=== PATIENT | female | born 1935 | race Caucasian/White ===

== ENCOUNTER → 2019-05-11 | Outpatient (CLI) | payer SELFPAY | PROVIDERS: Family Provider Physician Assistant; Visit Provider Podiatrist Foot & Ankle Surgery | DX: Z46.89 Encounter for fitting and adjustment of other specified devices (principal); M21.42 Flat foot [pes planus] (acquired), left foot; M21.41 Flat foot [pes planus] (acquired), right foot | CPT/HCPCS: L3030 ==

== ENCOUNTER 2019-06-24 05:58 | Day surgery (SDC) | payer MEDICARE, OTHER, SELFPAY ==
[2019-06-14 10:10] VITALS: BMI 39.8
--- NOTE | 2019-06-14 10:38 | ANES.PREANE2 ---
Pre-Anesthetic Assessment Pre-Anesthetic Assessment: Height/Weight: Height 1.63 m Weight 105.233 kg Preop Diagnosis: Right Shoulder Pain Proposed Procedure: Operation Date: 06/24/19 07:40 Proposed Procedures p Shoulder Arthroscopy with debridement [id number] M75.120(Right) - DO shawn Orona Bicep Tenodesis(Right) - DO shawn Orona Rotator Cuff Repair Open with dermal patch(Right) - DO shawn Orona Distal Clavicle Resection(Right) - DO shawn Orona Acromioplasty(Right) - Cristiano Rain DO Exam: Pre-Anes Outpt Exam: alert, oriented x 3 and clear to auscultation bilaterally Additional Exam Findings (including area of procedure): irreg, irreg Airway: Submandibular: WNL Cervical ROM: Other MP: 2 Dentition: Caps CV/HEM: CV/HEM: Afib, DVT and HTN Comments: rx'd 15 years s/p Watchman 04/28 Metabolic: Metabolic: Thyroid Comments: replacement x 20y without recent chang3 Musc/skel: Musc/skel: Lower Back Pain Comments: nonradiating PFSH Anesthesia PFSH: Social History (Updated 06/14/19 @ 10:14 by Rosalina Mckeon) Smoking and tobacco status: never smoked Alcohol intake: never Substance/Drug Use: never Data Anesthesia Cardiac Studies: No Data to Display
[2019-06-24] VITALS (9 sets, daily range): BP systolic 108–187; BP diastolic 66–112; PULSE 58–67; RESP 12–18; TEMP 36.1–36.5; O2SAT 93–100
[2019-06-24] MEDS: sodium chloride 0.9% 1,000 ML 30 ML IV (06:34)
[2019-06-24] MEDS: CELEcoxib 200 mg Capsule 400 MG PO (06:36)
--- NOTE | 2019-06-24 07:05 | PM.HPUD ---
H&P update H&P Update: DATE OF SURGERY/PROCEDURE: 06/24/19 DATE H&P PERFORMED: 06/03/19 PREOP DIAGNOSIS: right shoulder rotator cuff tear PLANNED PROCEDURE: Operation Date: 06/24/19 08:00 Proposed Procedures p Shoulder Arthroscopy with debridement [id number] M75.120(Right) - DO shawn Orona Bicep Tenodesis(Right) - DO shawn Orona Rotator Cuff Repair Open with dermal patch(Right) - Cristiano Rain DO s Distal Clavicle Resection(Right) - Cristiano Rain DO s Acromioplasty(Right) - Cristiano Rain DO Full H&P Medications/Allergies: Current Medications: Current Medications Generic Name Dose Route Start Last Admin Trade Name Freq PRN Reason Stop Dose Admin Sodium Chloride 1,000 mls @ 30 ml s/hr 06/24/19 06:15 06/24/19 06:34 Sodium Chloride 0.9% IV 06/25/19 06:14 30 mls/hr .Q24H MG Administration Perinent History: Social History: Social History Smoking and tobacco status: never smoked Alcohol intake: never Substance/Drug Use: never A&P Assessment and plan (1) Rotator cuff tear, right: Plan is to perform diagnostic arthroscopy of the right shoulder and then due to the patient's age perform open distal clavicle resection with acromioplasty and rotator cuff repair with patch to reinforce patient's inherently weak tissue due to her 84 years of age. Patient declined use of platelet rich plasma as she is a Taoism. Plan to be perform surgery on outpatient basis unless some clinical issues arise that would make it more prudent to keep her overnight for observation Status: Acute Code(s): M75.101 - Unspecified rotator cuff tear or rupture of right shoulder, not specified as traumatic
--- NOTE | 2019-06-24 07:08 | P.OP_ITS ---
Operative Report Date of procedure: June 24, 2019 Pre-op Diagnosis: right shoulder rotator cuff tear Post-op diagnosis: other Post-op Diagnosis: Right shoulder full-thickness nontraumatic rotator cuff tear right shoulder Acromioclavicular joint arthritis Chronic impingement Partial tearing of long head of biceps tendon due to chronic impingement Post-op Findings: mild fraying of the glenoid labrum Marked fraying approximately 50% of long head of biceps tendon Full-thickness areas of tearing of the supraspinatus tendon Acromioclavicular joint arthritis Procedure Done: Diagnostic arthroscopy of right shoulder with minimal debridement open distal clavicle resection open acromioplasty open rotator cuff repair augmented with acellular dermal patch open biceps tenodesis Implants: 4 Arthrex swivel lock anchors 1 Arthrex Bio-Tenodesis button Artroflex acellular human dermal patch Specimens removed/disposition: Portion of distal clavicle, Acromion Pathology: other Pathology: portion of distal clavicle Portions of acromion Portion of long head of biceps tendon Surgeon: Cristiano Rain Anesthesia: General and Nerve Block (right inter scalene) Estimated blood loss (mL): 25 Complications: no apparent complications Findings: see postoperative findings above Condition: stable Disposition: PACU Brief History: 84-year-old white female with chronic right shoulder pain. Examination suggestive of chronic impingement with rotator cuff tearing. X-rays and MRI show acromioclavicular joint arthritis. MRI also shows evidence of full-thickness tear of the rotator cuff specifically the supraspinatus tendon but no specific retraction. Due to persistent pain despite conservative treatment patient is brought to surgery for right shoulder rotator cuff repair. We discussed with the patient that due to the decreased strength of rotator cuff tissue based on age that a repair of her rotator cuff should include an acellular dermal patch to hopefully try to avoid re-tear of the rotator cuff. We discussed that if a biceps tenodesis would need to be performed based on intraoperative findings at arthroscopy that we would do so. Risks of surgery include aren't limited to infection, nerve/blood vessel/tendon injury. Medical complications can include blood clots, heart attack, stroke risk up to including . We discussed specifically risks of rotator cuff surgeries can include stiffness, possibility of re-tear and failure to relieve all pain. All patient's questions were answered she was agreeable to proceed with surgery. Procedure: patient identified. Surgical site was signed. Surgical permit was signed. Patient received an interscalene block of the right shoulder by the anesthesia team in the preoperative holding area for intraoperative and postoperative analgesia. She received 1.5 g of vancomycin intravenously due to a penicillin allergy for surgical prophylaxis. She was taken to the operating room. She was transferred to the operating room table. She was placed under general endotracheal anesthesia without difficulty. She was then positioned in the beachchair position. She was then sterilely prepped and draped usual fashion. A timeout was performed. Bony landmarks were outlined using a skin marking pen. Using #11 blade a posterior portal incision was made through the skin. The arthroscope sheath with the blunt tipped obturator was inserted into the glenohumeral joint. The shoulder joint was then distended using the arthroscopic pump using sterile saline and dilute epinephrine solution. Using a switching stick we tented the skin anteriorly and with #15 blade made a small skin incision and then introduced an Arthrex 7 mm clear cannula and to the anterior aspect of the joint. Using a motorized shaver we cleared bloody fluid from the shoulder joint. We then encountered fraying of the glenoid labrum this was debrided using motorized shaver. We noted a partially 50% thickness tear of the long head of biceps tendon approximately 1-1/2-2 cm from its insertion on the glenoid labrum. Using the motorized shaver were able to divide the long head of the biceps tendon and debride the insertion on the superior aspect of the glenoid labrum. No significant arthritic change of the glenoid or humeral head was appreciated. We can see that the patient had to full-thickness tearing of the rotator cuff but the tear was not retracted. We now began the open portion of the surgical procedure. A 10 cm incision was made from the posterior aspect of the acromial clavicular joint coursing obliquely over the anterolateral aspect of the acromion and into the upper arm. Full-thickness skin flaps were made and skin edge bleeders were treated with electrocautery. Self retractors placed in the wound. We now using the electrocautery made full-thickness skin flaps over the distal clavicle and the acromion exposing underlying before meals joint which proved to be very arthritic. We continued our dissection to the anterolateral aspect of the acromion and then split the superior aspect of the deltoid in line with its fibers. Using a small saw we resected the distal 68 mm of the clavicle and anterior 5 mm of the acromion. With further thin the acromion using an osteotome. Portions of the acromion and distal clavicle resected for pathologic exam. Self-retaining retractors now placed more deeply in the wound. Bursectomy was performed with scissors. Expose the underlying rotator cuff. There are several longitudinal tears in the supraspinatus tendon with a central portion that was still intact through one of the tears and rotator cuff because the supervise tendon identified the long head of the biceps tendon just as it began to enter the bicipital groove. We opened the tissue over the bicipital groove. Retraction of the long head of the biceps tendon. A traction stitch using FiberWire was placed in the long head of biceps tendon extra portion of the long head of biceps tendon was debrided sharply cemented for [place] pathology. Within the bicipital groove we drilled a pilot safety inspector hole using his pain tipped drill then placed the grasping suture ends that had been placed along the biceps tendon through the Arthrex Bio-Tenodesis button and then untwisted and the drill hole in the bicipital groove and traction the tendon into the bicipital groove. Using a free needle I sutured the soft tissue we had divided previously over the top of the long head of the biceps tendon now tenodesed in the bicipital groove. We tied over this area using the permanent suture whipstitch and cut the knot. Using interrupted sutures to make margin convergence sutures of the longitudinal rents in the supraspinatus tendon. No to better expose the footprint of the supraspinous tendon I detached contact portions of the supraspinatus tendon to expose the normal footprint of the supraspinous tendon. 2 swivel lock anchors were placed medially and there sutures placed through the rotator cuff as well as the fiber tape. 2 anchors were placed laterally and this made our double row construct and the rotator cuff was repaired down to bone. I used the sutures from the swivel lock anchors to suture the Arthrex acellular dermal patch over the top of her rotator cuff repair to further reimplant force the repair. I believe this to be instrumental in this case is the patient's rotator cuff tissue was frankly very friable. Once the patch was sutured into position with #2 FiberWire from our for anchors as well as excess suture over the bicipital groove we now did a running suture of 3-0 Prolene about the periphery of the acellular dermal patch to appropriately tenths the patch to prevent impingement on the undersurface of the acromion and distal clavicle. The wound is now irrigated with Betadine- containing saline solution and antibiotic containing saline solution. The deltoid was repaired back to the acromion by passing a #2 FiberWire sutures through the acromion and reattach the deltoid down to the acromion. The deltotrapezial split over the very distal clavicle excision was closed with a running suture of #254. We also close the split in the proximal aspect of the deltoid between the anterior middle bellies using #2 FiberWire sutures. Subcutaneous closures and performed using O and 2-0 undyed Vicryl followed by 3- 0 Monocryl in a subcuticular suture. 2-0 Vicryl sutures were placed in the subcutis tissues to close the anterior posterior portals as well as a running septic or suture of 3-0 Monocryl for the anterior portal site. Dermabond and Steri-Strips were then used to close the skin. Sterile dressings were applied. The patient was placed in UltraSling with an abduction wedge. She was aroused from general anesthesia. She was taken to recovery room. She tolerated surgery well. All counts are correct.
[2019-06-24] MEDS: fentaNYL 50 mcg/mL INJ 2mL 100 MCG IVP (07:27)
[2019-06-24] MEDS: midazolam 1 mg/mL INJ 5 ML 5 MG IVP (07:28)
--- NOTE | 2019-06-24 07:29 | ANES.PROC ---
Anesthesia Procedures Procedure/Date: 06/24/19 Right innerscalene block Procedure Narrative: R&B's of right innerscalene block disc'd. Verbal and written consent obtained. Versed 2+1mg, Fentanyl 50ug. US utilized to identify right innerscalene groove, HAIR. Nerve stimulator at 0.8 mAMPS. 30cc total volume Ropvicaine 0.5% + Lido 2% with epi 3:1 mixture in 5cc increments without problems/complications Nerve Block ^: Nerve Block 1: Main Anesthesia: general anesthesia Time Out Performed: Yes Consent: requested by attending/covering physician, from patient, risks and benefits reviewed and patient agrees to proceed Nerve block location: interscalene Anesthesia monitors applied: pulse oximetry and oxygen Nerve block position: supine Anesthetic Used: lidocaine 2%, ropivicaine 0.5% and with epi Amount of anesthesia used (mL): 30 Ultrasound used to: visualize and ID interscalene groove Nerve Stimulator Used?: Yes Interscalene/Femoral BLK: 2 stimuplex 22 g needle used for position and inplane approach and no vascular puncture identified Injection: neg aspiration of heme Patient Tolerated Procedure: well and no complications Complications: none
[2019-06-24] MEDS: EPINEPHrine 1 mg/mL INJ XX ×2 (08:25→08:26)
--- NOTE | 2019-06-24 10:19 | SUR.PHASEI ---
1017 PATIENT TO PACU AT THIS TIME. ALERT TO SELF, RR EVEN AND UNLABORED. SPO2 92% ON ROOM AIR. PLACED ON NC AT 3L. DRESSING TO RIGHT SHOULDER, CDI, WITH SLING IN PLACE. CAP REFILL LESS THAN 3 SECONDS. RADIAL PULSE PRESENT AND STRONG.
--- NOTE | 2019-06-24 10:48 | SUR.PHASEI ---
1042 PATIENT TO OPS VIA [employer] AT THIS TIME. DENIES PAIN. DRESSING INTACT TO RIGHT SHOULDER, ULTRASLING IN PLACE. RADIAL PULSE PRESENT.
--- NOTE | 2019-06-24 12:16 | SUR.PHASEII ---
VERBAL REPORT GIVEN TO GOVIND AT [facility]. WRITTEN DISCHARGE INSTRUCTIONS AND SCRIPTS SENT WITH DAUGHTER TO GIVE TO GOVIND AT [facility].
== END 2019-06-24 12:10 | disposition home or self-care (01) ==
PROVIDERS: Family Provider Physician Assistant; PCP Physician Assistant; Visit Provider Orthopaedic Surgery
PROC: (CPT 29805; principal; 2019-06-24 07:00)
PROC: (CPT 23430; 2019-06-24 07:00)
PROC: (CPT 23120; 2019-06-24 07:00)
PROC: (CPT 23120; 2019-06-24 07:00)
PROC: (CPT 23130; 2019-06-24 07:00)
DX: M75.101 Unspecified rotator cuff tear or rupture of right shoulder, not specified as traumatic (principal); M13.811 Other specified arthritis, right shoulder; I48.91 Unspecified atrial fibrillation; Z86.718 Personal history of other venous thrombosis and embolism; I10 Essential (primary) hypertension; Z79.82 Long term (current) use of aspirin
CPT/HCPCS: 23120; 23420; 23430; 29822; 12345; 88304; 88307; 96365; 96374; 96375; C1713; J0131; J0171; J1580; J2001; J2250; J2704; J2795; J3010; J3370; J3490; J7030; J7050

== ENCOUNTER 2019-11-09 09:21 | Outpatient (CLI) | payer MEDICARE, OTHER, SELFPAY ==
--- NOTE | 2019-11-09 10:16 | CT_ITS ---
WS: [id number] CT ABDOMEN AND PELVIS NONCONTRAST HISTORY: ABD PAIN, DIARRHEA TECHNIQUE: Imaging performed through the abdomen and pelvis. Coronal and sagittal reformats are submi tted. All CT scans at [facility] use at least one of these dose optimization techniques: automated exposure control; mA and/or kV adjustment per patient size (includes targeted exams where d ose is matched to clinical indication); or iterative reconstruction. DLP: 1073.64 mGycm COMPARISON: 04/15/2019 07/15/2018 Lower thorax: Lung bases are clear. Mild cardiomegaly and small hiatal hernia. Liver: Normal, no mass or intrahepatic dilatation. Gallbladder: Prior cholecystectomy. Pancreas: Normal for age with fatty replacement. Spleen: Normal. Adrenal glands: Normal. Right kidney: Normal size with no stones, masses or atrophy. Left kidney: Normal size with no stones, mass or atrophy. Mild atherosclerosis with no aneurysm. No free fluid, intraperitoneal air or significant lymphadenopathy. GI tract: Prior appendectomy. No GI tract obstruction. There is some very minimal wall thickening in the ascending colon. No significant diverticular disease. No wall thickening. No edema. Abdominal wall: Moderate-sized fat-containing umbilical hernia. Pelvis: No free fluid or adenopathy. Normally distended urinary bladder. Osseous structures: L4 anterolisthesis by 5 mm. Multilevel advanced degenerative disc space narrowing and desiccation. CT/CT abdomen pelvis wo con [id number] IMPRESSION: 1. Very minimal wall thickening in the region of the ascending colon. Not caus ing a significant obstruction. Cannot evaluate further without IV contrast or o ral contrast. If recent colonoscopy has not been performed this should be obtai arlen to exclude neoplasm. 2. No adenopathy or ascites. 3. Prior cholecystectomy. 4. Fat-containing umbilical hernia.
== END 2019-11-09 09:22 | disposition home or self-care (01) ==
LOC: RADWPI 09:27
PROVIDERS: Family Provider Physician Assistant; PCP Physician Assistant; Visit Provider Physician Assistant
DX: R10.9 Unspecified abdominal pain (principal); R19.7 Diarrhea, unspecified; K42.9 Umbilical hernia without obstruction or gangrene
CPT/HCPCS: 74176

== ENCOUNTER 2019-12-23 11:01 | Outpatient (CLI) | payer MEDICARE, OTHER, SELFPAY ==
--- NOTE | 2019-12-23 11:03 | MR_ITS ---
WS: [id number] MRI LUMBAR SPINE NONCONTRAST TECHNIQUE: Sagittal T1, T2 and STIR imaging. Axial T1 and T2 imaging. CLINICAL INFORMATION: LUMBAR REGION RADICULOPATHY COMPARISON: Mild atheromatous disease right carotid bulb. FINDINGS: Mild lumbar curve. No acute compression. Grade 1 anterolisthesis L4 on L5. Disc space narrowing worse L5-S1. Mild disc bulging L1-L2, L2-L3 and L3-L4. L1-L2: Mild disc bulging with slight effacement of ventral thecal sac. Moderate facet arthropathy. Mi ld ligament flavum hypertrophy. Narrowing of the subarticular recess bilaterally. Mild to moderate bi lateral foraminal narrowing. L2-L3: Mild disc bulging with osteophytic ridging. Narrowing of the subarticular recess bilaterally. Mild central canal stenosis. Mild bilateral foraminal narrowing right greater than left. L3-L4: Mild disc bulging with a tiny left pericentral protrusion. Mild central canal stenosis with sl ight impingement on the left subarticular recess. Mild bilateral foraminal narrowing. L4-L5: Mild disc bulging with osteophytic ridging. Impingement on the traversing L5 nerve roots bilat erally with narrowing of the subarticular recess. Advanced facet arthropathy with ligament flavum hyp ertrophy. Small facet effusions. Grade 1 anterolisthesis. Moderate left and mild right foraminal narr owing. L5-S1: Mild disc bulging and osteophytic ridging. Mild disc space narrowing. Foramen are patent. Mild facet arthropathy. Tiny central shallow protrusion. Prior postoperative changes in the cervical spine with anterior cervical fusion C5-C6. Moderate thora cic kyphosis on the sustainable systems analyst imaging. Visualized pelvic bony structures: Normal. Paravertebral soft tissues: Normal. MR/MR lumbar spine wo con* [id number] IMPRESSION: 1. Mild lumbar curve. No acute compression. Grade 1 anterolisthesis L4 on L5 u nchanged since . 2. Mild central canal stenosis L1-2, L2-L3, and L3-L4 with impingement on the subarticular recess. 3. Moderate central canal stenosis L4-5 with impingement traversing L5 nerve r oots bilaterally. Advanced facet arthropathy with small facet effusions. 4. Mild to moderate bony foraminal narrowing worse at right L3-4 and left L4-5 . Impingement on the exiting left L4 nerve root.
== END 2019-12-23 11:02 | disposition home or self-care (01) ==
LOC: RADSHAW 11:02
PROVIDERS: PCP Physician Assistant; Visit Provider Internal Medicine Rheumatology
DX: M54.16 Radiculopathy, lumbar region (principal); I65.21 Occlusion and stenosis of right carotid artery; M48.061 Spinal stenosis, lumbar region without neurogenic claudication; M47.816 Spondylosis without myelopathy or radiculopathy, lumbar region; G03.9 Meningitis, unspecified
CPT/HCPCS: 72148

== ENCOUNTER → 2020-01-11 09:16 | Outpatient (BNVA) | payer MEDICARE, OTHER, SELFPAY | PROVIDERS: PCP Physician Assistant; Visit Provider Internal Medicine | DX: Z01.812 Encounter for preprocedural laboratory examination (principal) | CPT/HCPCS: 87635 ==

== ENCOUNTER 2020-01-13 05:45 | Day surgery (SDC) | payer MEDICARE, OTHER, SELFPAY ==
[2020-01-11 11:38] VITALS: BMI 39.0
[2020-01-13 06:13] VITALS: BP 153/93; PULSE 64; RESP 18; TEMP 36.4; O2SAT 94; BMI 39.2
--- NOTE | 2020-01-13 06:36 | W.PM.OPSUD ---
Surgery/Procedure H&P Update DATE OF PROCEDURE: January 13, 2020 DATE H&P PERFORMED: 01/04/20 H&P UPDATE INFORMATION: No changes to prior documentation PREOP DIAGNOSIS: right shoulder rotator cuff tear PLANNED PROCEDURE: Operation Date: 01/13/20 07:00 Proposed Procedures p EGD/colon(Not Applicable) - Geoff Riddle MD s Colonoscopy(Not Applicable) - Geoff Riddle MD
[2020-01-13] MEDS: sodium chloride 0.9% 1,000 ML 30 ML IV (06:41)
--- NOTE | 2020-01-13 06:42 | ANES.PREANE2 ---
Pre-Anesthetic Assessment Pre-Anesthetic Assessment: Height/Weight: Height 1.68 m Weight 110.223 kg Temp Pulse Resp BP Pulse Ox 97.5 F L 64 18 153/93 94 01/13/20 06:13 01/13/20 06:13 01/13/20 06:13 01/13/20 06:13 01/13/20 06:13 Preop Diagnosis: epigastric pain Proposed Procedure: Operation Date: 01/13/20 07:00 Proposed Procedures p EGD/colon(Not Applicable) - Geoff Riddle MD s Colonoscopy(Not Applicable) - Geoff Riddle MD Was Beta Dinesh taken within 24 hours: Yes Last intake: Intake Last Liquid Date 01/13/20 Last Liquid Time 00:00 Last Solid Date 01/11/20 Social: Social History: No alcohol and No tobacco Exam: Pre-Anes Outpt Exam: alert, oriented x 3, clear to auscultation bilaterally and regular rate & rhythm Airway: Submandibular: WNL Cervical ROM: WNL MP: 3 Dentition: Full History/ROS: No significant history except as noted and No significant complaints Pulmonary: Pulmonary: None reported CV/HEM: CV/HEM: Afib and HTN Comments: denies cp/angina : : None reported Hepatic: Hepatic: None reported GI: GI: GERD Metabolic: Metabolic: Hyperlipidemia, Morbid obesity and Thyroid (hypo) Musc/skel: Musc/skel: OA/DJD and Weakness Comments: parkinsons Neuropsych: Neuropsych: None reported Anesthetic Plan: ASA status: 3 Anesthesia: MAC Meds/Allergies Current Medications: Current Medications Generic Name Dose Route Start Last Admin Trade Name Freq PRN Reason Stop Dose Admin Sodium Chloride 1,000 mls @ 30 ml s/hr 01/13/20 06:15 01/13/20 06:41 Sodium Chloride 0.9% IV 01/14/20 06:14 30 mls/hr .Q24H MG Administration PFSH Anesthesia PFSH: Medical History Arthritis Hx of deep venous thrombosis Hx of pulmonary embolus Hx of vaginal delivery Hyperlipemia Hypothyroid Rheumatoid arthritis Rotator cuff tear, right Surgical History History of shoulder surgery Diagnostic arthroscopy of right shoulder with minimal debridement, open distal clavicle resection, open acromioplasty, open rotator cuff repair augmented with acellular dermal patch, open biceps tenodesis. DOS: 06/24/[address] Rain Hx of Achilles tendon repair Hx of appendectomy Hx of arthroscopy of shoulder Hx of heart surgery Hx of laminectomy Hx of tubal ligation Social History Smoking and tobacco status: never smoked Alcohol intake: never Data Anesthesia Cardiac Studies: No Data to Display
[2020-01-13 07:21] VITALS: BP 146/100; PULSE 58; RESP 16; TEMP 36.6; O2SAT 100
[2020-01-13 07:29] VITALS: BP 160/80; PULSE 59; RESP 18; O2SAT 99
--- NOTE | 2020-01-13 07:33 | ANE.PACU2 ---
Inpatient post-anesthesia follow up: Airway intact: Yes Vital signs: Temperature 97.8 F Pulse Rate 59 Respiratory Rate 18 Blood Pressure 160/80 Pulse Oximetry 99 Oxygen Delivery Me thod Room Air Oxygen Flow Rate 4 Fraction of Inspir ed Oxygen Hydration adequate: Yes Nausea and vomiting: No Mental status: Baseline
[2020-01-14 06:48] LABS: H. Pylori / CLO Test Negative
== END 2020-01-13 07:49 | disposition home or self-care (01) ==
PROVIDERS: PCP Physician Assistant; Visit Provider Surgery
PROC: 0DJ08ZZ Inspection of Upper Intestinal Tract, Via Natural or Artificial Opening Endoscopic (ICD-10-PCS; CPT 43235; principal; 2020-01-13 07:00)
PROC: 0DJD8ZZ Inspection of Lower Intestinal Tract, Via Natural or Artificial Opening Endoscopic (ICD-10-PCS; CPT 45378; 2020-01-13 07:00)
DX: K29.70 Gastritis, unspecified, without bleeding (principal); K57.30 Diverticulosis of large intestine without perforation or abscess without bleeding; K64.8 Other hemorrhoids; K21.9 Gastro-esophageal reflux disease without esophagitis; I48.91 Unspecified atrial fibrillation; I10 Essential (primary) hypertension; E78.5 Hyperlipidemia, unspecified; E66.01 Morbid (severe) obesity due to excess calories; E03.9 Hypothyroidism, unspecified; G20 Parkinson's disease; M19.90 Unspecified osteoarthritis, unspecified site; Z86.73 Personal history of transient ischemic attack (TIA), and cerebral infarction without residual deficits; Z86.711 Personal history of pulmonary embolism; M06.9 Rheumatoid arthritis, unspecified
CPT/HCPCS: 12345; 43239; 45378; 87077; J2704; J7030

== ENCOUNTER 2020-03-12 12:52 | Emergency (ER) | payer MEDICARE, OTHER, SELFPAY ==
[2020-03-12] VITALS (9 sets, daily range): BP systolic 92–181; BP diastolic 65–103; PULSE 63–140; RESP 14–30; TEMP 37.7; O2SAT 90–100; BMI 40.6
--- NOTE | 2020-03-12 13:28 | XRR_ITS ---
PROCEDURE INFORMATION: Exam: XR Chest, 1 View Exam date and time: 03/12/2020 1:40 PM Age: 84 years old Clinical indication: Cough TECHNIQUE: Imaging protocol: XR of the chest Views: 1 view. COMPARISON: CR Chest 1 [place] [id number] 02/12/2017 10:34 PM FINDINGS: Lungs: The lungs are hyperinflated with mild interstitial prominence compatible probable mild fibrosis. There is some linear atelectasis versus scarring in both lungs. There is no lobar consolidation. Pulmonary vascularity is within normal limits. There is some mild hazy density in the lung bases similar to the prior exam most of which is probable overlying soft tissues without definite pneumonitis. Pleural space: Unremarkable. No pleural effusion. No pneumothorax. Heart/Mediastinum: The heart is enlarged. Bones/joints: No acute abnormality. XR/XR chest 1V portable [id number] IMPRESSION: Chronic findings as above. No active pulmonary disease.
--- NOTE | 2020-03-12 13:29 | ECG_ITS ---
[facility] Test Date: 2020-03-12 Pat Name: Kassie Robles Department: Room: Gender: Female Intranet Developer: STANLEY : 1935 Requested By: Cierra Soliman Order Number: [id number] Reading MD: MEDHAT VELAZQUEZ Measurements Intervals [place]eland Rate: 143 P: CA: -1 QRS: 21 QRSD: 105 T: 15 QT: 264 QTc: 408 Interpretive Statements ATRIAL FIBRILLATION WITH RAPID VENTRICULAR RESPONSE NONSPECIFIC ST & T-WAVE ABNORMALITY ABNORMAL RHYTHM ECG Compared to ECG 08/07/2016 16:01:53 T-wave abnormality now present ST (T wave) deviation no longer present Electronically Signed On 03-12-2020 19:35:25 BENEFIT SPECIALIST by MEDHAT VELAZQUEZ [email or web address]
[2020-03-12 14:17] LABS: Basophils # 0.1 10^3/uL (0.0-0.1); Basophils % 1.5 %; Eosinophils # 0.1 10^3/uL (0.0-0.8); Eosinophils % 1.2 %; Hematocrit 40.5 % (37.0-47.0); Hemoglobin 13.3 g/dL (11.5-15.3); Lymphocytes # 1.1 10^3/uL (0.8-4.8); Lymphocytes % 21.8 %; Mean Corpuscular HGB Conc 32.8 g/dL (30.0-36.0); Mean Corpuscular Hemoglobin 35.7 pg (28.0-34.0); Mean Corpuscular Volume 108.6 fL (81-99); Mean Platelet Volume 12.3 fL (7.4-10.4); Monocytes # 0.9 10^3/uL (0.2-0.9); Monocytes % 17.7 %; Neutrophils # 2.77 10^3/uL (1.8-7.7); Neutrophils % 57.6 %; Nucleated Red Blood Cells % 0 %; Platelet Count 191 10^3/cmm (130-400); Red Blood Count 3.73 10^6/uL (4.1-5.3); Red Cell Distribution Width 13.9 % (12.1-15.1); White Blood Count 4.8 10^3/uL (4.0-10.0)
[2020-03-12] MEDS: sodium chloride 0.9% 1,000 ML 150 ML IV (14:20)
[2020-03-12 14:29] LABS: INR 0.98 (0.8-1.2)
[2020-03-12 14:31] LABS: Fibrinogen 483 mg/dL (174-498)
--- NOTE | 2020-03-12 14:40 | ED_ITS ---
HPI - COVID General: Chief Complaint: COVID symptoms Stated Complaint: COUGH, SD RECENTLY RELEASED FROM RETIREMENT Time Seen by Provider: 03/12/20 13:57 Triage information: Has fever, cough or shortness of breath . Exposure to COVID + person last 14 days History of Present Illness: HPI Narrative: This patient is a 84-year-old female who presents to the emergency room today with shortness of breath. She has had a cough which is unproductive. She feels very short of breath. This morning she was so weak that her daughter could not get her up out of bed by herself. The patient says that she has not been around anyone other than her daughter and family members. She was at [facility] until February 21 at which time she was discharged to go home and live with her daughter. She had a negative Covid test at that time per her report. She also had a negative Covid test on 10 January. She is having some nausea. She has a low-grade fever here. She had some chills at home. COVID 19 common symptoms: positive fever(s), chills, non-productive cough, dyspnea and fatigue; negative productive cough, headache(s), nausea or vomiting COVID 19 other sytmptoms: negative chest pain COVID Results: SARS-CoV-2 Antigen (Rapid) Positive (Negative) H 03/12/20 14:39 03/12/20 Nasal/Oral Coronavirus 2019 PCR Negative 01/11/20 09:16 01/11/20 Review of Systems General: Reports: 10 or more systems reviewed and unremarkable except in HPI and below Const: Reports: fever(s), chills, fatigue and malaise Eyes: Denies: change in vision ENMT: Denies: odynophagia Card: Reports: palpitations, irregular heart rhythm and swelling of feet/ankles; Denies: chest pain Resp: Reports: dyspnea and non-productive cough; Denies: productive cough GI: Denies: abdominal pain, nausea or vomiting : Denies: flank pain or difficulty voiding Musc: Denies: neck pain or back pain Skin/Breast: Denies: rash Neuro: Reports: weakness in extremities (Generalized) and difficulty walking; Denies: headache(s) or numbness in extremities Daniel/Lymph: Denies: easy bruising or easy bleeding PFSH ED PFSH: Medical History Arthritis Hx of deep venous thrombosis Hx of pulmonary embolus Hx of vaginal delivery Hyperlipemia Hypothyroid Rheumatoid arthritis Rotator cuff tear, right Surgical History History of shoulder surgery Diagnostic arthroscopy of right shoulder with minimal debridement, open distal clavicle resection, open acromioplasty, open rotator cuff repair augmented with acellular dermal patch, open biceps tenodesis. DOS: 06/24/[address] Rain Hx of Achilles tendon repair Hx of appendectomy Hx of arthroscopy of shoulder Hx of heart surgery Hx of laminectomy Hx of tubal ligation Social History Smoking and tobacco status: never smoked Alcohol intake: never Physical Exam Const: COMMON NORMALS: no acute distress, patient oriented x3, no limitations and alert GENERAL APPEARANCE: cooperative and comfortable HENMT: HEAD & SCALP: normal to inspection FACE & SINUS: normal facial exam Eye: GENERAL EYE: appearance normal, both eyes and all related structures Neck/C-Spine: COMMON NORMALS: supple, no meningeal signs and no JVD Chest: COMMONS NORMALS: normal inspection of the chest Resp: COMMON NORMALS: normal respiratory effort, No use of accessory muscles and clear to auscultation bilaterally AUSCULTATION: clear to auscultation bilaterally Cardio: COMMON NORMALS: no JVD and No murmurs present (Cardio) RATE: tachycardic RHYTHM: abnormal rhythm irregularly irregular GI: COMMON NORMALS: Normal to inspection, nondistended, normoactive bowel sounds present, Soft to palpation and non-tender INSPECTION: Yes normal to inspection AUSCULTATION: Yes normoactive bowel sounds PALPATION: Yes Soft to palpation Back/Pelvis: COMMON NORMALS: thoracic and lumbar spine normal to inspection Extremity: COMMON NORMALS: normal to inspection Neuro: COMMON NORMALS: patient oriented x3, moves all extremities, no focal motor deficits and no sensory deficits noted SENSORIUM/ORIENTATION: Yes alert MENINGEAL SIGNS: Yes no meningeal signs Psych: COMMON NORMALS: mental status grossly normal, cooperative and normal affect Skin: COMMON NORMALS: no rashes or lesions noted and turgor normal GENERAL SKIN EXAM: no rashes or lesions noted and turgor normal Course ED course: The patient was stable throughout her ED. Without intervention her heart rate went from A. fib in the 140s down to the 70s. She then went down into the 50s and 60s with what appeared to be a second-degree AV block. She has intermittently had these 3 rhythms interchangeably. Her blood pressure has improved after fluids though. Sats are in the high 90s on a couple liters of oxygen. She was positive for Covid. Should her D-dimer is elevated she has a history of PEs. CT scan was done which showed no PE but does show some Covid pneumonia. She otherwise had a fairly unremarkable work-up. Her inflammatory markers were slightly elevated. Her BNP was 3254. She has a history of SVT but I do not see that she is ever had A. fib in the past. She agreed to admission to the hospital but unfortunately we did not have any beds here. [facility] also do not have beds. We tried multiple other facilities and the only one who was able to accommodate her was [facility] in [place]. I spoke with Dr. Patrick there who accepted her for transfer. Vital Signs: Vital signs: Vital Signs Temperature 99.9 F H 03/12/20 13:22 Pulse Rate 91 03/12/20 13:22 Respiratory Rate 14 03/12/20 13:22 Blood Pressure 92/65 03/12/20 13:22 Pulse Oximetry 90 03/12/20 15:06 MDM - COVID Lab Data Result diagrams: 03/12/20 14:00 03/12/20 14:00 Labs: Lab Results 03/12/20 03/12/20 03/12/20 Range/Units 14:00 14:00 14:00 WBC 4.8 (4.0-10.0) 10^3/uL RBC 3.73 L (4.1-5.3) 10^6/uL Hgb 13.3 (11.5-15.3) g/dL Hct 40.5 (37.0-47.0) % MCV 108.6 H (81-99) fL MCH 35.7 H (28.0-34.0) pg MCHC 32.8 (30.0-36.0) g/dL RDW 13.9 (12.1-15.1) % Plt Count 191 (130-400) 10^3/cmm MPV 12.3 H (7.4-10.4) fL Neut % (Auto) 57.6 % Lymph % (Auto) 21.8 % Lewis % (Auto) 17.7 % Eos % (Auto) 1.2 % Baso % (Auto) 1.5 % Neut # (Auto) 2.77 (1.8-7.7) 10^3/uL Lymph # (Auto) 1.1 (0.8-4.8) 10^3/uL Lewis # (Auto) 0.9 (0.2-0.9) 10^3/uL Eos # (Auto) 0.1 (0.0-0.8) 10^3/uL Baso # (Auto) 0.1 (0.0-0.1) 10^3/uL Nucleated RBC % (auto) 0 % Nucleated RBCs # 0.0 /100WBC PT 13.30 (12.1-14.9) SECONDS INR 0.98 (0.8-1.2) Fibrinogen 483 (174-498) mg/dL D-Dimer 2.60 H (0-0.59) ug/mIFEU Sodium 138 (136-145) mmol/L Potassium 4.6 (3.5-5.1) mmol/L Chloride 98 (98-107) mmol/L Carbon Dioxide 24 (22-29) mmol/L Anion Gap 20.6 H (5-19) BUN 18 (8-23) mg/dL Creatinine 1.0 H (0.5-0.9) mg/dL GFR Calculation Not Reportable Glucose 168 H (65-115) mg/dL Calculated Osmolality 292 (285-295) mOsm/kg Lactic Acid (0.5-2.2) mmol/L Lactic Acid (Sepsis) (0.5-2.2) mmol/L Calcium 8.8 (8.5-10.5) mg/dL Total Bilirubin 0.3 (0.15-1.2) mg/dL AST 34 H (0-32) U/L ALT 5 (0-33) U/L Alkaline Phosphatase 125 H (35-105) IU/L Lactate Dehydrogenase 268 H (135-214) U/L Troponin T Baseline (0-10) ng/L Troponin T 120 Minute (0-10) ng/L Delta Troponin T (0-10) ABS# C-Reactive Protein 61.5 H (0.0-4.9) mg/L NT-Pro-B Natriuret Pep 3254 H (0-450) pg/mL Total Protein 6.5 L (6.6-8.7) g/dL Albumin 4.0 (3.5-5.2) g/dL Globulin 2.5 (1.3-4.6) g/dL Procalcitonin 0.07 (0-0.5) ng/mL Influenza Type A Ag (Negative) Influenza Type B Ag (Negative) SARS-CoV-2 Ag (Rapid) (Negative) 03/12/20 03/12/20 03/12/20 Range/Units 14:00 14:00 14:39 WBC (4.0-10.0) 10^3/uL RBC (4.1-5.3) 10^6/uL Hgb (11.5-15.3) g/dL Hct (37.0-47.0) % MCV (81-99) fL MCH (28.0-34.0) pg MCHC (30.0-36.0) g/dL RDW (12.1-15.1) % Plt Count (130-400) 10^3/cmm MPV (7.4-10.4) fL Neut % (Auto) % Lymph % (Auto) % Lewis % (Auto) % Eos % (Auto) % Baso % (Auto) % Neut # (Auto) (1.8-7.7) 10^3/uL Lymph # (Auto) (0.8-4.8) 10^3/uL Lewis # (Auto) (0.2-0.9) 10^3/uL Eos # (Auto) (0.0-0.8) 10^3/uL Baso # (Auto) (0.0-0.1) 10^3/uL Nucleated RBC % (auto) % Nucleated RBCs # /100WBC PT (12.1-14.9) SECONDS INR (0.8-1.2) Fibrinogen (174-498) mg/dL D-Dimer (0-0.59) ug/mIFEU Sodium (136-145) mmol/L Potassium (3.5-5.1) mmol/L Chloride (98-107) mmol/L Carbon Dioxide (22-29) mmol/L Anion Gap (5-19) BUN (8-23) mg/dL Creatinine (0.5-0.9) mg/dL GFR Calculation Glucose (65-115) mg/dL Calculated Osmolality (285-295) mOsm/kg Lactic Acid 2.5 H (0.5-2.2) mmol/L Lactic Acid (Sepsis) (0.5-2.2) mmol/L Calcium (8.5-10.5) mg/dL Total Bilirubin (0.15-1.2) mg/dL AST (0-32) U/L ALT (0-33) U/L Alkaline Phosphatase (35-105) IU/L Lactate Dehydrogenase (135-214) U/L Troponin T Baseline 20 H (0-10) ng/L Troponin T 120 Minute (0-10) ng/L Delta Troponin T (0-10) ABS# C-Reactive Protein (0.0-4.9) mg/L NT-Pro-B Natriuret Pep (0-450) pg/mL Total Protein (6.6-8.7) g/dL Albumin (3.5-5.2) g/dL Globulin (1.3-4.6) g/dL Procalcitonin (0-0.5) ng/mL Influenza Type A Ag Negative (Negative) Influenza Type B Ag Negative (Negative) SARS-CoV-2 Ag (Rapid) (Negative) 03/12/20 03/12/20 03/12/20 Range/Units 14:39 16:00 17:03 WBC (4.0-10.0) 10^3/uL RBC (4.1-5.3) 10^6/uL Hgb (11.5-15.3) g/dL Hct (37.0-47.0) % MCV (81-99) fL MCH (28.0-34.0) pg MCHC (30.0-36.0) g/dL RDW (12.1-15.1) % Plt Count (130-400) 10^3/cmm MPV (7.4-10.4) fL Neut % (Auto) % Lymph % (Auto) % Lewis % (Auto) % Eos % (Auto) % Baso % (Auto) % Neut # (Auto) (1.8-7.7) 10^3/uL Lymph # (Auto) (0.8-4.8) 10^3/uL Lewis # (Auto) (0.2-0.9) 10^3/uL Eos # (Auto) (0.0-0.8) 10^3/uL Baso # (Auto) (0.0-0.1) 10^3/uL Nucleated RBC % (auto) % Nucleated RBCs # /100WBC PT (12.1-14.9) SECONDS INR (0.8-1.2) Fibrinogen (174-498) mg/dL D-Dimer (0-0.59) ug/mIFEU Sodium (136-145) mmol/L Potassium (3.5-5.1) mmol/L Chloride (98-107) mmol/L Carbon Dioxide (22-29) mmol/L Anion Gap (5-19) BUN (8-23) mg/dL Creatinine (0.5-0.9) mg/dL GFR Calculation Glucose (65-115) mg/dL Calculated Osmolality (285-295) mOsm/kg Lactic Acid (0.5-2.2) mmol/L Lactic Acid (Sepsis) 1.0 (0.5-2.2) mmol/L Calcium (8.5-10.5) mg/dL Total Bilirubin (0.15-1.2) mg/dL AST (0-32) U/L ALT (0-33) U/L Alkaline Phosphatase (35-105) IU/L Lactate Dehydrogenase (135-214) U/L Troponin T Baseline (0-10) ng/L Troponin T 120 Minute 23.49 H (0-10) ng/L Delta Troponin T 3.49 (0-10) ABS# C-Reactive Protein (0.0-4.9) mg/L NT-Pro-B Natriuret Pep (0-450) pg/mL Total Protein (6.6-8.7) g/dL Albumin (3.5-5.2) g/dL Globulin (1.3-4.6) g/dL Procalcitonin (0-0.5) ng/mL Influenza Type A Ag (Negative) Influenza Type B Ag (Negative) SARS-CoV-2 Ag (Rapid) Positive H (Negative) COVID Results: SARS-CoV-2 Antigen (Rapid) Positive (Negative) H 03/12/20 14:39 03/12/20 Nasal/Oral Coronavirus 2019 PCR Negative 01/11/20 09:16 01/11/20 Discharge Plan Discharge Condition: Good Prescriptions: No Action furosemide [Lasix] 40 mg Tablet 60 mg PO DAILY RF: 0 atorvastatin 80 mg Tablet 80 mg PO DAILY RF: 0 loperamide [Imodium A-D] 2 mg Capsule 2 mg PO QID PRN (Reason: Diarrhea) RF: 0 metoprolol tartrate 100 mg Tablet 150 mg PO BID RF: 0 tizanidine 4 mg Tablet 4 mg PO BID PRN (Reason: Spasms) RF: 0 hydrocodone-acetaminophen 5-325 mg Tablet 1 tab PO Q8H PRN (Reason: Moderate Pain (Scale Score 5-6)) RF: 0 donepezil 10 mg Tablet 10 mg PO DAILY RF: 0 alendronate 70 mg Tablet 70 mg PO Q7D RF: 0 sertraline [Zoloft] 100 mg Tablet 100 mg PO DAILY RF: 0 Multi-Vitamins with Iron Tablet,Chewable 1 tab PO DAILY RF: 0 acetaminophen [Tylenol Extra Strength] 500 mg Tablet 1,000 mg PO QID PRN (Reason: Mild Pain (Scale Score 1-4)) RF: 0 primidone 250 mg Tablet 250 mg PO BID RF: 0 magnesium hydroxide [Milk of Magnesia] 400 mg/5 mL Suspension 30 ml PO DAILY PRN (Reason: Constipation) RF: 0 levothyroxine [Synthroid] 50 mcg Tablet 50 mcg PO DAILY RF: 0 bisacodyl 10 mg Suppository 10 mg MD DAILY PRN (Reason: Constipation) RF: 0 methotrexate sodium 15 mg Tablet 15 mg PO Q7D RF: 0 nystatin 100,000 unit/gram Cream 1 applic TOPICAL BID RF: 0 hyoscyamine sulfate 0.125 mg Tablet, Sublingual 0.125 mg SUBLINGUAL QID PRN (Reason: Pain) RF: 0 losartan 25 mg Tablet 25 mg PO DAILY RF: 0 oxycodone 5 mg Capsule 5 mg PO QID PRN (Reason: Severe Pain (Scale Score 7-10)) RF: 0 Fleet Enema 19-7 gram/118 mL Enema 118 ml MD DAILY PRN (Reason: Constipation) RF: 0 nitroglycerin [Nitrostat] 0.4 mg Tablet, Sublingual 0.4 mg SUBLINGUAL Q5M PRN (Reason: Chest Pain) RF: 0 ergocalciferol (vitamin D2) [Vitamin D2] 1,250 mcg (50,000 unit) Capsule 1,250 mcg PO Q7D RF: 0 Culturelle 10 billion cell Capsule 1 cap PO DAILY PRN (Reason: WHEN ON ANTIBIOTICS) RF: 0 fluticasone propionate [Flonase Allergy Relief] 50 mcg/actuation [place],Suspension 2 spray INTRANASAL BID RF: 0 dicyclomine 10 mg Capsule 10 mg PO TID RF: 0 folic acid 800 mcg Tablet 0.8 mg PO DAILY RF: 0 carbidopa-levodopa 25-100 mg Tablet,Disintegrating 1.5 tab PO TID RF: 0 Zyrtec 10 mg Capsule 10 mg PO DAILY RF: 0 memantine 28 mg Capsule,Sprinkle,Er 24hr 28 mg PO DAILY RF: 0 potassium chloride 20 mEq Tablet Extended Release 20 meq PO DAILY RF: 0 Coding Level of Care Code ED Network Systems Operator for Chg Fwd
[2020-03-12 14:42] LABS: Lactic Sepsis W/Reflex 2.5 mmol/L (0.5-2.2); Troponin(5th) Baseline 20 ng/L (0-10)
[2020-03-12 14:48] LABS: NT Pro B Type Natriuretic Pept 3254 pg/mL (0-450); Procalcitonin 0.07 ng/mL (0-0.5)
[2020-03-12 14:59] LABS: Alkaline Phosphatase 125 IU/L (35-105); Anion Gap 20.6 (5-19); Aspartate Amino Transferase 34 U/L (0-32); Blood Urea Nitrogen 18 mg/dL (8-23); C Reactive Protein 61.5 mg/L (0.0-4.9); Calcium 8.8 mg/dL (8.5-10.5); Carbon Dioxide 24 mmol/L (22-29); Chloride 98 mmol/L (98-107); Globulin 2.5 g/dL (1.3-4.6); Glucose 168 mg/dL (65-115); Osmolality Calculated 292 mOsm/kg (285-295); Potassium 4.6 mmol/L (3.5-5.1); Sodium 138 mmol/L (136-145); Total Bilirubin 0.3 mg/dL (0.15-1.2); Total Protein 6.5 g/dL (6.6-8.7)
[2020-03-12 15:04] LABS: Influenza A by IFA Negative (Negative); Influenza B by IFA Negative (Negative); SARS Covid-2 Antigen Positive (Negative)
--- NOTE | 2020-03-12 15:29 | ECG_ITS ---
[facility] Test Date: 2020-03-12 Pat Name: Kassie Robles Department: Room: Gender: Female Template Clerk: : [id number] Requested By: Cierra Soliman Order Number: [id number] Reading MD: MEDHAT VELAZQUEZ Measurements Intervals [place] Rate: 69 P: TX: -1 QRS: 2 QRSD: 88 T: -2 QT: 349 QTc: 375 Interpretive Statements SINUS RHYTHM WITH 2ND DEGREE AV BLOCK, 2:[address] II [address] DEVIATION AND MODERATE T-WAVE ABNORMALITY, CONSIDER ANTEROLATERAL ISCHEMIA [-0.1+ mV T WAVE IN V3-V6] CRITICAL TEST RESULT Compared to ECG 03/12/2020 13:20:13 Possible ischemia now present Atrial fibrillation no longer present T-wave abnormality still present Electronically Signed On 03-12-2020 19:36:09 [employer]ES by MEDHAT VELAZQUEZ [email or web address]
[2020-03-12 15:30] LABS: Lactate Dehydrogenase 268 U/L (135-214)
[2020-03-12 15:32] LABS: Alanine Aminotransferase 5 U/L (0-33)
--- NOTE | 2020-03-12 15:53 | CTR_ITS ---
PROCEDURE INFORMATION: Exam: CT Angiography Chest With Contrast Exam date and time: 03/12/2020 3:58 PM Age: 84 years old Clinical indication: Cough and shortness of breath; Additional info: Covid TECHNIQUE: Imaging protocol: Computed tomographic angiography of the chest with intravenous contrast. 3D rendering (Not supervised by radiologist): MIP and/or 3D reconstructed images were created by the technologist. Radiation optimization: All CT scans at this facility use at least one of these dose optimization techniques: automated exposure control; mA and/or kV adjustment per patient size (includes targeted exams where dose is matched to clinical indication); or iterative reconstruction. Contrast material: VISI 320; Contrast volume: 68 ml; Contrast route: INTRAVENOUS (IV); COMPARISON: CTA Chest-Pulmonary Emb [id number] 08/12/2014 8:30 PM RADIATION DOSE METRICS: Total DLP (mGy-cm): 527.49 FINDINGS: Pulmonary arteries: There is no pulmonary embolus. Aorta: Unremarkable. No aortic aneurysm. No aortic dissection. Lungs: Bilateral ground-glass opacities are noted in the lungs compatible with pneumonitis and/or edema. Although the exam is limited by motion artifact, there is interstitial prominence and peribronchial thickening that may reflect the combination of pneumonitis with mild CHF. There is subpleural atelectasis of the dependent portions of the lungs. There is no dense lobar consolidation. Pleural space: Unremarkable. No pneumothorax. No pleural effusion. Heart: The heart is enlarged. Mediastinal space: A small hiatal hernia is present. Lymph nodes: There is a 3 mm right perifissural lymph node. Bones/joints: Postoperative changes are noted in the cervical spine. Soft tissues: Unremarkable. CT/CT angio chest PE protcl [id number] IMPRESSION: 1. There is no pulmonary embolus. 2. Bilateral ground-glass opacities are noted in the lungs compatible with pneumonitis and/or edema. Commonly reported imaging features of COVID-19 pneumonia are present. Other processes such as influenza pneumonia and organizing pneumonia, as can be seen with drug toxicity and connective tissue disease, can cause a similar imaging pattern. (Reference: Glenn) REFERENCES: Glenn Gomez et al., Radiological Society of [place] Expert Consensus Statement on Reporting Chest CT Findings Related to COVID-19. Endorsed by the Society of Thoracic Radiology, the [place] [employer], and RSNA. Published August 04, 2019. Radiation Dose CTDIVOL = (mGy): DLP = 527.49 (mGy-cm)
[2020-03-12 16:00] LABS: Reflex Lactate Order REFLEX LACTIC ORDERD
[2020-03-12] MEDS: iodixanol 320 mg/mL 100mL Btl IV (16:20)
[2020-03-12 16:29] LABS: Troponin 5 2HR 23.49 ng/L (0-10); Troponin 5 2HR Delta 3.49 ABS# (0-10)
== END 2020-03-12 22:00 ==
PROVIDERS: Emergency Provider Emergency Medicine; PCP Physician Assistant
DX: U07.1 COVID-19 (principal); R06.02 Shortness of breath; E78.5 Hyperlipidemia, unspecified
CPT/HCPCS: 12345; 71045; 71275; 80053; 83605; 83615; 83880; 84145; 84484; 85025; 85378; 85384; 85610; 86140; 87426; 87804; 93005; 96360; 96361; 99283; 99284; J7030; Q9967

== ENCOUNTER 2020-04-01 15:47 | Inpatient (IN) | payer MEDICARE, OTHER, SELFPAY ==
[2020-04-01] VITALS (10 sets, daily range): BP systolic 130–191; BP diastolic 73–123; PULSE 68–95; RESP 20–28; TEMP 36.4–36.9; O2SAT 79–100; BMI 40.2
--- NOTE | 2020-04-01 16:08 | XRR_ITS ---
PROCEDURE INFORMATION: Exam: XR Chest, 1 View Exam date and time: 04/01/2020 4:31 PM Age: 84 years old Clinical indication: Shortness of breath; Additional info: Dyspnea TECHNIQUE: Imaging protocol: XR of the chest Views: 1 view. COMPARISON: CR XR chest 1V portable [id number] 03/12/2020 2:07 PM FINDINGS: Lungs: Unremarkable. No consolidation. Pleural space: Unremarkable. No pleural effusion. No pneumothorax. Heart/Mediastinum: Unremarkable. No cardiomegaly. Bones/joints: Chronic bone deformity proximal shaft of the left humerus. Postsurgical hardware seen in the lower cervical spine. XR/XR chest 1V portable [id number] IMPRESSION: 1. No acute findings. 2. Surgical hardware cervical spine 3. Chronic deformity proximal left humerus
[2020-04-01 16:54] LABS: Basophils # 0.1 10^3/uL (0.0-0.1); Basophils % 1.2 %; Eosinophils # 1.3 10^3/uL (0.0-0.8); Eosinophils % 12.6 %; Hematocrit 41.8 % (37.0-47.0); Hemoglobin 13.7 g/dL (11.5-15.3); Lymphocytes # 1.2 10^3/uL (0.8-4.8); Lymphocytes % 12.1 %; Mean Corpuscular HGB Conc 32.8 g/dL (30.0-36.0); Mean Corpuscular Hemoglobin 35.5 pg (28.0-34.0); Mean Corpuscular Volume 108.3 fL (81-99); Mean Platelet Volume 11.9 fL (7.4-10.4); Monocytes # 0.9 10^3/uL (0.2-0.9); Monocytes % 8.6 %; Neutrophils # 6.71 10^3/uL (1.8-7.7); Neutrophils % 65.2 %; Nucleated Red Blood Cells % 0 %; Platelet Count 221 10^3/cmm (130-400); Red Blood Count 3.86 10^6/uL (4.1-5.3); Red Cell Distribution Width 13.5 % (12.1-15.1); White Blood Count 10.3 10^3/uL (4.0-10.0)
[2020-04-01 17:08] LABS: INR 0.94 (0.8-1.2)
[2020-04-01 17:10] LABS: D Dimer 2.02 ug/mIFEU (0-0.59)
[2020-04-01 17:13] LABS: Lactic Sepsis W/Reflex 1.2 mmol/L (0.5-2.2)
[2020-04-01 17:21] LABS: ABG PCO2 52.4 mmHg (35-45); ABG PH Result 7.37 (7.35-7.45); Arterial Blood Gas Hematocrit 43.7 % (37-47); Base Excess ABG 3.8 mmol/L (-2.0-2.0); Blood Gas Allen Test Pos; Blood Gas Operator Identificat AMH; Blood Gas Sample Site Radial, right; Blood Gas Sample Type Arterial; Carboxyhemoglobin 1.1 %THgb (0.4-20.1); HCO3 ABG 30.4 mmol/L (22-26); HGB O2 Sat 96.3 % (95-100); Methemoglobin 0.6 % (0.4-1.5); Oxygen Device NC; PO2 ABG 91.5 mmHg (80.0-100.0); Total Hemoglobin 14.2 g/dL (12-16)
[2020-04-01 17:23] LABS: Alanine Aminotransferase 6 U/L (0-33); Albumin Level 4.4 g/dL (3.5-5.2); Alkaline Phosphatase 130 IU/L (35-105); Aspartate Amino Transferase 30 U/L (0-32); Blood Urea Nitrogen 15 mg/dL (8-23); Carbon Dioxide 31 mmol/L (22-29); Chloride 97 mmol/L (98-107); Glucose 154 mg/dL (65-115); Magnesium 1.9 mg/dL (1.7-2.3); NT Pro B Type Natriuretic Pept 671 pg/mL (0-450); Osmolality Calculated 292 mOsm/kg (285-295); Sodium 139 mmol/L (136-145); Total Bilirubin 0.3 mg/dL (0.15-1.2); Total Protein 7.4 g/dL (6.6-8.7)
[2020-04-01 17:25] LABS: Anion Gap 14.5 (5-19); Potassium 3.5 mmol/L (3.5-5.1)
--- NOTE | 2020-04-01 17:34 | CTR_ITS ---
PROCEDURE INFORMATION: Exam: CT Angiography Chest With Contrast Exam date and time: 04/01/2020 5:55 PM Age: 84 years old Clinical indication: Cough and shortness of breath; Patient HX: Cough, cp, SOB, elev d-dimer TECHNIQUE: Imaging protocol: Computed tomographic angiography of the chest with intravenous contrast. 3D rendering (Not supervised by radiologist): MIP and/or 3D reconstructed images were created by the technologist. Radiation optimization: All CT scans at this facility use at least one of these dose optimization techniques: automated exposure control; mA and/or kV adjustment per patient size (includes targeted exams where dose is matched to clinical indication); or iterative reconstruction. Contrast material: OMNI 350; Contrast volume: 70 ml; Contrast route: INTRAVENOUS (IV); COMPARISON: CT angio chest PE protcl [id number] 03/12/2020 4:12 PM RADIATION DOSE METRICS: Total DLP (mGy-cm): 603.91 FINDINGS: There are degenerative changes of the spine. There is new consolidation in the right upper lobe. There is some atelectasis within the left upper lobe. There is no pleural effusion. There is no pneumothorax. There are no suspicious pulmonary nodules. The central airways are normal in caliber. The thyroid gland is unremarkable. There is no axillary adenopathy. There is a heart monitoring device superimposing the left medial breast. Stable mediastinal and hilar lymph nodes are present. Interrogation of the pulmonary arteries in multiple planes shows no evidence for pulmonary embolism. The aorta is normal in caliber with no evidence for aneurysm or dissection. There is cardiomegaly. There is no evidence for right heart failure. There is reflux of contrast into the superior vena cava and hepatic veins. CT/CT angio chest PE protcl [id number] IMPRESSION: 1. No evidence for pulmonary embolism. 2. New infiltrate within the right upper lobe which is nonspecific. This may represent pneumonia. 3. Stable mediastinal and hilar lymph nodes. 4. Cardiomegaly, stable. Radiation Dose CTDIVOL = (mGy): DLP = 603.91 (mGy-cm)
--- NOTE | 2020-04-01 18:14 | ED_ITS ---
HPI - SOB/Dyspnea General: Chief Complaint: Shortness of Breath/Dyspnea Stated Complaint: SOB/COUGH Time Seen by Provider: 04/01/20 16:04 History of Present Illness: HPI Narrative: This patient is an 84-year-old female who presents today with severe shortness of breath. She was diagnosed with Covid on March 12 and was admitted at [facility]. She has had a persistent cough since then but her fever, body aches, shortness of breath had all improved. Yesterday she started to get significantly short of breath again. She seems worse now than she was when she was sick with Covid. MD elicited complaint: shortness of breath and cough Pertinent past history: COPD and other (Covid pneumonia) Onset (ago): day(s) (Worse in the past 2 days) Context: recent illness Timing: constant and progressively worsening Severity: severe Exacerbating factors: exertion Relieving factors: oxygen and upright position Known history of: other (Recent Covid pneumonia hospitalization) Associated symptoms: Reports chest congestion and cough; Deny abdominal pain, chest pain, fever(s), nausea or vomiting Treatment prior to arrival: oxygen Review of Systems General: Reports: 10 or more systems reviewed and unremarkable except in HPI and below Const: Denies: fever(s), chills, fatigue or malaise Eyes: Denies: change in vision ENMT: Denies: odynophagia Card: Denies: chest pain or swelling of feet/ankles Resp: Reports: dyspnea, productive cough, wheezing and chest congestion GI: Denies: abdominal pain, nausea or vomiting : Denies: flank pain or difficulty voiding Musc: Denies: neck pain or back pain Skin/Breast: Denies: rash Neuro: Denies: headache(s), numbness in extremities or weakness in extremities Daniel/Lymph: Denies: easy bruising or easy bleeding PFSH ED PFSH: Medical History Arthritis Atrial fibrillation HTN (hypertension) Hx of deep venous thrombosis Hx of pulmonary embolus Hx of vaginal delivery Hyperlipemia Hypothyroid Parkinson disease Presence of Watchman left atrial appendage closure device Rheumatoid arthritis Rotator cuff tear, right Surgical History History of shoulder surgery Diagnostic arthroscopy of right shoulder with minimal debridement, open distal clavicle resection, open acromioplasty, open rotator cuff repair augmented with acellular dermal patch, open biceps tenodesis. DOS: 06/24/[address] Rain History of tonsillectomy and adenoidectomy Hx of Achilles tendon repair Hx of appendectomy Hx of arthroscopy of shoulder Hx of cholecystectomy Hx of heart surgery Hx of hysterectomy Hx of laminectomy Hx of total knee replacement Hx of tubal ligation Family History Other CAD (coronary artery disease) Social History Smoking and tobacco status: never smoked Alcohol intake: never Substance/Drug Use: never Housing: House Physical Exam Const: COMMON NORMALS: patient oriented x3, no limitations and alert GENERAL APPEARANCE: cooperative, in distress and anxious NUTRITIONAL APPEARANCE: obese morbidly obese ORIENTATION/CONSCIOUSNESS: Yes awake HENMT: HEAD & SCALP: normal to inspection FACE & SINUS: normal facial exam Eye: GENERAL EYE: appearance normal, both eyes and all related structures Neck/C-Spine: COMMON NORMALS: supple, no meningeal signs and no JVD Chest: COMMONS NORMALS: normal inspection of the chest Resp: EFFORT & INSPECTION: Yes respiratory distress, Yes Actively coughing and Yes uses accessory muscles AUSCULTATION: breath sounds absent (Left base) Cardio: COMMON NORMALS: no JVD and No murmurs present (Cardio) RATE: tachycardic RHYTHM: abnormal rhythm irregularly irregular GI: COMMON NORMALS: Normal to inspection, nondistended, normoactive bowel sounds present, Soft to palpation and non-tender INSPECTION: Yes normal to inspection AUSCULTATION: Yes normoactive bowel sounds PALPATION: Yes Soft to palpation Back/Pelvis: COMMON NORMALS: thoracic and lumbar spine normal to inspection Extremity: COMMON NORMALS: normal to inspection Neuro: COMMON NORMALS: patient oriented x3, moves all extremities, no focal motor deficits and no sensory deficits noted SENSORIUM/ORIENTATION: Yes alert MENINGEAL SIGNS: Yes no meningeal signs Psych: COMMON NORMALS: mental status grossly normal, cooperative and normal affect Skin: COMMON NORMALS: no rashes or lesions noted and turgor normal GENERAL SKIN EXAM: no rashes or lesions noted and turgor normal Course ED course: Patient is now 21 days out from a positive Covid test. She is unlikely to still be contagious but will check another rapid antigen. Her sats did come up with oxygen from where they were in the 70s on room air to low 90s on nasal cannula. However she was working very hard to breathe and we decided to try her on BiPAP. She has a history of PE and DVT and I do not see that she is on a blood thinner currently. Recent hospitalization and Covid are also risk factors for that and this is definitely a concern. D-dimer is elevated and a CTA is pending. Reevaluation(s): Reevaluation #1: CTA was negative for a PE. 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 This was many years ago. Her CT did show some right upper lobe infiltrate consistent with pneumonia. She has been treated with antibiotics. She is doing great on the BiPAP. She will be admitted for further management by the hospitalist. Vital Signs: Vital signs: Vital Signs Temperature 97.6 F 04/02/20 08:04 Pulse Rate 84 04/02/20 09:17 Respiratory Rate 18 04/02/20 09:17 Blood Pressure 126/82 04/02/20 08:05 Pulse Oximetry 95 04/02/20 10:56 MDM - SOB/Dyspnea Lab Data: Labs: Lab Results 04/01/20 04/01/20 04/01/20 Range/Units 16:45 16:45 16:45 WBC 10.3 H (4.0-10.0) 10^3/ uL RBC 3.86 L (4.1-5.3) 10^6/u L Hgb 13.7 (11.5-15.3) g/dL Hct 41.8 (37.0-47.0) % MCV 108.3 H (81-99) fL MCH 35.5 H (28.0-34.0) pg MCHC 32.8 (30.0-36.0) g/dL RDW 13.5 (12.1-15.1) % Plt Count 221 (130-400) 10^3/c mm MPV 11.9 H (7.4-10.4) fL Neut % (Auto) 65.2 % Lymph % (Auto) 12.1 % [place] % (Auto) 8.6 % Eos % (Auto) 12.6 % Baso % (Auto) 1.2 % Neut # (Auto) 6.71 (1.8-7.7) 10^3/u L Lymph # (Auto) 1.2 (0.8-4.8) 10^3/u L [place] # (Auto) 0.9 (0.2-0.9) 10^3/u L Eos # (Auto) 1.3 H (0.0-0.8) 10^3/u L Baso # (Auto) 0.1 (0.0-0.1) 10^3/u L Nucleated RBC % (a uto) 0 % Nucleated RBCs # 0.0 /100WBC PT 12.80 (12.1-14.9) SECO NDS INR 0.94 (0.8-1.2) D-Dimer 2.02 H (0-0.59) ug/mIFE U Specimen Type Sample Site ABG pH (7.35-7.45) ABG pCO2 (35-45) mmHg ABG pO2 (80.0-100.0) mmH g ABG HCO3 (22-26) mmol/L ABG Base Excess (-2.0-2.0) mmol/ L Michael Test Hematocrit (37-47) % Hgb O2 Saturation (95-100) % Carboxyhemoglobin (0.4-20.1) %THgb Methemoglobin (0.4-1.5) % Total Hemoglobin (12-16) g/dL O2 Delivery Device O2 Liters/Min % FiO2 % Corrections Corporal ID Sodium 139 (136-145) mmol/L Potassium 3.5 (3.5-5.1) mmol/L Chloride 97 L (98-107) mmol/L Carbon Dioxide 31 H (22-29) mmol/L Anion Gap 14.5 (5-19) BUN 15 (8-23) mg/dL Creatinine 0.7 (0.5-0.9) mg/dL GFR Calculation Not Reportable Glucose 154 H (65-115) mg/dL Calculated Osmolal ity 292 (285-295) mOsm/k g Lactic Acid (0.5-2.2) mmol/L Calcium 9.0 (8.5-10.5) mg/dL Magnesium 1.9 (1.7-2.3) mg/dL Total Bilirubin 0.3 (0.15-1.2) mg/dL AST 30 (0-32) U/L ALT 6 (0-33) U/L Alkaline Phosphata se 130 H (35-105) IU/L NT-Pro-B Natriuret Pep 671 H (0-450) pg/mL Total Protein 7.4 (6.6-8.7) g/dL Albumin 4.4 (3.5-5.2) g/dL Globulin 3.0 (1.3-4.6) g/dL SARS-CoV-2 Ag (Rap id) (Negative) 04/01/20 04/01/20 04/01/20 Range/Units 16:45 17:10 18:00 WBC (4.0-10.0) 10^3/ uL RBC (4.1-5.3) 10^6/u L Hgb (11.5-15.3) g/dL Hct (37.0-47.0) % MCV (81-99) fL MCH (28.0-34.0) pg MCHC (30.0-36.0) g/dL RDW (12.1-15.1) % Plt Count (130-400) 10^3/c mm MPV (7.4-10.4) fL Neut % (Auto) % Lymph % (Auto) % [place] % (Auto) % Eos % (Auto) % Baso % (Auto) % Neut # (Auto) (1.8-7.7) 10^3/u L Lymph # (Auto) (0.8-4.8) 10^3/u L [place] # (Auto) (0.2-0.9) 10^3/u L Eos # (Auto) (0.0-0.8) 10^3/u L Baso # (Auto) (0.0-0.1) 10^3/u L Nucleated RBC % (a uto) % Nucleated RBCs # /100WBC PT (12.1-14.9) SECO NDS INR (0.8-1.2) D-Dimer (0-0.59) ug/mIFE U Specimen Type Arterial Sample Site Radial, right ABG pH 7.37 (7.35-7.45) ABG pCO2 52.4 H (35-45) mmHg ABG pO2 91.5 (80.0-100.0) mmH g ABG HCO3 30.4 H (22-26) mmol/L ABG Base Excess 3.8 H (-2.0-2.0) mmol/ L Michael Test Pos Hematocrit 43.7 (37-47) % Hgb O2 Saturation 96.3 (95-100) % Carboxyhemoglobin 1.1 (0.4-20.1) %THgb Methemoglobin 0.6 (0.4-1.5) % Total Hemoglobin 14.2 (12-16) g/dL O2 Delivery Device Nc O2 Liters/Min 6.0 % FiO2 44.0 % Corrections Corporal ID Amh Sodium (136-145) mmol/L Potassium (3.5-5.1) mmol/L Chloride (98-107) mmol/L Carbon Dioxide (22-29) mmol/L Anion Gap (5-19) BUN (8-23) mg/dL Creatinine (0.5-0.9) mg/dL GFR Calculation Glucose (65-115) mg/dL Calculated Osmolal ity (285-295) mOsm/k g Lactic Acid 1.2 (0.5-2.2) mmol/L Calcium (8.5-10.5) mg/dL Magnesium (1.7-2.3) mg/dL Total Bilirubin (0.15-1.2) mg/dL AST (0-32) U/L ALT (0-33) U/L Alkaline Phosphata se (35-105) IU/L NT-Pro-B Natriuret Pep (0-450) pg/mL Total Protein (6.6-8.7) g/dL Albumin (3.5-5.2) g/dL Globulin (1.3-4.6) g/dL SARS-CoV-2 Ag (Rap id) Negative (Negative) Discharge Plan Discharge Patient Disposition: Admitted As Inpatient Admit Provider: Clifton Mancilla Coding Level of Care Code ED Fall Internship for g Fwd Exam Comprehensive
[2020-04-01 18:28] LABS: SARS Covid-2 Antigen Negative (Negative)
--- NOTE | 2020-04-01 18:31 | PC.NURSE ---
Bi Pap in place. Resting more comfortable.
[2020-04-01] MEDS: iohexol 350 mg/mL 100 mL Btl IV (19:38)
--- NOTE | 2020-04-01 21:18 | PM.HP ---
Providers/Chief Complaint Primary Care Provider: Cheyenne Yang Chief Complaint: SOB/COUGH History of Present Illness Kassie Robles is a 84 year old female who has history of Parkinson's, atrial fibrillation, DVT/PE after knee surgery, watchman device implantation, who recently got diagnosed with COVID-19 pneumonia on March 12, came in today with chief complaint of worsening shortness of breath. Patient is stating that after normal first to spend some time at [facility] [place], she was discharged home without oxygen, since then she has been having recurrent bouts of cough, her cough got worse today when she got exposed to aerosolized fragrance which was sprayed by one of the household members, she was struggling to breathe, it felt like aerosolized particles went in her lungs and made it worse. She went to her primary care physician who prescribed prednisone which she was taking 20 mg twice a day, her last dose was yesterday. She is bringing white sputum with her cough, she has not noticed fever, chest pain, abdominal pain, dysuria, headache, orthopnea PND. She has never smoked in her life. Diagnostics in the ER revealed sepsis due to tachypnea leukocytosis, right upper lobe infiltrate, BNP 600, Covid antigen negative, initially she required 2 to 4 L oxygenation because she was saturating 70% on room air, to decrease work of breathing she was put on BiPAP which worked in her favor. Considering sepsis I have started her on broad-spectrum antibiotics, currently she is doing better on BiPAP settings 12/6 respiratory rate 11, FiO2 30% saturating 98%, when I took her BiPAP off her oxygen level dropped in low 80s, she was awake alert oriented x3 able to give me above-mentioned HPI Review of Systems Const: Reports: chills, body aches, fatigue and malaise; Denies: fever(s) or change in appetite Eyes: Denies: blurry vision ENMT: Denies: throat pain Card: Denies: chest pain Resp: Reports: dyspnea, productive cough and chest congestion GI: Denies: abdominal pain : Denies: flank pain Musc: Denies: neck pain Skin/Breast: Denies: rash Neuro: Denies: headache(s) Psych: Reports: anxiety Endo: Denies: polyuria Daniel/Lymph: Denies: easy bruising All/Imm: Denies: urticaria Medications/Allergies Home Medications Medication Instructions Recorded Confirmed Last Taken Type Multi-Vitamins with Iron 1 tab PO DAILY 01/12/20 04/01/20 01/13/20 05:00 History Zyrtec 10 mg PO DAILY PRN 01/12/20 04/01/20 01/13/20 05:00 History atorvastatin 80 mg PO DAILY 01/12/20 04/01/20 03/31/20 History carbidopa-levodopa 1 tab PO TID 01/12/20 04/01/20 04/01/20 12:00 History dicyclomine 10 mg PO QID 01/12/20 04/01/20 04/01/20 History donepezil 10 mg PO DAILY 01/12/20 04/01/20 03/31/20 History ergocalciferol (vitamin D2) 1,250 mcg PO Q7D 01/12/20 04/01/20 01/13/20 05:00 History [Vitamin D2] fluticasone propionate [Flonase 2 spray INTRANASAL DAILY PRN 01/12/20 04/01/20 01/13/20 05:00 History Allergy Relief] furosemide [Lasix] 60 mg PO DAILY 01/12/20 04/01/20 04/01/20 History levothyroxine [Synthroid] 50 mcg PO DAILY 01/12/20 04/01/20 04/01/20 History loperamide [Imodium A-D] 2 mg PO QID PRN 01/12/20 04/01/20 01/13/20 05:00 History losartan 25 mg PO DAILY 01/12/20 04/01/20 03/31/20 History memantine 28 mg PO DAILY 01/12/20 04/01/20 04/01/20 History metoprolol tartrate 150 mg PO BID 01/12/20 04/01/20 04/01/20 History nitroglycerin [Nitrostat] 0.4 mg SUBLINGUAL Q5M PRN 01/12/20 04/01/20 Unknown History nystatin 1 applic TOPICAL BID 01/12/20 04/01/20 01/13/20 05:00 History potassium chloride 20 meq PO DAILY 01/12/20 04/01/20 04/01/20 History primidone 250 mg PO BID 01/12/20 04/01/20 04/01/20 History sertraline [Zoloft] 100 mg PO DAILY 01/12/20 04/01/20 03/31/20 History tizanidine 4 mg PO BID PRN 01/12/20 04/01/20 01/12/20 History methotrexate sodium See Rx Instructions .ROUTE .COMPLEX 03/12/20 04/01/20 Unknown History omeprazole 40 mg PO DAILY 03/12/20 04/01/20 04/01/20 History tramadol [Ultram] 50 mg PO TID PRN 03/12/20 04/01/20 03/12/20 History albuterol sulfate [ProAir HFA] 2 puff INHALATION TID PRN 04/01/20 04/01/20 Unknown History aspirin 325 mg PO DAILY 04/01/20 04/01/20 04/01/20 History folic acid 0.4 mg PO DAILY 04/01/20 04/01/20 Unknown History prednisone 40 mg PO DAILY 04/01/20 04/01/20 03/31/20 History Allergies Allergy/AdvReac Type Severity Reaction Status Date / Time codeine Allergy Unknown ALGY-Hives Verified 04/01/20 16:52 morphine Allergy Unknown ALGY-Rash Verified 04/01/20 16:52 Penicillins Allergy Unknown ALGY-Rash Verified 04/01/20 16:52 PFSH Acute PFSH: Medical History Arthritis Atrial fibrillation HTN (hypertension) Hx of deep venous thrombosis Hx of pulmonary embolus Hx of vaginal delivery Hyperlipemia Hypothyroid Parkinson disease Presence of Watchman left atrial appendage closure device Rheumatoid arthritis Rotator cuff tear, right Surgical History History of shoulder surgery Diagnostic arthroscopy of right shoulder with minimal debridement, open distal clavicle resection, open acromioplasty, open rotator cuff repair augmented with acellular dermal patch, open biceps tenodesis. DOS: 06/24/[address] Rain History of tonsillectomy and adenoidectomy Hx of Achilles tendon repair Hx of appendectomy Hx of arthroscopy of shoulder Hx of cholecystectomy Hx of heart surgery Hx of hysterectomy Hx of laminectomy Hx of total knee replacement Hx of tubal ligation Family History Other CAD (coronary artery disease) Social History Smoking and tobacco status: never smoked Alcohol intake: never Substance/Drug Use: never Housing: House Vitals/I&O/Wt Last Vital Signs Temp 97.6 F 04/01/20 16:00 Pulse 68 04/01/20 20:38 Resp 21 H 04/01/20 20:38 BP 130/73 04/01/20 20:38 Pulse Ox 97 04/01/20 20:38 Weight last 48 hrs Weight 109.769 kg Physical Exam Narrative: EXAM NARRATIVE: Very pleasant elderly female Appears stated age Seems well-hydrated, obese Seems to be having multiple bouts of cough, bringing white sputum No conversational dyspnea, doing well on BiPAP, when she was taken off BiPAP O2 saturation dropped to 80% and she started coughing excessively, her bouts of cough improved with use of BiPAP S1, S2 tachycardia no signs of fluid overload Abdomen soft distended bowel sound present Bilateral breath sounds with rhonchi at the bases no active wheezing or stridor Lower extremity no edema gangrene or ulcer EOMI, PERRLA No neurological deficit Appropriate mood and affect Skin without any ulcers Data : 04/01/20 16:45 04/01/20 16:45 A&P Assessment and plan (1) Sepsis: Status: Acute (2) Community acquired pneumonia: Status: Acute (3) Acute respiratory failure with hypoxia: Status: Acute Additional A&P Information Sepsis secondary to community-acquired pneumonia Sepsis criteria met with tachycardia, tachypnea, leukocytosis at the time my interview her heart rate was fluctuating between 90-100, I would start her on vancomycin and Zosyn considering post viral pneumonia, request urine antigens, sputum culture, blood culture, curb 65 criteria met for inpatient admission Although she has right upper lobe infiltrate with productive cough she seems to do better with BiPAP which I would continue for now settings 04/16 FiO2 30% saturating 98% Dextromethorphan for cough Acute hypoxic respiratory failure secondary to pneumonia Covid antigen negative, CT rule out PE however she has high D-dimer Home O2 evaluation before discharge History of A. fib not on anticoagulation, has watchman device, I will continue her AV noé blocking agent, Parkinson's: No acute exacerbation, continue her home regimen for now Rheumatoid arthritis holding methotrexate, no acute exacerbation Continue memantine and donepezil High BNP without active signs of fluid overload, hold Lasix for now in setting of sepsis Full code DVT prophylaxis Lovenox Cardiac diet Attestations Medical Necessity Statement*: Anticipating stay in the hospital cross more than 2 midnights continued IV antibiotics for sepsis secondary to community-acquired pneumonia, will need home oxygen evaluation before discharge, recently recovered from COVID-19 pneumonia Time Spent in Patient Care: (>than 50% of time spent in counselling and/or direct pt care on unit). 50mins Coding Level of Care Code Acute Cardiology Rn for g Fwd Diagnoses Sepsis A41.9 Community acquired pneumonia J18.9 Acute respiratory failure with hypoxia J96.01
[2020-04-01] MEDS: azithromycin 500 MG in sodium chloride 0.9% 250 ML 250 MG IV (23:21)
[2020-04-02] VITALS (17 sets, daily range): BP systolic 104–158; BP diastolic 60–96; PULSE 71–109; RESP 16–21; TEMP 36.3–36.8; O2SAT 94–98
[2020-04-02] MEDS: ipratropium-albuterol 3 mL Neb INHALATION ×4 (00:56→21:54)
[2020-04-02] MEDS: enoxaparin 40 mg/0.4 mL Syringe SUBCUT ×2 (01:12→23:55)
[2020-04-02] MEDS: aztreonam 2,000 MG in sodium chloride 0.9% (plus) 100 ML 200 MG IV ×3 (01:13→18:04)
--- NOTE | 2020-04-02 01:53 | PC.PHAR ---
Pharmacokinetic dosing service Date: 04/02/20 Time: 020 Objective: Patient: Kassie Robles Floor: 259-1 Age: 84 yo Serum creatinine: 0.7 mg/dL Height: 65.0 Inches Weight (kg): 109.769 Diagnosis: Relevant medical/social history: Cultures and sensitivities: Other labs: Assessment: IBW (kg): 57.00 Dosing wt(kg): 109.769 Estimated Creatinine clearance (ml/min): 54.8 CRCL method: Cockcroft and Gault using ibw(default). Drug selected: Vancomycin Loading dose (mg): 0 Vd (liters): 98.8 (factor used: 0.9 L/kg) Dio (hr-1): 0.050 Half life (hrs): 13.86 Recommended dose: 2000 mg Interval: 24 hrs Infusion time (hrs): 1.5 Predicted peak (mcg/mL): 27.9 Predicted trough (mcg/mL): 9.06 Total body weight is being used for vancomycin dosing. Renal function is stable [ ] /unstable [ ] Recommendations: Give Vancomycin 2000 mg q 24 hrs with an expected Cpeak of 27.9 mcg/ml and an expected Ctrough of 9.06 mcg/ml Renal dosing of other antibiotics (review renal dosing of other medications and list guidelines here): Thank you for the consult, will continue to follow. Signature: Alize Benson [facility]
[2020-04-02 06:36] LABS: Basophils # 0.1 10^3/uL (0.0-0.1); Basophils % 0.7 %; Eosinophils # 1.1 10^3/uL (0.0-0.8); Eosinophils % 13.9 %; Hematocrit 38.4 % (37.0-47.0); Hemoglobin 12.5 g/dL (11.5-15.3); Lymphocytes # 1.8 10^3/uL (0.8-4.8); Lymphocytes % 22.6 %; Mean Corpuscular HGB Conc 32.6 g/dL (30.0-36.0); Mean Corpuscular Hemoglobin 35.4 pg (28.0-34.0); Mean Corpuscular Volume 108.8 fL (81-99); Mean Platelet Volume 11.3 fL (7.4-10.4); Monocytes # 0.7 10^3/uL (0.2-0.9); Monocytes % 9.2 %; Neutrophils # 4.28 10^3/uL (1.8-7.7); Neutrophils % 53.4 %; Nucleated Red Blood Cells % 0 %; Platelet Count 190 10^3/cmm (130-400); Red Blood Count 3.53 10^6/uL (4.1-5.3); Red Cell Distribution Width 13.6 % (12.1-15.1)
[2020-04-02 07:05] LABS: Anion Gap 12.3 (5-19); Blood Urea Nitrogen 14 mg/dL (8-23); Calcium 8.8 mg/dL (8.5-10.5); Carbon Dioxide 32 mmol/L (22-29); Chloride 100 mmol/L (98-107); Glucose 113 mg/dL (65-115); Osmolality Calculated 293 mOsm/kg (285-295); Potassium 3.3 mmol/L (3.5-5.1); Sodium 141 mmol/L (136-145)
[2020-04-02] MEDS: levothyroxine 50 mcg Tablet PO (08:04)
[2020-04-02] MEDS: sertraline 100 mg Tablet PO (08:04)
[2020-04-02] MEDS: carbidopa-levodopa 25-100mg Tablet 1.5 EACH PO ×3 (08:04→21:23)
[2020-04-02] MEDS: metoprolol tartrate 50 mg Tablet 150 MG PO ×2 (08:05→17:16)
[2020-04-02] MEDS: predniSONE 20 mg Tablet 40 MG PO (08:05)
[2020-04-02] MEDS: aspirin 325 mg Tablet PO (08:05)
[2020-04-02] MEDS: pantoprazole DR 40 mg Tablet PO (08:05)
[2020-04-02] MEDS: losartan 50 mg Tablet 25 MG PO (08:05)
[2020-04-02] MEDS: donepezil 5 MG Tablet 10 MG PO (08:05)
[2020-04-02] MEDS: atorvastatin 40 mg Tablet 80 MG PO (08:05)
[2020-04-02] MEDS: nystatin cream 30 gm 1 APPLIC TOPICAL (08:06)
[2020-04-02] MEDS: FUROsemide 40 mg Tablet 60 MG PO (08:06)
--- NOTE | 2020-04-02 10:16 | PC.CHAP ---
Pastoral Care Encounter/Spiritual Assessment Type of Contact [] Declined cnc supervisor visit [] Patient/Family/Request visit [] Outpatient visit [] Follow-up visit [] Physician referral [] Code/Alert [x] Routine visit [] Staff referral [] Actively dying [] Patient sleeping [] Family support [] [] Out of room [] Palliative care [] [] Receiving care in room [] Pre-surgical visit [] Trauma [] Long length of stay [] ICU visit [] Other: Relational/Emotional Strength [x] Patient feels connected with others/family/visitors/staff [] Distress [] Loneliness/isolation [] Abandonment Spirituality of Patient [x] Person of Kalee [] Attends Jew of their Kalee [] Believes in Prayer [] Reads Bible or Mu-Ism materials [] There are Spiritual issues to be addressed Donor Relations Officer Interventions [x] Prayer [x] Active listening [x] Non-anxious presence [x] Spiritual/emotional support [] Crisis/trauma care [] Spiritual counseling [] Bereavement support [] Provided bereavement packet [] Provided Bible/devotional materials [] Provided toy/stuffed animal, coloring book to patient or family member [] Provided Communion [] Anointing/[place] [] Salvation [x] Completed spiritual assessment [] Other: Impact on Illness or Injury [] Angry [] Fearful [] Anxious [] Often cries [] Exhaustion [] Unable to work [] Unable to attend voodoo [] Unable to walk/stand [] Unable to read [] Unable to drive [] Unable to eat/drink [] Unable to sleep [] Unable to be with family [] Patient intubated [] Other: Summary Chaplains prayed with Patient. Time spent with patient 10 minutes.
--- NOTE | 2020-04-02 13:36 | PM.PN ---
Subjective Subjective: Interval history: She states overall feels better. She is coughing quite a bit and is bringing up some phlegm. Denies chest pain. Just ate lunch without issues. Vitals/I&O/Wt Last Vital Signs Temp 98.3 F 04/02/20 12:00 Pulse 71 04/02/20 12:00 Resp 17 04/02/20 12:00 BP 104/60 04/02/20 12:00 Pulse Ox 94 04/02/20 12:00 04/01/20 04/02/20 04/02/20 22:59 06:59 14:59 Intake Total 100 / 100 Output Total 0 / 0 400 / 400 Balance 100 / 100 -400 / -400 Weight last 48 hrs Weight 109.769 kg Physical Exam Const: COMMON NORMALS: no acute distress and patient oriented x3 GENERAL APPEARANCE: comfortable (But multiple bouts of cough.) OTHER: Pleasant, conversant. Nasal cannula in place. Oxygenation feels comfortable with it. HENMT: COMMON NORMALS: oropharynx normal Neck/C-Spine: COMMON NORMALS: no JVD Resp: COMMON NORMALS: normal respiratory effort AUSCULTATION: diminished lung sounds Cardio: COMMON NORMALS: no JVD, regular rhythm, S1 normal heart sound present, S2 normal heart sound present and No murmurs present (Cardio) RHYTHM: regular rhythm HEART SOUNDS: S1 normal heart sound present and S2 normal heart sound present GI: COMMON NORMALS: Normal to inspection, nondistended, normoactive bowel sounds present, Soft to palpation and non-tender PALPATION: Yes Soft to palpation Extremity: COMMON NORMALS: no joint enlargement and no pedal edema Neuro: COMMON NORMALS: patient oriented x3 and moves all extremities Skin: COMMON NORMALS: no rashes or lesions noted GENERAL SKIN EXAM: no rashes or lesions noted Data : 04/02/20 06:26 04/02/20 06:26 Micro: Microbiology 04/02/20 06:30 MRSA Culture - Final Nose 04/02/20 06:26 Blood Culture - Preliminary Blood SPECIMEN COLLECTED 04/02/20 06:20 Blood Culture - Preliminary Blood SPECIMEN COLLECTED A&P Assessment and plan (1) Community acquired pneumonia: Continue oxygen support. She feels better. Continue antibiotics. MRSA PCR negative will DC vancomycin. Resume azithro. Follow up sputum culture. Urine antigens. Flutter valve. Continue prednisone. Status: Acute (2) Sepsis: Improved. Status: Acute (3) Acute respiratory failure with hypoxia: Persistent hypoxia. Sepsis is better. As above. Monitor fluid status and resume Lasix when needed. BNP elevated. At the moment not fluid overloaded. Status: Acute Additional A&P Information Recent COVID 19. DDimer is abnormal. Follow. Cont VTE prophylaxis. Antigen test is negative. Hypokalemia: replaced History of A. fib not on anticoagulation, has watchman device. Continue her AV noé blocking agent. Parkinson's: No acute exacerbation, continue her home regimen for now Rheumatoid arthritis holding methotrexate, no acute exacerbation. Continue memantine and donepezil Full code DVT prophylaxis Lovenox Cardiac diet Attestations Medical Necessity Statement*: Continue admission for assessment management of pneumonia, hypoxic respiratory failure, following recent COVID-19 infection, with immunocompromise with RA, on methotrexate, and a number of comorbidities. Coding Level of Care Code Acute Landscape Horticulture Instructor for g Fwd Exam Comprehensive Diagnoses Community acquired pneumonia J18.9 Sepsis A41.9 Acute respiratory failure with hypoxia J96.01
[2020-04-02] MEDS: potassium chloride ER 10 mEq Tablet 20 MEQ PO (14:25)
[2020-04-02] MEDS: azithromycin 500 MG in sodium chloride 0.9% 250 ML 250 MG IV (14:56)
[2020-04-02] MEDS: guaiFENesin-dextromethorphan UDC 10 mL PO (23:57)
[2020-04-03] VITALS (12 sets, daily range): BP systolic 110–140; BP diastolic 70–83; PULSE 70–99; RESP 16–27; TEMP 36.4–36.8; O2SAT 93–99
[2020-04-03] MEDS: aztreonam 2,000 MG in sodium chloride 0.9% (plus) 100 ML 200 MG IV ×3 (02:52→20:39)
[2020-04-03] MEDS: ipratropium-albuterol 3 mL Neb INHALATION (03:15)
--- NOTE | 2020-04-03 03:23 | PC.NURSE ---
Change in patient status Patient said she was sob and felt pressure in her chest. Patient oxygen sats were 87% on 4 liters NC. Patient sat up in high fowlers with deep breathing. Patient remained short of breath with oxygen saturation improved to 94% on Bipap. Patient placed on telemetry reading ST Vitals WNL. Respiratory called to assess patient. Patient was given a breathing treatment. Patient is feeling better with no shortness of breath or tightness in chest and resting well on Bipap
[2020-04-03 05:41] LABS: D Dimer 1.45 ug/mIFEU (0-0.59)
[2020-04-03 05:49] LABS: Basophils # 0.1 10^3/uL (0.0-0.1); Basophils % 0.9 %; Eosinophils # 1.1 10^3/uL (0.0-0.8); Eosinophils % 12.7 %; Hemoglobin 12.2 g/dL (11.5-15.3); Lymphocytes # 1.9 10^3/uL (0.8-4.8); Lymphocytes % 21.7 %; Mean Corpuscular HGB Conc 32.1 g/dL (30.0-36.0); Mean Corpuscular Hemoglobin 35.5 pg (28.0-34.0); Mean Corpuscular Volume 110.5 fL (81-99); Monocytes # 0.8 10^3/uL (0.2-0.9); Monocytes % 9.2 %; Neutrophils # 4.78 10^3/uL (1.8-7.7); Neutrophils % 55.3 %; Nucleated Red Blood Cells % 0 %; Platelet Count 183 10^3/cmm (130-400); Red Blood Count 3.44 10^6/uL (4.1-5.3); Red Cell Distribution Width 13.6 % (12.1-15.1); White Blood Count 8.7 10^3/uL (4.0-10.0)
[2020-04-03 06:15] LABS: Anion Gap 13.7 (5-19); Blood Urea Nitrogen 15 mg/dL (8-23); Calcium 8.7 mg/dL (8.5-10.5); Carbon Dioxide 29 mmol/L (22-29); Chloride 100 mmol/L (98-107); Glucose 120 mg/dL (65-115); Osmolality Calculated 290 mOsm/kg (285-295); Potassium 3.7 mmol/L (3.5-5.1); Sodium 139 mmol/L (136-145)
--- NOTE | 2020-04-03 09:30 | PC.CHAP ---
Pastoral Care Encounter/Spiritual Assessment Type of Contact [] Declined core sticker visit [] Patient/Family/Request visit [] Outpatient visit [] Follow-up visit [] Physician referral [] Code/Alert [x] Routine visit [] Staff referral [] Actively dying [] Patient sleeping [] Family support [] [] Out of room [] Palliative care [] [] Receiving care in room [] Pre-surgical visit [] Trauma [] Long length of stay [] ICU visit [] Other: Relational/Emotional Strength [] Patient feels connected with others/family/visitors/staff [] Distress [] Loneliness/isolation [] Abandonment Spirituality of Patient [] Person of Kalee [] Attends Voodoo of their Kalee [] Believes in Prayer [] Reads Bible or Evangelical materials [] There are Spiritual issues to be addressed Roofing Contractor Interventions [x] Prayer [x] Active listening [x] Non-anxious presence [x] Spiritual/emotional support [] Crisis/trauma care [] Spiritual counseling [] Bereavement support [] Provided bereavement packet [] Provided Bible/devotional materials [] Provided toy/stuffed animal, coloring book to patient or family member [] Provided Communion [] Anointing/Monon [] Salvation [x] Completed spiritual assessment [] Other: Impact on Illness or Injury [] Angry [] Fearful [] Anxious [] Often cries [] Exhaustion [] Unable to work [] Unable to attend baptist [] Unable to walk/stand [] Unable to read [] Unable to drive [] Unable to eat/drink [] Unable to sleep [] Unable to be with family [] Patient intubated [] Other: Summary patient having difficultly breathing... good spirits Time spent with patient 5 min
[2020-04-03] MEDS: sertraline 100 mg Tablet PO (10:11)
[2020-04-03] MEDS: levothyroxine 50 mcg Tablet PO (10:11)
[2020-04-03] MEDS: carbidopa-levodopa 25-100mg Tablet 1.5 EACH PO ×3 (10:14→20:40)
[2020-04-03] MEDS: losartan 50 mg Tablet 25 MG PO (10:14)
[2020-04-03] MEDS: FUROsemide 40 mg Tablet 60 MG PO (10:15)
[2020-04-03] MEDS: predniSONE 20 mg Tablet 40 MG PO (10:15)
[2020-04-03] MEDS: atorvastatin 40 mg Tablet 80 MG PO (10:15)
[2020-04-03] MEDS: pantoprazole DR 40 mg Tablet PO (10:15)
[2020-04-03] MEDS: donepezil 5 MG Tablet 10 MG PO (10:15)
[2020-04-03] MEDS: aspirin 325 mg Tablet PO (10:15)
[2020-04-03] MEDS: metoprolol tartrate 50 mg Tablet 150 MG PO ×2 (10:16→17:31)
[2020-04-03] MEDS: nystatin cream 30 gm 1 APPLIC TOPICAL ×2 (10:24→17:31)
[2020-04-03] MEDS: guaiFENesin-dextromethorphan UDC 10 mL PO (12:34)
[2020-04-03] MEDS: azithromycin 500 MG in sodium chloride 0.9% 250 ML 250 MG IV (14:37)
--- NOTE | 2020-04-03 21:43 | PM.PN ---
Subjective Subjective: Interval history: Patient reports that her breathing is worse at times. She is having a hard time getting comfortable. In talking with her she is having some proximal-isms of coughing and that is what is going on when she is having trouble breathing. She is not getting up much sputum. Continues to use flutter device. She likes the BiPAP. She was asking how to get a device at home. Reviewed with her that there were requirements and would have to see if she met any of them. Vitals/I&O/Wt Last Vital Signs Temp 97.5 F L 04/03/20 20:00 Pulse 70 04/03/20 20:00 Resp 18 04/03/20 20:00 BP 114/74 04/03/20 20:00 Pulse Ox 99 04/03/20 20:00 04/03/20 04/03/20 04/03/20 06:59 14:59 22:59 Intake Total 100 / 1150 340 / 340 240 / 580 Output Total 375 / 1375 Balance -275 / -225 340 / 340 240 / 580 Physical Exam Const: OTHER: Alert, oriented x3, cooperative, coughing and looks like she does not feel well but not acutely ill-appearing HENMT: OTHER: Normocephalic atraumatic Neck/C-Spine: OTHER: Large but supple Resp: OTHER: Scattered rhonchi and wheezes right more so than left, rhonchi improved with coughing Cardio: OTHER: Regular rate and rhythm GI: OTHER: Abdomen soft, nontender, positive bowel sounds : OTHER: Deferred Extremity: NARRATIVE EXTREMITY EXAM: Trace edema Neuro: OTHER: Face symmetric, speech clear, moves all extremities Psych: OTHER: Normal affect Skin: OTHER: Skin is dry Data : 04/03/20 05:00 04/03/20 05:00 Micro: Microbiology 04/02/20 14:24 Gram Stain - Final Sputum - Expectorated Sputum Sputum Culture - Preliminary 04/02/20 06:26 Blood Culture - Preliminary Blood NEGATIVE TO DATE 04/02/20 06:20 Blood Culture - Preliminary Blood NEGATIVE TO DATE 04/02/20 16:57 Legionella Urinary Antigen - Final Urine,Voided Bacterial Antigens - Final A&P Assessment and plan (1) Acute respiratory failure with hypoxia: Status: Acute (2) Sepsis: Status: Acute Qualifiers: Sepsis type: sepsis due to unspecified organism Sepsis acute organ dysfunction status: with acute organ dysfunction Severe sepsis acute organ dysfunction type: acute respiratory failure Acute respiratory failure type: with hypoxia Severe sepsis shock status: without septic shock Qualified Code(s): A41.9 - Sepsis, unspecified organism; R65.20 - Severe sepsis without septic shock; J96.01 - Acute respiratory failure with hypoxia (3) Community acquired pneumonia: Status: Acute Qualifiers: Laterality: right Lung location: upper lobe of lung Qualified Code(s): J18.9 - Pneumonia, unspecified organism (4) Morbid obesity with BMI of 40.0-44.9, adult: Status: Chronic (5) Atrial fibrillation: Status: Chronic Qualifiers: Atrial fibrillation type: unspecified Qualified Code(s): I48.91 - Unspecified atrial fibrillation (6) HTN (hypertension): Status: Chronic Qualifiers: Hypertension type: essential hypertension Qualified Code(s): I10 - Essential (primary) hypertension (7) Hyperlipemia: Status: Chronic Qualifiers: Hyperlipidemia type: unspecified Qualified Code(s): E78.5 - Hyperlipidemia, unspecified (8) Hypothyroid: Status: Chronic Qualifiers: Hypothyroidism type: acquired Qualified Code(s): E03.9 - Hypothyroidism, unspecified (9) Rheumatoid arthritis: Status: Chronic Qualifiers: Rheumatoid arthritis location: unspecified site Rheumatoid factor presence: unspecified presence Qualified Code(s): M06.9 - Rheumatoid arthritis, unspecified (10) History of 2019 novel coronavirus disease (COVID-19): At [place] early March Status: Acute Additional A&P Information Continue current antibiotics, consider change to oral doxycycline Continue breathing treatments, mucinex and flutter device Increase activity as able Continue BiPAP as needed, and quick review of laboratory studies and such had not seen that she meets evidence for device at home without a sleep study but will check on current requirements Continue current home medications Not currently on dicyclomine fluticasone nasal, some vitamins Methotrexate also currently held Lovenox for DVT prophylaxis Supportive care otherwise Full code Anticipate discharge home once respiratory status is stable Attestations Medical Necessity Statement*: Requires ongoing inpatient stay for continued management of oxygen requirement, BiPAP therapy and IV antibiotics for pneumonia Coding Level of Care Code Acute Psychiatric Secretary for [facility] Diagnoses Acute respiratory failure with hypoxia J96.01 Sepsis A41.9; R65.20; J96.01 Sepsis type: sepsis due to unspecified organism Sepsis acute organ dysfunction status: with acute organ dysfunction Severe sepsis acute organ dysfunction type: acute respiratory failure Acute respiratory failure type: with hypoxia Severe sepsis shock status: without septic shock Community acquired pneumonia J18.9 Laterality: right Lung location: upper lobe of lung Morbid obesity with BMI of 40.0-44.9, adult E66.01; Z68.41 Atrial fibrillation I48.91 Atrial fibrillation type: unspecified HTN (hypertension) I10 Hypertension type: essential hypertension Hyperlipemia E78.5 Hyperlipidemia type: unspecified Hypothyroid E03.9 Hypothyroidism type: acquired Rheumatoid arthritis M06.9 Rheumatoid arthritis location: unspecified site Rheumatoid factor presence: unspecified presence History of 2019 novel coronavirus disease (COVID-19) Z86.19
[2020-04-04] VITALS (9 sets, daily range): BP systolic 114–127; BP diastolic 63–76; PULSE 67–84; RESP 17–18; TEMP 36.4–36.8; O2SAT 87–100
[2020-04-04] MEDS: enoxaparin 40 mg/0.4 mL Syringe SUBCUT (00:19)
[2020-04-04] MEDS: aztreonam 2,000 MG in sodium chloride 0.9% (plus) 100 ML 200 MG IV ×2 (04:47→12:22)
[2020-04-04 05:36] LABS: Basophils # 0.1 10^3/uL (0.0-0.1); Basophils % 0.8 %; Eosinophils % 16.2 %; Hematocrit 34.6 % (37.0-47.0); Hemoglobin 11.2 g/dL (11.5-15.3); Lymphocytes # 1.7 10^3/uL (0.8-4.8); Lymphocytes % 28.7 %; Mean Corpuscular HGB Conc 32.4 g/dL (30.0-36.0); Mean Corpuscular Hemoglobin 35.6 pg (28.0-34.0); Mean Corpuscular Volume 109.8 fL (81-99); Mean Platelet Volume 11.8 fL (7.4-10.4); Monocytes # 0.5 10^3/uL (0.2-0.9); Monocytes % 7.5 %; Neutrophils % 46.6 %; Nucleated Red Blood Cells % 0 %; Platelet Count 168 10^3/cmm (130-400); Red Blood Count 3.15 10^6/uL (4.1-5.3); Red Cell Distribution Width 13.4 % (12.1-15.1)
[2020-04-04 05:51] LABS: Anion Gap 11.5 (5-19); Blood Urea Nitrogen 15 mg/dL (8-23); Calcium 8.7 mg/dL (8.5-10.5); Carbon Dioxide 31 mmol/L (22-29); Chloride 102 mmol/L (98-107); Glucose 101 mg/dL (65-115); Osmolality Calculated 293 mOsm/kg (285-295); Potassium 3.5 mmol/L (3.5-5.1); Sodium 141 mmol/L (136-145)
--- NOTE | 2020-04-04 05:58 | PC.NURSE ---
Patient rested well last night after getting washed off at the sink with soap and water assisted by this nurse. Patient was able to use walker to ambulate to bathroom tolerated well with Oxygen saturation at 94%. Patient had no episodes of SOB. Oxygen titrated down to 2L NC through the night with sats at 93% this morning. Patient educated on getting out of bed and ambulating to build up strength and improve health.
[2020-04-04] MEDS: carbidopa-levodopa 25-100mg Tablet 1.5 EACH PO ×2 (08:51→14:31)
[2020-04-04] MEDS: levothyroxine 50 mcg Tablet PO (08:51)
[2020-04-04] MEDS: losartan 50 mg Tablet 25 MG PO (08:52)
[2020-04-04] MEDS: predniSONE 20 mg Tablet 40 MG PO (08:52)
[2020-04-04] MEDS: metoprolol tartrate 50 mg Tablet 150 MG PO (08:52)
[2020-04-04] MEDS: donepezil 5 MG Tablet 10 MG PO (08:52)
[2020-04-04] MEDS: atorvastatin 40 mg Tablet 80 MG PO (08:53)
[2020-04-04] MEDS: aspirin 325 mg Tablet PO (08:53)
[2020-04-04] MEDS: FUROsemide 40 mg Tablet 60 MG PO (08:53)
[2020-04-04] MEDS: pantoprazole DR 40 mg Tablet PO (08:53)
[2020-04-04] MEDS: sertraline 100 mg Tablet PO (08:53)
--- NOTE | 2020-04-04 11:14 | P.DS_ITS ---
Discharge Providers Date of Admission: 04/01/20 21:19 Date of Discharge: April 04, 2020 Attending Provider at Admission: Clifton Mancilla MD Attending Provider at Discharge: Stephanie Lorenzo MD Primary Care Provider: Cheyenne Yang Diagnoses at Discharge Discharge Diagnosis (1) Acute respiratory failure with hypoxia: Status: Acute (2) Sepsis: Status: Resolved Qualifiers: Acute respiratory failure type: with hypoxia Sepsis acute organ dysfunction status: with acute organ dysfunction Sepsis type: sepsis due to unspecified organism Severe sepsis acute organ dysfunction type: acute re spiratory failure Severe sepsis shock status: without septic shock Qualified Code(s): A41.9 - Sepsis, unspecified organism; R65.20 - Severe sepsis without septic shock; J96.01 - Acute respiratory failure with hypoxia (3) Community acquired pneumonia: Status: Acute Qualifiers: Laterality: right Lung location: upper lobe of lung Qualified Code(s): J18.9 - Pneumonia, unspecified organism (4) Morbid obesity with BMI of 40.0-44.9, adult: Status: Chronic (5) Atrial fibrillation: Status: Resolved Permanent problem details: Has watchman device in the left atrial appendage, no anticoagulation, sinus rhythm this hospital stay Qualifiers: Atrial fibrillation type: unspecified Qualified Code(s): I48.91 - Unspecified atrial fibrillation (6) HTN (hypertension): Status: Chronic Qualifiers: Hypertension type: essential hypertension Qualified Code(s): I10 - Essential (primary) hypertension (7) Hyperlipemia: Status: Chronic Qualifiers: Hyperlipidemia type: unspecified Qualified Code(s): E78.5 - Hyperlipi demia, unspecified (8) Hypothyroid: Status: Chronic Qualifiers: Hypothyroidism type: acquired Qualified Code(s): E03.9 - Hypothyroidism, unspecified (9) Rheumatoid arthritis: Status: Chronic Permanent problem details: On methotrexate chronically though currently held due to recent Covid infection and pneumonia Qualifiers: Rheumatoid arthritis location: unspecified site Rheumatoid factor presence: unspecified presence Qualified Code(s): M06.9 - Rheumatoid arthritis, unspecified (10) History of 2019 novel coronavirus disease (COVID-19): Status: Acute Permanent problem details: Hospitalized in [place] March 122019 Reason for Visit Reason for Visit: SOB/COUGH Hospital Course Hospital Course Mrs. Robles is a pleasant 84-year-old who was hospitalized in [place] early March with Covid. She had done better and after the O to be discharged home. Had not been discharged with oxygen. She began having increasing shortness of breath, productive cough and general malaise. She was found to be hypoxic in the 80s upon admission here. She was requiring up to 6 L of oxygen by nasal cannula in the hospital. She is down to 2 L by nasal cannula. Overall she is breathing much better. Was treated with broad-spectrum antibiotics that have been tapered down, steroids, breathing treatments and flutter device. After initiation of flutter device started clearing more mucus. She is on oxygen at night for sleep apnea at 2 L. She has not ever been on it during the day. Arrangements were made for continuous oxygen at home as well as a nebulizer machine which she had not had before. My suspicion is that she may need oxygen continuously from here on out but she may recover well enough to go back to nighttime use only. Only time will tell. Blood cultures are no growth to date. Urine bacterial antigens are negative. MRSA swab was negative. Sputum cultures normal hilda to date. I am going to going to change her over to doxycycline. She is to continue holding her methotrexate presently due to infection. I am not sure when is appropriate to resume status post Covid but hopefully she can get back on this within the next couple of weeks. May consider discussing with her heel cover softener and Sarina first. She does have significant macrocytosis which will need to be followed. She is prescribed folic acid and reports taking it. Mildly anemic with hemoglobin at 11.2 but normal white count and normal platelets. I will note she did have CTA of the chest that was negative. She had a rapid Covid antigen test that was negative. Pneumonia was not noted on chest x-ray imaging but was identified in the right upper lobe on CTA of the chest. I think a lot of it is also upper airway in nature. At this point in time home medications have been resumed with the exception of the methotrexate. Discussed plans with patient as well as with her daughter for discharge home. Reviewed that she may have episodes of proximal- isms of coughing that are worse than when she is not coughing. She can utilize breathing treatments and oxygen therapy. If episodes are progressively worsening or severe dyspnea she is to return to the emergency room. I did encourage continued flutter device use. Recommend follow-up with primary care provider to evaluate for continued improvement. We did talk about both patient and daughter the potential for continued respiratory and other issues status post Covid. They seem to be aware. Both were given an opportunity to ask questions. Physical Exam Const: OTHER: Alert, oriented x3, cooperative, not as ill appearing, laying back in bed HENMT: OTHER: Normocephalic atraumatic, moist mucus membranes Resp: OTHER: Improved aeration, scattered wheeze primarily on right, decrease productive cough, no accessory muscle use, desaturates with extertion, okay with 2 L BNC Cardio: OTHER: Regular rate and rhythm GI: OTHER: Abdomen soft, nontender, nondistended with positive bowel sounds Extremity: NARRATIVE EXTREMITY EXAM: no edema Neuro: OTHER: Face symmetric, speech clear, moves all extremities Psych: OTHER: Normal affect Discharge Data Data Completed and Pending: Completed Studies During Hospitalization Category Date Time Status CT angio chest PE protcl [id number] Urge nt Cat Scan 04/01/20 17:34 Completed XR chest 1V eliana ble [id number] Urgent Exams 04/01/20 16:08 Completed CTA FINDINGS: There are degenerative changes of the spine. There is new consolidation in the right upper lobe. There is some atelectasis within the left upper lobe. There is no pleural effusion. There is no pneumothorax. There are no suspicious pulmonary nodules. The central airways are normal in caliber. The thyroid gland is unremarkable. There is no axillary adenopathy. There is a heart monitoring device superimposing the left medial breast. Stable mediastinal and hilar lymph nodes are present. Interrogation of the pulmonary arteries in multiple planes shows no evidence for pulmonary embolism. The aorta is normal in caliber with no evidence for aneurysm or dissection. There is cardiomegaly. There is no evidence for right heart failure. There is reflux of contrast into the superior vena cava and hepatic veins. CT/CT angio chest PE protcl [id number] IMPRESSION: 1. No evidence for pulmonary embolism. 2. New infiltrate within the right upper lobe which is nonspecific. This may represent pneumonia. 3. Stable mediastinal and hilar lymph nodes. 4. Cardiomegaly, stable. CXR FINDINGS: Lungs: Unremarkable. No consolidation. Pleural space: Unremarkable. No pleural effusion. No pneumothorax. Heart/Mediastinum: Unremarkable. No cardiomegaly. Bones/joints: Chronic bone deformity proximal shaft of the left humerus. Postsurgical hardware seen in the lower cervical spine. XR/XR chest 1V portable [id number] IMPRESSION: 1. No acute findings. 2. Surgical hardware cervical spine 3. Chronic deformity proximal left humerus Pending at discharge Category Date Time Status Blood Culture Sta t Lab 04/01/20 23:52 No growth to date Sputum Culture an d Gram Stain Stat Lab 04/02/20 14:24 Normal hilda to da te Laboratory Last Values WBC 6.0 10^3/uL (4.0- 10.0) 04/04/20 05:11 RBC 3.15 10^6/uL (4.1 -5.3) L 04/04/20 05:11 Hgb 11.2 g/dL (11.5-1 5.3) L 04/04/20 05:11 Hct 34.6 % (37.0-47.0 ) L 04/04/20 05:11 MCV 109.8 fL (81-99) H 04/04/20 05:11 MCH 35.6 pg (28.0-34. 0) H 04/04/20 05:11 MCHC 32.4 g/dL (30.0-3 6.0) 04/04/20 05:11 RDW 13.4 % (12.1-15.1 ) 04/04/20 05:11 Plt Count 168 10^3/cmm (130 -400) 04/04/20 05:11 MPV 11.8 fL (7.4-10.4 ) H 04/04/20 05:11 Neut % (Auto) 46.6 % 04/04/20 05:11 Lymph % (Auto) 28.7 % 04/04/20 05:11 [place] % (Auto) 7.5 % 04/04/20 05:11 Eos % (Auto) 16.2 % 04/04/20 05:11 Baso % (Auto) 0.8 % 04/04/20 05:11 Neut # (Auto) 2.80 10^3/uL (1.8 -7.7) 04/04/20 05:11 Lymph # (Auto) 1.7 10^3/uL (0.8- 4.8) 04/04/20 05:11 [place] # (Auto) 0.5 10^3/uL (0.2- 0.9) 04/04/20 05:11 Eos # (Auto) 1.0 10^3/uL (0.0- 0.8) H 04/04/20 05:11 Baso # (Auto) 0.1 10^3/uL (0.0- 0.1) 04/04/20 05:11 Nucleated RBC % (a uto) 0 % 04/04/20 05:11 Nucleated RBCs # 0.0 /100WBC 04/04/20 05:11 PT 12.80 SECONDS (12 .1-14.9) 04/01/20 16:45 INR 0.94 (0.8-1.2) 04/01/20 16:45 D-Dimer 1.45 ug/mIFEU (0- 0.59) H 04/03/20 05:00 Specimen Type Arterial 04/01/20 17:10 Sample Site Radial, right 04/01/20 17:10 ABG pH 7.37 (7.35-7.45) 04/01/20 17:10 ABG pCO2 52.4 mmHg (35-45) H 04/01/20 17:10 ABG pO2 91.5 mmHg (80.0-1 00.0) 04/01/20 17:10 ABG HCO3 30.4 mmol/L (22-2 6) H 04/01/20 17:10 ABG Base Excess 3.8 mmol/L (-2.0- 2.0) H 04/01/20 17:10 Michael Test Pos 04/01/20 17:10 Hematocrit 43.7 % (37-47) 04/01/20 17:10 Hgb O2 Saturation 96.3 % (95-100) 04/01/20 17:10 Carboxyhemoglobin 1.1 %THgb (0.4-20 .1) 04/01/20 17:10 Methemoglobin 0.6 % (0.4-1.5) 04/01/20 17:10 Total Hemoglobin 14.2 g/dL (12-16) 04/01/20 17:10 O2 Delivery Device Nc 04/01/20 17:10 O2 Liters/Min 6.0 % 04/01/20 17:10 FiO2 44.0 % 04/01/20 17:10 Business Services Vice President ID Amh 04/01/20 17:10 Sodium 141 mmol/L (136-1 45) 04/04/20 05:11 Potassium 3.5 mmol/L (3.5-5 .1) 04/04/20 05:11 Chloride 102 mmol/L (98-10 7) 04/04/20 05:11 Carbon Dioxide 31 mmol/L (22-29) H 04/04/20 05:11 Anion Gap 11.5 (5-19) 04/04/20 05:11 BUN 15 mg/dL (8-23) 04/04/20 05:11 Creatinine 0.5 mg/dL (0.5-0. 9) 04/04/20 05:11 GFR Calculation Not Reportable 04/04/20 05:11 Glucose 101 mg/dL (65-115 ) 04/04/20 05:11 Calculated Osmolal ity 293 mOsm/kg (285- 295) 04/04/20 05:11 Lactic Acid 1.2 mmol/L (0.5-2 .2) 04/01/20 16:45 Calcium 8.7 mg/dL (8.5-10 .5) 04/04/20 05:11 Magnesium 1.9 mg/dL (1.7-2. 3) 04/01/20 16:45 Total Bilirubin 0.3 mg/dL (0.15-1 .2) 04/01/20 16:45 AST 30 U/L (0-32) 04/01/20 16:45 ALT 6 U/L (0-33) 04/01/20 16:45 Alkaline Phosphata se 130 IU/L (35-105) H 04/01/20 16:45 NT-Pro-B Natriuret Pep 671 pg/mL (0-450) H 04/01/20 16:45 Total Protein 7.4 g/dL (6.6-8.7 ) 04/01/20 16:45 Albumin 4.4 g/dL (3.5-5.2 ) 04/01/20 16:45 Globulin 3.0 g/dL (1.3-4.6 ) 04/01/20 16:45 SARS-CoV-2 Ag (Rap id) Negative (Negati ve) 04/01/20 18:00 Legionella Antigen STAT Final 04/02/20-1756 Legion Patient Result Presumptive Negative for L. pneumophila Bacterial Antigen Final 04/02/20-1755 Streptococcus Group B Negative for Streptococcus Group B Antigen Haemophilus influenzae B Negative or Haemophilus influenzae B Antigen S. pneumoniae Antigen Negative for S. pneumoniae Antigen N.meningitidis A,C,Y,W135 Negative for N.meningitidis A,C,Y,W135 Antigen N.meningitidis B/E.coli Negative for N.meningitidis B/E.coli K1 Antigen MRSA PCR negative Vitals: Last Vital Signs Temp 97.8 F 04/04/20 08:00 Pulse 84 04/04/20 08:00 Resp 18 04/04/20 08:00 BP 127/71 04/04/20 08:00 Pulse Ox 92 04/04/20 11:12 Discharge Plan Discharge Patient Disposition: Home Condition: Stable Prescriptions: New ipratropium-albuterol 0.5 mg-3 mg(2.5 mg base)/3 mL Solution For Nebulization 3 ml inhalation Q6H PRN (Reason: Shortness Of Breath) Qty: 100 RF: 1 dextromethorphan-guaifenesin 10-100 mg/5 mL Syrup 10 ml PO Q4H PRN (Reason: Cough) Qty: 237 RF: 0 doxycycline hyclate 100 mg tablet 100 mg PO BID 7 Days Qty: 14 RF: 0 Continued omeprazole 40 mg Capsule,Delayed Release(Dr/Ec) 40 mg PO DAILY RF: 0 tramadol [Ultram] 50 mg Tablet 50 mg PO TID PRN (Reason: Pain) RF: 0 aspirin 325 mg Tablet 325 mg PO DAILY RF: 0 folic acid 400 mcg Tablet 0.4 mg PO DAILY RF: 0 ProAir HFA 90 mcg/actuation Hfa Aerosol Inhaler 2 puff INHALATION TID PRN (Reason: Shortness Of Breath) RF: 0 furosemide [Lasix] 40 mg Tablet 60 mg PO DAILY RF: 0 atorvastatin 80 mg Tablet 80 mg PO DAILY RF: 0 loperamide [Imodium A-D] 2 mg Capsule 2 mg PO QID PRN (Reason: Diarrhea) RF: 0 metoprolol tartrate 100 mg Tablet 150 mg PO BID RF: 0 tizanidine 4 mg Tablet 4 mg PO BID PRN (Reason: Spasms) RF: 0 donepezil 10 mg Tablet 10 mg PO DAILY RF: 0 sertraline [Zoloft] 100 mg Tablet 100 mg PO DAILY RF: 0 Multi-Vitamins with Iron Tablet,Chewable 1 tab PO DAILY RF: 0 primidone 250 mg Tablet 250 mg PO BID RF: 0 levothyroxine [Synthroid] 50 mcg Tablet 50 mcg PO DAILY RF: 0 nystatin 100,000 unit/gram Cream 1 applic TOPICAL BID RF: 0 losartan 25 mg Tablet 25 mg PO DAILY RF: 0 nitroglycerin [Nitrostat] 0.4 mg Tablet, Sublingual 0.4 mg SUBLINGUAL Q5M PRN (Reason: Chest Pain) RF: 0 ergocalciferol (vitamin D2) [Vitamin D2] 1,250 mcg (50,000 unit) Capsule 1,250 mcg PO Q7D RF: 0 fluticasone propionate [Flonase Allergy Relief] 50 mcg/actuation Mobile,Suspension 2 spray INTRANASAL DAILY PRN (Reason: unknown) RF: 0 dicyclomine 10 mg Capsule 10 mg PO QID RF: 0 carbidopa-levodopa 25-100 mg Tablet,Disintegrating 1 tab PO TID RF: 0 Zyrtec 10 mg Capsule 10 mg PO DAILY PRN (Reason: unknown) RF: 0 memantine 28 mg Capsule,Sprinkle,Er 24hr 28 mg PO DAILY RF: 0 potassium chloride 20 mEq Tablet Extended Release 20 meq PO DAILY RF: 0 prednisone 20 mg tablet 40 mg PO DAILY 5 Days Qty: 10 RF: 0 Held methotrexate sodium 2.5 mg tablet See Rx Instructions .ROUTE .COMPLEX RF: 0 Hold Instructions: Resume on 04/17/20. Hold until instructed to resume by physican; held due to recent covid and now pneumonia Discharge Orders: Discharge Order (Routine); Ordered 04/04/20 Ordered By: Stephanie Lorenzo Other Ambulatory Orders: DME: Nebulizer with Neb Kit (Order) Location: None Selected Ordered By: Stephanie Lorenzo DME: Oxygen (Order) Location: None Selected Ordered By: Stephanie Lorenzo Referrals: Cheyenne Yang PA [Primary Care Provider] - 4-7 days Discharge Diet: Advance as tolerated Discharge Activity: Increase activity as tolerated Patient Instructions: Using Oxygen at Home (DC), Community-acquired Pneumonia (DC) Activity Restrictions/Additional Instructions: Use oxygen continuously at 2L BNC for now, including with exertion even around the house Take antibiotic and steroids as prescribed Use nebulizer treatments as directed Continue to use your flutter device throughout the day to break up mucus Other medications the same except for methotrexate currently being held Discharge Attestations Time Spent in Discharge Care*: greater than 30 min Specific Discharge Activities: educating patient, educating and/or supporting family/caregiver, discussing with pcp/other providers, discussing with disease case manager/social workers/dc planners, documenting/other paperwork and evaluating patient/reviewing data Quality Metrics Clinical Quality Measures During this hospital stay, did patient experience: None Coding Level of Care Code Acute 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 [employer] Diagnoses Acute respiratory failure with hypoxia J96.01 Sepsis A41.9; R65.20; J96.01 Acute respiratory failure type: with hypoxia Sepsis acute organ dysfunction status: with acute organ dysfunction Sepsis type: sepsis due to unspecified organism Severe sepsis acute organ dysfunction type: acute respiratory failure Severe sepsis shock status: without septic shock Community acquired pneumonia J18.9 Laterality: right Lung location: upper lobe of lung Morbid obesity with BMI of 40.0-44.9, adult E66.01; Z68.41 Atrial fibrillation I48.91 Atrial fibrillation type: unspecified HTN (hypertension) I10 Hypertension type: essential hypertension Hyperlipemia E78.5 Hyperlipidemia type: unspecified Hypothyroid E03.9 Hypothyroidism type: acquired Rheumatoid arthritis M06.9 Rheumatoid arthritis location: unspecified site Rheumatoid factor presence: unspecified presence History of 2019 novel coronavirus disease (COVID-19) Z86.19
--- NOTE | 2020-04-04 13:14 | DCPLANNER ---
Pg 2 of IM explained to and signed by Pt. No questions, copy provided.
[2020-04-04] MEDS: azithromycin 500 MG in sodium chloride 0.9% 250 ML 250 MG IV (14:30)
--- NOTE | 2020-04-04 16:40 | PC.NURSE ---
pt received discharge paperwork as well as oxygen tanks and nebulizer treatments. all questions answered.
== END 2020-04-04 16:40 | disposition home or self-care (01) | DRG 871 ==
LOC: ER 16:08 → MEDSURG 21:59
PROVIDERS: Internal Medicine; Admitting Provider Internal Medicine; Emergency Provider Emergency Medicine; PCP Physician Assistant; Visit Provider Hospitalist
DX: A41.9 Sepsis, unspecified organism (principal); J18.9 Pneumonia, unspecified organism; J96.01 Acute respiratory failure with hypoxia; Z68.41 Body mass index [BMI] 40.0-44.9, adult; G20 Parkinson's disease; I48.91 Unspecified atrial fibrillation; Z86.718 Personal history of other venous thrombosis and embolism; Z86.711 Personal history of pulmonary embolism; Z86.19 Personal history of other infectious and parasitic diseases; M06.9 Rheumatoid arthritis, unspecified; I10 Essential (primary) hypertension; E78.5 Hyperlipidemia, unspecified; E03.9 Hypothyroidism, unspecified; Z96.659 Presence of unspecified artificial knee joint; Z95.828 Presence of other vascular implants and grafts; E87.6 Hypokalemia; R65.20 Severe sepsis without septic shock; E66.01 Morbid (severe) obesity due to excess calories; Z79.51 Long term (current) use of inhaled steroids
CPT/HCPCS: 12345; 36415; 36600; 71045; 71275; 80048; 80053; 82805; 83605; 83735; 83880; 85025; 85378; 85610; 86403; 87040; 87070; 87205; 87426; 87449; 87641; 94640; 94660; 96372; 99283; J0456; J1650; J3370; J3490; J7040; J7050; J7512; Q9967

== ENCOUNTER 2020-04-07 22:24 | Inpatient (IN) | payer MEDICARE, OTHER, SELFPAY ==
--- NOTE | 2020-04-07 22:27 | ECG_ITS ---
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: : 1935 Requested By: Renard Huitron Order Number: [id number] Reading MD: MEDHAT VELAZQUEZ Measurements Intervals [place] Rate: 116 P: UT: QRS: 1 QRSD: 92 T: -7 QT: 317 QTc: 442 Interpretive Statements ATRIAL FIBRILLATION WITH RAPID VENTRICULAR RESPONSE MODERATE ST DEPRESSION [0.05+ mV ST DEPRESSION] Compared to ECG 03/12/2020 15:50:16 ST (T wave) deviation now present Sinus rhythm no longer present T-wave abnormality no longer present Possible ischemia no longer present Electronically Signed On 04-08-2020 18:14:11 RETORT LOADER by MEDHAT VELAZQUEZ [id number]
--- NOTE | 2020-04-07 22:27 | XRR_ITS ---
PROCEDURE INFORMATION: Exam: XR Chest, 1 View Exam date and time: 04/07/2020 10:28 PM Age: 84 years old Clinical indication: Cough and shortness of breath; Prior surgery; Additional info: SOB TECHNIQUE: Imaging protocol: XR of the chest Views: 1 view. COMPARISON: CR (CHEST, ) 04/01/2020 4:19 PM FINDINGS: Lungs: Bibasilar atelectasis versus minimal infiltrate. Pleural space: Unremarkable. No pleural effusion. No pneumothorax. Heart/Mediastinum: Cardiomegaly. Bones/joints: Left humeral neck chronic impacted fracture suspected. XR/XR chest 1V portable [id number] IMPRESSION: 1. Cardiomegaly. 2. Bibasilar atelectasis versus minimal infiltrate.
[2020-04-07 22:30] VITALS: BP 157/96; PULSE 93; RESP 20; TEMP 36.7; O2SAT 91; BMI 40.2
--- NOTE | 2020-04-07 22:33 | W.ED.SOB ---
HPI - SOB/Dyspnea General: Chief Complaint: Shortness of Breath/Dyspnea Stated Complaint: SOB/has pneumonia Time Seen by Provider: 04/07/20 22:27 Source: patient Mode of arrival: ambulatory Limitations: no limitations History of Present Illness: HPI Narrative: 84-year-old female who was diagnosed with Covid earlier this month and was admitted to [place] at that time. Patient then went home and was admitted here last week with a right upper lobe pneumonia. Discharged 3 days ago and states that today she had much worsening shortness of breath. She is on an inhaler states she is supposed to be on a steroid but did not receive the prescription. Patient is in distress here and tachypneic with wheezing. Patient was discharged home on 2 L. She denies any fever has had a cough. Denies any worsening improving factors. MD elicited complaint: shortness of breath Associated symptoms: Deny abdominal pain, chest pain, fever(s), nausea or vomiting Review of Systems Const: Denies: fever(s), chills, body aches or change in appetite Eyes: Denies: blurry vision or eye discomfort ENMT: Denies: throat pain or dental pain Card: Denies: chest pain Resp: Reports: dyspnea, non-productive cough and wheezing GI: Denies: abdominal pain, nausea, vomiting or diarrhea : Denies: dysuria Musc: Denies: neck pain or back pain Skin/Breast: Denies: rash Neuro: Denies: headache(s) Psych: Denies: depression Daniel/Lymph: Denies: easy bruising All/Imm: Denies: urticaria PFSH ED PFSH: Medical History Arthritis Atrial fibrillation Has watchman device in the left atrial appendage, no anticoagulation, sinus rhythm this hospital stay History of 2019 novel coronavirus disease (COVID-19) (~03/2020) Hospitalized in [place] March 12-2019 HTN (hypertension) Hx of deep venous thrombosis Hx of pulmonary embolus Hx of vaginal delivery Hyperlipemia Hypothyroid Parkinson disease Presence of Watchman left atrial appendage closure device Rheumatoid arthritis On methotrexate chronically though currently held due to recent Covid infection and pneumonia Surgical History History of shoulder surgery Diagnostic arthroscopy of right shoulder with minimal debridement, open distal clavicle resection, open acromioplasty, open rotator cuff repair augmented with acellular dermal patch, open biceps tenodesis. DOS: 06/24/[address] Rain History of tonsillectomy and adenoidectomy Hx of Achilles tendon repair Hx of appendectomy Hx of arthroscopy of shoulder Hx of cholecystectomy Hx of heart surgery Hx of hysterectomy Hx of laminectomy Hx of total knee replacement Hx of tubal ligation Family History Other CAD (coronary artery disease) Social History Smoking and tobacco status: never smoked Alcohol intake: never Housing: House Physical Exam Const: COMMON NORMALS: patient oriented x3 GENERAL APPEARANCE: in distress HENMT: COMMON NORMALS: normocephalic and atraumatic HEAD & SCALP: normocephalic and atraumatic Eye: COMMON NORMALS: Equal, round and reactive pupils present and EOMs intact bilaterally PUPIL: Yes Equal, round and reactive pupils present Neck/C-Spine: COMMON NORMALS: full ROM and supple Chest: COMMONS NORMALS: normal inspection of the chest and normal palpation of entire chest wall Resp: EFFORT & INSPECTION: Yes respiratory distress AUSCULTATION: wheezes Cardio: COMMON NORMALS: regular rhythm and No murmurs present (Cardio) RATE: tachycardic RHYTHM: regular rhythm GI: COMMON NORMALS: Normal to inspection, nondistended, normoactive bowel sounds present, Soft to palpation, non-tender and no masses PALPATION: Yes Soft to palpation Extremity: COMMON NORMALS: normal to inspection and full ROM Neuro: COMMON NORMALS: patient oriented x3, moves all extremities and no focal motor deficits Psych: COMMON NORMALS: mental status grossly normal, Normal thought process present and cooperative THOUGHT PROCESS: Normal thought process present Skin: COMMON NORMALS: no rashes or lesions noted and no wounds GENERAL SKIN EXAM: no rashes or lesions noted Course Vital Signs: Vital signs: Vital Signs Temperature 97.9 F 04/08/20 00:54 Pulse Rate 83 04/08/20 00:54 Respiratory Rate 17 04/08/20 00:54 Blood Pressure 146/65 04/08/20 00:54 Pulse Oximetry 97 04/08/20 00:54 MDM - SOB/Dyspnea MDM Narrative: Medical decision making narrative: Patient presents here with dyspnea likely post Covid pneumonitis. Patient given breathing treatment here and is improved and started on steroids. Will admit for observation as she is requiring 3 L of oxygen now compared to 2 L when she was discharged. Lab Data: Labs: Lab Results 04/07/20 04/07/20 04/07/20 Range/Units 22:48 23:16 23:16 WBC 10.5 H (4.0-10.0) 10^3/ uL RBC 3.79 L (4.1-5.3) 10^6/u L Hgb 13.5 (11.5-15.3) g/dL Hct 41.2 (37.0-47.0) % MCV 108.7 H (81-99) fL MCH 35.6 H (28.0-34.0) pg MCHC 32.8 (30.0-36.0) g/dL RDW 13.2 (12.1-15.1) % Plt Count 187 (130-400) 10^3/c mm MPV 12.1 H (7.4-10.4) fL Neut % (Auto) 68.0 % Lymph % (Auto) 13.3 % [place] % (Auto) 8.1 % Eos % (Auto) 9.4 % Baso % (Auto) 1.0 % Neut # (Auto) 7.13 (1.8-7.7) 10^3/u L Lymph # (Auto) 1.4 (0.8-4.8) 10^3/u L [place] # (Auto) 0.9 (0.2-0.9) 10^3/u L Eos # (Auto) 1.0 H (0.0-0.8) 10^3/u L Baso # (Auto) 0.1 (0.0-0.1) 10^3/u L Nucleated RBC % (a uto) 0 % Nucleated RBCs # 0.0 /100WBC Specimen Type Arterial Sample Site Brachial, left ABG pH 7.40 (7.35-7.45) ABG pCO2 43.2 (35-45) mmHg ABG pO2 65.2 L (80.0-100.0) mmH g ABG HCO3 26.6 H (22-26) mmol/L ABG Base Excess 1.4 (-2.0-2.0) mmol/ L Michael Test N/a Hematocrit 42.0 (37-47) % O2 Delivery Device Nc O2 Liters/Min 3.0 % Public Address System Installer ID Harkr Sodium 140 (136-145) mmol/L Potassium 4.0 (3.5-5.1) mmol/L Chloride 101 (98-107) mmol/L Carbon Dioxide 26 (22-29) mmol/L Anion Gap 17.0 (5-19) BUN 18 (8-23) mg/dL Creatinine 0.8 (0.5-0.9) mg/dL GFR Calculation Not Reportable Glucose 184 H (65-115) mg/dL Calculated Osmolal ity 297 H (285-295) mOsm/k g Calcium 9.1 (8.5-10.5) mg/dL Total Bilirubin 0.3 (0.15-1.2) mg/dL AST 41 H (0-32) U/L ALT 9 (0-33) U/L Alkaline Phosphata se 121 H (35-105) IU/L NT-Pro-B Natriuret Pep 642 H (0-450) pg/mL Total Protein 7.0 (6.6-8.7) g/dL Albumin 4.1 (3.5-5.2) g/dL Globulin 2.9 (1.3-4.6) g/dL Imaging Data^: CXR: Attestation: I personally reviewed and interpreted this imaging study as follows: Radiologist's impression: [address] [address] XRay Report Signed Patient: Kassie Robles Unit #: [id number] : 1935 Age/Sex: 84 / F ADM Date: 04/07/20 Loc: ER Room/Bed: Attending Dr: Ordering Provider/Ordering MD: Renard Huitron MD Date of Service: 04/07/20 Procedure(s): XR chest 1V portable [id number] Accession Number(s): [id number] Report Number: [id number] PROCEDURE INFORMATION: Exam: XR Chest, 1 View Exam date and time: 04/07/2020 10:28 PM Age: 84 years old Clinical indication: Cough and shortness of breath; Prior surgery; Additional info: SOB TECHNIQUE: Imaging protocol: XR of the chest Views: 1 view. COMPARISON: CR (CHEST, ) 04/01/2020 4:19 PM FINDINGS: Lungs: Bibasilar atelectasis versus minimal infiltrate. Pleural space: Unremarkable. No pleural effusion. No pneumothorax. Heart/Mediastinum: Cardiomegaly. Bones/joints: Left humeral neck chronic impacted fracture suspected. XR/XR chest 1V portable [id number] IMPRESSION: 1. Cardiomegaly. 2. Bibasilar atelectasis versus minimal infiltrate. EKG Data^: EKG 1: Attestation: I personally reviewed and interpreted this EKG as follows: EKG Interpretation Date: 04/07/20 EKG interpretation time: 22:42 Interpretation: afib rvr hr [address] or t wave abnormalities qrs 92 qtc 386 Discharge Plan Discharge Patient Disposition: Admitted As Inpatient Admit Provider: Merry Engel Clinical Impression: Dyspnea Qualifiers: Dyspnea type: unspecified Qualified Code(s): R06.00 - Dyspnea, unspecified Condition: Stable Coding Level of Care Code ED Roof Fixer for Chg Fwd Exam Comprehensive
[2020-04-07 22:35] VITALS: BP 135/112; PULSE 119; RESP 24; O2SAT 93
[2020-04-07 22:45] VITALS: PULSE 102; RESP 20; O2SAT 94
[2020-04-07] MEDS: ipratropium-albuterol 3 mL Neb INHALATION (22:45)
[2020-04-07 22:55] VITALS: PULSE 119
[2020-04-07 22:58] LABS: ABG PCO2 43.2 mmHg (35-45); Base Excess ABG 1.4 mmol/L (-2.0-2.0); Blood Gas Operator Identificat HARKR; Blood Gas Sample Site Brachial, left; Blood Gas Sample Type Arterial; HCO3 ABG 26.6 mmol/L (22-26); Oxygen Device NC; PO2 ABG 65.2 mmHg (80.0-100.0)
[2020-04-07 23:31] LABS: Basophils # 0.1 10^3/uL (0.0-0.1); Eosinophils % 9.4 %; Hematocrit 41.2 % (37.0-47.0); Hemoglobin 13.5 g/dL (11.5-15.3); Lymphocytes # 1.4 10^3/uL (0.8-4.8); Lymphocytes % 13.3 %; Mean Corpuscular HGB Conc 32.8 g/dL (30.0-36.0); Mean Corpuscular Hemoglobin 35.6 pg (28.0-34.0); Mean Corpuscular Volume 108.7 fL (81-99); Mean Platelet Volume 12.1 fL (7.4-10.4); Monocytes # 0.9 10^3/uL (0.2-0.9); Monocytes % 8.1 %; Neutrophils # 7.13 10^3/uL (1.8-7.7); Nucleated Red Blood Cells % 0 %; Platelet Count 187 10^3/cmm (130-400); Red Blood Count 3.79 10^6/uL (4.1-5.3); Red Cell Distribution Width 13.2 % (12.1-15.1); White Blood Count 10.5 10^3/uL (4.0-10.0)
[2020-04-07 23:32] VITALS: BP 135/112; PULSE 83; RESP 24; O2SAT 97
[2020-04-07 23:58] VITALS: BP 130/52; PULSE 83; RESP 16; O2SAT 96
[2020-04-08] VITALS (15 sets, daily range): BP systolic 102–146; BP diastolic 62–98; PULSE 67–108; RESP 15–23; TEMP 36.4–36.8; O2SAT 92–99
[2020-04-08 00:03] LABS: Alanine Aminotransferase 9 U/L (0-33); Albumin Level 4.1 g/dL (3.5-5.2); Alkaline Phosphatase 121 IU/L (35-105); Aspartate Amino Transferase 41 U/L (0-32); Blood Urea Nitrogen 18 mg/dL (8-23); Calcium 9.1 mg/dL (8.5-10.5); Carbon Dioxide 26 mmol/L (22-29); Chloride 101 mmol/L (98-107); Globulin 2.9 g/dL (1.3-4.6); Glucose 184 mg/dL (65-115); NT Pro B Type Natriuretic Pept 642 pg/mL (0-450); Osmolality Calculated 297 mOsm/kg (285-295); Sodium 140 mmol/L (136-145); Total Bilirubin 0.3 mg/dL (0.15-1.2)
--- NOTE | 2020-04-08 00:15 | CTR_ITS ---
PROCEDURE INFORMATION: Exam: CT Angiography Chest With Contrast Exam date and time: 04/08/2020 12:43 AM Age: 84 years old Clinical indication: Condition or disease; Other: Covid+ one month ago; Cough and shortness of breath; Prior surgery; Surgery type: Loop recorder; Additional info: Evaluate for pe TECHNIQUE: Imaging protocol: Computed tomographic angiography of the chest with intravenous contrast. 3D rendering (Not supervised by radiologist): MIP and/or 3D reconstructed images were created by the technologist. Radiation optimization: All CT scans at this facility use at least one of these dose optimization techniques: automated exposure control; mA and/or kV adjustment per patient size (includes targeted exams where dose is matched to clinical indication); or iterative reconstruction. Contrast material: OMNI 350; Contrast volume: 84 ml; Contrast route: INTRAVENOUS (IV); COMPARISON: CT angio chest PE protcl [id number] 04/01/2020 7:20 PM RADIATION DOSE METRICS: Total DLP (mGy-cm): 663.41 FINDINGS: Pulmonary arteries: Normal. No pulmonary emboli. Aorta: Unremarkable. No aortic aneurysm. No aortic dissection. Lungs: Patchy bilateral airspace opacities suggestive of an infectious process. Pleural space: Unremarkable. No pneumothorax. No pleural effusion. Heart: Unremarkable. No cardiomegaly. No pericardial effusion. Lymph nodes: Unremarkable. No enlarged lymph nodes. Bones/joints: Unremarkable. No acute fracture. Soft tissues: Unremarkable. CT/CT angio chest PE protcl [id number] IMPRESSION: 1. Negative for pulmonary embolus. 2. Patchy bilateral airspace opacities suggestive of an infectious process. Radiation Dose CTDIVOL = (mGy): DLP = 663.41 (mGy-cm)
--- NOTE | 2020-04-08 00:45 | P.HP_ITS ---
Providers/Chief Complaint Admitting Physician: Merry Engel MD Primary Care Provider: Cheyenne Yang Chief Complaint: SOB/has pneumonia History of Present Illness Kassie Robles is a 84 year old female diagnosed with Covid at the beginning of March and then recently admitted between 06/01-04/04 with increasing shortness of breath, productive cough and general malaise and treated for pneumonia with abx, nebulization, supplemental 02 ad discharged on 2lpm. She returned today c/o woresning shortness of breath , 02 requirement up to 3lpm from 2lpm at discharge. She was noted to be wheezing, improved after being given nebulization in the ED. CTA chest today without evidence of PE. Patchy faint GGOs noted, however grossly appears to be stable to improved from last CTA on 04/01 per my read. BNP not significantly elevated. Review of Systems General: Reports: 10 or more systems reviewed and unremarkable except in HPI and below Const: Denies: fever(s), chills or body aches Eyes: Denies: change in vision, blurry vision or photophobia ENMT: Reports: hoarseness; Denies: throat pain, enlarged tonsils, odynophagia or nasal congestion Card: Denies: chest pain, palpitations, irregular heart rhythm, edema, swelling of feet/ankles, lightheadedness, pre-syncope, dyspnea on exertion or orthopnea Resp: Denies: dyspnea, productive cough, non-productive cough, wheezing, strid or, pain on inspiration, change in phlegm color, hemoptysis or chest congestion GI: Denies: abdominal pain, nausea, vomiting, hematemesis, coffee ground emesis, dysphagia, heartburn, diarrhea, constipation, GI cramping, change in stool character, hematochezia or melena : Denies: flank pain, difficulty voiding, dysuria, urinary frequency, urinary urgency, urinary hesitancy or hematuria Musc: Denies: neck pain, back pain, extremity pain, joint swelling, joint warmth or deformity Neuro: Denies: headache(s), numbness in extremities, weakness in extremities, sensory changes, difficulty walking, frequent falls, dizziness, vertigo, behavioral changes, Slurred speech present or seizure-like activity Psych: Denies: anxiety, depression, suicidal ideation or homicidal ideation Endo: Denies: polyuria, polydipsia, tired all the time, cold intolerance or hot flashes Daniel/Lymph: Denies: easy bruising or easy bleeding Medications/Allergies Home Medications Medication Instructions Recorded Confirmed Last Taken Type Multi-Vitamins with Iron 1 tab PO DAILY 01/12/20 04/01/20 01/13/20 05:00 History Zyrtec 10 mg PO DAILY PRN 01/12/20 04/01/20 01/13/20 05:00 History atorvastatin 80 mg PO DAILY 01/12/20 04/01/20 03/31/20 History carbidopa-levodopa 1 tab PO TID 01/12/20 04/01/20 04/01/20 12:00 History dicyclomine 10 mg PO QID 01/12/20 04/01/20 04/01/20 History donepezil 10 mg PO DAILY 01/12/20 04/01/20 03/31/20 History ergocalciferol (vitamin D2) 1,250 mcg PO Q7D 01/12/20 04/01/20 01/13/20 05:00 History [Vitamin D2] fluticasone propionate [Flonase 2 spray INTRANASAL DAILY PRN 01/12/20 04/01/20 01/13/20 05:00 History Allergy Relief] furosemide [Lasix] 60 mg PO DAILY 01/12/20 04/01/20 04/01/20 History levothyroxine [Synthroid] 50 mcg PO DAILY 01/12/20 04/01/20 04/01/20 History loperamide [Imodium A-D] 2 mg PO QID PRN 01/12/20 04/01/20 01/13/20 05:00 History losartan 25 mg PO DAILY 01/12/20 04/01/20 03/31/20 History memantine 28 mg PO DAILY 01/12/20 04/01/20 04/01/20 History metoprolol tartrate 150 mg PO BID 01/12/20 04/01/20 04/01/20 History nitroglycerin [Nitrostat] 0.4 mg SUBLINGUAL Q5M PRN 01/12/20 04/01/20 Unknown History nystatin 1 applic TOPICAL BID 01/12/20 04/01/20 01/13/20 05:00 History potassium chloride 20 meq PO DAILY 01/12/20 04/01/20 04/01/20 History primidone 250 mg PO BID 01/12/20 04/01/20 04/01/20 History sertraline [Zoloft] 100 mg PO DAILY 01/12/20 04/01/20 03/31/20 History tizanidine 4 mg PO BID PRN 01/12/20 04/01/20 01/12/20 History methotrexate sodium See Rx Instructions .ROUTE .COMPLEX 03/12/20 04/01/20 Unknown History omeprazole 40 mg PO DAILY 03/12/20 04/01/20 04/01/20 History tramadol [Ultram] 50 mg PO TID PRN 03/12/20 04/01/20 03/12/20 History ProAir HFA 2 puff INHALATION TID PRN 04/01/20 04/01/20 Unknown History aspirin 325 mg PO DAILY 04/01/20 04/01/20 04/01/20 History folic acid 0.4 mg PO DAILY 04/01/20 04/01/20 Unknown History dextromethorphan-guaifenesin 10 ml PO Q4H PRN #237 ml 04/04/20 Unknown Rx doxycycline hyclate 100 mg PO BID 7 Days #14 tab 04/04/20 Unknown Rx ipratropium-albuterol 3 ml INHALATION Q6H PRN #100 ml 04/04/20 Unknown Rx prednisone 40 mg PO DAILY 5 Days #10 tab 04/04/20 Unknown Rx Allergies Allergy/AdvReac Type Severity Reaction Status Date / Time codeine Allergy Unknown ALGY-Hives Verified 04/07/20 22:35 morphine Allergy Unknown ALGY-Rash Verified 04/07/20 22:35 Penicillins Allergy Unknown ALGY-Rash Verified 04/07/20 22:35 PFSH Acute PFSH: Medical History Arthritis Atrial fibrillation Has watchman device in the left atrial appendage, no anticoagulation, sinus rhythm this hospital stay History of 2019 novel coronavirus disease (COVID-19) (~03/2020) Hospitalized in [place] March 12-2019 HTN (hypertension) Hx of deep venous thrombosis Hx of pulmonary embolus Hx of vaginal delivery Hyperlipemia Hypothyroid Parkinson disease Presence of Watchman left atrial appendage closure device Rheumatoid arthritis On methotrexate chronically though currently held due to recent Covid infec tion and pneumonia Surgical History History of shoulder surgery Diagnostic arthroscopy of right shoulder with minimal debridement, open distal clavicle resection, open acromioplasty, open rotator cuff repair augmented with acellular dermal patch, open biceps tenodesis. DOS: 06/24/[address] Rain History of tonsillectomy and adenoidectomy Hx of Achilles tendon repair Hx of appendectomy Hx of arthroscopy of shoulder Hx of cholecystectomy Hx of heart surgery Hx of hysterectomy Hx of laminectomy Hx of total knee replacement Hx of tubal ligation Family History Other CAD (coronary artery disease) Social History Smoking and tobacco status: never smoked Alcohol intake: never Housing: House Vitals/I&O/Wt Last Vital Signs Temp 98.0 F 04/07/20 22:30 Pulse 86 04/08/20 00:30 Resp 23 H 04/08/20 00:30 BP 146/65 04/08/20 00:30 Pulse Ox 97 04/08/20 00:30 Weight last 48 hrs Weight 109.769 kg Physical Exam Narrative: EXAM NARRATIVE: GEN: Awake, alert and oriented, no acute distress CVS: S1S2 N RS: Scattered B/L wheezing to auscultation all areas Abd: Soft, nt/nd , bs+ AERIAL CROP DUSTER: no focal neuro deficits Data : 04/07/20 23:16 04/07/20 23:16 A&P Assessment and plan (1) Dyspnea: Patient presents today after recent admission for post COVID pneumonia. On exam had signifcant wheezing CTA without PE or consolidation differentials include post viral reactive airway disease Clinically appears to be euvolemic Duonebs inhalation q4h scheduled Pulmicort inhalation BID Received 125mg methylpred in [facility] ER, continue 40mg q12h supplemetal 02 to keep saturatio >92% Status: Acute Qualifiers: Dyspnea type: unspecified Qualified Code(s): R06.00 - Dyspnea, un specified (2) History of 2019 novel coronavirus disease (COVID-19): Status: Acute (3) Rheumatoid arthritis: Status: Chronic Qualifiers: Rheumatoid arthritis location: unspecified site Rheumatoid factor presence: unspecified presence Qualified Code(s): M06.9 - Rheumatoid arthritis, unspecified (4) Reactive airway disease: Status: Acute Attestations Medical Necessity Statement*: observation admission, anticipate less than 2 midnight Coding Level of Care Code Acute [employer] Heel Flap 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
[2020-04-08] MEDS: iohexol 350 mg/mL 100 mL Btl IV (01:21)
[2020-04-08] MEDS: ipratropium-albuterol 3 mL Neb INHALATION ×4 (02:18→20:16)
[2020-04-08] MEDS: enoxaparin 40 mg/0.4 mL Syringe SUBCUT (02:58)
[2020-04-08 06:27] LABS: Glucose Point of Care 174 mg/dL (70-110)
[2020-04-08] MEDS: budesonide 0.5 mg/2 mL Neb INHALATION ×2 (08:19→20:16)
[2020-04-08] MEDS: FUROsemide 40 mg Tablet 60 MG PO (08:54)
[2020-04-08] MEDS: atorvastatin 40 mg Tablet 80 MG PO (08:54)
[2020-04-08] MEDS: losartan 50 mg Tablet 25 MG PO (08:55)
[2020-04-08] MEDS: donepezil 5 MG Tablet 10 MG PO (08:55)
[2020-04-08] MEDS: benzonatate 100 mg Capsule PO ×3 (08:55→21:05)
[2020-04-08] MEDS: sertraline 100 mg Tablet PO (08:55)
[2020-04-08] MEDS: metoprolol tartrate 50 mg Tablet 150 MG PO ×2 (08:55→16:59)
[2020-04-08] MEDS: pantoprazole DR 40 mg Tablet PO (08:55)
[2020-04-08] MEDS: levothyroxine 50 mcg Tablet PO (08:56)
[2020-04-08] MEDS: carbidopa-levodopa 25-100mg Tablet 1 EACH PO ×3 (08:56→21:05)
[2020-04-08] MEDS: aspirin 325 mg Tablet PO (08:56)
[2020-04-08 10:55] LABS: Glucose Point of Care 191 mg/dL (70-110)
--- NOTE | 2020-04-08 11:49 | P.PN_ITS ---
Subjective Subjective: Interval history: Chart reviewed, resting quietly in bed, very pleasant, has episodic dry cough which seems consistent with bronchitis. She is on 3 L nasal cannula, hemodynamically stable, afebrile. States that she was not coughing previously even while hospitalized here recently. Medications: Reviewed: Yes Medication Review Details: Active Medications Generic Name Dose Route Start Last Admin Trade Name Freq PRN Reason Stop Dose Admin Acetaminophen 650 mg 04/08/20 00:25 Acetaminophen 32 5 Mg Tablet PO Q6H PRN Mild/Mod Pain Or Temp >/= 101 Albuterol/Ipratrop ium 3 ml 04/08/20 03:00 04/08/20 08:19 Ipratropium-Albu terol 3 Ml Neb INHALATION 3 ml Q6H.RESPIRATORY S CH Administration Aspirin 325 mg 04/08/20 09:00 04/08/20 08:56 Aspirin 325 Mg T ablet PO 325 mg DAILY MG Administration Atorvastatin Calci um 80 mg 04/08/20 09:00 04/08/20 08:54 Atorvastatin 40 Mg Tablet PO 80 mg DAILY MG Administration Benzocaine 1 each 04/08/20 11:48 Cetylpyridinium Lozenge MUCOUS MEM Q2H PRN SORE THROAT Benzonatate 100 mg 04/08/20 09:00 04/08/20 08:55 Benzonatate 100 Mg Capsule PO 100 mg TID MG Administration Budesonide 0.5 mg 04/08/20 09:00 04/08/20 08:19 Budesonide 0.5 M g/2 Ml Neb INHALATION 0.5 mg BID GM Administration Carbidopa/Levodopa 1 each 04/08/20 09:00 04/08/20 08:56 Carbidopa-Levodo pa 25-100mg Tablet PO 1 each TID MG Administration Donepezil HCl 10 mg 04/08/20 09:00 04/08/20 08:55 Donepezil 5 Mg T ablet PO 10 mg DAILY MG Administration Enoxaparin Sodium 40 mg 04/08/20 00:30 04/08/20 02:58 Enoxaparin 40 Mg /0.4 Ml Syringe SUBCUT 40 mg Q24H MG Administration Fluticasone Propio rubi 2 spray 04/08/20 00:31 Fluticasone Nasa l [place] 16gm Btl INTRANASAL DAILY PRN unknown Furosemide 60 mg 04/08/20 09:00 04/08/20 08:54 Furosemide 40 Mg Tablet PO 60 mg DAILY MG Administration Guaifenesin/Dextro methorphan 10 ml 04/08/20 00:41 Guaifenesin-Dext romethorphan Udc 1 0 Ml PO Q4H PRN Cough Levothyroxine Sodi um 50 mcg 04/08/20 09:00 04/08/20 08:56 Levothyroxine 50 Mcg Tablet PO 50 mcg DAILY MG Administration Losartan Potassium 25 mg 04/08/20 09:00 04/08/20 08:55 Losartan 50 Mg T ablet PO 25 mg DAILY MG Administration Methylprednisolone Sodium Succinate 40 mg 04/08/20 09:00 04/08/20 09:00 Methylprednisolo ne Sod Succ 40 Mg/ Ml Inj IVP 40 mg DAILY MG Administration Metoprolol Tartrat e 150 mg 04/08/20 09:00 04/08/20 08:55 Metoprolol Tartr ate 50 Mg Tablet PO 150 mg BID MG Administration Non-Formulary Medi cation 28 mg 04/08/20 09:00 04/08/20 08:56 Memantine PO Not Given DAILY [facility] Pantoprazole Sodiu m 40 mg 04/08/20 09:00 04/08/20 08:[address] 40 Mg Tablet PO 40 mg DAILY MG Administration Primidone 250 mg 04/08/20 09:00 04/08/20 08:55 Primidone 250 Mg Tablet PO 250 mg BID MG Administration Sertraline HCl 100 mg 04/08/20 09:00 04/08/20 08:55 Sertraline 100 M g Tablet PO 100 mg DAILY MG Administration Tramadol HCl 50 mg 04/08/20 00:41 Tramadol 50 Mg T ablet PO TID PRN Pain codeine Allergy (Unknown, Verified 04/07/20 22:35) ALGY-Hives morphine Allergy (Unknown, Verified 04/07/20 22:35) ALGY-Rash Penicillins Allergy (Unknown, Verified 04/07/20 22:35) ALGY-Rash Vitals/I&O/Wt Last Vital Signs Temp 97.6 F 04/08/20 11:33 Pulse 79 04/08/20 11:33 Resp 18 04/08/20 11:33 BP 115/79 04/08/20 11:33 Pulse Ox 97 04/08/20 08:20 04/07/20 04/08/20 04/08/20 22:59 06:59 14:59 Output Total 750 / 750 Balance -750 / -750 Weight last 48 hrs Weight 109.769 kg Physical Exam Const: COMMON NORMALS: no acute distress, patient oriented x3 and alert GENERAL APPEARANCE: cooperative and comfortable NUTRITIONAL APPEARANCE: obese morbidly obese ORIENTATION/CONSCIOUSNESS: Yes awake OTHER: -very pleasant, looks appropriate for age HENMT: COMMON NORMALS: normocephalic, atraumatic, hearing grossly normal bilaterally and moist oral mucous membranes HEAD & SCALP: normocephalic and atraumatic Eye: COMMON NORMALS: Equal, round and reactive pupils present, EOMs intact bilaterally and conjunctivae normal CONJUNCTIVA: Yes conjunctivae normal PUPIL: Yes Equal, round and reactive pupils present Neck/C-Spine: COMMON NORMALS: full ROM GENERAL: Yes normal visual inspection and Yes trachea midline Chest: OTHER: -some tenderness to palpation of sternum Resp: COMMON NORMALS: normal respiratory effort, No retractions and No use of accessory muscles EFFORT & INSPECTION: Yes able to speak in complete sentences, Yes symmetric chest movement, No tachypneic and Yes Actively coughing dry AUSCULTATION: diminished lung sounds OTHER: -on 3 L NC Cardio: COMMON NORMALS: regular rate, regular rhythm, S1 normal heart sound present, S2 normal heart sound present and No murmurs present (Cardio) RATE: regular rate RHYTHM: regular rhythm HEART SOUNDS: S1 normal heart sound present and S2 normal heart sound present GI: COMMON NORMALS: Normal to inspection, nondistended, normoactive bowel sounds present, Soft to palpation and non-tender INSPECTION: Yes central obesity PALPATION: Yes Soft to palpation Extremity: COMMON NORMALS: normal to inspection, full ROM, no clubbing, cyanosis or edema and no pedal edema Neuro: COMMON NORMALS: patient oriented x3, moves all extremities, no focal motor deficits, no sensory deficits noted and gait normal SENSORIUM/ORIENTATION: Yes alert MOTOR EXAM: Tremors during motor activity present resting tremor other (most apparent in head) Psych: COMMON NORMALS: mental status grossly normal, Normal thought process present, cooperative, normal affect and speech normal SPEECH: Yes normal speech THOUGHT PROCESS: Normal thought process present Skin: COMMON NORMALS: no rashes or lesions noted, no jaundice, no petechiae and no mottling GENERAL SKIN EXAM: no rashes or lesions noted Data : 04/07/20 23:16 04/07/20 23:16 A&P Assessment and plan (1) Bronchitis due to 2019-nCoV: -has persistent dry coughing episodes, likely triggered by recent COVID-19 infection -antitussives, IS, neb treatments PRN, IV steroids -continue to monitor respiratory status -supplemental oxygen as needed Status: Acute (2) History of 2019 novel coronavirus disease (COVID-19): -has been admitted to the hospital twice for COVID-19, initially at [place] (03/12-03/17) and at this facility (04/01-04/04) -rapid testing negative on 04/01 -continue supportive care, IV steroids -continue to monitor respiratory status, supplemental oxygen as needed Status: Acute (3) Rheumatoid arthritis: -methotrexate on hold Status: Chronic Qualifiers: Rheumatoid arthritis location: unspecified site Rheumatoid factor presence: unspecified presence Qualified Code(s): M06.9 - Rheumatoid arthritis, unspecified (4) HTN (hypertension): -VSS; continue to monitor -continue oral antihypertensives Status: Chronic Qualifiers: Hypertension type: essential hypertension Qualified Code(s): I10 - Essential (primary) hypertension (5) Hypothyroid: -continue levothyroxine Status: Chronic Qualifiers: Hypothyroidism type: acquired Qualified Code(s): E03.9 - Hypothyroidism, unspecified (6) Hyperlipemia: -continue statin Status: Chronic Qualifiers: Hyperlipidemia type: unspecified Qualified Code(s): E78.5 - Hyperlipidemia, unspecified (7) Morbid obesity with BMI of 40.0-44.9, adult: -BMI-40 kg/m2 Status: Chronic Additional A&P Information -hx of atrial fibrillation; continue BB -hx of PE, DVT -hx of Parkinson disease; continue meds -cardiac diet as tolerated -GI ppx with PPI -DVT ppx with lovenox -Dispo: lives at home with daughter and granddaughter -Code status: FULL code Attestations Medical Necessity Statement*: Patient requires hospitalization for continued management of bronchitis secondary to recent COVID-19 infection, needs continued monitoring of respiratory status particularly given underlying immunocompromise. Time Spent in Patient Care: 16 - 35 minutes (>than 50% of time spent in counselling and/or direct pt care on unit) . 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
[2020-04-08 17:14] LABS: Glucose Point of Care 135 mg/dL (70-110)
[2020-04-08] MEDS: guaiFENesin-dextromethorphan UDC 10 mL PO (19:46)
[2020-04-08] MEDS: cetylpyridinium Lozenge 1 EACH MUCOUS MEM (21:05)
[2020-04-09] VITALS (13 sets, daily range): BP systolic 101–114; BP diastolic 59–71; PULSE 68–87; RESP 14–18; TEMP 36.4–36.8; O2SAT 93–98
[2020-04-09] MEDS: guaiFENesin-dextromethorphan UDC 10 mL PO ×4 (00:25→21:19)
[2020-04-09] MEDS: enoxaparin 40 mg/0.4 mL Syringe SUBCUT (00:25)
[2020-04-09] MEDS: ipratropium-albuterol 3 mL Neb INHALATION ×4 (02:27→21:46)
[2020-04-09] MEDS: budesonide 0.5 mg/2 mL Neb INHALATION ×2 (08:18→21:46)
[2020-04-09] MEDS: carbidopa-levodopa 25-100mg Tablet 1 EACH PO ×3 (08:34→21:19)
[2020-04-09] MEDS: donepezil 5 MG Tablet 10 MG PO (08:34)
[2020-04-09] MEDS: atorvastatin 40 mg Tablet 80 MG PO (08:34)
[2020-04-09] MEDS: losartan 50 mg Tablet 25 MG PO (08:34)
[2020-04-09] MEDS: benzonatate 100 mg Capsule PO ×3 (08:34→21:19)
[2020-04-09] MEDS: metoprolol tartrate 50 mg Tablet 150 MG PO ×2 (08:34→17:56)
[2020-04-09] MEDS: levothyroxine 50 mcg Tablet PO (08:35)
[2020-04-09] MEDS: FUROsemide 40 mg Tablet 60 MG PO (08:35)
[2020-04-09] MEDS: aspirin 325 mg Tablet PO (08:35)
[2020-04-09] MEDS: sertraline 100 mg Tablet PO (08:35)
[2020-04-09] MEDS: pantoprazole DR 40 mg Tablet PO (08:35)
--- NOTE | 2020-04-09 10:30 | PC.NURSE ---
Patient reports cough remains after scheduled morning medication of tessalon pearls, provided robitussin per doctors orders see MAR for further details, patient reports coughing up white colored phlegm.
--- NOTE | 2020-04-09 15:01 | PM.PN ---
Subjective Subjective: Interval history: Patient seen and examined, had a long conversation with her, primarily her sharing her personal stories with me. She appears to be feeling better today but continues to have persistent coughing episodes, seems to have more expectoration today. Oxygen requirement now at her baseline of 2 L nasal cannula. Hemodynamically stable and consistently afebrile. Due to her lingering cough she would like to stay another day for further observation. Had 1000 mL urine output overnight. Medications: Reviewed: Yes Medication Review Details: Active Medications Generic Name Dose Route Start Last Admin Trade Name Freq PRN Reason Stop Dose Admin Acetaminophen 650 mg 04/08/20 00:25 Acetaminophen 32 5 Mg Tablet PO Q6H PRN Mild/Mod Pain Or Temp >/= 101 Albuterol/Ipratrop ium 3 ml 04/08/20 03:00 04/09/20 08:18 Ipratropium-Albu terol 3 Ml Neb INHALATION 3 ml Q6H.RESPIRATORY S CH Administration Aspirin 325 mg 04/08/20 09:00 04/09/20 08:35 Aspirin 325 Mg T ablet PO 325 mg DAILY MG Administration Atorvastatin Calci um 80 mg 04/08/20 09:00 04/09/20 08:34 Atorvastatin 40 Mg Tablet PO 80 mg DAILY MG Administration Benzocaine 1 each 04/08/20 11:48 04/08/20 21:05 Cetylpyridinium Lozenge MUCOUS MEM 1 each Q2H PRN Administration SORE THROAT Benzonatate 100 mg 04/08/20 09:00 04/09/20 14:03 Benzonatate 100 Mg Capsule PO 100 mg TID MG Administration Budesonide 0.5 mg 04/08/20 09:00 04/09/20 08:18 Budesonide 0.5 M g/2 Ml Neb INHALATION 0.5 mg BID MG Administration Carbidopa/Levodopa 1 each 04/08/20 09:00 04/09/20 14:03 Carbidopa-Levodo pa 25-100mg Tablet PO 1 each TID MG Administration Donepezil HCl 10 mg 04/08/20 09:00 04/09/20 08:34 Donepezil 5 Mg T ablet PO 10 mg DAILY MG Administration Enoxaparin Sodium 40 mg 04/08/20 00:30 04/09/20 00:25 Enoxaparin 40 Mg /0.4 Ml Syringe SUBCUT 40 mg Q24H MG Administration Fluticasone Propio rubi 2 spray 04/08/20 00:31 Fluticasone Nasa l [place] 16gm Btl INTRANASAL DAILY PRN unknown Furosemide 60 mg 04/08/20 09:00 04/09/20 08:35 Furosemide 40 Mg Tablet PO 60 mg DAILY MG Administration Guaifenesin/Dextro methorphan 10 ml 04/08/20 00:41 04/09/20 14:03 Guaifenesin-Dext romethorphan Udc 1 0 Ml PO 10 ml Q4H PRN Administration Cough Levothyroxine Sodi um 50 mcg 04/08/20 09:00 04/09/20 08:35 Levothyroxine 50 Mcg Tablet PO 50 mcg DAILY MG Administration Losartan Potassium 25 mg 04/08/20 09:00 04/09/20 08:34 Losartan 50 Mg T ablet PO 25 mg DAILY MG Administration Methylprednisolone Sodium Succinate 40 mg 04/08/20 09:00 04/09/20 08:35 Methylprednisolo ne Sod Succ 40 Mg/ Ml Inj IVP 40 mg DAILY MG Administration Metoprolol Tartrat e 150 mg 04/08/20 09:00 04/09/20 08:34 Metoprolol Tartr ate 50 Mg Tablet PO 150 mg BID MG Administration Non-Formulary Medi cation 28 mg 04/08/20 09:00 04/09/20 08:58 Memantine PO Not Given DAILY [facility] Pantoprazole Sodiu m 40 mg 04/08/20 09:00 04/09/20 08:[address] 40 Mg Tablet PO 40 mg DAILY MG Administration Primidone 250 mg 04/08/20 09:00 04/09/20 08:35 Primidone 250 Mg Tablet PO 250 mg BID MG Administration Sertraline HCl 100 mg 04/08/20 09:00 04/09/20 08:35 Sertraline 100 M g Tablet PO 100 mg DAILY MG Administration Tramadol HCl 50 mg 04/08/20 00:41 Tramadol 50 Mg T ablet PO TID PRN Pain codeine Allergy (Unknown, Verified 04/07/20 22:35) ALGY-Hives morphine Allergy (Unknown, Verified 04/07/20 22:35) ALGY-Rash Penicillins Allergy (Unknown, Verified 04/07/20 22:35) ALGY-Rash Vitals/I&O/Wt Last Vital Signs Temp 98.1 F 04/09/20 11:26 Pulse 68 04/09/20 11:26 Resp 16 04/09/20 11:26 BP 107/71 04/09/20 11:26 Pulse Ox 95 04/09/20 11:26 04/09/20 04/09/20 04/09/20 06:59 14:59 22:59 Intake Total 540 / 540 Output Total 1000 / 1000 1100 / 1100 Balance -1000 / -1000 -560 / -560 Weight last 48 hrs Weight 109.769 kg Physical Exam Const: COMMON NORMALS: no acute distress, patient oriented x3 and alert GENERAL APPEARANCE: cooperative and comfortable NUTRITIONAL APPEARANCE: obese morbidly obese ORIENTATION/CONSCIOUSNESS: Yes awake OTHER: -very pleasant, looks appropriate for age HENMT: COMMON NORMALS: normocephalic, atraumatic, hearing grossly normal bilaterally and moist oral mucous membranes HEAD & SCALP: normocephalic and atraumatic Eye: COMMON NORMALS: Equal, round and reactive pupils present, EOMs intact bilaterally and conjunctivae normal CONJUNCTIVA: Yes conjunctivae normal PUPIL: Yes Equal, round and reactive pupils present Neck/C-Spine: COMMON NORMALS: full ROM GENERAL: Yes normal visual inspection and Yes trachea midline Chest: OTHER: -some tenderness to palpation of sternum Resp: COMMON NORMALS: normal respiratory effort, No retractions and No use of accessory muscles EFFORT & INSPECTION: Yes able to speak in complete sentences, Yes symmetric chest movement, No tachypneic and Yes Actively coughing dry AUSCULTATION: diminished lung sounds OTHER: -on 2 L NC Cardio: COMMON NORMALS: regular rate, regular rhythm, S1 normal heart sound present, S2 normal heart sound present and No murmurs present (Cardio) RATE: regular rate RHYTHM: regular rhythm HEART SOUNDS: S1 normal heart sound present and S2 normal heart sound present GI: COMMON NORMALS: Normal to inspection, nondistended, normoactive bowel sounds present, Soft to palpation and non-tender INSPECTION: Yes central obesity PALPATION: Yes Soft to palpation Extremity: COMMON NORMALS: normal to inspection, full ROM, no clubbing, cyanosis or edema and no pedal edema Neuro: COMMON NORMALS: patient oriented x3, moves all extremities, no focal motor deficits, no sensory deficits noted and gait normal SENSORIUM/ORIENTATION: Yes alert MOTOR EXAM: Tremors during motor activity present resting tremor Psych: COMMON NORMALS: mental status grossly normal, Normal thought process present, cooperative, normal affect and speech normal SPEECH: Yes normal speech THOUGHT PROCESS: Normal thought process present Skin: COMMON NORMALS: no rashes or lesions noted, no jaundice, no petechiae and no mottling GENERAL SKIN EXAM: no rashes or lesions noted Data : 04/07/20 23:16 04/07/20 23:16 A&P Assessment and plan (1) Bronchitis due to 2019-nCoV: -has persistent dry coughing episodes, likely triggered by recent COVID-19 infection -antitussives, IS, neb treatments PRN, IV steroids -continue to monitor respiratory status -supplemental oxygen as needed Status: Acute (2) History of 2019 novel coronavirus disease (COVID-19): -has been admitted to the hospital twice for COVID-19, initially at [place] (03/12-03/17) and at this facility (04/01-04/04) -rapid testing negative on 04/01 -continue supportive care, IV steroids -continue to monitor respiratory status, supplemental oxygen as needed Status: Acute (3) Rheumatoid arthritis: -methotrexate on hold Status: Chronic Qualifiers: Rheumatoid arthritis location: unspecified site Rheumatoid factor presence: unspecified presence Qualified Code(s): M06.9 - Rheumatoid arthritis, unspecified (4) HTN (hypertension): -VSS; continue to monitor -continue oral antihypertensives Status: Chronic Qualifiers: Hypertension type: essential hypertension Qualified Code(s): I10 - Essential (primary) hypertension (5) Hypothyroid: -continue levothyroxine Status: Chronic Qualifiers: Hypothyroidism type: acquired Qualified Code(s): E03.9 - Hypothyroidism, unspecified (6) Hyperlipemia: -continue statin Status: Chronic Qualifiers: Hyperlipidemia type: unspecified Qualified Code(s): E78.5 - Hyperlipidemia, unspecified (7) Morbid obesity with BMI of 40.0-44.9, adult: -BMI-40 kg/m2 Status: Chronic Additional A&P Information -hx of atrial fibrillation; continue BB -hx of PE, DVT -hx of Parkinson disease; continue meds -cardiac diet as tolerated -GI ppx with PPI -DVT ppx with lovenox -Dispo: lives at home with daughter and granddaughter -Code status: FULL code Attestations Medical Necessity Statement*: Patient requires hospitalization for continued supportive care, monitoring of respiratory status given bronchitis status post COVID-19 infection. Time Spent in Patient Care: 16 - 35 minutes (>than 50% of time spent in counselling and/or direct pt care on unit). Coding Level of Care Code Acute Industrial Organization Manager for g Fwd Diagnoses Bronchitis due to 2019-nCoV U07.1; J40 History of 2019 novel coronavirus disease (COVID-19) Z86.19 Rheumatoid arthritis M06.9 Rheumatoid arthritis location: unspecified site Rheumatoid factor presence: unspecified presence HTN (hypertension) I10 Hypertension type: essential hypertension Hypothyroid E03.9 Hypothyroidism type: acquired Hyperlipemia E78.5 Hyperlipidemia type: unspecified Morbid obesity with BMI of 40.0-44.9, adult E66.01; Z68.41
--- NOTE | 2020-04-09 15:46 | PC.NURSE ---
applied longer oxygen tubing, Patient ambulated to bathroom via walker X1 void see I&O, tolerated well, linens changed, returned to sit up in chair. Denies pain or needs, call light in reach.
[2020-04-10] VITALS (10 sets, daily range): BP systolic 102–142; BP diastolic 65–75; PULSE 69–79; RESP 16–18; TEMP 36.6–36.8; O2SAT 95–99
[2020-04-10] MEDS: enoxaparin 40 mg/0.4 mL Syringe SUBCUT (00:11)
[2020-04-10] MEDS: ipratropium-albuterol 3 mL Neb INHALATION ×2 (04:13→10:14)
[2020-04-10] MEDS: benzonatate 100 mg Capsule PO (08:49)
[2020-04-10] MEDS: levothyroxine 50 mcg Tablet PO (08:50)
[2020-04-10] MEDS: donepezil 5 MG Tablet 10 MG PO (08:50)
[2020-04-10] MEDS: sertraline 100 mg Tablet PO (08:50)
[2020-04-10] MEDS: carbidopa-levodopa 25-100mg Tablet 1 EACH PO (08:50)
[2020-04-10] MEDS: losartan 50 mg Tablet 25 MG PO (08:51)
[2020-04-10] MEDS: aspirin 325 mg Tablet PO (08:51)
[2020-04-10] MEDS: atorvastatin 40 mg Tablet 80 MG PO (08:51)
[2020-04-10] MEDS: pantoprazole DR 40 mg Tablet PO (08:52)
[2020-04-10] MEDS: FUROsemide 40 mg Tablet 60 MG PO (08:54)
[2020-04-10] MEDS: metoprolol tartrate 50 mg Tablet 150 MG PO (08:54)
[2020-04-10] MEDS: guaiFENesin-dextromethorphan UDC 10 mL PO (09:10)
[2020-04-10] MEDS: budesonide 0.5 mg/2 mL Neb INHALATION (10:15)
--- NOTE | 2020-04-10 11:43 | PM.DCS ---
Discharge Providers Date of Admission: 04/09/20 17:36 Date of Discharge: April 10, 2020 Attending Provider at Admission: Merry Engel MD Attending Provider at Discharge: Brina Campbell MD Consults: None Primary Care Provider: Cheyenne Yang Diagnoses at Discharge Discharge Diagnosis (1) Bronchitis due to 2019-nCoV: Status: Acute Permanent problem details: -has persistent dry coughing episodes, likely triggered by recent COVID-19 infection (2) History of 2019 novel coronavirus disease (COVID-19): Status: Acute Permanent problem details: -has been admitted to the hospital twice for COVID-19, initially at [place] (03/12-03/17) and at this facility (04/01-04/04) (3) Rheumatoid arthritis: Status: Chronic Permanent problem details: -On methotrexate chronically though currently held due to recent Covid infection and pneumonia, as well as bronchitis Qualifiers: Rheumatoid arthritis location: unspecified site Rheumatoid factor presence: unspecified presence Qualified Code(s): M06.9 - Rheumatoid arthritis, unspecified (4) HTN (hypertension): Status: Chronic Qualifiers: Hypertension type: essential hypertension Qualified Code(s): I10 - Essential (primary) hypertension (5) Hypothyroid: Status: Chronic Qualifiers: Hypothyroidism type: acquired Qualified Code(s): E03.9 - Hypothyroidism, unspecified (6) Hyperlipemia: Status: Chronic Qualifiers: Hyperlipidemia type: unspecified Qualified Code(s): E78.5 - Hyperlipidemia, unspecified (7) Morbid obesity with BMI of 40.0-44.9, adult: Status: Chronic Other Information Additional DC diagnoses/information: -hx of atrial fibrillation; continue BB -hx of PE, DVT -hx of Parkinson disease; continue meds Reason for Visit Reason for Visit: SOB/has pneumonia Hospital Course Hospital Course Patient was admitted to the medical surgical floor and started on supportive care, IV steroids, antitussives as needed and maintained on supplemental oxygen. She has been found to have bronchitis secondary to COVID-19 infection. Anticipate that cough will persist at least to some degree for a few weeks she continues to recover. She has been maintained on her baseline oxygen requirement of 2 L nasal cannula. Unfortunately during her previous discharge she was not able to get her steroids, these have been re-prescribed and provided to her at bedside prior to discharge in addition to antitussive medications. She already has appropriate follow-up with her primary care physician tomorrow, encouraged to keep her scheduled appointment. She is to continue to monitor her symptoms at home and her oxygen saturation as well. She is encouraged to seek medical attention immediately should her symptoms worsen. Per patient's request I spoke with her daughter prior to discharge updating her on patient's clinical status and expectations on her return home. Emphasized need for compliance with medications as well as scheduled follow-up appointment tomorrow. Physical Exam Const: COMMON NORMALS: no acute distress, patient oriented x3 and alert GENERAL APPEARANCE: cooperative and comfortable NUTRITIONAL APPEARANCE: obese morbidly obese ORIENTATION/CONSCIOUSNESS: Yes awake OTHER: -very pleasant, looks appropriate for age HENMT: COMMON NORMALS: normocephalic, atraumatic, hearing grossly normal bilaterally and moist oral mucous membranes HEAD & SCALP: normocephalic and atraumatic Eye: COMMON NORMALS: Equal, round and reactive pupils present, EOMs intact bilaterally and conjunctivae normal CONJUNCTIVA: Yes conjunctivae normal PUPIL: Yes Equal, round and reactive pupils present Neck/C-Spine: COMMON NORMALS: full ROM GENERAL: Yes normal visual inspection and Yes trachea midline Chest: OTHER: -some tenderness to palpation of sternum Resp: COMMON NORMALS: normal respiratory effort, No retractions and No use of accessory muscles EFFORT & INSPECTION: Yes able to speak in complete sentences, Yes symmetric chest movement, No tachypneic and Yes Actively coughing dry AUSCULTATION: diminished lung sounds OTHER: -on 2 L NC Cardio: COMMON NORMALS: regular rate, regular rhythm, S1 normal heart sound present, S2 normal heart sound present and No murmurs present (Cardio) RATE: regular rate RHYTHM: regular rhythm HEART SOUNDS: S1 normal heart sound present and S2 normal heart sound present GI: COMMON NORMALS: Normal to inspection, nondistended, normoactive bowel sounds present, Soft to palpation and non-tender INSPECTION: Yes central obesity PALPATION: Yes Soft to palpation Extremity: COMMON NORMALS: normal to inspection, full ROM, no clubbing, cyanosis or edema and no pedal edema Neuro: COMMON NORMALS: patient oriented x3, moves all extremities, no focal motor deficits, no sensory deficits noted and gait normal SENSORIUM/ORIENTATION: Yes alert MOTOR EXAM: Tremors during motor activity present resting tremor Psych: COMMON NORMALS: mental status grossly normal, Normal thought process present, cooperative, normal affect and speech normal SPEECH: Yes normal speech THOUGHT PROCESS: Normal thought process present Skin: COMMON NORMALS: no rashes or lesions noted, no jaundice, no petechiae and no mottling GENERAL SKIN EXAM: no rashes or lesions noted Discharge Data Data Completed and Pending: Completed Studies During Hospitalization Category Date Time Status CT angio chest PE protcl [id number] Urge nt Cat Scan 04/08/20 00:15 Completed XR chest 1V eliana ble [id number] Urgent Exams 04/07/20 22:27 Completed Vitals: Last Vital Signs Temp 98.3 F 04/10/20 11:27 Pulse 70 04/10/20 11:27 Resp 18 04/10/20 11:27 BP 110/65 04/10/20 11:27 Pulse Ox 96 04/10/20 11:27 Discharge Plan Discharge Patient Disposition: Home Condition: Stable Prescriptions: New benzonatate 100 mg Capsule 100 mg PO TID Qty: 90 RF: 0 budesonide 0.5 mg/2 mL Suspension For Nebulization 0.5 mg inhalation BID Qty: 60 RF: 0 Continued omeprazole 40 mg Capsule,Delayed Release(Dr/Ec) 40 mg PO DAILY RF: 0 tramadol [Ultram] 50 mg Tablet 50 mg PO TID PRN (Reason: Pain) RF: 0 aspirin 325 mg Tablet 325 mg PO DAILY RF: 0 folic acid 400 mcg Tablet 0.4 mg PO DAILY RF: 0 albuterol sulfate [ProAir HFA] 90 mcg/actuation Hfa Aerosol Inhaler 2 puff INHALATION TID PRN (Reason: Shortness Of Breath) RF: 0 ipratropium-albuterol 0.5 mg-3 mg(2.5 mg base)/3 mL Solution For Nebulization 3 ml inhalation Q6H PRN (Reason: Shortness Of Breath) Qty: 100 RF: 1 doxycycline hyclate 100 mg tablet 100 mg PO BID 7 Days Qty: 14 RF: 0 alendronate 70 mg Tablet 70 mg PO Q7D RF: 0 Mysoline 250 mg Tablet 250 mg PO BID RF: 0 prednisone 20 mg tablet 40 mg PO DAILY 5 Days Qty: 10 RF: 0 dextromethorphan-guaifenesin 10-100 mg/5 mL Syrup 10 ml PO Q4H PRN (Reason: Cough) Qty: 237 RF: 0 furosemide [Lasix] 40 mg Tablet 60 mg PO DAILY RF: 0 atorvastatin 80 mg Tablet 80 mg PO DAILY RF: 0 loperamide [Imodium A-D] 2 mg Capsule 2 mg PO QID PRN (Reason: Diarrhea) RF: 0 metoprolol tartrate 100 mg Tablet 150 mg PO BID RF: 0 tizanidine 4 mg Tablet 4 mg PO BID PRN (Reason: Spasms) RF: 0 donepezil 10 mg Tablet 10 mg PO DAILY RF: 0 sertraline [Zoloft] 100 mg Tablet 100 mg PO DAILY RF: 0 Multi-Vitamins with Iron Tablet,Chewable 1 tab PO DAILY RF: 0 primidone 250 mg Tablet 250 mg PO BID RF: 0 levothyroxine [Synthroid] 50 mcg Tablet 50 mcg PO DAILY RF: 0 nystatin 100,000 unit/gram Cream 1 applic TOPICAL BID RF: 0 losartan 25 mg Tablet 25 mg PO DAILY RF: 0 nitroglycerin [Nitrostat] 0.4 mg Tablet, Sublingual 0.4 mg SUBLINGUAL Q5M PRN (Reason: Chest Pain) RF: 0 ergocalciferol (vitamin D2) [Vitamin D2] 1,250 mcg (50,000 unit) Capsule 1,250 mcg PO Q7D RF: 0 fluticasone propionate [Flonase Allergy Relief] 50 mcg/actuation [place],Suspension 2 spray INTRANASAL DAILY PRN (Reason: unknown) RF: 0 dicyclomine 10 mg Capsule 10 mg PO QID RF: 0 carbidopa-levodopa 25-100 mg Tablet,Disintegrating 1.5 tab PO TID RF: 0 Zyrtec 10 mg Capsule 10 mg PO DAILY PRN (Reason: Allergy Symptoms) RF: 0 memantine 28 mg Capsule,Sprinkle,Er 24hr 28 mg PO DAILY RF: 0 potassium chloride 20 mEq Tablet Extended Release 20 meq PO DAILY RF: 0 Discharge Orders: Discharge Order (Routine); Ordered 04/10/20 Ordered By: Brina Campbell Referrals: Cheyenne Yang PA [Primary Care Provider] - 04/11/20 3:45 pm Discharge Diet: Advance as tolerated and Cardiac Discharge Activity: Resume usual activity, Increase activity as tolerated and Oxygen as instructed Activity Restrictions/Additional Instructions: -Please continue to use supplemental oxygen at all times -Please continue to take all medications as prescribed -Please seek medical attention immediately if symptoms worsen Discharge Attestations Time Spent in Discharge Care*: greater than 30 min Specific Discharge Activities: educating patient, educating and/or supporting family/caregiver (daughter Frances Luna), documenting/other paperwork and evaluating patient/reviewing data Status at Discharge: Cognitive status at discharge: cognitively intact, Behavioral status at discharge: cooperative and independent in ADL's, Functional status at discharge: independent ambulation Overall status at discharge: patient is progressing back to baseline Quality Metrics Clinical Quality Measures During this hospital stay, did patient experience: None Coding Level of Care Code Acute Resident Care Director for g Fwd Diagnoses Bronchitis due to 2019-nCoV U07.1; J40 History of 2019 novel coronavirus disease (COVID-19) Z86.19 Rheumatoid arthritis M06.9 Rheumatoid arthritis location: unspecified site Rheumatoid factor presence: unspecified presence HTN (hypertension) I10 Hypertension type: essential hypertension Hypothyroid E03.9 Hypothyroidism type: acquired Hyperlipemia E78.5 Hyperlipidemia type: unspecified Morbid obesity with BMI of 40.0-44.9, adult E66.01; Z68.41
--- NOTE | 2020-04-10 14:48 | PC.NURSE ---
patient given discharge instructions, patient verbalized understanding of instructions. patient taken to private vehicle via wheelchair.
== END 2020-04-10 14:31 | disposition home or self-care (01) | DRG 202 ==
LOC: ER 04-08 00:30 → MEDSURG 04-08 00:46
PROVIDERS: Admitting Provider Student in an Organized Health Care Education/Training Program; Emergency Provider Emergency Medicine; PCP Physician Assistant; Visit Provider Family Medicine
DX: J20.9 Acute bronchitis, unspecified (principal); Z68.41 Body mass index [BMI] 40.0-44.9, adult; M19.90 Unspecified osteoarthritis, unspecified site; Z86.19 Personal history of other infectious and parasitic diseases; I48.91 Unspecified atrial fibrillation; Z95.828 Presence of other vascular implants and grafts; I10 Essential (primary) hypertension; Z86.718 Personal history of other venous thrombosis and embolism; Z86.711 Personal history of pulmonary embolism; E78.5 Hyperlipidemia, unspecified; E03.9 Hypothyroidism, unspecified; G20 Parkinson's disease; M06.9 Rheumatoid arthritis, unspecified; Z79.899 Other long term (current) drug therapy; Z87.01 Personal history of pneumonia (recurrent); Z96.611 Presence of right artificial shoulder joint; Z96.659 Presence of unspecified artificial knee joint; E66.01 Morbid (severe) obesity due to excess calories; Z79.82 Long term (current) use of aspirin; Z79.51 Long term (current) use of inhaled steroids
CPT/HCPCS: 12345; 36416; 36600; 71045; 71275; 80053; 82803; 82962; 83880; 85025; 93005; 94640; 96372; 96375; 99283; G0378; J1650; J2920; J2930; J3490; J7611; J7626; Q9967

== ENCOUNTER 2020-09-25 15:43 | Outpatient (CLI) | payer MEDICARE, OTHER, SELFPAY ==
[2020-09-25 16:30] LABS: Basophils # 0.1 10^3/uL (0.0-0.1); Basophils % 1.1 %; Eosinophils # 0.2 10^3/uL (0.0-0.8); Eosinophils % 3.5 %; Hematocrit 37.5 % (37.0-47.0); Hemoglobin 12.4 g/dL (11.5-15.3); Lymphocytes # 1.4 10^3/uL (0.8-4.8); Lymphocytes % 25.6 %; Mean Corpuscular HGB Conc 33.1 g/dL (30.0-36.0); Mean Corpuscular Hemoglobin 36.7 pg (28.0-34.0); Mean Corpuscular Volume 110.9 fL (81-99); Mean Platelet Volume 11.5 fL (7.4-10.4); Monocytes # 0.3 10^3/uL (0.2-0.9); Monocytes % 6.1 %; Neutrophils # 3.43 10^3/uL (1.8-7.7); Neutrophils % 63.7 %; Nucleated Red Blood Cells % 0 %; Platelet Count 176 10^3/cmm (130-400); Red Blood Count 3.38 10^6/uL (4.1-5.3); Red Cell Distribution Width 14.7 % (12.1-15.1); White Blood Count 5.4 10^3/uL (4.0-10.0)
[2020-09-25 17:14] LABS: Erythrocyte Sedimentation Rate 12 mm/hr (0-15)
== END 2020-09-25 15:44 | disposition home or self-care (01) ==
PROVIDERS: PCP Physician Assistant; Visit Provider Orthopaedic Surgery
DX: M25.561 Pain in right knee (principal); M25.562 Pain in left knee
CPT/HCPCS: 36415; 85025; 85651; 86140

== ENCOUNTER 2020-10-17 09:10 | Outpatient (CLI) | payer MEDICARE, OTHER, SELFPAY ==
--- NOTE | 2020-10-17 09:28 | NM_ITS ---
WS: [id number] NUCLEAR MEDICINE WHOLE BODY BONE SCAN HISTORY: Bilateral knee JOINT PAIN/POST OP TKA, pain after fall. COMPARISON: LEFT knee radiograph 10/17/2020 TECHNIQUE: The patient was injected with 23.9 mCi of Technetium 99m HDP and serial whole-body scintig rizwana have been performed with anterior and posterior images. There is moderate increased uptake within the LEFT patella. Otherwise photopenic defects within each knee from bilateral knee prostheses. Mild increased uptake at the SC joints and AC joints and at the ankles and mid feet from osteoarthrit is. Normal soft tissue uptake. Mild thoracolumbar scoliosis. NM/NM bone scan whole body* [id number] IMPRESSION: 1. Moderate increased uptake in the LEFT patella. With patient's history of re cent trauma and fall this uptake probably represents an occult fracture. Radiog raphs obtained on the same day are inconclusive for fracture. 2. Bilateral knee prostheses. 3. Osteoarthritic changes at the shoulder and feet and ankles.
[2020-10-17 10:21] LABS: Basophils % 1.1 %; Eosinophils # 0.2 10^3/uL (0.0-0.8); Eosinophils % 4.5 %; Hematocrit 32.9 % (37.0-47.0); Hemoglobin 11.3 g/dL (11.5-15.3); Lymphocytes # 1.3 10^3/uL (0.8-4.8); Lymphocytes % 35.9 %; Mean Corpuscular HGB Conc 34.3 g/dL (30.0-36.0); Mean Corpuscular Hemoglobin 36.8 pg (28.0-34.0); Mean Corpuscular Volume 107.2 fL (81-99); Mean Platelet Volume 11.4 fL (7.4-10.4); Monocytes # 0.4 10^3/uL (0.2-0.9); Monocytes % 10.3 %; Neutrophils # 1.73 10^3/uL (1.8-7.7); Neutrophils % 48.2 %; Nucleated Red Blood Cells % 0 %; Platelet Count 169 10^3/cmm (130-400); Red Blood Count 3.07 10^6/uL (4.1-5.3); Red Cell Distribution Width 14.4 % (12.1-15.1); White Blood Count 3.6 10^3/uL (4.0-10.0)
[2020-10-17 10:33] LABS: C Reactive Protein 19.8 mg/L (0.0-4.9)
[2020-10-17 11:09] LABS: Erythrocyte Sedimentation Rate 22 mm/hr (0-15)
--- NOTE | 2020-10-17 12:25 | XR_ITS ---
WS: [id number] LEFT KNEE: 3 VIEW(S) TECHNIQUE: AP, oblique(s) and lateral. HISTORY: BONE SCAN COMPARISON COMPARISON: 12/08/2019 Status post LEFT knee arthroplasty. No loosening around the hardware. No definite patellar fracture s een on the lateral projection. No bone destruction. No significant joint effusion. XR/XR knee LT 3V* [id number] IMPRESSION: 1. Cannot confirm LEFT patellar fracture radiographically. 2. LEFT knee arthroplasty without evidence for loosening.
== END 2020-10-17 09:11 | disposition home or self-care (01) ==
LOC: RAD 09:18
PROVIDERS: PCP Physician Assistant; Visit Provider Orthopaedic Surgery
DX: Z47.1 Aftercare following joint replacement surgery (principal); Z96.653 Presence of artificial knee joint, bilateral; W19.XXXA Unspecified fall, initial encounter
CPT/HCPCS: 36415; 73562; 78306; 85025; 85651; 86140; A9561

== ENCOUNTER 2021-04-03 15:16 | Emergency (ER) | payer MEDICARE, OTHER, SELFPAY ==
[2021-04-03 15:24] VITALS: BP 127/85; PULSE 61; RESP 18; TEMP 36.6; O2SAT 95; BMI 33.3
[2021-04-03 15:37] VITALS: BP 151/68; PULSE 61; RESP 18; O2SAT 99
--- NOTE | 2021-04-03 15:39 | CT_ITS ---
WS: [id number] CT CERVICAL SPINE HISTORY: trauma TECHNIQUE: Contiguous 2.5 mm axial imaging performed through the entire cervical spine. Sagittal and coronal reformats also performed. All CT scans at [facility] use at least one of these dose o ptimization techniques: automated exposure control; mA and/or kV adjustment per patient size (include s targeted exams where dose is matched to clinical indication); or iterative reconstruction. DLP: 503.22 mGy.cm COMPARISON: 05/10/2015 Status post anterior cervical fusion at C5-6 with interbody spacer. Fusion across the C6-7 disc space . There is an additional posterior fusion at the RIGHT facet joint at the C6-7 level. C2-C3: Severe facet joint hypertrophy on the LEFT. Small central disc protrusion. C3-C4: Bilateral facet joint arthritis. Mild central and bilateral foraminal narrowing. C4-C5: Diffuse osteophytic ridging resulting in mild foraminal narrowing. Facet joint arthritis. C5-C6: Facet joint arthritis with mild foraminal narrowing. C6-C7: Large posterior laminectomy defects. No stenosis. C7-T1: No high-grade stenosis. Soft tissues are normal. Lung apices are clear. CT/CT cervical spin wo con* [id number] IMPRESSION: 1. No acute cervical spine fracture. 2. Anterior and posterior fusion hardware as described above. 3. Advanced degenerative facet joint arthritis and mild foraminal stenoses as above.
--- NOTE | 2021-04-03 15:39 | XRR_ITS ---
PROCEDURE INFORMATION: Exam: XR Right Wrist Exam date and time: 04/03/2021 3:39 PM Age: 85 years old Clinical indication: Injury or trauma; Fall; Blunt trauma (contusions or hematomas); Wrist; Right TECHNIQUE: Imaging protocol: XR Right wrist. Views: 3 or more views. COMPARISON: CR Wrist 3 views, RIGHT* [id number] 11/23/2015 2:42 PM FINDINGS: Bones/joints: Generalized osseous demineralization. No evidence of fracture. Degenerative narrowing of the radiocarpal joint as well as the 1st MCP and at the base of the thumb. Soft tissues: Normal. XR/XR wrist RT min 3V* [id number] IMPRESSION: No acute findings. Radiation Dose CTDIVOL = (mGy): DLP = (mGy-cm)
--- NOTE | 2021-04-03 15:39 | XRR_ITS ---
PROCEDURE INFORMATION: Exam: XR Right Hand Exam date and time: 04/03/2021 3:39 PM Age: 85 years old Clinical indication: Injury or trauma; Fall; Blunt trauma (contusions or hematomas); Hand; Right TECHNIQUE: Imaging protocol: XR Right hand. Views: 3 or more views. COMPARISON: NM bone scan whole body* [id number] 10/17/2020 9:28 AM FINDINGS: Bones/joints: Generalized osseous demineralization. No evidence of fracture. Degenerative narrowing of the radiocarpal joint, 1st, 2nd, and 3rd MCPs, and the base of the thumb. Soft tissues: Normal. XR/XR hand RT min 3V* [id number] IMPRESSION: No acute findings. Radiation Dose CTDIVOL = (mGy): DLP = (mGy-cm)
--- NOTE | 2021-04-03 15:39 | XRR_ITS ---
PROCEDURE INFORMATION: Exam: XR Right Ankle Exam date and time: 04/03/2021 3:39 PM Age: 85 years old Clinical indication: Injury or trauma; Fall; Blunt trauma; Ankle; Right TECHNIQUE: Imaging protocol: XR Right ankle. Views: 3 or more views. COMPARISON: NM bone scan whole body* [id number] 10/17/2020 9:28 AM FINDINGS: Bones/joints: Osseous structures are intact. No evidence of fracture. Soft tissues: Normal. XR/XR ankle RT min 3V* [id number] IMPRESSION: No acute findings. Radiation Dose CTDIVOL = (mGy): DLP = (mGy-cm)
--- NOTE | 2021-04-03 15:40 | CT_ITS ---
WS: [id number] CT HEAD NONCONTRAST HISTORY: trauma TECHNIQUE: Contiguous axial imaging performed through the brain in 2.5 mm imaging. Bone and soft tiss ue windows. Sagittal and coronal reformats reviewed. All CT scans at [facility] use at least one of these dose optimization techniques: automated exposure control; mA and/or kV adjustment per pa tient size (includes targeted exams where dose is matched to clinical indication); or iterative recon struction. DLP: 1013.23 mGy.cm COMPARISON: 04/15/2019 No acute intracranial hemorrhage, midline shift or mass effect. Mild atrophy and mild chronic microvascular ischemic disease. Ventricles: Normal size with no hydrocephalus. No inferior displacement of the cerebellar tonsils. Paranasal sinuses: Mild mucoperiosteal thickening in the LEFT maxillary sinus. Mastoid air cells: Well pneumatized. Calvarium and scalp: Skull is intact with no soft tissue edema or swelling. CT/CT head wo con* [id number] IMPRESSION: 1. No acute intracranial hemorrhage or edema. 2. No fracture. 3. Mild atrophy and mild chronic microvascular ischemic disease.
--- NOTE | 2021-04-03 16:34 | W.ED.FALL ---
HPI - Fall General: Chief Complaint: Fall Stated Complaint: FALL Time Seen by Provider: 04/03/21 15:33 History of Present Illness: HPI Narrative: 85-year-old female presents to the ER via EMS. She fell at home she was on the stairs and had gone to turn twisted her right ankle and fell backwards complaining of right arm pain mostly at her wrist and her hand as well as the right ankle pain. She has an abrasion on her right arm. She also has some very superficial abrasions above the left eye she denies loss consciousness she previously has had cervical surgery and she has some mild neck discomfort. complaint: fall Onset (ago): hour(s) Fall from: standing Fall witnessed: no Place fall occurred: home Loss of consciousness: None Prolonged down time: no Context: tripped/slipped Location of injury - extremities: Left: arm Associated symptoms-after fall: Denies no associated symptoms, abdominal pain, chest pain, confusion, difficulty walking, headache(s), hematuria, lightheadedness, neck pain, numbness, short of breath, vertigo or weakness Review of Systems Const: Denies: fever(s), chills, body aches, change in appetite, fatigue or malaise ENMT: Denies: throat pain, ear or mastoid pain, nasal discharge or nasal congestion Card: Denies: chest pain or lightheadedness Resp: Denies: dyspnea, productive cough or non-productive cough GI: Denies: abdominal pain : Denies: hematuria Musc: Denies: neck pain Skin/Breast: Denies: rash or pruritus Neuro: Denies: headache(s), difficulty walking, vertigo or confusion FOR[facility] PFSH: Medical History Arthritis Atrial fibrillation Has watchman device in the left atrial appendage, no anticoagulation, sinus rhythm this hospital stay History of 2019 novel coronavirus disease (COVID-19) (~03/2020) Hospitalized in [place] March 12-2019 HTN (hypertension) Hx of deep venous thrombosis Hx of pulmonary embolus Hx of vaginal delivery Hyperlipemia Hypothyroid Parkinson disease Presence of Watchman left atrial appendage closure device Rheumatoid arthritis On methotrexate chronically though currently held due to recent Covid infection and pneumonia Surgical History History of shoulder surgery Diagnostic arthroscopy of right shoulder with minimal debridement, open distal clavicle resection, open acromioplasty, open rotator cuff repair augmented with acellular dermal patch, open biceps tenodesis. DOS: 06/24/[address] Rain History of tonsillectomy and adenoidectomy Hx of Achilles tendon repair Hx of appendectomy Hx of arthroscopy of shoulder Hx of cholecystectomy Hx of heart surgery Hx of hysterectomy Hx of laminectomy Hx of total knee replacement Hx of tubal ligation Family History Other CAD (coronary artery disease) Social History Smoking and tobacco status: never smoked Alcohol intake: never Housing: House Physical Exam Const: COMMON NORMALS: no acute distress GENERAL APPEARANCE: cooperative and comfortable ORIENTATION/CONSCIOUSNESS: Yes awake, Yes oriented to person, Yes oriented to place and Yes oriented to time HENMT: COMMON NORMALS: normocephalic, atraumatic, hearing grossly normal bilaterally, external ears normal, EAC's normal, TM's normal bilaterally, Normal nasal mucous membranes and turbinates present, moist oral mucous membranes and oropharynx normal HEAD & SCALP: normocephalic and atraumatic NOSE: Normal nasal mucous membranes and turbinates present EXTERNAL EAR: Yes external ears normal EXTERNAL AUDITORY CANAL: EAC's normal TYMPANIC MEMBRANE: TM's normal bilaterally Eye: COMMON NORMALS: Equal, round and reactive pupils present, EOMs intact bilaterally, conjunctivae normal and no scleral icterus CONJUNCTIVA: Yes conjunctivae normal PUPIL: Yes Equal, round and reactive pupils present Neck/C-Spine: COMMON NORMALS: full ROM, no lymphadenopathy, supple and no JVD Lymph: LYMPHATIC: no lymphadenopathy noted and no lymphedema noted Resp: COMMON NORMALS: normal respiratory effort, No retractions, No use of accessory muscles and clear to auscultation bilaterally AUSCULTATION: clear to auscultation bilaterally Cardio: COMMON NORMALS: no JVD, regular rate, regular rhythm and No murmurs present (Cardio) RATE: regular rate RHYTHM: regular rhythm GI: COMMON NORMALS: Soft to palpation and No hepatosplenomegaly present AUSCULTATION: Yes normoactive bowel sounds PALPATION: Yes Soft to palpation, No Tenderness to palpation present (GI), No Guarding due to palpation present (GI) and Yes No hepatosplenomegaly present Extremity: COMMON NORMALS: normal to inspection, capillary refill normal, no clubbing, cyanosis or edema, no calf tenderness and no pedal edema Neuro: SENSORIUM/ORIENTATION: Yes oriented to person, Yes oriented to place and Yes oriented to time Skin: COMMON NORMALS: no rashes or lesions noted GENERAL SKIN EXAM: no rashes or lesions noted Course Vital Signs: Vital signs: Vital Signs Temperature 97.9 F 04/03/21 15:24 Pulse Rate 61 04/03/21 15:37 Respiratory Rate 18 04/03/21 15:37 Blood Pressure 151/68 04/03/21 15:37 Pulse Oximetry 99 04/03/21 15:37 MDM - Fall MDM Narrative: Medical decision making narrative: X-rays unremarkable. Patient states last tetanus shot was 2 to 3 years ago. Discussed with her she will likely be very sore can use anti-inflammatories.[id number]. She already has tramadol that has previously been prescribed can use that as well as tizanidine. Follow-up with her primary care doctor return if she has further problems. Discharge Plan Discharge Patient Disposition: Home Clinical Impression: Fall Condition: Stable Prescriptions: No Action methotrexate 2.5 mg/mL solution 2.5 mg PO .weekly RF: 0 aspirin [Adult Aspirin Regimen] 81 mg tablet,delayed release (DR/EC) 81 mg PO DAILY RF: 0 omeprazole 40 mg Capsule,Delayed Release(Dr/Ec) 40 mg PO DAILY RF: 0 tramadol [Ultram] 50 mg Tablet 50 mg PO TID PRN (Reason: Pain) RF: 0 folic acid 400 mcg Tablet 0.4 mg PO DAILY RF: 0 albuterol sulfate [ProAir HFA] 90 mcg/actuation Hfa Aerosol Inhaler 2 puff INHALATION TID PRN (Reason: Shortness Of Breath) RF: 0 ipratropium-albuterol 0.5 mg-3 mg(2.5 mg base)/3 mL Solution For Nebulization 3 ml inhalation Q6H PRN (Reason: Shortness Of Breath) Qty: 100 RF: 1 Mysoline 250 mg Tablet 250 mg PO BID RF: 0 budesonide 0.5 mg/2 mL Suspension For Nebulization 0.5 mg inhalation BID Qty: 60 RF: 0 furosemide [Lasix] 40 mg Tablet 60 mg PO DAILY RF: 0 atorvastatin 80 mg Tablet 80 mg PO DAILY RF: 0 loperamide [Imodium A-D] 2 mg Capsule 2 mg PO QID PRN (Reason: Diarrhea) RF: 0 metoprolol tartrate 100 mg Tablet 150 mg PO BID RF: 0 tizanidine 4 mg Tablet 4 mg PO BID PRN (Reason: Spasms) RF: 0 donepezil 10 mg Tablet 10 mg PO DAILY RF: 0 sertraline [Zoloft] 100 mg Tablet 100 mg PO DAILY RF: 0 Multi-Vitamins with Iron Tablet,Chewable 1 tab PO DAILY RF: 0 primidone 250 mg Tablet 250 mg PO BID RF: 0 levothyroxine [Synthroid] 50 mcg Tablet 50 mcg PO DAILY RF: 0 nystatin 100,000 unit/gram Cream 1 applic TOPICAL BID RF: 0 losartan 25 mg Tablet 25 mg PO DAILY RF: 0 nitroglycerin [Nitrostat] 0.4 mg Tablet, Sublingual 0.4 mg SUBLINGUAL Q5M PRN (Reason: Chest Pain) RF: 0 ergocalciferol (vitamin D2) [Vitamin D2] 1,250 mcg (50,000 unit) Capsule 1,250 mcg PO Q7D RF: 0 fluticasone propionate [Flonase Allergy Relief] 50 mcg/actuation [place],Suspension 2 spray INTRANASAL DAILY PRN (Reason: unknown) RF: 0 dicyclomine 10 mg Capsule 10 mg PO QID RF: 0 carbidopa-levodopa 25-100 mg Tablet,Disintegrating 1.5 tab PO TID RF: 0 Zyrtec 10 mg Capsule 10 mg PO DAILY PRN (Reason: Allergy Symptoms) RF: 0 memantine 28 mg Capsule,Sprinkle,Er 24hr 28 mg PO DAILY RF: 0 potassium chloride 20 mEq Tablet Extended Release 20 meq PO DAILY RF: 0 Discharge Orders: Discharge ED (Routine); Ordered 04/03/21 Ordered By: Lv Melgar Referrals: Cheyenne Yang PA [Primary Care Provider] - Discharge Diet: Usual diet Discharge Activity: Increase activity as tolerated Patient Instructions: Opioid Safety Coding Level of Care Code ED [employer] for Chg Fwd Exam Comprehensive
== END 2021-04-03 17:16 | disposition home or self-care (01) ==
PROVIDERS: Emergency Provider Family Medicine; PCP Physician Assistant
DX: S49.91XA Unspecified injury of right shoulder and upper arm, initial encounter (principal); W18.30XA Fall on same level, unspecified, initial encounter; E78.5 Hyperlipidemia, unspecified; I48.91 Unspecified atrial fibrillation; Z79.01 Long term (current) use of anticoagulants; I10 Essential (primary) hypertension
CPT/HCPCS: 70450; 72125; 73110; 73130; 73610; 99282

== ENCOUNTER 2021-10-09 15:28 | Inpatient (IN) | payer MEDICARE, OTHER, SELFPAY ==
[2021-10-09] VITALS (13 sets, daily range): BP systolic 111–174; BP diastolic 42–95; PULSE 50–70; RESP 14–20; O2SAT 95–99; BMI 31.1
--- NOTE | 2021-10-09 15:39 | ECG_ITS ---
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 Measurements Intervals [place] Rate: 44 P: DC: QRS: -13 QRSD: 90 T: -17 QT: 396 QTc: 341 Interpretive Statements SUPRAVENTRICULAR BRADYCARDIA MINIMAL ST DEPRESSION [0.025+ mV ST DEPRESSION] Compared to ECG 04/07/2020 22:42:03 Atrial fibrillation no longer present ST (T wave) deviation still present Electronically Signed On 10-09-2021 18:26:34 CDT by Luis Angel Tobar M.D. [id number]
[2021-10-09 16:00] LABS: Basophils % 0.8 %; Eosinophils # 0.1 10^3/uL (0.0-0.8); Eosinophils % 2.7 %; Hematocrit 37.4 % (37.0-47.0); Hemoglobin 12.4 g/dL (11.5-15.3); Lymphocytes # 1.3 10^3/uL (0.8-4.8); Lymphocytes % 27.5 %; Mean Corpuscular HGB Conc 33.2 g/dL (30.0-36.0); Mean Corpuscular Volume 111.6 fl (81-99); Mean Platelet Volume 11.1 fL (7.4-10.4); Monocytes # 0.4 10^3/uL (0.2-0.9); Monocytes % 7.8 %; Neutrophils # 2.98 10^3/uL (1.8-7.7); Nucleated Red Blood Cells % 0 %; Platelet Count 162 10^3/cmm (130-400); Red Blood Count 3.35 10^6/uL (4.1-5.3); Red Cell Distribution Width 14.6 % (12.1-15.1); White Blood Count 4.9 10^3/uL (4.0-10.0)
[2021-10-09] MEDS: sodium chloride 0.9% 500 ML IV (16:04)
--- NOTE | 2021-10-09 16:05 | W.ED.ARRPALP ---
HPI - Arrhythmia/Palpitations General: Chief Complaint: Arrhythmia/Palpitations Stated Complaint: AFIB W/RVR Time Seen by Provider: 10/09/21 15:35 PFSH ED PFSH: Medical History Arthritis Atrial fibrillation Has watchman device in the left atrial appendage, no anticoagulation, sinus rhythm this hospital stay History of 2019 novel coronavirus disease (COVID-19) (~03/2020) Hospitalized in [place] March 12-2019 HTN (hypertension) Hx of deep venous thrombosis Hx of pulmonary embolus Hx of vaginal delivery Hyperlipemia Hypothyroid Parkinson disease Presence of Watchman left atrial appendage closure device Rheumatoid arthritis On methotrexate chronically though currently held due to recent Covid infection and pneumonia Surgical History History of shoulder surgery Diagnostic arthroscopy of right shoulder with minimal debridement, open distal clavicle resection, open acromioplasty, open rotator cuff repair augmented with acellular dermal patch, open biceps tenodesis. DOS: 06/24/[address] Rain History of tonsillectomy and adenoidectomy Hx of Achilles tendon repair Hx of appendectomy Hx of arthroscopy of shoulder Hx of cholecystectomy Hx of heart surgery Hx of hysterectomy Hx of laminectomy Hx of total knee replacement Hx of tubal ligation Family History Other CAD (coronary artery disease) Social History Smoking and tobacco status: never smoked Alcohol intake: never Housing: House Course Vital Signs: Vital signs: Vital Signs Pulse Rate 50 L 10/09/21 16:02 Respiratory Rate 18 10/09/21 16:02 Blood Pressure 114/42 10/09/21 16:02 Pulse Oximetry 96 10/09/21 16:02 MDM - Arrhythmia/Palpitations Lab Data : 10/09/21 15:30 10/09/21 15:30 Laboratory Results WBC 4.9 10^3/uL (4.0-10.0) 10/09/21 15:30 RBC 3.35 10^6/uL (4.1-5.3) L 10/09/21 15:30 Hgb 12.4 g/dL (11.5-15.3) 10/09/21 15: Hct 37.4 % (37.0-47.0) 10/09/21 15: MCV 111.6 fl (81-99) H 10/09/21 15:30 MCH 37.0 pg (28.0-34.0) H 10/09/21 15: MCHC 33.2 g/dL (30.0-36.0) 10/09/21 15: RDW 14.6 % (12.1-15.1) 10/09/21 15: Plt Count 162 10^3/cmm (130-400) 10/09/21 15: MPV 11.1 fL (7.4-10.4) H 10/09/21 15: Neut % (Auto) 61.0 % 10/09/21 15: Lymph % (Auto) 27.5 % 10/09/21 15: Garrett % (Auto) 7.8 % 10/09/21 15: Eos % (Auto) 2.7 % 10/09/21 15: Baso % (Auto) 0.8 % 10/09/21 15: Neut # (Auto) 2.98 10^3/uL (1.8-7.7) 10/09/21: Lymph # (Auto) 1.3 10^3/uL (0.8-4.8) 10/09/21 15: Garrett # (Auto) 0.4 10^3/uL (0.2-0.9) 10/09/21: Eos # (Auto) 0.1 10^3/uL (0.0-0.8) 10/09/21: Baso # (Auto) 0.0 10^3/uL (0.0-0.1) 10/09/21: Nucleated RBC % (auto) 0 % 10/09/21: Nucleated RBCs # 0.0 /100WBC 10/09/21 15: Discharge Plan Discharge Condition: Stable Prescriptions: No Action methotrexate 2.5 mg/mL solution 2.5 mg PO .weekly 0RF aspirin [Adult Aspirin Regimen] 81 mg tablet,delayed release (DR/EC) 81 mg PO DAILY 0RF omeprazole 40 mg Capsule,Delayed Release(Dr/Ec) 40 mg PO DAILY 0RF tramadol [Ultram] 50 mg Tablet 50 mg PO TID PRN (Reason: Pain) 0RF folic acid 400 mcg Tablet 0.4 mg PO DAILY 0RF Rx Instructions: (pt states she hasnt been taking) albuterol sulfate [ProAir HFA] 90 mcg/actuation Hfa Aerosol Inhaler 2 puff INHALATION TID PRN (Reason: Shortness Of Breath) 0RF ipratropium-albuterol 0.5 mg-3 mg(2.5 mg base)/3 mL Solution For Nebulization 3 ml inhalation Q6H PRN (Reason: Shortness Of Breath) Qty: 100 1RF Mysoline 250 mg Tablet 250 mg PO BID 0RF budesonide 0.5 mg/2 mL Suspension For Nebulization 0.5 mg inhalation BID Qty: 60 0RF furosemide [Lasix] 40 mg Tablet 60 mg PO DAILY 0RF atorvastatin 80 mg Tablet 80 mg PO DAILY 0RF loperamide [Imodium A-D] 2 mg Capsule 2 mg PO QID PRN (Reason: Diarrhea) 0RF Rx Instructions: pt states she takes this medication prn metoprolol tartrate 100 mg Tablet 150 mg PO BID 0RF tizanidine 4 mg Tablet 4 mg PO BID PRN (Reason: Spasms) 0RF donepezil 10 mg Tablet 10 mg PO DAILY 0RF sertraline [Zoloft] 100 mg Tablet 100 mg PO DAILY 0RF Multi-Vitamins with Iron Tablet,Chewable 1 tab PO DAILY 0RF primidone 250 mg Tablet 250 mg PO BID 0RF levothyroxine [Synthroid] 50 mcg Tablet 50 mcg PO DAILY 0RF nystatin 100,000 unit/gram Cream 1 applic TOPICAL BID 0RF losartan 25 mg Tablet 25 mg PO DAILY 0RF nitroglycerin [Nitrostat] 0.4 mg Tablet, Sublingual 0.4 mg SUBLINGUAL Q5M PRN (Reason: Chest Pain) 0RF ergocalciferol (vitamin D2) [Vitamin D2] 1,250 mcg (50,000 unit) Capsule 1,250 mcg PO Q7D 0RF Rx Instructions: ON Tuesdays fluticasone propionate [Flonase Allergy Relief] 50 mcg/actuation [place]ley,Suspension 2 spray INTRANASAL DAILY PRN (Reason: unknown) 0RF dicyclomine 10 mg Capsule 10 mg PO QID 0RF carbidopa-levodopa 25-100 mg Tablet,Disintegrating 1.5 tab PO TID 0RF Zyrtec 10 mg Capsule 10 mg PO DAILY PRN (Reason: Allergy Symptoms) 0RF memantine 28 mg Capsule,Sprinkle,Er 24hr 28 mg PO DAILY 0RF potassium chloride 20 mEq Tablet Extended Release 20 meq PO DAILY 0RF Referrals: Cheyenne Yang PA [Primary Care Provider] - Coding Level of Care Code ED Faculty Research Assistant for Chg Fran
--- NOTE | 2021-10-09 16:07 | W.ED.GENADLT ---
HPI - General Adult General: Chief complaint: Arrhythmia/Palpitations Stated complaint: AFIB W/RVR Time Seen by Provider: 10/09/21 15:35 History of Present Illness: Patient is a 86-year-old female history of hypertension atrial fibrillation on anticoagulation, DVT, Parkinson's disease, hypothyroidism who presents the emergency room for concerns of worsening lightheadedness and fatigue x1 week. Patient tells me that for the last week, she has been having increasingly more tired. Patient says that earlier today, she got up multiple times of report feeling lightheaded. Around 10 AM this morning, patient reports sudden visual loss bilaterally that lasted for few seconds. Patient cannot remember if she had loss of consciousness at that time. And during each episode of lightheadedness, patient noted that her heart rate was fast per family and her blood pressure was soft. Patient tells me that she had a blood pressure 90/50 earlier today and was heart rate was in the 110s. EMS was called and patient was brought to the emergency room. In route, EMS noted the patient was in A. fib with RVR to the 160s. Patient received 20 mg of Cardizem with resolution of atrial fibrillation. Patient tells me she did not have any chest pain, shortness breath, abdominal complaints, diarrhea, melena/hematochezia, or complaints throughout the week. Onset:1 week ago Duration:1 week Location:home Severity:moderate Associated symptoms: Reports malaise and palpitations; Deny chest pain, dyspnea, nausea, rash or vomiting Review of Systems Const: Reports: fatigue, malaise and other (+generalized weakness); Denies: fever(s) or chills Eyes: Denies: change in vision ENMT: Denies: mouth pain Card: Reports: palpitations; Denies: chest pain Resp: Denies: dyspnea or non-productive cough GI: Denies: abdominal pain, nausea, vomiting or diarrhea : Denies: dysuria Musc: Denies: extremity pain Skin/Breast: Denies: rash or new lesions Neuro: Denies: weakness in extremities Psych: Reports: other (Normal mood) Daniel/Lymph: Denies: easy bruising PFS ED PFSH: Medical History Arthritis Atrial fibrillation Has watchman device in the left atrial appendage, no anticoagulation, sinus rhythm this hospital stay History of 2019 novel coronavirus disease (COVID-19) (~03/2020) -has been admitted to the hospital twice for COVID-19, initially at [place] (03/12-03/17) and at this facility (04/01-04/04) HTN (hypertension) Hx of deep venous thrombosis Hx of pulmonary embolus Hx of vaginal delivery Hyperlipemia Hypothyroid Morbid obesity with BMI of 40.0-44.9, adult Parkinson disease Presence of Watchman left atrial appendage closure device Rheumatoid arthritis -On methotrexate chronically though currently held due to recent Covid infection and pneumonia, as well as bronchitis Surgical History History of shoulder surgery Diagnostic arthroscopy of right shoulder with minimal debridement, open distal clavicle resection, open acromioplasty, open rotator cuff repair augmented with acellular dermal patch, open biceps tenodesis. DOS: 06/24/[address] Rain History of tonsillectomy and adenoidectomy Hx of Achilles tendon repair Hx of appendectomy Hx of arthroscopy of shoulder Hx of cholecystectomy Hx of heart surgery Hx of hysterectomy Hx of laminectomy Hx of total knee replacement Hx of tubal ligation Family History Other CAD (coronary artery disease) Social History Smoking and tobacco status: never smoked Alcohol intake: never Housing: House Physical Exam Const: COMMON NORMALS: alert HENMT: COMMON NORMALS: atraumatic HEAD & SCALP: atraumatic MOUTH: moist mucous membranes not abnormal Eye: COMMON NORMALS: EOMs intact bilaterally and conjunctivae normal CONJUNCTIVA: Yes conjunctivae normal Neck/C-Spine: COMMON NORMALS: full ROM and supple Resp: COMMON NORMALS: normal respiratory effort and clear to auscultation bilaterally AUSCULTATION: clear to auscultation bilaterally Cardio: RATE: bradycardic GI: COMMON NORMALS: Soft to palpation and non-tender PALPATION: Yes Soft to palpation Extremity: COMMON NORMALS: full ROM Neuro: SENSORIUM/ORIENTATION: Yes alert MOTOR EXAM: No Abnormal motor strength present and Other motor observations present (no focal motor deficits) Psych: COMMON NORMALS: speech normal SPEECH: Yes normal speech MOOD & AFFECT: Yes euthymic mood Course Vital Signs: Vital signs: Vital Signs Pulse Rate 57 L 10/09/21 18:30 Respiratory Rate 16 10/09/21 18:30 Blood Pressure 154/78 10/09/21 18:00 Pulse Oximetry 97 10/09/21 18:30 MDM - General Adult Medical Decision Making 86-year-old female with a history of atrial fibrillation, hypertension, prior VTE, Parkinson's disease, hypothyroidism presenting to the emergency room for evaluation of lightheadedness and fatigue x1 week. On arrival, patient is in NSR with heart rate in the 50s. She denies any lightheadedness currently. No other focal findings on physical exam. Troponin x2 with delta less than 5. D-dimer appears to be elevated. CT chest negative for any signs of dissection or PE. Patient continues to be lightheaded upon standing up. Given paroxysmal atrial fibrillation history as well as this new onset of lightheadedness, patient be admitted to hospital for echo and telemetry. Disposition: admission Lab Data : 10/09/21 15:30 10/09/21 15:30 Radiology Impressions Chest CTA 10/09/21 17:24 IMPRESSION: 1. No evidence for pulmonary embolism. 2. No acute cardiopulmonary process. 3. Incidental/nonacute findings are listed in the report. Laboratory Results WBC 4.9 10^3/uL (4.0-10.0) 10/09/21 15:30 RBC 3.35 10^6/uL (4.1-5.3) L 10/09/21 15:30 Hgb 12.4 g/dL (11.5-15.3) 10/09/21 15:30 Hct 37.4 % (37.0-47.0) 10/09/21 15:30 MCV 111.6 fl (81-99) H 10/09/21 15:30 MCH 37.0 pg (28.0-34.0) H 10/09/21 15:30 MCHC 33.2 g/dL (30.0-36.0) 10/09/21 15:30 RDW 14.6 % (12.1-15.1) 10/09/21 15:30 Plt Count 162 10^3/cmm (130-400) 10/09/21 15:30 MPV 11.1 fL (7.4-10.4) H 10/09/21 15:30 Neut % (Auto) 61.0 % 10/09/21 15:30 Lymph % (Auto) 27.5 % 10/09/21 15:30 [place] % (Auto) 7.8 % 10/09/21 15:30 Eos % (Auto) 2.7 % 10/09/21 15:30 Baso % (Auto) 0.8 % 10/09/21 15:30 Neut # (Auto) 2.98 10^3/uL (1.8-7.7) 10/09/21 15:30 Lymph # (Auto) 1.3 10^3/uL (0.8-4.8) 10/09/21 15:30 [place] # (Auto) 0.4 10^3/uL (0.2-0.9) 10/09/21 15:30 Eos # (Auto) 0.1 10^3/uL (0.0-0.8) 10/09/21 15:30 Baso # (Auto) 0.0 10^3/uL (0.0-0.1) 10/09/21 15:30 Nucleated RBC % (auto) 0 % 10/09/21 15:30 Nucleated RBCs # 0.0 /100WBC 10/09/21 15:30 D-Dimer 1.34 ug/mIFEU (0-0.59) H 10/09/21 15:50 Sodium 140 mmol/L (136-145) 10/09/21 15:30 Potassium 3.9 mmol/L (3.5-5.1) 10/09/21 15:30 Chloride 106 mmol/L (98-107) 10/09/21 15:30 Carbon Dioxide 22 mmol/L (22-29) 10/09/21 15:30 Anion Gap 15.9 (5-19) 10/09/21 15:30 BUN 16 mg/dL (8-23) 10/09/21 15:30 Creatinine 0.7 mg/dL (0.5-0.9) 10/09/21 15:30 GFR Calculation Not Reportable 10/09/21 15:30 Glucose 121 mg/dL (65-115) H 10/09/21 15:30 Calculated Osmolality 292 mOsm/kg (285-295) 10/09/21 15:30 Calcium 8.4 mg/dL (8.5-10.5) L 10/09/21 15:30 Magnesium 1.9 mg/dL (1.7-2.3) 10/09/21 15:30 Troponin T Baseline 9 ng/L (0-10) 10/09/21 15:30 Troponin T 120 Minute 9.25 ng/L (0-10) 10/09/21 18:15 Delta Troponin T 0.25 ABS# (0-10) 10/09/21 18:15 TSH 1.67 uIU/mL (0.27-4.20) 10/09/21 15:30 Free T4 0.96 ng/dL (0.82-1.77) 10/09/21 15:30 Imaging Data Other Imaging: Radiologist's impression: [facility] [address] [address] Scan Report Signed Patient: Kassie Robles Unit #: [id number] : 1935 Age/Sex: 86 / F ADM Date: 10/09/21 Loc: ER Room/Bed: Attending Dr: Ordering Provider/Ordering MD: Omkar Rivera MD Date of Service: 10/09/21 Procedure(s): CT angio chest PE protcl [id number] Accession Number(s): [id number] Report Number: [id number] PROCEDURE INFORMATION: Exam: CTA Chest With Contrast Exam date and time: 10/09/2021 5:47 PM Age: 86 years old Clinical indication: Dyspnea; Prior surgery; Surgery date: 6+ months; Additional info: Syncope, elevated dimer, afib with rvr TECHNIQUE: Imaging protocol: Computed tomographic angiography of the chest with contrast. 3D rendering (Not supervised by radiologist): MIP and/or 3D reconstructed images were created by the technologist. Radiation optimization: All CT scans at this facility use at least one of these dose optimization techniques: automated exposure control; mA and/or kV adjustment per patient size (includes targeted exams where dose is matched to clinical indication); or iterative reconstruction. Contrast material: OMNIPAQUE 300; Contrast volume: 90 ml; Contrast route: INTRAVENOUS (IV);? COMPARISON: CT angio chest PE protcl [id number] 04/08/2020 1:03 AM RADIATION DOSE METRICS: Total DLP (mGy-cm): 623.54 FINDINGS: Tubes, catheters and devices: A watch min device in the left atrial appendage is redemonstrated. An implanted cardiac monitoring device in the left anterior chest is stable. Pulmonary arteries: No filling defects in the pulmonary arteries to suggest pulmonary embolism. Aorta: Mild atherosclerotic changes in the visualized arteries. No evidence for aortic aneurysm. Evaluation for aortic dissection is limited due to the phase of contrast-enhancement. Trachea: Tracheobronchial structures are patent. Lungs: No focal consolidation. No pulmonary edema. There is linear scarring in the mid and lower lungs bilaterally. No pulmonary parenchymal nodules or masses. Pleural spaces: No pneumothorax. No pleural effusion. Heart: Moderate enlargement of the heart. Mild atherosclerotic calcification in the coronary arteries. Esophagus: The esophagus is unremarkable. The esophagus is unremarkable. Lymph nodes: No lymphadenopathy. Liver: The liver is unremarkable. Gallbladder and bile ducts: Patient has had a previous cholecystectomy. No biliary ductal dilatation. Pancreas: The pancreas is unremarkable. No pancreatic ductal dilatation. Spleen: The spleen is unremarkable. Adrenal glands: The right and left adrenal glands are unremarkable. Kidneys and ureters: The visualized right and left kidneys are unremarkable. Stomach and bowel: Ingested contents in the stomach. There are hyperdense foci in the stomach that may represent swallowed medications. Bones/joints: Degenerative changes in the spine and shoulders. Soft tissues: No acute abnormality in the extrathoracic soft tissues. CT/CT angio chest PE protcl [id number] IMPRESSION: 1. No evidence for pulmonary embolism. 2. No acute cardiopulmonary process. 3. Incidental/nonacute findings are listed in the report. ? Dictated By: Rama Lackey MD Signed By: Rama Lackey MD Signed Date/Time: 10/09/21 1731 Discharge Plan Discharge Patient Disposition: Admitted As Inpatient Clinical Impression: Generalized weakness, Fatigue, AF (paroxysmal atrial fibrillation) Condition: Stable Coding Level of Care Code ED Dough Brake Machine Operator for Chg Fwd Exam Comprehensive
[2021-10-09 16:21] LABS: Troponin(5th) Baseline 9 ng/L (0-10)
[2021-10-09 16:28] LABS: Anion Gap 15.9 (5-19); Blood Urea Nitrogen 16 mg/dL (8-23); Calcium 8.4 mg/dL (8.5-10.5); Carbon Dioxide 22 mmol/L (22-29); Chloride 106 mmol/L (98-107); Free T4 Free Thyroxine 0.96 ng/dL (0.82-1.77); Glucose 121 mg/dL (65-115); Magnesium 1.9 mg/dL (1.7-2.3); Osmolality Calculated 292 mOsm/kg (285-295); Potassium 3.9 mmol/L (3.5-5.1); Sodium 140 mmol/L (136-145); Thyroid Stimulating Hormone 1.67 uIU/mL (0.27-4.20)
[2021-10-09 17:04] LABS: D Dimer 1.34 ug/mIFEU (0-0.59)
--- NOTE | 2021-10-09 17:24 | CTR_ITS ---
PROCEDURE INFORMATION: Exam: CTA Chest With Contrast Exam date and time: 10/09/2021 5:47 PM Age: 86 years old Clinical indication: Dyspnea; Prior surgery; Surgery date: 6+ months; Additional info: Syncope, elevated dimer, afib with rvr TECHNIQUE: Imaging protocol: Computed tomographic angiography of the chest with contrast. 3D rendering (Not supervised by radiologist): MIP and/or 3D reconstructed images were created by the technologist. Radiation optimization: All CT scans at this facility use at least one of these dose optimization techniques: automated exposure control; mA and/or kV adjustment per patient size (includes targeted exams where dose is matched to clinical indication); or iterative reconstruction. Contrast material: OMNIPAQUE 300; Contrast volume: 90 ml; Contrast route: INTRAVENOUS (IV); COMPARISON: CT angio chest PE protcl [id number] 04/08/2020 1:03 AM RADIATION DOSE METRICS: Total DLP (mGy-cm): 623.54 FINDINGS: Tubes, catheters and devices: A watch min device in the left atrial appendage is redemonstrated. An implanted cardiac monitoring device in the left anterior chest is stable. Pulmonary arteries: No filling defects in the pulmonary arteries to suggest pulmonary embolism. Aorta: Mild atherosclerotic changes in the visualized arteries. No evidence for aortic aneurysm. Evaluation for aortic dissection is limited due to the phase of contrast-enhancement. Trachea: Tracheobronchial structures are patent. Lungs: No focal consolidation. No pulmonary edema. There is linear scarring in the mid and lower lungs bilaterally. No pulmonary parenchymal nodules or masses. Pleural spaces: No pneumothorax. No pleural effusion. Heart: Moderate enlargement of the heart. Mild atherosclerotic calcification in the coronary arteries. Esophagus: The esophagus is unremarkable. The esophagus is unremarkable. Lymph nodes: No lymphadenopathy. Liver: The liver is unremarkable. Gallbladder and bile ducts: Patient has had a previous cholecystectomy. No biliary ductal dilatation. Pancreas: The pancreas is unremarkable. No pancreatic ductal dilatation. Spleen: The spleen is unremarkable. Adrenal glands: The right and left adrenal glands are unremarkable. Kidneys and ureters: The visualized right and left kidneys are unremarkable. Stomach and bowel: Ingested contents in the stomach. There are hyperdense foci in the stomach that may represent swallowed medications. Bones/joints: Degenerative changes in the spine and shoulders. Soft tissues: No acute abnormality in the extrathoracic soft tissues. CT/CT angio chest PE protcl [id number] IMPRESSION: 1. No evidence for pulmonary embolism. 2. No acute cardiopulmonary process. 3. Incidental/nonacute findings are listed in the report.
--- NOTE | 2021-10-09 17:39 | ECG_ITS ---
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 Measurements Intervals [place] Rate: 61 P: 89 IA: 221 QRS: -23 QRSD: 96 T: 10 QT: 400 QTc: 403 Interpretive Statements SINUS RHYTHM WITH FIRST DEGREE AV BLOCK BORDERLINE LEFT AXIS DEVIATION [QRS AXIS < -20] Compared to ECG 10/09/2021 15:45:12 First degree AV block now present ST (T wave) deviation no longer present Electronically Signed On 10-09-2021 18:32:23 CDT by Luis Angel Tobar M.D. [id number]
[2021-10-09] MEDS: iohexol 300 mg/mL 100 mL Btl IV (17:52)
[2021-10-09 19:04] LABS: Troponin 5 2HR 9.25 ng/L (0-10)
[2021-10-09 19:10] LABS: Troponin 5 2HR Delta 0.25 ABS# (0-10)
--- NOTE | 2021-10-09 19:11 | CTR_ITS ---
PROCEDURE INFORMATION: Exam: CT Head Without Contrast Exam date and time: 10/09/2021 8:20 PM Age: 86 years old Clinical indication: Altered mental status/memory loss; Additional info: AMS TECHNIQUE: Imaging protocol: Computed tomography of the head without contrast. Sagittal and coronal reformatted images were created and reviewed. Radiation optimization: All CT scans at this facility use at least one of these dose optimization techniques: automated exposure control; mA and/or kV adjustment per patient size (includes targeted exams where dose is matched to clinical indication); or iterative reconstruction. COMPARISON: CT head wo con* [id number] 04/03/2021 3:49 PM RADIATION DOSE METRICS: Total DLP (mGy-cm): 930.09 FINDINGS: Brain: No acute intracranial hemorrhage. No acute infarct. No intra-axial or extra-axial masses. Cr-white matter differentiation is preserved. No cerebral edema. No extra-axial fluid collections. No midline shift. No evidence for Chiari 1 malformation. Stable mild atrophy of the brain parenchyma. Cerebral ventricles: No hydrocephalus. Paranasal sinuses: Visualized paranasal sinuses are clear. Mastoid air cells: Mastoid air cells are clear bilaterally. Orbital cavities: Globes and lenses, extraocular muscles, and optic nerves are intact bilaterally. No acute intraorbital abnormality. Bones/joints: No acute fracture. Soft tissues: No acute abnormality of the extracranial soft tissues. Vasculature: Atherosclerotic changes in the visualized arteries. CT/CT head wo con* [id number] IMPRESSION: 1. No acute abnormality of the brain. 2. Stable mild atrophy of the brain parenchyma. 3. Incidental/nonacute findings are listed in the report.
[2021-10-09 20:02] LABS: Add Urine Culture? Yes; Add Urine Microscopic? YES; Bacteria Urine 4+ /hpf; Bilirubin Urine Neg (Negative); Blood Urine Neg (Negative); Glucose Urine UA Norm (Normal); Ketones Urine Negative (Negative); Leukocyte Esterase Urine Negative (Negative); Nitrate Urine Positive (Negative); Protein Urine Neg (Negative); RBC Urine 0-4 /hpf (0-2); Squamous Epithelial Cell Urine 0-4 /hpf (0-5); Urine Appearance Clear (CLEAR); Urine Color Yellow (Yellow); Urobilinogen Urine Norm (Negative); pH Urine 6 (5-7)
--- NOTE | 2021-10-09 20:06 | XRR_ITS ---
PROCEDURE INFORMATION: Exam: XR Chest Exam date and time: 10/09/2021 8:12 PM Age: 86 years old Clinical indication: Other: Weakness TECHNIQUE: Imaging protocol: XR of the chest. Views: 1 view. COMPARISON: CT angio chest PE protcl [id number] 10/09/2021 5:47 PM FINDINGS: Tubes, catheters and devices: Implanted cardiac monitoring device in the left chest. Lungs: Lungs are clear bilaterally. Pleural spaces: No pleural effusion. No pneumothorax. Heart/Mediastinum: Stable moderate enlargement of the cardiac silhouette. Mediastinal contours are unremarkable. Vasculature: Vascular calcifications in the aorta. Bones/joints: Stable postsurgical changes consistent with previous fusion in the cervical spine. Deformity of the proximal left humerus consistent with an old fracture. Bones are diffusely osteopenic. Degenerative changes in the spine and shoulders. XR/XR chest 1V portable [id number] IMPRESSION: 1. No acute cardiopulmonary process. 2. Incidental/nonacute findings are listed in the report.
--- NOTE | 2021-10-09 20:07 | PM.HP ---
Providers/Chief Complaint Primary Care Provider: Cheyenne Yang Chief Complaint: AFIB W/RVR History of Present Illness Kassie Robles is a 86 year old female with a past with atrial fibrillation with watchman device, history of DVT and pulm emboli off anticoagulation, history of Parkinson's disease, hypothyroidism, hyperlipidemia, rheumatoid arthritis, who presents to [facility] due to falls, presyncopal episodes, and feeling unwell. Patient tells me that she lives at home, with her daughter, she ambulates with a wheeled walker, she tells me that she tries to help her daughter out with chores. Roughly a month ago she fell down 5 concrete steps, no head trauma, no loss of consciousness, no focal pain after her fall. But she tells me that since then she has been unsteady on her feet. She tells me that she normally helps out her daughter with chores, but now she just feeling on easy, unsteady on her feet, dizzy, feeling unwell. She tells me for the last 2 weeks she has his episodes in which it is almost like an attack when she feels lightheaded, dizzy, she has chest tightness, she sometimes has to close her eyes before the symptoms resolved. No slurring of words, no facial droop, no focal weakness, no paresthesias. No dysuria, no hematuria. No abdominal pain, no diarrhea. No isolated chest pain typically occurs with these attacks that happen. She tells that she came to emergency room today, as this morning she was making oatmeal and she had another attack when she was standing up, so she had to sit down, and her daughter was worried so she had her called EMS. No history of carotid artery stenosis. No history of strokes. When EMS arrived when arrived, she was noted to have A. fib with RVR was given Cardizem, converted to normal sinus rhythm, currently normal sinus rhythm Review of Systems Const: Reports: fatigue and malaise; Denies: fever(s) or chills Eyes: Denies: change in vision Card: Reports: chest pain, palpitations and pre-syncope Resp: Reports: dyspnea; Denies: non-productive cough GI: Denies: abdominal pain, nausea, vomiting, hematemesis or diarrhea : Denies: flank pain, difficulty voiding, dysuria or urinary frequency Musc: Reports: neck pain Skin/Breast: Denies: rash Neuro: Reports: weakness in extremities, frequent falls and dizziness; Denies: headache(s) or numbness in extremities Endo: Denies: polyuria or polydipsia Medications/Allergies Home Medications Medication Instructions Recorded Confirmed Last Taken Type atorvastatin 80 mg tablet 80 mg PO DAILY 01/12/20 10/09/21 10/09/21 History carbidopa 25 mg-levodopa 100 mg 1.5 tab PO TID 01/12/20 10/09/21 10/09/21 History disintegrating tablet cetirizine 10 mg capsule (Zyrtec) 10 mg PO DAILY PRN 01/12/20 10/09/21 01/13/20 05:00 History donepezil 10 mg tablet 10 mg PO DAILY 01/12/20 10/09/21 10/09/21 History furosemide 40 mg tablet (Lasix) 60 mg PO DAILY 01/12/20 10/09/21 10/09/21 History levothyroxine 50 mcg tablet 50 mcg PO DAILY 01/12/20 10/09/21 10/09/21 History (Synthroid) loperamide 2 mg capsule (Imodium 2 mg PO QID PRN 01/12/20 10/09/21 10/09/21 History A-D) memantine 28 mg capsule 28 mg PO DAILY 01/12/20 10/09/21 10/09/21 History sprinkle,extended release 24hr metoprolol tartrate 100 mg tablet 100 mg PO BID 01/12/20 10/09/21 10/09/21 History nitroglycerin 0.4 mg sublingual 0.4 mg SUBLINGUAL Q5M PRN 01/12/20 10/09/21 Unknown History tablet (Nitrostat) nystatin 100,000 unit/gram topical 1 applic TOPICAL BID 01/12/20 10/09/21 01/13/20 05:00 History cream pediatric [id number] 1 tab PO DAILY 01/12/20 10/09/21 10/09/21 History (Multi-Vitamins with Iron) potassium chloride 20 mEq 20 meq PO DAILY 01/12/20 10/09/21 10/09/21 History tablet,extended release primidone 250 mg tablet 250 mg PO BID 01/12/20 10/09/21 10/09/21 History sertraline 100 mg tablet (Zoloft) 100 mg PO DAILY 01/12/20 10/09/21 10/09/21 History tizanidine 4 mg tablet 4 mg PO BID PRN 01/12/20 10/09/21 01/12/20 History omeprazole 40 mg capsule,delayed 40 mg PO DAILY 03/12/20 10/09/21 10/09/21 History release tramadol 50 mg tablet (Ultram) 50 mg PO TID PRN 03/12/20 10/09/21 10/09/21 History folic acid 400 mcg tablet 0.4 mg PO DAILY 04/01/20 10/09/21 10/09/21 History primidone 250 mg tablet (Mysoline) 250 mg PO BID 04/08/20 10/09/21 Unknown History aspirin 81 mg tablet,delayed 81 mg PO DAILY 07/28/20 10/09/21 10/09/21 History release (Adult Aspirin Regimen) methotrexate 2.5 mg/mL oral 2.5 mg PO .weekly ml 07/28/20 10/09/21 Unknown History solution famotidine 20 mg tablet 20 mg PO DAILY 10/09/21 10/09/21 Unknown History Allergies Allergy/AdvReac Type Severity Reaction Status Date / Time codeine Allergy Unknown ALGY-Hives Verified 10/09/21 17:26 morphine Allergy Unknown ALGY-Rash Verified 10/09/21 17:26 Penicillins Allergy Unknown ALGY-Rash Verified 10/09/21 17:26 PFSH Acute PFSH: Medical History Arthritis Atrial fibrillation Has watchman device in the left atrial appendage, no anticoagulation, sinus rhythm this hospital stay History of 2019 novel coronavirus disease (COVID-19) (~03/2020) -has been admitted to the hospital twice for COVID-19, initially at [facility] (03/12-03/17) and at this facility (04/01-04/04) HTN (hypertension) Hx of deep venous thrombosis Hx of pulmonary embolus Hx of vaginal delivery Hyperlipemia Hypothyroid Morbid obesity with BMI of 40.0-44.9, adult Parkinson disease Presence of Watchman left atrial appendage closure device Rheumatoid arthritis -On methotrexate chronically though currently held due to recent Covid infection and pneumonia, as well as bronchitis Surgical History History of shoulder surgery Diagnostic arthroscopy of right shoulder with minimal debridement, open distal clavicle resection, open acromioplasty, open rotator cuff repair augmented with acellular dermal patch, open biceps tenodesis. DOS: 06/24/[address] Rain History of tonsillectomy and adenoidectomy Hx of Achilles tendon repair Hx of appendectomy Hx of arthroscopy of shoulder Hx of cholecystectomy Hx of heart surgery Hx of hysterectomy Hx of laminectomy Hx of total knee replacement Hx of tubal ligation Family History Other CAD (coronary artery disease) Social History Smoking and tobacco status: never smoked Alcohol intake: never Housing: House Vitals/I&O/Wt Last Vital Signs Pulse 57 L 10/09/21 18:30 Resp 16 10/09/21 18:30 BP 154/78 10/09/21 18:00 Pulse Ox 97 10/09/21 18:30 Weight last 48 hrs Weight 90.265 kg Physical Exam Const: COMMON NORMALS: no acute distress and patient oriented x3 HENMT: COMMON NORMALS: normocephalic HEAD & SCALP: normocephalic Eye: COMMON NORMALS: Equal, round and reactive pupils present and EOMs intact bilaterally Neck/C-Spine: COMMON NORMALS: no JVD Lymph: LYMPHATIC: no lymphadenopathy noted Resp: COMMON NORMALS: normal respiratory effort, No retractions, No use of accessory muscles and clear to auscultation bilaterally AUSCULTATION: clear to auscultation bilaterally Cardio: COMMON NORMALS: no JVD, regular rate, regular rhythm, S1 normal heart sound present and S2 normal heart sound present RATE: regular rate RHYTHM: regular rhythm HEART SOUNDS: S1 normal heart sound present and S2 normal heart sound present GI: COMMON NORMALS: Normal to inspection, nondistended, normoactive bowel sounds present, Soft to palpation, non-tender, No hepatosplenomegaly present, no masses and no bruits PALPATION: Yes Soft to palpation and Yes No hepatosplenomegaly present Extremity: COMMON NORMALS: no calf tenderness and no pedal edema NARRATIVE EXTREMITY EXAM: Bilateral ankle tenderness Neuro: COMMON NORMALS: patient oriented x3, CN's II-XII intact bilaterally, moves all extremities and no focal motor deficits Psych: COMMON NORMALS: mental status grossly normal Data : 10/09/21 15:30 10/09/21 15:30 A&P Assessment and plan (1) Pre-syncope: Status: Acute (2) Generalized weakness: Status: Acute (3) AF (paroxysmal atrial fibrillation): Status: Acute Plan Presyncope -We will do orthostatic -Also has a UTI, start Rocephin -Cardiac echo -Carotid artery ultrasound -CT of the head -Neurochecks, night stroke scale -PT OT -Lovenox for DVT prophylaxis -DNR/DNI A. fib with RVR -Currently normal sinus rhythm -Continue home metoprolol 100 twice daily -Telemetry monitoring -Serial EKGs, serial troponins -Cardiac echo as above -TSH, mag -Has a watchman device in place UTI, Rocephin as above History of DVT, history of PE History of Parkinson's disease, possibly patient's Parkinson's medications could be contributing to her lightheadedness Hyperlipidemia Hypertension Hypothyroidism, check TSH Attestations Medical Necessity Statement*: Patient requires hospitalization, outpatient with observation, for presyncope, UTI, A. fib with RVR Coding Level of Care Code Acute Floor Care Specialist for Chg Fwd Diagnoses Pre-syncope R55 Generalized weakness R53.1 AF (paroxysmal atrial fibrillation) I48.0
[2021-10-09 21:09] LABS: Lactic Sepsis W/Reflex 0.9 mmol/L (0.5-2.2)
--- NOTE | 2021-10-09 21:39 | ECG_ITS ---
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 Measurements Intervals [place] Rate: 53 P: [place]: QRS: -1 QRSD: 104 T: 28 QT: 402 QTc: 379 Interpretive Statements Multifocal atrial rhythm ABNORMAL RHYTHM ECG Compared to ECG 10/09/2021 18:08:43 Sinus rhythm no longer present First degree AV block no longer present Electronically Signed On 10-10-2021 19:47:54 CDT by Janey Garcia M.D. [email or web address] It [id number]
--- NOTE | 2021-10-09 22:34 | USR_ITS ---
PROCEDURE INFORMATION: Exam: US Duplex Bilateral Extracranial Arteries, Carotid Arteries Exam date and time: 10/09/2021 11:01 PM Age: 86 years old Clinical indication: Altered mental status/memory loss; Age related cognitive decline; Additional info: AMS TECHNIQUE: Imaging protocol: Real-time Duplex ultrasound scan of the bilateral carotid and vertebral arteries combining cohen scale, color Doppler and spectral waveform analysis. Bilateral exam. Exam focused on the carotid arteries. COMPARISON: CT head wo con* [id number] 10/09/2021 8:20 PM FINDINGS: Right common carotid artery: Unremarkable. No occlusion or stenosis. Waveforms are normal. Right internal carotid artery: Moderate mostly echogenic smoothly marginated plaque volume in the bifurcation. No occlusion or significant stenosis. Waveforms are normal. Right ICA/CCA ratio: Within normal limits. Right external carotid artery: No stenosis in the origin. Right vertebral artery: Unremarkable. Antegrade flow. Left common carotid artery: Unremarkable. No occlusion or stenosis. Waveforms are normal. Left internal carotid artery: Minimal smoothly marginated echogenic plaque in the bifurcation. No occlusion or significant stenosis. Waveforms are normal. Left ICA/CCA ratio: Within normal limits. Left external carotid artery: No stenosis in the origin. Left vertebral artery: Unremarkable. Antegrade flow. US/CV carotid duplex BI* [id number] IMPRESSION: Less than 50% carotid artery stenosis. REFERENCES: SRU CRITERIA. The degree of internal carotid artery stenosis is based on criteria defined by the Society of Radiologists in Ultrasound (SRU). Normal is no stenosis. Mild is less than 50% stenosis. Moderate is 50-69% stenosis. Severe is greater than 69% stenosis to near occlusion. Near occlusion is a markedly narrowed lumen. Total occlusion is no detectable patent lumen.
[2021-10-09 22:57] LABS: Glucose Point of Care 88 mg/dL (70-110)
[2021-10-09] MEDS: cefTRIAXone 1,000 MG in sodium chloride 0.9% (plus) 50 ML 100 MG IV (23:06)
[2021-10-09] MEDS: enoxaparin 40 mg/0.4 mL Syringe SUBCUT (23:06)
[2021-10-09 23:53] LABS: Troponin 5 6HR 9.98 ng/L (0-10)
[2021-10-09 23:58] LABS: Thyroid Stimulating Hormone 1.51 uIU/mL (0.27-4.20)
[2021-10-09 23:59] LABS: Troponin 5 6HR Delta 0.98 ng/L (0-12)
[2021-10-10] VITALS (28 sets, daily range): BP systolic 111–163; BP diastolic 58–105; PULSE 57–165; RESP 14–18; TEMP 36.3–36.8; O2SAT 90–100
[2021-10-10 04:54] LABS: Basophils % 0.6 %; Eosinophils # 0.1 10^3/uL (0.0-0.8); Eosinophils % 2.9 %; Hematocrit 34.7 % (37.0-47.0); Hemoglobin 11.4 g/dL (11.5-15.3); Lymphocytes % 41.1 %; Mean Corpuscular HGB Conc 32.9 g/dL (30.0-36.0); Mean Corpuscular Hemoglobin 37.4 pg (28.0-34.0); Mean Corpuscular Volume 113.8 fl (81-99); Mean Platelet Volume 11.4 fL (7.4-10.4); Monocytes # 0.5 10^3/uL (0.2-0.9); Monocytes % 9.5 %; Neutrophils # 2.17 10^3/uL (1.8-7.7); Neutrophils % 45.7 %; Nucleated Red Blood Cells % 0 %; Platelet Count 142 10^3/cmm (130-400); Red Blood Count 3.05 10^6/uL (4.1-5.3); Red Cell Distribution Width 14.6 % (12.1-15.1); White Blood Count 4.8 10^3/uL (4.0-10.0)
[2021-10-10 05:21] LABS: Alanine Aminotransferase 20 U/L (0-33); Albumin Level 3.6 g/dL (3.5-5.2); Alkaline Phosphatase 115 IU/L (35-105); Anion Gap 12.2 (5-19); Aspartate Amino Transferase 115 U/L (0-32); Blood Urea Nitrogen 14 mg/dL (8-23); Calcium 8.3 mg/dL (8.5-10.5); Carbon Dioxide 24 mmol/L (22-29); Chloride 108 mmol/L (98-107); Globulin 2.1 g/dL (1.3-4.6); Glucose 80 mg/dL (65-115); Magnesium 1.8 mg/dL (1.7-2.3); Osmolality Calculated 289 mOsm/kg (285-295); Phosphorus 4.1 mg/dL (2.5-4.5); Potassium 4.2 mmol/L (3.5-5.1); Sodium 140 mmol/L (136-145); Total Bilirubin 0.3 mg/dL (0.15-1.2); Total Protein 5.7 g/dL (6.6-8.7)
[2021-10-10] MEDS: folic acid 1 mg Tablet 0.5 MG PO (09:11)
[2021-10-10] MEDS: sertraline 100 mg Tablet PO (09:12)
[2021-10-10] MEDS: aspirin 81 mg EC Tablet PO (09:12)
[2021-10-10] MEDS: levothyroxine 50 mcg Tablet PO (09:13)
[2021-10-10] MEDS: atorvastatin 40 mg Tablet 80 MG PO (09:13)
[2021-10-10] MEDS: donepezil 5 MG Tablet 10 MG PO (09:14)
[2021-10-10] MEDS: pantoprazole DR 40 mg Tablet PO (09:14)
[2021-10-10] MEDS: primidone 50 mg Tablet 250 MG PO ×2 (09:52→17:13)
--- NOTE | 2021-10-10 10:50 | PC.CHAP ---
Pastoral Care Encounter/Spiritual Assessment Type of Contact [] Declined animal health technician visit [] Patient/Family/Request visit [] Outpatient visit [] Follow-up visit [] Physician referral [] Code/Alert [x] Routine visit [] Staff referral [] Actively dying [] Patient sleeping [] Family support [] [] Out of room [] Palliative care [] [x] Receiving care in room [] Pre-surgical visit [] Trauma [] Long length of stay [] ICU visit [] Other: Relational/Emotional Strength [] Patient feels connected with others/family/visitors/staff [] Distress [] Loneliness/isolation [] Abandonment Spirituality of Patient [] Person of Kalee [] Attends Hoahaoism of their Kalee [] Believes in Prayer [] Reads Bible or Hindu materials [] There are Spiritual issues to be addressed Waste Management Engineer Interventions [] Prayer [] Active listening [] Non-anxious presence [] Spiritual/emotional support [] Crisis/trauma care [] Spiritual counseling [] Bereavement support [] Provided bereavement packet [] Provided Bible/devotional materials [] Provided toy/stuffed animal, coloring book to patient or family member [] Provided Communion [] Anointing/[place] [] Salvation [] Completed spiritual assessment [] Other: Impact on Illness or Injury [] Angry [] Fearful [] Anxious [] Often cries [] Exhaustion [] Unable to work [] Unable to attend adventism [] Unable to walk/stand [] Unable to read [] Unable to drive [] Unable to eat/drink [] Unable to sleep [] Unable to be with family [] Patient intubated [] Other: Summary Time spent with patient
--- NOTE | 2021-10-10 12:26 | PM.PN ---
Subjective Subjective: 86-year-old female with history of atrial fibrillation rapid ventricular response comes in with 1 week of fatigue and near syncope. She felt very worn out and was found to be bradycardic. TSH is normal, carotid Dopplers negative and CTA for pulmonary embolism also negative. Echocardiogram just completed showed pulmonary hypertension to RSVP 47 severe left atrial enlargement but the patient is in sinus rhythm and there is no wall motion abnormality or depressed EF. EKG shows no acute ischemia and Troponin normal Metoprolol has been held but heart rate has been 40s to 60s Vitals/I&O/Wt Last Vital Signs Temp 97.8 F 10/10/21 08:00 Pulse 58 L 10/10/21 10:29 Resp 16 10/10/21 08:00 BP 111/58 10/10/21 10:24 Pulse Ox 97 10/10/21 10:29 10/09/21 10/10/21 10/10/21 22:59 06:59 14:59 Intake Total 500 / 500 250 / 750 480 / 480 Balance 500 / 500 250 / 750 480 / 480 Weight last 48 hrs Weight 89.857 kg Weight 90.265 kg Weight 90.265 kg Physical Exam Narrative: General well-developed well-nourished female with a rolling tremor of her head and neck. She is in no acute cardiopulmonary distress CV regular rate and rhythm lungs clear to auscultation bilaterally Abdomen positive bowel sounds soft nontender Calves no edema Arms no cogwheeling rigidity and currently no tremor in the upper extremities or hands Data : 10/10/21 04:28 10/10/21 04:28 A&P Assessment and plan (1) Pre-syncope: Suspect this is due to bradycardia from too much beta-james Status: Acute (2) Generalized weakness: As above and states she feels much better Status: Acute (3) AF (paroxysmal atrial fibrillation): Will resume metoprolol at 50 mg twice a day once heart rate is over 70 Status: Acute Attestations Medical Necessity Statement*: Additional monitoring for bradycardia and near syncope. Start physical therapy Time Spent in Patient Care: Greater than 35 minutes Coding Level of Care Code Acute Auto Bumper Mechanic for Domonique Peters Diagnoses Pre-syncope R55 Generalized weakness R53.1 AF (paroxysmal atrial fibrillation) I48.0
[2021-10-10 15:15] LABS: Vitamin B12 547 pg/mL (232-1245)
[2021-10-10] MEDS: nystatin cream 30 gm 1 APPLIC TOPICAL (17:15)
[2021-10-10 17:30] LABS: Folate Level 18.3 ng/mL (4.8-37.3)
[2021-10-10] MEDS: metoprolol tartrate 1 mg/1 mL SDV 5 mL 10 MG IVP (18:19)
--- NOTE | 2021-10-10 18:22 | ECG_ITS ---
[facility] Test Date: 2021-10-10 Pat Name: Kassie Robles Department: Room: 256 Gender: Female Sales Superintendent: : 1935 Requested By: Omero Soliman Order Number: [id number] Marielos MD: Janey Garcia M.D. Measurements Intervals [place] Rate: 137 P: MD: QRS: -15 QRSD: 124 T: 29 QT: 312 QTc: 471 Interpretive Statements ATRIAL FIBRILLATION WITH RAPID VENTRICULAR RESPONSE POSSIBLE RIGHT VENTRICULAR CONDUCTION DELAY [RSR (QR) IN V1/V2] ABNORMAL RHYTHM ECG Compared to ECG 10/09/2021 23:54:18 No significant changes Electronically Signed On 10-10-2021 19:47:20 CDT by Janey Garcia M.D. [id number]
[2021-10-10] MEDS: sodium chloride 0.9% 500 ML 999 ML IV (18:25)
--- NOTE | 2021-10-10 18:40 | PM.PN ---
Subjective Subjective: 86-year-old female with history of atrial fibrillation rapid ventricular response comes in with 1 week of fatigue and near syncope. She felt very worn out and was found to be bradycardic. TSH is normal, carotid Dopplers negative and CTA for pulmonary embolism also negative. Echocardiogram just completed showed pulmonary hypertension to RSVP 47 severe left atrial enlargement but the patient is in sinus rhythm and there is no wall motion abnormality or depressed EF. EKG shows no acute ischemia and Troponin normal Metoprolol has been held but heart rate has been 40s to 60s I was called to evaluate A. fib with RVR and patient was having shortness of breath across the back and chest without chest pain she had transient hypotension. I ordered 5 mg metoprolol, EKG, nitroglycerin sublingual and 500 cc fluid bolus when I arrived at bedside she was mentating normally and speaking clearly. Carotid massage slowed the heart rate down below 100 but did not convert her. We did give her 5 mg of metoprolol IV. EKG showed heart rate 135 and A. fib with RVR. Nitroglycerin was not given Of note the patient's heart rate had been 50s when she went into A. fib. Echo showed left atrial enlargement and pulmonary hypertension. She is a poor candidate for continued metoprolol rate control. We will transfer her to the ICU and initiate amiodarone. Vitals/I&O/Wt Last Vital Signs Temp 97.8 F 10/10/21 15:33 Pulse 165 H 10/10/21 18:12 Resp 16 10/10/21 15:33 BP 122/87 10/10/21 15:33 Pulse Ox 97 10/10/21 15:33 10/10/21 10/10/21 10/10/21 06:59 14:59 22:59 Intake Total 250 / 750 720 / 720 240 / 960 Balance 250 / 750 720 / 720 240 / 960 Weight last 48 hrs Weight 89.857 kg Weight 90.265 kg Weight 90.265 kg Physical Exam Narrative: General well-developed well-nourished female with a rolling tremor of her head and neck. She is in no acute cardiopulmonary distress CV regular rate and rhythm lungs clear to auscultation bilaterally Abdomen positive bowel sounds soft nontender Calves no edema Arms no cogwheeling rigidity a but currently does have tremor in her hands Data : 10/10/21 04:28 10/10/21 04:28 A&P Assessment and plan (1) Pre-syncope: Suspect this is due to bradycardia from too much beta-james Status: Acute (2) Generalized weakness: As above and states she feels much better Status: Acute (3) AF (paroxysmal atrial fibrillation): Was planning to resume metoprolol when heart rate over 70 but this never occurred until she went into A. fib. For that reason I am abandoning metoprolol as a rate control option. We will start amiodarone load in the ICU. Status: Acute Attestations Medical Necessity Statement*: Change to inpatient for ICU monitoring and amiodarone load. Critical Care Time: The high probability of a clinically significant, sudden or life threatening deterioration of the patient's [cardiopulmonary system(s) required my full and direct attention, intervention and personal management. The critical care time is as shown. This time is in addition to time spent performing any reported procedures but includes the following: [x] Data and vital sign review and interpretation [x] Patient assessment, examination and intervention [x] Documentation [x] Medication orders and management Critical Care Time (min): 60 Coding Level of Care Code Acute Ground Transportation Operator for Chg Fwd Diagnoses Pre-syncope R55 Generalized weakness R53.1 AF (paroxysmal atrial fibrillation) I48.0
--- NOTE | 2021-10-10 20:53 | PC.NURSE ---
Patient transferred to ICU 3 via bed by 2 RN's. Patient A&O. Patient in A.fib HR 91. oxygen 2 liter NC o2 sats 98. Amiodarone loading bolus started. Patient has a scratch on left arm that is open to air. Patient has hearing aid and clothing at bedside. Home medications in patient's medication bin for administration during hospital stay. All medications check in through pharmacy. Patient does not complain of any pain. No chest pain or shortness of breath.
--- NOTE | 2021-10-10 21:04 | PC.NURSE ---
Patient stated she wishes to be a full code to Dr. Jalloh
--- NOTE | 2021-10-10 22:34 | USCV_ITS ---
Kassie Robles Age: 86 Gender: F : 1935 Exam Date: 10/10/2021 11:20 Ordering Phys: Marv Ríos MD Technologist: JERAMIE [place] [facility] [place]ication: Altered Mental Status. History of atrial fibrillation. No hx cardiac intervention per patient. BP: 125 / 68 HR: 60 Rhythm: Sinus Technical Quality: Adequate MEASUREMENTS (Male / Female) Normal Values 2D ECHO LV Diastolic Diameter PLAX 4.7 cm 4.2 - 5.9 / 3.9 - 5.3 cm LV Systolic Diameter PLAX 2.7 cm IVS Diastolic Thickness 1.1 cm 0.6 - 1.0 / 0.6 - 0.9 cm IVS Systolic Thickness 1.8 cm LVPW Diastolic Thickness 1.1 cm 0.6 - 1.0 / 0.6 - 0.9 cm LVPW Systolic Thickness 1.8 cm LVOT Diameter 2.0 cm LV Ejection Fraction 2D Teich 72.8 % LV Ejection Fraction MOD 2C 73.4 % LV Ejection Fraction 2C AL 74.9 % LA Diameter 4.5 cm LA Width 5.3 cm LA Height 7.5 cm RA Width 4.2 cm RA Height 5.5 cm Aorta at Sinotubular Diameter 3.0 cm IVC Diameter 1.9 cm M-MODE Aortic Annulus Diameter 2.3 cm LA Ao Ratio MM 2.0 MV E Point Septal Separation 0.1 cm DOPPLER AV Peak Velocity 91.0 cm/s LVOT Peak Velocity 74.0 cm/s AV Area Cont Eq vti 2.2 cm squared AV Area Cont Eq pk 2.6 cm squared MV Peak Velocity 109.0 cm/s MV Area PHT 4.3 cm squared Mitral E to A Ratio 2.4 MV E' Velocity 47.0 cm/s Mitral E to MV E' Ratio 10.4 Mitral E to LV E' Lateral Ratio 10.2 Mitral E to LV E' Septal Ratio 10.7 TR Peak Velocity 290.8 cm/s TR Peak Gradient 33.8 mmHg TV Peak E Velocity 20.0 cm/s Right Atrial Pressure 10.0 mmHg Pulmonary Artery Systolic Pressu 43.8 mmHg PV Peak Velocity 79.0 cm/s RV Acceleration Time 0.1 s RV Ejection Time 0.4 s RV AcT/ET 0.1 FINDINGS Left Ventricle Normal left ventricular size, systolic function and wall thickness, with no regional wall motion abnormalities. Normal diastolic function. Left ventricular ejection fraction is estimated at 65%. Right Ventricle Normal right ventricular size and systolic function. Mild pulmonary hypertension, RVSP 43.8 mmHg. Right Atrium The right atrium is normal in size. Left Atrium Moderately increased left atrial size. Mitral Valve Structurally normal mitral valve. Mild-moderate mitral valve regurgitation. No mitral valve stenosis. Aortic Valve Structurally normal aortic valve without significant sclerosis or stenosis. There is no aortic regurgitation. Tricuspid Valve Structurally normal tricuspid valve. Mild tricuspid valve regurgitation. Pulmonic Valve Pulmonic valve not well visualized. Trace pulmonary valve regurgitation. Pericardium Normal pericardium without effusion. Aorta Normal ascending aorta dimension. IVC The inferior vena cava pulmonary and hepatic veins appear normal. CONCLUSIONS Normal left ventricular size, systolic function and wall thickness, with no regional wall motion abnormalities. Normal diastolic function. Left ventricular ejection fraction is estimated at 65%. Normal right ventricular size and systolic function. Mild pulmonary hypertension, RVSP 43.8 mmHg. Moderately increased left atrial size. Structurally normal mitral valve. Mild-moderate mitral valve regurgitation. No mitral valve stenosis. Dr. Javad Gaivn MD (Electronically Signed) Final Date: 10 October 2021 16:12 S
[2021-10-11] VITALS (89 sets, daily range): BP systolic 77–162; BP diastolic 38–119; PULSE 48–150; RESP 13–21; TEMP 36.6–36.9; O2SAT 75–100
[2021-10-11] MEDS: cefTRIAXone 1,000 MG in sodium chloride 0.9% (plus) 50 ML 100 MG IV ×2 (00:07→22:40)
--- NOTE | 2021-10-11 01:03 | PC.NURSE ---
IV x 2 attempted in right forearm. Catheters intact afterwards. Pt tolerated well.
[2021-10-11] MEDS: aspirin 81 mg EC Tablet PO (08:28)
[2021-10-11 08:29] LABS: Basophils % 0.7 %; Eosinophils # 0.3 10^3/uL (0.0-0.8); Eosinophils % 4.7 %; Hematocrit 39.2 % (37.0-47.0); Hemoglobin 12.9 g/dL (11.5-15.3); Lymphocytes # 1.9 10^3/uL (0.8-4.8); Lymphocytes % 32.4 %; Mean Corpuscular HGB Conc 32.9 g/dL (30.0-36.0); Mean Corpuscular Hemoglobin 36.3 pg (28.0-34.0); Mean Corpuscular Volume 110.4 fl (81-99); Mean Platelet Volume 11.3 fL (7.4-10.4); Monocytes # 0.4 10^3/uL (0.2-0.9); Monocytes % 6.4 %; Neutrophils # 3.33 10^3/uL (1.8-7.7); Neutrophils % 55.6 %; Nucleated Red Blood Cells % 0 %; Platelet Count 169 10^3/cmm (130-400); Red Blood Count 3.55 10^6/uL (4.1-5.3); Red Cell Distribution Width 14.3 % (12.1-15.1)
[2021-10-11] MEDS: levothyroxine 50 mcg Tablet PO (08:29)
[2021-10-11] MEDS: folic acid 1 mg Tablet 0.5 MG PO (08:29)
[2021-10-11] MEDS: atorvastatin 40 mg Tablet 80 MG PO (08:29)
[2021-10-11] MEDS: losartan 50 mg Tablet 25 MG PO (08:30)
[2021-10-11] MEDS: MEMANTINE 28 MG 28 EACH PO (08:31)
[2021-10-11] MEDS: pantoprazole DR 40 mg Tablet PO (08:31)
[2021-10-11 08:51] LABS: Alanine Aminotransferase 71 U/L (0-33); Albumin Level 4.1 g/dL (3.5-5.2); Alkaline Phosphatase 123 IU/L (35-105); Anion Gap 14.1 (5-19); Aspartate Amino Transferase 76 U/L (0-32); Blood Urea Nitrogen 12 mg/dL (8-23); Calcium 8.9 mg/dL (8.5-10.5); Carbon Dioxide 27 mmol/L (22-29); Chloride 105 mmol/L (98-107); Globulin 2.7 g/dL (1.3-4.6); Glucose 101 mg/dL (65-115); Magnesium 1.9 mg/dL (1.7-2.3); Osmolality Calculated 294 mOsm/kg (285-295); Phosphorus 4.2 mg/dL (2.5-4.5); Potassium 4.1 mmol/L (3.5-5.1); Sodium 142 mmol/L (136-145); Total Bilirubin 0.3 mg/dL (0.15-1.2); Total Protein 6.8 g/dL (6.6-8.7)
--- NOTE | 2021-10-11 08:58 | PM.PN ---
Subjective Subjective: 86-year-old female with history of atrial fibrillation rapid ventricular response comes in with 1 week of fatigue and near syncope. She felt very worn out and was found to be bradycardic. TSH is normal, carotid Dopplers negative and CTA for pulmonary embolism also negative. Echocardiogram just completed showed pulmonary hypertension to RSVP 47 severe left atrial enlargement but the patient is in sinus rhythm and there is no wall motion abnormality or depressed EF. EKG shows no acute ischemia and Troponin normal Metoprolol has been held but heart rate has been 40s to 60s last evening she went from bradycardia to A. fib demonstrating that the beta-james was not effective. I think this is due to the the severe left atrial enlargement. Patient was transferred to the ICU and started on amiodarone drip This morning patient denies head pressure chest pressure nausea or fatigue. She states her tremor is near baseline but requires taking Sinemet 3 times daily on time to maintain control. We discussed risks and benefits of amiodarone 10/10/2021 Vitals/I&O/Wt Last Vital Signs Temp 98.3 F 10/11/21 00:30 Pulse 61 10/11/21 07:44 Resp 16 10/10/21 15:33 BP 150/77 10/11/21 08:30 Pulse Ox 95 10/11/21 07:44 10/10/21 10/11/21 10/11/21 22:59 06:59 14:59 Intake Total 1220 / 1940 470.676 / 2410.676 Output Total 1000 / 1000 Balance 1220 / 1940 -529.324 / 1410.676 Weight last 48 hrs Weight 89.857 kg Weight 90.265 kg Weight 90.265 kg Physical Exam Narrative: General well-developed well-nourished female with a rolling tremor of her head and neck. She is in no acute cardiopulmonary distress CV irregular but rate is controlled Abdomen positive bowel sounds soft nontender Calves no edema Arms no cogwheeling rigidity a but currently does have tremor in her neck Data : 10/11/21 08:13 10/11/21 08:13 A&P Assessment and plan (1) AF (paroxysmal atrial fibrillation): Continue with amiodarone load. If this does not put her into sinus rhythm but just controlled slow rate I would suggest that she be on long-term anticoagulation and addition to the watchman device Rate however is the least controlled at 80 although she has periods of sinus rhythm and intermittent atrial fibrillation. Increase activity Status: Acute (2) Pre-syncope: Due to uncontrolled A. fib RVR and alternating with bradycardia from her beta-blockers at the time of admission Status: Acute (3) Parkinson disease: Continue Sinemet Status: Acute (4) Rheumatoid arthritis: Okay to resume methotrexate Status: Acute Qualifiers: Rheumatoid arthritis location: unspecified site Rheumatoid factor presence: unspecified presence Qualified Code(s): M06.9 - Rheumatoid arthritis, unspecified Attestations Medical Necessity Statement*: ICU titration of amiodarone load Critical Care Time: The high probability of a clinically significant, sudden or life threatening deterioration of the patient's [cardiopulmonary system(s) required my full and direct attention, intervention and personal management. The critical care time is as shown. 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
[2021-10-11] MEDS: primidone 50 mg Tablet 250 MG PO ×2 (09:18→17:42)
[2021-10-11] MEDS: nystatin cream 30 gm 1 APPLIC TOPICAL ×2 (09:23→17:43)
--- NOTE | 2021-10-11 11:21 | PC.NURSE ---
1t 1130am, Patient had a 3 second pause and appears to be in a Wenckebach rhythm (hard to tell for sure due to artifact reltaed to parkinsons tremors). Patient is bradycardic in the low 50's and asymptomatic. Nurse alerted Dr lewis and received orders to pause amiodarone for 1 hour, and then restart at 0.25 mg/min.
[2021-10-11] MEDS: hyaluronidase, human recomb. 150 unit/mL SDV 15 UNIT INTRADERMA (16:11)
--- NOTE | 2021-10-11 16:12 | PC.NURSE ---
Amiodarone infiltrated in patient's left hand. Small amount of swelling noted. Nurse stopped infusion and aspirated. 1 mL of fluid was aspirated. IV removed. Nurse alerted Dr lewis and recived orders for Subq Hylauronidase. Hylauronidase was delivered by Juan in pharmacy. Medication was not able to be scanned. Nurse verified medication with pharmacist at bedside.
--- NOTE | 2021-10-11 17:25 | PM.CONSULT ---
Providers/Reason For Consult Consulting Physician/Specialty*: Luis Angel Tobar MD/ Cardiology Reason for Consult*: Atrial fibrillation with RVR/ Bradycardia Requesting Physician: Dr Sears Attending Physician: Omero Sears MD Primary Care Provider: Cheyenne Yang History of Present Illness History of Present Illness Kassie Robles is a 86 year old female with past medical history of atrial fibrillation with watchman device, no DVT history, hyperlipidemia, history of Parkinson's who presented to the hospital with presyncope and of falls. She is also feeling weak. She was found to be in A. fib with RVR. With rate controlling medications her heart rate dropped significantly. Cardiology was consulted for possible sick sinus syndrome evaluation. Patient also complains of some chest tightness for the last 2 to 3 weeks. Review of Systems Const: Reports: fatigue and malaise; Denies: fever(s) or chills Eyes: Denies: change in vision Card: Reports: chest pain, palpitations and pre-syncope Resp: Reports: dyspnea; Denies: non-productive cough GI: Denies: abdominal pain, nausea, vomiting, hematemesis or diarrhea : Denies: flank pain, difficulty voiding, dysuria or urinary frequency Musc: Reports: neck pain Skin/Breast: Denies: rash Neuro: Reports: weakness in extremities, frequent falls and dizziness; Denies: headache(s) or numbness in extremities Endo: Denies: polyuria or polydipsia Medications/Allergies Home Medications Medication Instructions Recorded Confirmed Last Taken Type atorvastatin 80 mg tablet 80 mg PO DAILY 01/12/20 10/09/21 10/09/21 History carbidopa 25 mg-levodopa 100 mg 1.5 tab PO TID 01/12/20 10/09/21 10/09/21 History disintegrating tablet cetirizine 10 mg capsule (Zyrtec) 10 mg PO DAILY PRN 01/12/20 10/09/21 01/13/20 05:00 History donepezil 10 mg tablet 10 mg PO DAILY 01/12/20 10/09/21 10/09/21 History furosemide 40 mg tablet (Lasix) 60 mg PO DAILY 01/12/20 10/09/21 10/09/21 History levothyroxine 50 mcg tablet 50 mcg PO DAILY 01/12/20 10/09/21 10/09/21 History (Synthroid) loperamide 2 mg capsule (Imodium 2 mg PO QID PRN 01/12/20 10/09/21 10/09/21 History A-D) memantine 28 mg capsule 28 mg PO DAILY 01/12/20 10/09/21 10/09/21 History sprinkle,extended release 24hr metoprolol tartrate 100 mg tablet 100 mg PO BID 01/12/20 10/09/21 10/09/21 History nitroglycerin 0.4 mg sublingual 0.4 mg SUBLINGUAL Q5M PRN 01/12/20 10/09/21 Unknown History tablet (Nitrostat) nystatin 100,000 unit/gram topical 1 applic TOPICAL BID 01/12/20 10/09/21 01/13/20 05:00 History cream pediatric [id number] 1 tab PO DAILY 01/12/20 10/09/21 10/09/21 History (Multi-Vitamins with Iron) potassium chloride 20 mEq 20 meq PO DAILY 01/12/20 10/09/21 10/09/21 History tablet,extended release primidone 250 mg tablet 250 mg PO BID 01/12/20 10/09/21 10/09/21 History sertraline 100 mg tablet (Zoloft) 100 mg PO DAILY 01/12/20 10/09/21 10/09/21 History tizanidine 4 mg tablet 4 mg PO BID PRN 01/12/20 10/09/21 01/12/20 History omeprazole 40 mg capsule,delayed 40 mg PO DAILY 03/12/20 10/09/21 10/09/21 History release tramadol 50 mg tablet (Ultram) 50 mg PO TID PRN 03/12/20 10/09/21 10/09/21 History folic acid 400 mcg tablet 0.4 mg PO DAILY 04/01/20 10/09/21 10/09/21 History primidone 250 mg tablet (Mysoline) 250 mg PO BID 04/08/20 10/09/21 Unknown History aspirin 81 mg tablet,delayed 81 mg PO DAILY 07/28/20 10/09/21 10/09/21 History release (Adult Aspirin Regimen) methotrexate 2.5 mg/mL oral 2.5 mg PO .weekly ml 07/28/20 10/09/21 Unknown History solution famotidine 20 mg tablet 20 mg PO DAILY 10/09/21 10/09/21 Unknown History Allergies Allergy/AdvReac Type Severity Reaction Status Date / Time codeine Allergy Unknown ALGY-Hives Verified 10/09/21 17:26 morphine Allergy Unknown ALGY-Rash Verified 10/09/21 17:26 Penicillins Allergy Unknown ALGY-Rash Verified 10/09/21 17:26 Current Medications Generic Name Dose Route Start Last Admin Trade Name Anne PRN Reason Stop Dose Admin Aspirin 81 mg 10/10/21 09:00 10/11/21 08:28 Aspirin 81 Mg Ec Tablet PO 81 mg DAILY MG Administration Atorvastatin Calcium 80 mg 10/10/21 09:00 10/11/21 08:29 Atorvastatin 40 Mg Tablet PO 80 mg DAILY MG Administration Enoxaparin Sodium 40 mg 10/09/21 23:00 10/11/21 00:00 Enoxaparin 40 Mg/0.4 Ml Syringe SUBCUT 40 mg Q24H MG Administration Folic Acid 0.5 mg 10/10/21 09:00 10/11/21 08:29 Folic Acid 1 Mg Tablet PO 0.5 mg DAILY MG Administration Ceftriaxone Sodium 1,000 mg/ 50 mls @ 100 mls/hr 10/09/21 23:00 10/11/21 01:42 Sodium Chloride IV Infused Q24H MG Infusion Protocol Amiodarone HCl 900 mg/ 518 mls @ 0 mls/hr 10/10/21 18:45 10/11/21 11:32 Dextrose/ IV Miscellaneous IV 0.25 mg/min Supplies .Q0M MG 8.63 mls/hr Titration Protocol Per Protocol Levothyroxine Sodium 50 mcg 10/10/21 09:00 10/11/21 08:29 Levothyroxine 50 Mcg Tablet PO 50 mcg DAILY MG Administration Losartan Potassium 25 mg 10/11/21 09:00 10/11/21 08:30 Losartan 50 Mg Tablet PO 25 mg DAILY MG Administration Non-Formulary Medication 28 mg 10/10/21 09:00 10/11/21 08:31 Memantine PO 28 mg DAILY MG Administration Non-Formulary 1.5 each 10/10/21 12:00 10/11/21 11:41 Medication PO 1.5 each Carbidopa-Levodopa TIDWM MG Administration 25-100 Nystatin 1 applic 10/10/21 09:00 10/11/21 09:23 Nystatin Cream 30 Gm TOPICAL 1 applic BID MG Administration Pantoprazole Sodium 40 mg 10/10/21 09:00 10/11/21 08:[address] 40 Mg Tablet PO 40 mg DAILY MG Administration Primidone 250 mg 10/10/21 09:00 10/11/21 09:18 Primidone 50 Mg Tablet PO 250 mg BID MG Administration PFSH Acute PFSH: Medical History Arthritis Atrial fibrillation Has watchman device in the left atrial appendage, no anticoagulation, sinus rhythm this hospital stay History of 2019 novel coronavirus disease (COVID-19) (~03/2020) -has been admitted to the hospital twice for COVID-19, initially at [facility] (03/12-03/17) and at this facility (04/01-04/04) HTN (hypertension) Hx of deep venous thrombosis Hx of pulmonary embolus Hx of vaginal delivery Hyperlipemia Hypothyroid Morbid obesity with BMI of 40.0-44.9, adult Parkinson disease Presence of Watchman left atrial appendage closure device Rheumatoid arthritis Surgical History History of shoulder surgery Diagnostic arthroscopy of right shoulder with minimal debridement, open distal clavicle resection, open acromioplasty, open rotator cuff repair augmented with acellular dermal patch, open biceps tenodesis. DOS: 06/24/[address] Rain History of tonsillectomy and adenoidectomy Hx of Achilles tendon repair Hx of appendectomy Hx of arthroscopy of shoulder Hx of cholecystectomy Hx of heart surgery Hx of hysterectomy Hx of laminectomy Hx of total knee replacement Hx of tubal ligation Family History Other CAD (coronary artery disease) Social History Smoking and tobacco status: never smoked Alcohol intake: never Housing: House Vitals/I&O/Wt Last Vital Signs Temp 98.4 F 10/11/21 12:00 Pulse 70 10/11/21 16:45 Resp 13 10/11/21 16:45 BP 125/68 10/11/21 16:30 Pulse Ox 97 10/11/21 16:45 10/11/21 10/11/21 10/11/21 06:59 14:59 22:59 Intake Total 470.676 / 2410.676 809.516 / 809.516 Output Total 1000 / 1000 700 / 700 Balance -529.324 / 1410.676 109.516 / 109.516 Weight last 48 hrs Weight 198 lb 1.6 oz Weight 199 lb Physical Exam Narrative: GENERAL: Patient is alert, awake and oriented x3. [] NECK: No jugular vein distension. [] HEENT: No cyanosis. No icterus. No pallor. [] HEART: Regular S1 and S2. No murmur, rub or gallop. [] LUNGS: Clear to auscultate bilaterally. [] ABDOMEN: Soft, nontender and nondistended. Positive bowel sounds. No guarding, rebound or tenderness. [] CENTRAL NERVOUS SYSTEM: Grossly nonfocal. [] EXTREMITIES: Lower extremities with 1+ edema bilaterally. Pulses palpable in the lower extremities, both dorsalis pedis and posterior tibial. [] Data : 10/12/21 03:28 10/12/21 03:28 Micro: Microbiology 10/09/21 19:40 Urine Culture - Preliminary Urine,Clean Catch Gram Negative Rods A&P Assessment and plan (1) Pre-syncope: Status: Acute (2) Chest tightness: Status: Acute (3) AF (paroxysmal atrial fibrillation): Status: Acute (4) Generalized weakness: Status: Acute Plan Patient presented with A. fib with RVR. With rate controlling medications her heart rate dropped into 40s. She can possibly have sick sinus syndrome. Given her chest tightness symptoms, we will recommend a Lexiscan to rule out ischemia. Switch IV amiodarone to p.o. amiodarone 200 mg twice daily tomorrow. If she stays in normal sinus rhythm and has no significant bradycardia, can be discharged with event monitor and following up with her prior culinary director, Dr. Garcia. Thank you for involving us with care of this patient. We will continue to follow. Please call with questions Consult Attestations Medical Necessity Statement: Care expected to cross 2 midnights. 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
--- NOTE | 2021-10-11 19:17 | PC.NURSE ---
SHift Summary: patient was up to a chair for most of the day, has been ambulated around the unit and PT has done bedside exercises with her. Patient has been changing between AFIB and normal sinus throughout the shift. 1400 mL of urine out put. Had a brief pause and heart block rhythm, which was resolved after briefly holding and adjusting the amiodarone rate.
[2021-10-11] MEDS: sertraline 100 mg Tablet PO (20:59)
[2021-10-11] MEDS: acetaminophen 325 mg Tablet 650 MG PO (20:59)
[2021-10-11] MEDS: donepezil 5 MG Tablet 10 MG PO (21:00)
[2021-10-11] MEDS: enoxaparin 40 mg/0.4 mL Syringe SUBCUT ×2 (22:40)
[2021-10-12] VITALS (50 sets, daily range): BP systolic 96–153; BP diastolic 46–107; PULSE 56–169; RESP 13–23; TEMP 36.3–36.6; O2SAT 92–100
[2021-10-12 04:04] LABS: Basophils % 0.6 %; Eosinophils # 0.2 10^3/uL (0.0-0.8); Eosinophils % 3.7 %; Hematocrit 36.4 % (37.0-47.0); Hemoglobin 11.9 g/dL (11.5-15.3); Lymphocytes # 1.6 10^3/uL (0.8-4.8); Lymphocytes % 33.3 %; Mean Corpuscular HGB Conc 32.7 g/dL (30.0-36.0); Mean Corpuscular Hemoglobin 36.7 pg (28.0-34.0); Mean Corpuscular Volume 112.3 fl (81-99); Mean Platelet Volume 11.8 fL (7.4-10.4); Monocytes # 0.4 10^3/uL (0.2-0.9); Monocytes % 8.6 %; Neutrophils # 2.64 10^3/uL (1.8-7.7); Neutrophils % 53.8 %; Nucleated Red Blood Cells % 0 %; Platelet Count 144 10^3/cmm (130-400); Red Blood Count 3.24 10^6/uL (4.1-5.3); Red Cell Distribution Width 14.2 % (12.1-15.1); White Blood Count 4.9 10^3/uL (4.0-10.0)
[2021-10-12 04:27] LABS: Alanine Aminotransferase 32 U/L (0-33); Albumin Level 3.4 g/dL (3.5-5.2); Alkaline Phosphatase 100 IU/L (35-105); Anion Gap 15.1 (5-19); Aspartate Amino Transferase 45 U/L (0-32); Blood Urea Nitrogen 17 mg/dL (8-23); Calcium 8.7 mg/dL (8.5-10.5); Carbon Dioxide 24 mmol/L (22-29); Chloride 105 mmol/L (98-107); Globulin 2.2 g/dL (1.3-4.6); Glucose 109 mg/dL (65-115); Magnesium 1.8 mg/dL (1.7-2.3); Osmolality Calculated 292 mOsm/kg (285-295); Phosphorus 4.2 mg/dL (2.5-4.5); Potassium 4.1 mmol/L (3.5-5.1); Sodium 140 mmol/L (136-145); Total Bilirubin 0.3 mg/dL (0.15-1.2); Total Protein 5.6 g/dL (6.6-8.7)
--- NOTE | 2021-10-12 06:50 | P.PN_ITS ---
Subjective Subjective: Patient has been having afib with RVR episodes. On amiodarone PO now. Underwent lexiscan today as was having chest tightness symptoms and shows reversible ischemia in left circumflex artery distribution Vitals/I&O/Wt Last Vital Signs Temp 98.3 F 10/11/21 19:00 Pulse 58 L 10/12/21 05:56 Resp 16 10/12/21 05:15 BP 126/62 10/12/21 05:15 Pulse Ox 97 10/12/21 05:15 10/11/21 10/11/21 10/12/21 14:59 22:59 06:59 Intake Total 809.516 / 809.516 240 / 1049.516 160.808 / 1210.324 Output Total 700 / 700 1600 / 2300 Balance 109.516 / 109.516 -1360 / -1250.484 160.808 / -1089.676 Physical Exam Narrative: GENERAL: Patient is alert, awake and oriented x3. [] NECK: No jugular vein distension. [] HEENT: No cyanosis. No icterus. No pallor. [] HEART: Regular S1 and S2. No murmur, rub or gallop. [] LUNGS: Clear to auscultate bilaterally. [] ABDOMEN: Soft, nontender and nondistended. Positive bowel sounds. No guarding, rebound or tenderness. [] CENTRAL NERVOUS SYSTEM: Grossly nonfocal. [] EXTREMITIES: Lower extremities with 1+ edema bilaterally. Pulses palpable in the lower extremities, both dorsalis pedis and posterior tibial. [] Data : 10/12/21 03:28 10/12/21 03:28 Micro: Microbiology 10/09/21 19:40 Urine Culture - Preliminary Urine,Clean Catch Gram Negative Rods A&P Assessment and plan (1) Pre-syncope: Status: Acute (2) Chest tightness: Status: Acute (3) AF (paroxysmal atrial fibrillation): Status: Acute (4) Generalized weakness: Status: Acute Plan Patient presented with A. fib with RVR. With rate controlling medications her heart rate dropped into 40s. She can possibly have sick sinus syndrome. However, heart rates are uncontrolled at this time. On PO amiodarone now. We will add metoprolol 25mg BID. Given her chest tightness symptoms, we ordered lexiscan that shows ischemia in the left circumflex artery distribution. Plan for coronary angiogram once patient's heart rates are better controlled. Likely on friday Continue amiodarone 200mg BID. As heart rate is uncontrolled, will start met oprolol 25mg BID. Thank you for involving us with care of this patient. We will continue to follow. Please call with questions Attestations Medical Necessity Statement*: Care expected to cross 2 midnights. 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
--- NOTE | 2021-10-12 07:18 | ECG_ITS ---
[facility] Test Date: 2021-10-12 Pat Name: Kassie Robles Department: Room: ICU03 Gender: Female Lead Man [employer]: Teresa Harris : 1935 Requested By: Marv Ríos Order Number: [id number] Marielos MD: Janey Garcia M.D. Interpretive Statements NAME OF STUDY: LEXISCAN SESTAMIBI STRESS TEST INDICATION: Chest Pain, PROCEDURE: At the baseline, the EKG revealed atrial flutter/fibrillation with. The baseline blood pressure was 118/72 mm Hg with a heart rate of 148 beats/min. Lexiscan was infused over a period of 20 seconds. A total of 0.4 milligrams of Lexiscan was infused. The stress phase was continued for a total of 5 minutes. Heart rate at the end of the stress phase was 94 with a blood pressure 181/85. The EKG at the peak infusion revealed no significant changes. Sestamibi was injected 20 seconds after the Lexiscan infusion. Blood pressure at the end of the recovery phase was 140/107 with a heart rate of 104 per minute. CONCLUSION: 1. No significant EKG changes with the LexiScan infusion 2. No LexiScan induced chest pain or cardiac arrhythmia 3. Normal blood pressure and heart rate response 4. Sestamibi/sestamibi perfusion scan pending; see separate report. Electronically Signed On 10-12-2021 13:49:48 CDT by Janey Garcia M.D. [email or web address] [id number]
--- NOTE | 2021-10-12 08:19 | PM.PN ---
Subjective Subjective: 86-year-old female with history of atrial fibrillation rapid ventricular response comes in with 1 week of fatigue and near syncope. She felt very worn out and was found to be bradycardic. TSH is normal, carotid Dopplers negative and CTA for pulmonary embolism also negative. Echocardiogram just completed showed pulmonary hypertension to RSVP 47 severe left atrial enlargement but the patient is in sinus rhythm and there is no wall motion abnormality or depressed EF. EKG shows no acute ischemia and Troponin normal Metoprolol has been held but heart rate has been 40s to 60s last evening she went from bradycardia to A. fib demonstrating that the beta-james was not effective. I think this is due to the the severe left atrial enlargement. Patient was transferred to the ICU and started on amiodarone drip This morning patient denies head pressure chest pressure nausea or fatigue. She states her tremor is near baseline but requires taking Sinemet 3 times daily on time to maintain control. We discussed risks and benefits of amiodarone 10/10/2021 Overnight the patient had bradycardia as well as A. fib and rapid ventricular response. She had consultation with Dr. Tobar but last night with tachycardia and bradycardia she is being held n.p.o. for consideration of pacemaker Vitals/I&O/Wt Last Vital Signs Temp 98.3 F 10/11/21 19:00 Pulse 58 L 10/12/21 05:56 Resp 16 10/12/21 05:15 BP 126/62 10/12/21 05:15 Pulse Ox 97 10/12/21 05:15 10/11/21 10/12/21 10/12/21 22:59 06:59 14:59 Intake Total 240 / 1049.516 160.808 / 1210.324 Output Total 1600 / 2300 Balance -1360 / -1250.484 160.808 / -1089.676 Physical Exam Narrative: General well-developed well-nourished female with a rolling tremor of her head and neck. She is in no acute cardiopulmonary distress CV irregular but rate is controlled Abdomen positive bowel sounds soft nontender Calves no edema Arms no cogwheeling rigidity a but currently does have tremor in her neck Data : 10/12/21 03:28 10/12/21 03:28 Micro: Microbiology 10/09/21 19:40 Urine Culture - Preliminary Urine,Clean Catch Gram Negative Rods A&P Assessment and plan (1) AF (paroxysmal atrial fibrillation): Continue with amiodarone at 200 mg twice a day orally. IV has completed. If this does not put her into sinus rhythm but just controlled slow rate I would suggest that she be on long-term anticoagulation and addition to the watchman device Rate however is the least controlled at 80 although she has periods of sinus rhythm and intermittent atrial fibrillation. Increase activity Status: Acute (2) Pre-syncope: Due to uncontrolled A. fib RVR and alternating with bradycardia from her beta-blockers at the time of admission Patient with headache and malaise when she gets A. fib rapid ventricular response. She also has weakness when she is bradycardic. Anticipate backup pacemaker to allow for increased medication for maintenance of sinus rhythm or rate control Status: Acute (3) Parkinson disease: Continue Sinemet Status: Acute (4) Rheumatoid arthritis: Okay to resume methotrexate Status: Acute Qualifiers: Rheumatoid arthritis location: unspecified site Rheumatoid factor presence: unspecified presence Qualified Code(s): M06.9 - Rheumatoid arthritis, unspecified Attestations Medical Necessity Statement*: Monitoring for potential pacemaker in the ICU Critical Care Time: The high probability of a clinically significant, sudden or life threatening deterioration of the patient's [cardiac system(s) required my full and direct attention, intervention and personal management. The critical care time is as shown. This time is in addition to time spent performing any reported procedures but includes the following: [x] Data and vital sign review and interpretation [x] Patient assessment, examination and intervention [x] Documentation [x] Medication orders and management Radiology Impressions Chest CTA 10/09/21 17:24 IMPRESSION: 1. No evidence for pulmonary embolism. 2. No acute cardiopulmonary process. 3. Incidental/nonacute findings are listed in the report. Head CT 10/09/21 19:11 IMPRESSION: 1. No acute abnormality of the brain. 2. Stable mild atrophy of the brain parenchyma. 3. Incidental/nonacute findings are listed in the report. Chest X-Ray 10/09/21 20:06 IMPRESSION: 1. No acute cardiopulmonary process. 2. Incidental/nonacute findings are listed in the report. Carotid Doppler Study 10/09/21 22:34 IMPRESSION: Less than 50% carotid artery stenosis. REFERENCES: SRU CRITERIA. The degree of internal carotid artery stenosis is based on criteria defined by the Society of Radiologists in Ultrasound (SRU). Normal is no stenosis. Mild is less than 50% stenosis. Moderate is 50-69% stenosis. Severe is greater than 69% stenosis to near occlusion. Near occlusion is a markedly narrowed lumen. Total occlusion is no detectable patent lumen. Laboratory Results WBC 4.9 10^3/uL (4.0- 10.0) 10/12/21 03:28 RBC 3.24 10^6/uL (4.1 -5.3) L 10/12/21 03:28 Hgb 11.9 g/dL (11.5-1 5.3) 10/12/21 03:28 Hct 36.4 % (37.0-47.0 ) L 10/12/21 03:28 MCV 112.3 fl (81-99) H 10/12/21 03:28 MCH 36.7 pg (28.0-34. 0) H 10/12/21 03:28 MCHC 32.7 g/dL (30.0-3 6.0) 10/12/21 03: RDW 14.2 % (12.1-15.1 ) 10/12/21 03:28 Plt Count 144 10^3/cmm (130 -400) 10/12/21 03:28 MPV 11.8 fL (7.4-10.4 ) H 10/12/21 03:28 Neut % (Auto) 53.8 % 10/12/21 03:28 Lymph % (Auto) 33.3 % 10/12/21 03:28 [place] % (Auto) 8.6 % 10/12/21 03:28 Eos % (Auto) 3.7 % 10/12/21 03:28 Baso % (Auto) 0.6 % 10/12/21 03:28 Neut # (Auto) 2.64 10^3/uL (1.8 -7.7) 10/12/21 03:28 Lymph # (Auto) 1.6 10^3/uL (0.8- 4.8) 10/12/21 03:28 [place] # (Auto) 0.4 10^3/uL (0.2- 0.9) 10/12/21 03:28 Eos # (Auto) 0.2 10^3/uL (0.0- 0.8) 10/12/21 03:28 Baso # (Auto) 0.0 10^3/uL (0.0- 0.1) 10/12/21 03:28 Nucleated RBC % (a uto) 0 % 10/12/21 03:28 Nucleated RBCs # 0.0 /100WBC 10/12/21 03:28 D-Dimer 1.34 ug/mIFEU (0- 0.59) H 10/09/21 15:50 Sodium 140 mmol/L (136-1 45) 10/12/21 03:28 Potassium 4.1 mmol/L (3.5-5 .1) 10/12/21 03:28 Chloride 105 mmol/L (98-10 7) 10/12/21 03:28 Carbon Dioxide 24 mmol/L (22-29) 10/12/21 03:28 Anion Gap 15.1 (5-19) 10/12/21 03:28 BUN 17 mg/dL (8-23) 10/12/21 03:28 Creatinine 0.7 mg/dL (0.5-0. 9) 10/12/21 03:28 GFR Calculation Not Reportable 10/12/21 03:28 Glucose 109 mg/dL (65-115 ) 10/12/21 03:28 POC Glucose 88 mg/dL (70-110) 10/09/21 22:53 Calculated Osmolal ity 292 mOsm/kg (285- 295) 10/12/21 03:28 Lactic Acid 0.9 mmol/L (0.5-2 .2) 10/09/21 20:44 Calcium 8.7 mg/dL (8.5-10 .5) 10/12/21 03:28 Phosphorus 4.2 mg/dL (2.5-4. 5) 10/12/21 03:28 Magnesium 1.8 mg/dL (1.7-2. 3) 10/12/21 03:28 Total Bilirubin 0.3 mg/dL (0.15-1 .2) 10/12/21 03:28 AST 45 U/L (0-32) H 10/12/21 03:28 ALT 32 U/L (0-33) 10/12/21 03:28 Alkaline Phosphata se 100 IU/L (35-105) 10/12/21 03:28 Troponin T Baselin e 9 ng/L (0-10) 10/09/21 15:30 Troponin T 120 Min [place] 9.25 ng/L (0-10) 10/09/21 18:15 Delta Troponin T 0.25 ABS# (0-10) 10/09/21 18:15 Troponin T Hi Sens 6Hr 9.98 ng/L (0-10) 10/09/21 23:15 Troponin T Hi Sens 6Hr Delta 0.98 ng/L (0-12) 10/09/21 23:15 Total Protein 5.6 g/dL (6.6-8.7 ) L 10/12/21 03:28 Albumin 3.4 g/dL (3.5-5.2 ) L 10/12/21 03:28 Globulin 2.2 g/dL (1.3-4.6 ) 10/12/21 03:28 Vitamin B12 547 pg/mL (232-12 45) 10/10/21 04:28 Folate 18.3 ng/mL (4.8-3 7.3) 10/10/21 15:22 TSH 1.51 uIU/mL (0.27 -4.20) 10/09/21 23:15 Free T4 0.96 ng/dL (0.82- 1.77) 10/09/21 15:30 Urine Color Yellow (Yellow) 10/09/21 19:40 Urine Appearance Clear (CLEAR) 10/09/21 19:40 Urine pH 6 (5-7) 10/09/21 19:40 Ur Specific Gravit y 1.010 (1.005-1.0 30) 10/09/21 19:40 Urine Protein Neg (Negative) 10/09/21 19:40 Urine Glucose (UA) Norm (Normal) 10/09/21 19:40 Urine Ketones Negative (Negati ve) 10/09/21 19:40 Urine Blood Neg (Negative) 10/09/21 19:40 Urine Nitrate Positive (Negati ve) H 10/09/21 19:40 Urine Bilirubin Neg (Negative) 10/09/21 19:40 Urine Urobilinogen Norm mg/dL (Negat umm) 10/09/21 19:40 Ur Leukocyte Kate ase Negative (Negati ve) 10/09/21 19:40 Urine RBC 0-4 /hpf (0-2) H 10/09/21 19:40 Urine WBC 5-10 /hpf (0-5) H 10/09/21 19:40 Ur Squamous Epith Cells 0-4 /hpf (0-5) H 10/09/21 19:40 Amorphous Sediment Not Reportable 10/09/21 19:40 Urine Bacteria 4+ /hpf (NONE) H 10/09/21 19:40 Critical Care Time (min): 40 Coding Level of Care Code Acute Toy Assembler Wood for [facility] Fwd Diagnoses AF (paroxysmal atrial fibrillation) I48.0 Pre-syncope R55 Parkinson disease G20 Rheumatoid arthritis M06.9 Rheumatoid arthritis location: unspecified site Rheumatoid factor presence: unspecified presence
[2021-10-12] MEDS: pantoprazole DR 40 mg Tablet PO (08:48)
[2021-10-12] MEDS: amiodarone 200 mg Tablet PO ×2 (08:48→18:14)
[2021-10-12] MEDS: folic acid 1 mg Tablet 0.5 MG PO (08:48)
[2021-10-12] MEDS: losartan 50 mg Tablet 25 MG PO (08:49)
[2021-10-12] MEDS: primidone 50 mg Tablet 250 MG PO ×2 (08:49→18:14)
[2021-10-12] MEDS: aspirin 81 mg EC Tablet PO (08:49)
[2021-10-12] MEDS: atorvastatin 40 mg Tablet 80 MG PO (08:49)
[2021-10-12] MEDS: levothyroxine 50 mcg Tablet PO (08:49)
[2021-10-12] MEDS: MEMANTINE 28 MG 28 EACH PO (08:50)
--- NOTE | 2021-10-12 09:25 | PC.CHAP ---
Pastoral Care Encounter/Spiritual Assessment Type of Contact [] Declined vocal performer visit [] Patient/Family/Request visit [] Outpatient visit [] Follow-up visit [] Physician referral [] Code/Alert [x] Routine visit [] Staff referral [] Actively dying [x] Patient sleeping [] Family support [] [] Out of room [] Palliative care [] [] Receiving care in room [] Pre-surgical visit [] Trauma [] Long length of stay [x] ICU visit [] Other: Relational/Emotional Strength [] Patient feels connected with others/family/visitors/staff [] Distress [] Loneliness/isolation [] Abandonment Spirituality of Patient [] Person of Kalee [] Attends Latter-Day of their [place]e [] Believes in Prayer [] Reads Bible or Holiness materials [] There are Spiritual issues to be addressed Maintenance Services Dispatcher Interventions [x] Prayer [] Active listening [] Non-anxious presence [] Spiritual/emotional support [] Crisis/trauma care [] Spiritual counseling [] Bereavement support [] Provided bereavement packet [] Provided Bible/devotional materials [] Provided toy/stuffed animal, coloring book to patient or family member [] Provided Communion [] Anointing/[place] [] Salvation [x] Completed spiritual assessment [] Other: Impact on Illness or Injury [] Angry [] Fearful [] Anxious [] Often cries [] Exhaustion [] Unable to work [] Unable to attend yarsani [] Unable to walk/stand [] Unable to read [] Unable to drive [] Unable to eat/drink [] Unable to sleep [] Unable to be with family [] Patient intubated [] Other: Summary Time spent with patient
--- NOTE | 2021-10-12 12:23 | PC.NURSE ---
report given and tansfer to 2nd floor
[2021-10-12] MEDS: regadenoson 0.4 Mg/5 ml Syringe IVP (12:58)
[2021-10-12] MEDS: ondansetron 2 mg/ML SDV 2 mL 4 MG IVP (12:59)
[2021-10-12] MEDS: nystatin cream 30 gm 1 APPLIC TOPICAL (14:42)
[2021-10-12] MEDS: FUROsemide 40 mg Tablet 60 MG PO (14:45)
[2021-10-12] MEDS: magnesium oxide 400 mg tablet PO (14:45)
[2021-10-12] MEDS: potassium chloride ER 10 mEq Tablet PO (14:45)
[2021-10-12] MEDS: dilTIAZem 5 mg/mL SDV 5 mL 10 MG IVP (17:23)
--- NOTE | 2021-10-12 17:30 | ECG_ITS ---
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 Measurements Intervals [place] Rate: 172 P: NV: QRS: 1 QRSD: 99 T: 32 QT: 287 QTc: 487 Interpretive Statements ATRIAL FIBRILLATION WITH RAPID VENTRICULAR RESPONSE LOW QRS VOLTAGE IN PRECORDIAL LEADS [QRS DEFLECTION < 1.0 mV IN CHEST LEADS] PATTERN CONSISTENT WITH PULMONARY DISEASE INCOMPLETE RIGHT BUNDLE BRANCH BLOCK [90+ ms QRS DURATION, TERMINAL R IN V1/V2, 40+ ms S IN I/aVL/V4/V5/V6] MODERATE ST DEPRESSION [0.05+ mV ST DEPRESSION] Compared to ECG 10/10/2021 18:26:07 Low QRS voltage now present Incomplete right bundle-branch block now present ST (T wave) deviation now present Electronically Signed On 10-12-2021 22:32:47 CDT by Luis Angel Tobar M.D. [id number] katherine
--- NOTE | 2021-10-12 19:30 | PC.NURSE ---
pt hr was noted to be in the 160's to 170's on tele, this nurse listened manually, hr was accurate. VS taken. dr lewis called and informed. ekg ordered- results AFIB with RVR, cardizem ivp 10mg once ordered as well. this nurse notified that bp of pt was 152/103, acknowledged, and said it was ok, but to treat the hr. pt hr responded to cardizem, hr ranging from 65-85, and prn cardizem 10mg Q30m was ordered and added to the mar. continued to monitor pt closely till end of shift.
--- NOTE | 2021-10-12 20:31 | NMCV_ITS ---
NM shazia perf SPECT r/s* [id number] Kassie Robles Age: 86 Gender: F : 1935 Exam Date: 10/12/2021 11:55 Ordering Phys: Marv Ríos MD Technologist: DAMIAN Woody Exam Location: [facility] Indications: CHEST PAIN STRESS TEST Please see separate stress test report in [facility] for full findings IMAGE PROTOCOL Rest/Stress 1 Lexiscan Day Radiopharmaceutical Dose (mCi) Administration Site Administered by Rest: Tc-99m 10.6 IV DAMIAN Woody Sestamibi Stress:Tc-99m 32.4 IV DAMIAN Vieyra Sestamibi Rest: 12-Oct-2021 60 Discovery 630 Stress: 12-Oct-2021 30 Discovery 630 0.4mg Lexiscan. Supine position only as patient was unable to lay prone. SPECT RESULTS Technical Quality: Excellent Raw Data Analysis: Normal Image Corrections: No attenuation or motion correction applied Summed Stress Score: 7 Summed Rest Score: 0 Summed Difference Score: 7 PERFUSION FINDINGS Small to moderate area of moderately decreased tracer uptake in the mid inferolateral, apical lateral, apical inferior and LV apex. Almost complete reversibility was noted in this region at rest. FUNCTIONAL RESULTS (calculated via Gated SPECT) Stress Image LV EF (%): 64 Stress EDV (mL):61 TID: 1.13 Stress ESV (mL):22 FUNCTIONAL FINDINGS: Segmental wall motion analysis reveals mild hypokinesia of the LV apex. IMPRESSIONS 1. Myocardial perfusion imaging revealing small to moderate area of reversible defect in the inferolateral and apical regions, suggesting ischemia in the distribution of the left circumflex artery. 2. Normal LV ejection fraction of 64%. 3. LV wall motion analysis revealing mild hypokinesia of the LV apex. 4. Normal LV volume. No similar previous studies are available for comparison Dr Janey Garcia MD [facility] (Electronically Signed) Final Date: 12 October 2021 15:38 S
[2021-10-12] MEDS: donepezil 5 MG Tablet 10 MG PO (20:36)
[2021-10-12] MEDS: sertraline 100 mg Tablet PO (20:36)
[2021-10-12] MEDS: cefTRIAXone 1,000 MG in sodium chloride 0.9% (plus) 50 ML 100 MG IV (22:52)
[2021-10-12] MEDS: enoxaparin 40 mg/0.4 mL Syringe SUBCUT (22:53)
[2021-10-13] VITALS (10 sets, daily range): BP systolic 105–170; BP diastolic 63–149; PULSE 58–106; RESP 16–18; TEMP 36.5–36.8; O2SAT 94–98
[2021-10-13 04:35] LABS: Anion Gap 14.2 (5-19); Blood Urea Nitrogen 15 mg/dL (8-23); Calcium 8.7 mg/dL (8.5-10.5); Carbon Dioxide 27 mmol/L (22-29); Chloride 104 mmol/L (98-107); Glucose 104 mg/dL (65-115); Magnesium 1.8 mg/dL (1.7-2.3); Osmolality Calculated 293 mOsm/kg (285-295); Potassium 4.2 mmol/L (3.5-5.1); Sodium 141 mmol/L (136-145)
--- NOTE | 2021-10-13 07:32 | P.PN_ITS ---
Subjective Subjective: Kassie was admitted on with episodes of dizziness, falling and unsteadiness on her feet. She was found to be in atrial fibrillation. She was initially converted to sinus rhythm with a calcium channel james. Subsequently, she has been in and out of atrial fibrillation. She was started o n amiodarone. This morning she is back in atrial fibrillation. The amiodarone dose is 200 mg twice daily. She is on low-dose Lovenox. She is not having any chest pain. She is getting up with physical therapy. She also has a history of deep vein thrombosis, pulmonary emboli, Parkinson syndrome, dyslipidemia and hypothyroidism. She had a stress test yesterday which showed a small to moderate area of ischemia in the distribution of the circumflex. Her ejection fraction is normal. Vitals/I&O/Wt Last Vital Signs Temp 98.1 F 10/13/21 05:12 Pulse 106 H 10/13/21 06:00 Resp 18 10/13/21 05:12 BP 116/75 10/13/21 05:12 Pulse Ox 94 10/13/21 05:12 10/12/21 10/13/21 10/13/21 22:59 06:59 14:59 Intake Total 240 / 440 170 / 610 Output Total 800 / 1800 400 / 400 Balance -560 / -1360 170 / -1190 -400 / -400 Physical Exam Narrative: GENERAL: She is very comfortable at rest this morning HEENT: Exam within normal limits. NECK: Supple without jugular vein distention. The carotid upstroke is normal without bruits. BACK: Exam normal. LUNGS: Clear. HEART: Irregular rate and rhythm with tachycardia ABDOMEN: Benign without organomegaly or tenderness. EXTREMITIES: No edema. NEUROLOGIC: Exam normal. SKIN: Unremarkable. Data : 10/12/21 03:28 10/13/21 03:14 Micro: Microbiology 10/09/21 19:40 Urine Culture - Final Urine,Clean Catch Escherichia coli A&P Assessment and plan (1) Parkinson disease: Status: Acute (2) Pre-syncope: Status: Acute (3) Fatigue: Status: Acute (4) AF (paroxysmal atrial fibrillation): Status: Acute (5) Hx of pulmonary embolus: Status: Acute Plan I am going to increase the amiodarone since she still is in atrial fibrillation. She is not having any chest pain so I do not think angiography is indicated at this moment. She will need to be reinstituted on some sort of anticoagulant. So far, she is not had any further bradycardia but a pacemaker may ultimately be in order once we can restore sinus rhythm. I am going to go ahead and start Eliquis and discontinue the Lovenox. Attestations Medical Necessity Statement*: Needs continued hospitalization for management of atrial fibrillation Coding Level of Care Code Established Pt Acute Manufacturing Test Technician for [facility] Patient Type Established History Detailed Exam Detailed Medical Decision Making Moderate Complexity Diagnoses Parkinson disease G20 Pre-syncope R55 Fatigue R53.83 AF (paroxysmal atrial fibrillation) I48.0 Hx of pulmonary embolus Z86.711 Time Spent (min) 30
[2021-10-13] MEDS: pantoprazole DR 40 mg Tablet PO (08:27)
[2021-10-13] MEDS: potassium chloride ER 10 mEq Tablet PO (08:27)
[2021-10-13] MEDS: amiodarone 200 mg Tablet 400 MG PO ×2 (08:27→16:58)
[2021-10-13] MEDS: folic acid 1 mg Tablet 0.5 MG PO (08:27)
[2021-10-13] MEDS: losartan 50 mg Tablet 25 MG PO (08:27)
[2021-10-13] MEDS: apixaban 5 mg Tablet PO (08:27)
[2021-10-13] MEDS: magnesium oxide 400 mg tablet PO (08:28)
[2021-10-13] MEDS: atorvastatin 40 mg Tablet 80 MG PO (08:28)
[2021-10-13] MEDS: levothyroxine 50 mcg Tablet PO (08:28)
[2021-10-13] MEDS: metoprolol tartrate 25 mg Tablet PO ×2 (08:28→20:19)
[2021-10-13] MEDS: FUROsemide 40 mg Tablet 60 MG PO (08:28)
[2021-10-13] MEDS: aspirin 81 mg EC Tablet PO (08:28)
[2021-10-13] MEDS: MEMANTINE 28 MG 28 EACH PO (08:31)
[2021-10-13] MEDS: dilTIAZem 5 mg/mL SDV 5 mL 10 MG IVP ×2 (08:46→20:21)
[2021-10-13] MEDS: nystatin cream 30 gm 1 APPLIC TOPICAL ×2 (08:47→18:07)
--- NOTE | 2021-10-13 11:07 | PC.SOCIAL ---
Pg 2 IMM Explained to pt Pg 2 IMM. No questions voiced. Provided pt a copy. Initialed, dated, & timed a copy & placed in chart.
--- NOTE | 2021-10-13 14:34 | P.PN_ITS ---
Subjective Subjective: Seen this morning. Patient states that in the past she was told not to take Eliquis since she has a watchman device. She would like to discuss this again with cardiology. She also states that she is going for an angiogram on Friday. Otherwise she feels okay right now. Denies any shortness of breath or chest pain. She denies any chest tightness as well. However when she first came to the hospital she states her main complaint was chest tightness in a bandlike pattern around the lower sternal border. She also has urinary tract infection for which she is getting antibiotics at this time. Urine culture growing E. coli sensitive to Augmentin, ceftriaxone, Zosyn. Stress test also positive. 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 Vitals/I&O/Wt Last Vital Signs Temp 97.8 F 10/13/21 11:24 Pulse 76 10/13/21 11:24 Resp 16 10/13/21 11:24 BP 108/67 10/13/21 11:24 Pulse Ox 95 10/13/21 11:24 10/12/21 10/13/21 10/13/21 22:59 06:59 14:59 Intake Total 240 / 440 170 / 610 120 / 120 Output Total 800 / 1800 550 / 550 Balance -560 / -1360 170 / -1190 -430 / -430 Physical Exam Narrative: General: Alert oriented x3, patient seen laying in bed appearing comfortable. 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 Cardio: Irregularly irregular, normal S1-S2, no murmurs Respiratory: Good bilateral air entry, no wheezes no rhonchi appreciated, clear to auscultation GI: Abdomen soft, nontender, nondistended, bowel sounds + Behavior: Appropriate and cooperative Extremities: Trace edema bilateral lower extremity, no cyanosis Data : 10/12/21 03:28 10/13/21 03:14 Micro: Microbiology 10/09/21 19:40 Urine Culture - Final Urine,Clean Catch Escherichia coli A&P Assessment and plan (1) Hx of pulmonary embolus: Status: Acute (2) Chest tightness: Status: Acute (3) Rheumatoid arthritis: Status: Acute Qualifiers: Rheumatoid arthritis location: unspecified site Rheumatoid factor presence: unspecified presence Qualified Code(s): M06.9 - Rheumatoid arthritis, unspecified (4) Parkinson disease: Status: Acute (5) Pre-syncope: Status: Acute (6) Generalized weakness: Status: Acute (7) Fatigue: Status: Acute (8) AF (paroxysmal atrial fibrillation): Status: Acute Plan #A. fib RVR status post watchman device, not on anticoagulation #E. coli UTI #Chest tightness with positive stress test and left circumflex artery region #Pulmonary hypertension #Fatigue, near syncope #History of DVT and PE #Parkinson's disease #Rheumatoid arthritis ? Amiodarone increased to 400 twice daily today by cardiology. Patient still in A. fib. Eliquis was started however patient refused to take until she would be discussed with cardiology. I discussed with cardiology and we will hold Eliquis for now. Dr. Gavin will discuss with her again. ? She did have a positive stress test with chest tightness and bandlike pattern at admission. Patient to possibly go for angiogram on Friday. -Continue medication for Parkinson's disease and methotrexate. -Orthostatics to be checked today. ? Cardiology following ? Continue ceftriaxone for UTI Full code DVT prophylaxis: Heparin Attestations Medical Necessity Statement*: Requires inpatient stay for management of atrial fibrillation. Still rate uncontrolled. Potential angiogram this Friday. Stress test was positive. Coding Level of Care Code Acute Long Distance Billing Operator for Domonique Peters Diagnoses Hx of pulmonary embolus Z86.711 Chest tightness R07.89 Rheumatoid arthritis M06.9 Rheumatoid arthritis location: unspecified site Rheumatoid factor presence: unspecified presence Parkinson disease G20 Pre-syncope R55 Generalized weakness R53.1 Fatigue R53.83 AF (paroxysmal atrial fibrillation) I48.0
[2021-10-13] MEDS: heparin 5,000 unit/mL INJ 1 mL 5000 UNIT SUBCUT (16:57)
[2021-10-13] MEDS: magnesium hydroxide 30 mL UDC PO (16:57)
[2021-10-13] MEDS: sertraline 100 mg Tablet PO (20:19)
[2021-10-13] MEDS: donepezil 5 MG Tablet 10 MG PO (20:19)
[2021-10-13] MEDS: cefTRIAXone 1,000 MG in sodium chloride 0.9% (plus) 50 ML 100 MG IV (22:24)
[2021-10-14] VITALS (14 sets, daily range): BP systolic 100–135; BP diastolic 47–71; PULSE 54–74; RESP 0–18; TEMP 36.4–36.8; O2SAT 94–99
[2021-10-14] MEDS: heparin 5,000 unit/mL INJ 1 mL 5000 UNIT SUBCUT ×2 (03:29→17:28)
[2021-10-14 04:18] LABS: Basophils # 0.1 10^3/uL (0.0-0.1); Basophils % 0.9 %; Eosinophils # 0.3 10^3/uL (0.0-0.8); Eosinophils % 4.5 %; Hematocrit 35.7 % (37.0-47.0); Hemoglobin 12.1 g/dL (11.5-15.3); Lymphocytes % 34.9 %; Mean Corpuscular HGB Conc 33.9 g/dL (30.0-36.0); Mean Corpuscular Hemoglobin 36.8 pg (28.0-34.0); Mean Corpuscular Volume 108.5 fl (81-99); Mean Platelet Volume 11.4 fL (7.4-10.4); Monocytes # 0.4 10^3/uL (0.2-0.9); Monocytes % 7.1 %; Neutrophils # 2.94 10^3/uL (1.8-7.7); Neutrophils % 52.4 %; Nucleated Red Blood Cells % 0 %; Platelet Count 161 10^3/cmm (130-400); Red Blood Count 3.29 10^6/uL (4.1-5.3); Red Cell Distribution Width 14.2 % (12.1-15.1); White Blood Count 5.6 10^3/uL (4.0-10.0)
[2021-10-14 04:40] LABS: Anion Gap 11.5 (5-19); Blood Urea Nitrogen 22 mg/dL (8-23); Calcium 8.7 mg/dL (8.5-10.5); Carbon Dioxide 31 mmol/L (22-29); Chloride 100 mmol/L (98-107); Glucose 93 mg/dL (65-115); Magnesium 1.9 mg/dL (1.7-2.3); Osmolality Calculated 289 mOsm/kg (285-295); Potassium 4.5 mmol/L (3.5-5.1); Sodium 138 mmol/L (136-145)
--- NOTE | 2021-10-14 07:50 | PM.PN ---
Subjective Subjective: Kassie seems to be doing well this morning. Yesterday I started her on Eliquis in error. I recognized that she had a watchman device and the patient correctly requested not to take the medication. When I spoke to the hospitalist over the phone she reminded me of the watchman device so we put the Eliquis on hold. I increased her amiodarone yesterday, and she is in sinus rhythm today. She still needs coronary angiography because of angina and a positive stress test. She is typically cared for in [place] and was scheduled to have a cardiology physician appointment the other day when she came to the hospital. A stress test had been planned there. Currently she is free of any chest pain or other problems. Vitals/I&O/Wt Last Vital Signs Temp 98.1 F 10/14/21 05:43 Pulse 63 10/14/21 05:43 Resp 12 10/14/21 05:43 BP 100/47 10/14/21 05:43 Pulse Ox 96 10/14/21 05:43 10/13/21 10/14/21 10/14/21 22:59 06:59 14:59 Intake Total 360 / 720 50 / 770 Balance 360 / 170 50 / 220 Physical Exam Narrative: GENERAL: In general she looks and feels well HEENT: Exam within normal limits. NECK: Supple without jugular vein distention. The carotid upstroke is normal without bruits. BACK: Exam normal. LUNGS: Clear. HEART: Regular rate and rhythm. ABDOMEN: Benign without organomegaly or tenderness. EXTREMITIES: No edema. NEUROLOGIC: Exam normal. SKIN: Unremarkable. Data : 10/14/21 04:00 10/14/21 04:00 A&P Assessment and plan (1) Hx of pulmonary embolus: Status: Acute (2) Parkinson disease: Status: Acute (3) AF (paroxysmal atrial fibrillation): Status: Acute (4) Presence of Watchman left atrial appendage closure device: Status: Acute (5) Hyperlipemia: Status: Acute Qualifiers: Hyperlipidemia type: unspecified Qualified Code(s): E78.5 - Hyperlipidemia, unspecified (6) HTN (hypertension): Status: Acute Qualifiers: Hypertension type: essential hypertension Qualified Code(s): I10 - Essential (primary) hypertension (7) Chest pain: Status: Acute (8) Positive cardiac stress test: Status: Acute Plan Today she is back in sinus rhythm. I will leave the amiodarone at the 400 mg twice daily dose. She request to take the angiotensin receptor james at night so I will switch the timing of that dose. The Eliquis has been held as of yesterday morning. I have scheduled her for cardiac catheterization tomorrow morning at [address] Tobar. Precardiac catheterization orders are in place. Attestations Medical Necessity Statement*: Needs continued hospitalization for management of atrial fibrillation, angina and positive stress test Coding Level of Care Code Established Pt Acute Manager Trading for [facility] Patient Type Established History Detailed Exam Detailed Medical Decision Making Moderate Complexity Diagnoses Hx of pulmonary embolus Z86.711 Parkinson disease G20 AF (paroxysmal atrial fibrillation) I48.0 Presence of Watchman left atrial appendage closure device Z95.818 Hyperlipemia E78.5 Hyperlipidemia type: unspecified HTN (hypertension) I10 Hypertension type: essential hypertension Chest pain R07.9 Positive cardiac stress test R94.39
--- NOTE | 2021-10-14 08:37 | PM.PN ---
Subjective Subjective: Seen today. No acute events overnight. She did have bradycardic episodes on telemetry noted but she was asleep during that time. Plan for angiogram tomorrow. Vitals/I&O/Wt Last Vital Signs Temp 98.1 F 10/14/21 05:43 Pulse 63 10/14/21 05:43 Resp 12 10/14/21 05:43 BP 100/47 10/14/21 05:43 Pulse Ox 96 10/14/21 05:43 10/13/21 10/14/21 10/14/21 22:59 06:59 14:59 Intake Total 360 / 720 50 / 770 Balance 360 / 170 50 / 220 Physical Exam Narrative: General: Alert oriented x3, patient seen laying in bed appearing comfortable.? 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 Cardio: Irregularly irregular, normal S1-S2, no murmurs Respiratory: Good bilateral air entry, no wheezes no rhonchi appreciated, clear to auscultation GI: Abdomen soft, nontender, nondistended, bowel sounds + Behavior: Appropriate and cooperative Extremities: Trace edema bilateral lower extremity, no cyanosis Data : 10/14/21 04:00 10/14/21 04:00 A&P Assessment and plan (1) Positive cardiac stress test: Status: Acute (2) Chest pain: Status: Acute (3) HTN (hypertension): Status: Acute Qualifiers: Hypertension type: essential hypertension Qualified Code(s): I10 - Essential (primary) hypertension (4) Hyperlipemia: Status: Acute Qualifiers: Hyperlipidemia type: unspecified Qualified Code(s): E78.5 - Hyperlipidemia, unspecified (5) Presence of Watchman left atrial appendage closure device: Status: Acute (6) Hx of pulmonary embolus: Status: Acute (7) Chest tightness: Status: Acute (8) Rheumatoid arthritis: Status: Acute Qualifiers: Rheumatoid arthritis location: unspecified site Rheumatoid factor presence: unspecified presence Qualified Code(s): M06.9 - Rheumatoid arthritis, unspecified (9) Parkinson disease: Status: Acute (10) Generalized weakness: Status: Acute (11) Fatigue: Status: Acute (12) AF (paroxysmal atrial fibrillation): Status: Acute Plan #A. fib RVR status post watchman device, not on anticoagulation #E. coli UTI #Chest tightness with positive stress test and left circumflex artery region #Pulmonary hypertension #Fatigue, near syncope #History of DVT and PE #Parkinson's disease #Rheumatoid arthritis ? Continue Amiodarone increased to 400 twice daily.? Patient still in A. fib.? Eliquis stopped. ? She did have a positive stress test with chest tightness and bandlike pattern at admission.? Plan for angiogram on Friday. NPO midnight today. - Possible placement of pacemaker due to bradycardic episodes since she needs to be on medications for atrial fibrillation. Cardiology on board. -Continue medication for Parkinson's disease and methotrexate. -Orthostatics vitals pending ? Cardiology following ? Continue ceftriaxone for UTI Full code DVT prophylaxis: Heparin Attestations Medical Necessity Statement*: Angiogram in morning. Coding Level of Care Code Acute Case Management Coordinator for Sarahg Fwd Diagnoses Positive cardiac stress test R94.39 Chest pain R07.9 HTN (hypertension) I10 Hypertension type: essential hypertension Hyperlipemia E78.5 Hyperlipidemia type: unspecified Presence of Watchman left atrial appendage closure device Z95.818 Hx of pulmonary embolus Z86.711 Chest tightness R07.89 Rheumatoid arthritis M06.9 Rheumatoid arthritis location: unspecified site Rheumatoid factor presence: unspecified presence Parkinson disease G20 Generalized weakness R53.1 Fatigue R53.83 AF (paroxysmal atrial fibrillation) I48.0
[2021-10-14] MEDS: pantoprazole DR 40 mg Tablet PO (08:53)
[2021-10-14] MEDS: magnesium oxide 400 mg tablet PO (08:53)
[2021-10-14] MEDS: aspirin 81 mg EC Tablet PO (08:54)
[2021-10-14] MEDS: cetirizine 10 mg Tablet PO (08:54)
[2021-10-14] MEDS: atorvastatin 40 mg Tablet 80 MG PO (08:54)
[2021-10-14] MEDS: potassium chloride ER 10 mEq Tablet PO (08:54)
[2021-10-14] MEDS: amiodarone 200 mg Tablet 400 MG PO ×2 (08:54→17:28)
[2021-10-14] MEDS: FUROsemide 40 mg Tablet 60 MG PO (08:54)
[2021-10-14] MEDS: folic acid 1 mg Tablet 0.5 MG PO (08:55)
[2021-10-14] MEDS: levothyroxine 50 mcg Tablet PO (08:55)
[2021-10-14] MEDS: MEMANTINE 28 MG 28 EACH PO (08:57)
[2021-10-14] MEDS: dilTIAZem 5 mg/mL SDV 5 mL 10 MG IVP (09:03)
[2021-10-14] MEDS: metoprolol tartrate 25 mg Tablet PO ×2 (09:07→22:39)
--- NOTE | 2021-10-14 10:45 | ECG_ITS ---
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 Measurements Intervals [place] Rate: 66 P: 90 ID: [id number] QRS: -19 QRSD: 104 T: 9 QT: 414 QTc: 434 Interpretive Statements SINUS RHYTHM WITH FIRST DEGREE AV BLOCK LOW QRS VOLTAGE IN PRECORDIAL LEADS [QRS DEFLECTION < 1.0 mV IN CHEST LEADS] PATTERN CONSISTENT WITH PULMONARY DISEASE Compared to ECG 10/12/2021 17:16:18 First degree AV block now present Atrial fibrillation no longer present Incomplete right bundle-branch block no longer present ST (T wave) deviation no longer present Electronically Signed On 10-15-2021 16:18:22 CDT by Javad Gavin M.D. [id number]
[2021-10-14] MEDS: sertraline 100 mg Tablet PO (22:38)
[2021-10-14] MEDS: donepezil 5 MG Tablet 10 MG PO (22:38)
[2021-10-14] MEDS: losartan 50 mg Tablet 25 MG PO (22:39)
[2021-10-14] MEDS: cefTRIAXone 1,000 MG in sodium chloride 0.9% (plus) 50 ML 100 MG IV (22:40)
[2021-10-15] VITALS (78 sets, daily range): BP systolic 92–145; BP diastolic 54–124; PULSE 48–121; RESP 0–29; TEMP 36.5–36.8; O2SAT 90–100
[2021-10-15 01:24] LABS: Glucose Point of Care 302 mg/dL (70-110)
[2021-10-15] MEDS: heparin 5,000 unit/mL INJ 1 mL 5000 UNIT SUBCUT (06:15)
[2021-10-15] MEDS: sodium chloride 0.9% 1,000 ML 50 ML IV (06:15)
[2021-10-15] MEDS: amiodarone 200 mg Tablet 400 MG PO ×2 (08:44→18:10)
[2021-10-15] MEDS: aspirin 81 mg EC Tablet PO (08:48)
[2021-10-15] MEDS: atorvastatin 40 mg Tablet 80 MG PO (08:48)
[2021-10-15] MEDS: diphenhydrAMINE 50 mg Capsule PO (08:48)
[2021-10-15] MEDS: folic acid 1 mg Tablet 0.5 MG PO (08:49)
[2021-10-15] MEDS: FUROsemide 40 mg Tablet 60 MG PO (08:49)
[2021-10-15] MEDS: levothyroxine 50 mcg Tablet PO (08:50)
[2021-10-15] MEDS: magnesium oxide 400 mg tablet PO (08:50)
[2021-10-15] MEDS: MEMANTINE 28 MG 28 EACH PO (08:51)
[2021-10-15] MEDS: nystatin cream 30 gm 1 APPLIC TOPICAL (08:52)
[2021-10-15] MEDS: pantoprazole DR 40 mg Tablet PO (08:52)
[2021-10-15] MEDS: potassium chloride ER 10 mEq Tablet PO (08:52)
[2021-10-15] MEDS: metoprolol tartrate 25 mg Tablet PO ×2 (08:52→19:59)
--- NOTE | 2021-10-15 09:21 | P.PN_ITS ---
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 Doing well. In sinus rhythm now Vitals/I&O/Wt Last Vital Signs Temp 98.2 F 10/15/21 08:00 Pulse 79 10/15/21 09:06 Resp 18 10/15/21 09:06 BP 125/88 10/15/21 09:06 Pulse Ox 90 10/15/21 09:06 10/14/21 10/15/21 10/15/21 22:59 06:59 14:59 Output Total 250 / 250 700 / 950 400 / 400 Balance -250 / 350 -700 / -350 -400 / -400 Physical Exam Narrative: GENERAL: Patient is alert, awake and oriented x3. [] NECK: No jugular vein distension. [] HEENT: No cyanosis. No icterus. No pallor. [] HEART: Regular S1 and S2. No murmur, rub or gallop. [] LUNGS: Clear to auscultate bilaterally. [] ABDOMEN: Soft, nontender and nondistended. Positive bowel sounds. No guarding, rebound or tenderness. [] CENTRAL NERVOUS SYSTEM: Grossly nonfocal. [] EXTREMITIES: Lower extremities with 1+ edema bilaterally. Pulses palpable in the lower extremities, both dorsalis pedis and posterior tibial. [] Data : 10/14/21 04:00 10/16/21 02:14 A&P Assessment and plan (1) Pre-syncope: Status: Acute (2) Chest tightness: Status: Acute (3) AF (paroxysmal atrial fibrillation): Status: Acute (4) Generalized weakness: Status: Acute Plan Patient presented with A. fib with RVR. Patient is staying in normal sinus rhythm on amiodarone 400 mg twice daily. She is also on metoprolol 25 mg twice daily. We will down titrate amiodarone to 200 mg twice daily at time of discharge. Coronary angiogram did not reveal severe CAD. Medical therapy. At time of discharge tomorrow, will recommend event monitor. She used to follow with cardiology in [place] but wants to establish care here now. She has seen Dr. Garcia in the past and will set up an appointment with him as outpatient. Thank you for involving us with care of this patient. We will continue to follow. Please call with questions Attestations Medical Necessity Statement*: Care expected to cross 2 midnights. Coding Level of Care Code Acute Brick Pitcher for Chg Fwd Diagnoses Pre-syncope R55 Chest tightness R07.89 AF (paroxysmal atrial fibrillation) I48.0 Generalized weakness R53.1
--- NOTE | 2021-10-15 10:30 | PC.SOCIAL ---
IMM UPDATED IMM dated and initialed and copy given to patient
--- NOTE | 2021-10-15 11:06 | XACV_ITS ---
Exam Room: [facility] Ht: 170 cm Wt: 90 kg BSA: 2.09 m2 Gender: Female : 1935 Any Known Allergies: Penicillins Exam Priority: Routine Procedure(s): Procedure Description: Diagnostic procedure Procedure Description: Coronary Angiography Diagnostic Cath Status: Elective Diagnostic Findings * Left main artery: Patent LAD: Patent. Has slow flow Left circumflex artery: Patent RCA: Has luminal irregularities. But no significant stenosis.. * INDICATION: Chest pain/ abnormal stress test. * Coronary angiography shows right dominance. Conclusions 1. Left main artery: Patent LAD: Patent. Has slow flow Left circumflex artery: Patent RCA: Has luminal irregularities. But no significant stenosis.. Recommendations * Aggressive risk factor modification. * Outpatient cardiology follow-up in 7 to 10 days. Interventional RX Recommendation: medical therapy and/or counseling Diagnostic RX Recommendation: medical therapy and/or counseling Anticoagulation: Heparin Pressures Phase:Rest AO : 90 / 60 ( 76 ) @ 12:26:00 PM Clinical Evaluation EBL: 5mL-10mL Procedural Details Procedure Consent Obtained. Admit Source: In Patient. Pre-Procedure Time Out. Identified patient by full name and date of as verbalized by the patient/guarantor. Does the consent match the physician's order: Yes. Accurate & Complete Informed Consent: Yes. Inpatient/Outpatient History & Physical on Chart: Yes. If H&P is completed, is and addenduem needed: N/A; If yes, is the addendum complete: N/A. Visualize and Verify Site with Patient/Guarantor: N/A. Relevant Radiology Images available: N/A. Pre-op teaching completed and patient verbalized understanding. The risks, benefits, and alternatives of sedation and/or procedure were discussed by physician. The patient agrees to continue. Procedure started. [facility] Clinical Fraility Score: 4: Vulnerable. Horizontal Drill Operator Indications: Worsening Angina. Chest Pain Symptom Assessment: Typical Angina Symptoms. Correct patient, site and procedure confirmed by cath team. Current diagnosis: Chest Pain, positive stress test. PERRLA. Strong, equal hand instrument specialist bilaterally. Lungs clear x 5 lobes. A 20 gauge IV was started in the left anticubital using aseptic technique. IV Fluids: 0.9% NaCl at KVO. 100 mL infused prior to woods laborer. Pre Procedural Pulses: right radial was 2+. Oxygen started at 2liters/min via nasal canula. right groin was prepped with chloroprep then draped in the usual sterile fashion. right radial was prepped with chloroprep then draped in the usual sterile fashion. Physician notified. Baseline sample Acquired. HR: 86 BPM. Physician arrived. Physician scrubbed in. Immediate Pre-Procedure Time Out. Correct Patient: Yes; Correct Procedure: Yes; Correct Site: Yes; Correct Patient Position: Yes; Correct Supplies: Yes; Dried Flammable Prep: Yes; Blood Products Available: N/A;. Lidocaine 1% infiltrated to the right radial. Arterial access obtained. A 5 kinyarwanda TIG catheter in over wire. Multiple views taken of left coronary artery. Catheter redirected to the RCA. Multiple views taken of right coronary artery. Wire and catheter removed. Medication's Wasted: Heparin = 1000 u. Medication's Wasted: Lidocaine 1% = 4 mL. Medication's Wasted: Nitro = 49.8 mg. Post-op diagnosis: Non obstructive CAD. Total IV fluids: 29 mL. A TR Band was successful obtaining hemostatsis at the Right Radial artery insertion site. PERRLA. Strong, equal hand instrument specialist bilaterally. No VTE prophylaxis required. Complications: none. Estimated blood loss: 5mL-10mL. Responsiveness - Normal response to verbal stimuli; alert and oriented, PERRLA. Airway - Unaffected, no intervention required; spontaneous ventilation. Circulation: W/N/L, pulses unchanged. Nausea/Vomiting: No. Procedure completed. Patient transferred by wheelchair to 1st floor. Vital chart was stopped. Access Site Site: Right Radial artery Sheath Size: 6 Fr Hemostasis Method: TR Band Hemostasis Success: Successful Procedure Medications Start: 11:17 AM Stop: 11:17 AM Medication: Versed Amount: 1 mg Route: I.V. Start: 11:17 AM Stop: 11:17 AM Medication: Fentanyl Amount: 25 mcg Route: I.V. Start: 11:25 AM Stop: 11: AM Medication: Heparin Amount: 5000 units Route: I.V. I, the attending physician, have reviewed and verified all procedure medications. Yes, all medications given per verbal order History/Risk Factors Hypertension: Yes Dyslipidemia: No Peripheral Arterial Disease (PAD): No Myocardial Infarction (OH): No Obesity: No Renal Disease: No Tobacco Use: Never Prior Interventions PCI: No CABG: No Valve Surgery: No Report Signatures Finalized by Luis Angel Tobar MD on 10/25/2021 09:20 AM
--- NOTE | 2021-10-15 11:14 | W.PM.OPSUD ---
Surgery/Procedure H&P Update DATE OF PROCEDURE: October 15, 2021 DATE H&P PERFORMED: 10/11/21 H&P UPDATE INFORMATION: I have reviewed H&P completed within last 30 days, I have examined patient prior to procedure and No changes to prior documentation PREOP DIAGNOSIS: Chest pain/ abnormal stress test PRIMARY INDICATION FOR PROCEDURE: Chest pain/ abnormal stress test PLANNED PROCEDURE: Operation Date: 10/15/21 10:00 Proposed Procedures p Cardiac Catheterization(Left) - Luis Angel Tobar M.D Possible percutaneous coronary intervention PATIENT REASSESSED PRIOR TO SEDATION, WITH NO CHANGE NOTED: Yes PHYSICAL EXAM: alert, oriented x 3, clear to auscultation bilaterally and regular rate & rhythm AIRWAY EVAL/ANESTHESIA PLAN: ASA III, Local Anesthesia and Risks, benefits & alternatives of sedation and/or procedure discussed ADDITIONAL INFORMATION: Moderate sedation
[2021-10-15 11:57] LABS: Glucose Point of Care 89 mg/dL (70-110)
[2021-10-15] MEDS: sodium chloride 0.9% 1,000 ML 100 ML IV ×2 (12:00→20:00)
--- NOTE | 2021-10-15 15:20 | PC.NURSE ---
Pt noted to have a small swelling 0.5 cmx0.5 cm of swelling and pulsating beside puncture site of right radial artery. pressure applied for 5 mins. Pt stated pain scale of 5. when checked, swelling and lump increased. applied pressure directly to site for 20 to 25 mins and called . Dr Tobar arrived at bedside to assess. Received verbal order to do arterial ultrasound to check for possible aneurysm. Site is now bruised, swelling decreased. radial pulse is palpable. received order from Dr Tobar to re-apply TR band and instill 4-5 cc of air. Will keep monitoring. Pt's pain as stated is now tolerable and is decreased.
--- NOTE | 2021-10-15 15:57 | USCV_ITS ---
Kassie Robles Age: 86 Gender: F : 1935 Exam Date: 10/15/2021 17:04 Ordering Phys: Luis Angel Tobar M.D ([email or web address]) Technologist: Shari Ortiz Exam Location: [facility] – [place] Indication: CHECKING RT RADIAL ARTERY FOR ANEURYSM Findings No Aneurysm at cath site. Patent right radial artery. Near normal arterial Doppler waveform Conclusions Patent right radial artery with no evidence of aneurysm Normal flow pattern Dr Janey Garcia MD FAC (Electronically Signed) Final Date: 16 October 2021 17:37 S
--- NOTE | 2021-10-15 16:35 | PM.PN ---
Subjective Subjective: seen this AM. she will be going for angiogram today.no acute events overnight Vitals/I&O/Wt Last Vital Signs Temp 98.2 F 10/15/21 08:00 Pulse 67 10/15/21 16:29 Resp 10 L 10/15/21 16:15 BP 135/73 10/15/21 16:15 Pulse Ox 98 10/15/21 16:29 10/15/21 10/15/21 10/15/21 06:59 14:59 22:59 Intake Total 240 / 240 Output Total 700 / 950 400 / 400 Balance -700 / -350 -160 / -160 Physical Exam Narrative: General: Alert oriented x3, patient seen laying in bed appearing comfortable.? 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 Cardio: Irregularly irregular, normal S1-S2, no murmurs Respiratory: Good bilateral air entry, no wheezes no rhonchi appreciated, clear to auscultation GI: Abdomen soft, nontender, nondistended, bowel sounds + Behavior: Appropriate and cooperative Extremities: Trace edema bilateral lower extremity, no cyanosis Data : 10/14/21 04:00 10/14/21 04:00 A&P Assessment and plan (1) Bradycardia: Status: Acute (2) Positive cardiac stress test: Status: Acute (3) Chest pain: Status: Acute (4) HTN (hypertension): Status: Acute Qualifiers: Hypertension type: essential hypertension Qualified Code(s): I10 - Essential (primary) hypertension (5) Hyperlipemia: Status: Acute Qualifiers: Hyperlipidemia type: unspecified Qualified Code(s): E78.5 - Hyperlipidemia, unspecified (6) Presence of Watchman left atrial appendage closure device: Status: Acute (7) Chest tightness: Status: Acute Plan #Chest tightness at admission with positive stress test #A. fib RVR status post watchman device, not on anticoagulation #E. coli UTI #Chest tightness with positive stress test and left circumflex artery region #Pulmonary hypertension #Fatigue, near syncope #History of DVT and PE #Parkinson's disease #Rheumatoid arthritis ? Continue Amiodarone increased to 400 twice daily.? Patient still in A. fib.? Eliquis stopped. ? She did have a positive stress test with chest tightness and bandlike pattern at admission.? Plan for angiogram today. - Possible placement of pacemaker due to bradycardic episodes since she needs to be on medications for atrial fibrillation. Cardiology on board. -Continue medication for Parkinson's disease and methotrexate. -Orthostatics vitals pending ? Cardiology following ? Continue ceftriaxone for UTI - Will need event monitor at discharge Full code DVT prophylaxis: Heparin Attestations Medical Necessity Statement*: angiogram today. depending on results, possible dc in AM. will need event monitor at dc. she will need to stay in hospital tonight for monitoring post angiogram Coding Level of Care Code Acute Director Religious Education for Chg Fwd Diagnoses Bradycardia R00.1 Positive cardiac stress test R94.39 Chest pain R07.9 HTN (hypertension) I10 Hypertension type: essential hypertension Hyperlipemia E78.5 Hyperlipidemia type: unspecified Presence of Watchman left atrial appendage closure device Z95.818 Chest tightness R07.89
[2021-10-15 16:52] LABS: Glucose Point of Care 100 mg/dL (70-110)
--- NOTE | 2021-10-15 17:00 | PC.NURSE ---
Dressing applied to right wrist marked bruising. puncture site is covered w/yifan wrap.
--- NOTE | 2021-10-15 17:30 | PC.NURSE ---
pt moved to same day surgery center via bed. JOSE Bhatt at bedside report given, she re-checked pt's right wrist post heart cath and neurovascular checks. bruised marked at [id number]. 1836 pm- Dr. Tobar on the floor and notified on the result of the right artery ultrasound does not show any pseudoaneurysm. bruising is noted under skin tissues per swapna. will keep monitoring.
[2021-10-15] MEDS: losartan 50 mg Tablet 25 MG PO (20:00)
[2021-10-15] MEDS: sertraline 100 mg Tablet PO (20:00)
[2021-10-15] MEDS: donepezil 5 MG Tablet 10 MG PO (20:00)
[2021-10-15] MEDS: dilTIAZem 5 mg/mL SDV 5 mL 10 MG IVP (20:19)
--- NOTE | 2021-10-15 20:42 | PC.NURSE ---
Addendum entered by Marleen Meredith RN 10/16/21 03:12: A-fib prior to IV Cardizem, SR after IV Cardizem. Original Note: When patient got up to bathroom and had BM, heart rate up to 140s-160s. 10 mg PRN Cardizem given per order. Heart rate now 70s-80s.
[2021-10-15] MEDS: cefTRIAXone 1,000 MG in sodium chloride 0.9% (plus) 50 ML 100 MG IV (22:11)
[2021-10-16] VITALS: BP 101/64; PULSE 69; RESP 14; TEMP 36.6; O2SAT 95
[2021-10-16] MEDS: heparin 5,000 unit/mL INJ 1 mL 5000 UNIT SUBCUT (02:19)
[2021-10-16 02:43] VITALS: PULSE 63
[2021-10-16 03:38] LABS: Anion Gap 13.3 (5-19); Blood Urea Nitrogen 23 mg/dL (8-23); Calcium 8.3 mg/dL (8.5-10.5); Carbon Dioxide 27 mmol/L (22-29); Chloride 102 mmol/L (98-107); Glucose 97 mg/dL (65-115); Osmolality Calculated 290 mOsm/kg (285-295); Potassium 4.3 mmol/L (3.5-5.1); Sodium 138 mmol/L (136-145)
[2021-10-16 04:00] VITALS: BP 105/56; PULSE 64; RESP 14; TEMP 36.7; O2SAT 97
--- NOTE | 2021-10-16 07:53 | PM.PN ---
Subjective Subjective: Patient is doing well. Staying in normal sinus rhythm. Heart rate is well controlled. Vitals/I&O/Wt Last Vital Signs Temp 98.1 F 10/16/21 04:00 Pulse 64 10/16/21 04:00 Resp 14 10/16/21 04:00 BP 105/56 10/16/21 04:00 Pulse Ox 97 10/16/21 04:00 10/15/21 10/16/21 10/16/21 22:59 06:59 14:59 Intake Total 1140 / 1380 Balance 1140 / 980 Physical Exam Narrative: GENERAL: Patient is alert, awake and oriented x3. [] NECK: No jugular vein distension. [] HEENT: No cyanosis. No icterus. No pallor. [] HEART: Regular S1 and S2. No murmur, rub or gallop. [] LUNGS: Clear to auscultate bilaterally. [] ABDOMEN: Soft, nontender and nondistended. Positive bowel sounds. No guarding, rebound or tenderness. [] CENTRAL NERVOUS SYSTEM: Grossly nonfocal. [] EXTREMITIES: Lower extremities with 1+ edema bilaterally. Pulses palpable in the lower extremities, both dorsalis pedis and posterior tibial. [] Data : 10/14/21 04:00 10/16/21 02:14 A&P Assessment and plan (1) Pre-syncope: Status: Acute (2) Chest tightness: Status: Acute (3) AF (paroxysmal atrial fibrillation): Status: Acute (4) Generalized weakness: Status: Acute Plan Patient presented with A. fib with RVR. Was also bradycardic when in NSR. Patient is staying in normal sinus rhythm on amiodarone 400 mg twice daily. She is also on metoprolol 25 mg twice daily. We will down titrate amiodarone to 200 mg twice daily today Coronary angiogram did not reveal severe CAD. Medical therapy. Order 30 day event monitor She used to follow with cardiology in [place] but wants to establish care here now. She has seen Dr. Garcia in the past and will set up an appointment with him as outpatient. Thank you for involving us with care of this patient. Patient is stable to be discharged from cardiology standpoint. Please call with questions Attestations Medical Necessity Statement*: Care expected to cross 2 midnights Coding Level of Care Code Acute Coffee Shop Aide for Sarahg Fwd Diagnoses Pre-syncope R55 Chest tightness R07.89 AF (paroxysmal atrial fibrillation) I48.0 Generalized weakness R53.1
[2021-10-16 08:00] VITALS: BP 97/52; PULSE 62; RESP 15; TEMP 36.6; O2SAT 98
[2021-10-16] MEDS: cetirizine 10 mg Tablet PO (08:52)
[2021-10-16] MEDS: folic acid 1 mg Tablet 0.5 MG PO (08:53)
[2021-10-16] MEDS: pantoprazole DR 40 mg Tablet PO (08:53)
[2021-10-16] MEDS: atorvastatin 40 mg Tablet 80 MG PO (08:54)
[2021-10-16] MEDS: amiodarone 200 mg Tablet 400 MG PO (08:54)
[2021-10-16] MEDS: potassium chloride ER 10 mEq Tablet PO (08:54)
[2021-10-16] MEDS: aspirin 81 mg EC Tablet PO (08:54)
[2021-10-16] MEDS: levothyroxine 50 mcg Tablet PO (08:55)
[2021-10-16] MEDS: FUROsemide 40 mg Tablet 60 MG PO (09:11)
[2021-10-16] MEDS: MEMANTINE 28 MG 28 EACH PO (09:12)
[2021-10-16] MEDS: magnesium oxide 400 mg tablet PO (10:02)
[2021-10-16] MEDS: metoprolol tartrate 25 mg Tablet PO (10:03)
[2021-10-16] MEDS: nystatin cream 30 gm 1 APPLIC TOPICAL (10:04)
--- NOTE | 2021-10-16 11:09 | PM.DCS ---
Discharge Providers Date of Admission: 10/10/21 19:49 Date of Discharge: October 16, 2021 Attending Provider at Admission: Marv Ríos MD Attending Provider at Discharge: Mei Galvan MD Primary Care Provider: Cheyenne Yang Diagnoses at Discharge Discharge Diagnosis (1) Pre-syncope: Status: Acute (2) Chest tightness: Status: Resolved (3) AF (paroxysmal atrial fibrillation): Status: Acute (4) Generalized weakness: Status: Acute Reason for Visit Reason for Visit: AFIB W/RVR Brief History: Kassie Robles is a 86 year old female with a past with atrial fibrillation with watchman device, history of DVT and pulm emboli off anticoagulation, history of Parkinson's disease, hypothyroidism, hyperlipidemia, rheumatoid arthritis, who presents to [facility] due to falls, presyncopal episodes, and feeling unwell.? Patient tells me that she lives at home, with her daughter, she ambulates with a wheeled walker, she tells me that she tries to help her daughter out with chores.? Roughly a month ago she fell down 5 concrete steps, no head trauma, no loss of consciousness, no focal pain after her fall.? But she tells me that since then she has been unsteady on her feet.? She tells me that she normally helps out her daughter with chores, but now she just feeling on easy, unsteady on her feet, dizzy, feeling unwell.? She tells me for the last 2 weeks she has his episodes in which it is almost like an attack when she feels lightheaded, dizzy, she has chest tightness, she sometimes has to close her eyes before the symptoms resolved.? No slurring of words, no facial droop, no focal weakness, no paresthesias.? No dysuria, no hematuria.? No abdominal pain, no diarrhea.? No isolated chest pain typically occurs with these attacks that happen.? She tells that she came to emergency room today, as this morning she was making oatmeal and she had another attack when she was standing up, so she had to sit down, and her daughter was worried so she had her called EMS.? No history of carotid artery stenosis.? No history of strokes.? When EMS arrived when arrived, she was noted to have A. fib with RVR was given Cardizem, converted to normal sinus rhythm, currently normal sinus rhythm Hospital Course Hospital Course Patient was admitted for chest tightness at admission with positive stress test. She went for angiogram. Did not show this severe CAD. Patient was also bradycardic and did have 2-1 block on telemetry strip overnight but it was when she was sleeping. She was asymptomatic and did not have any bradycardia while awake. She was placed on a 30-day event monitor and sent home in stable condition. She was to follow-up with Dr. Garcia as an outpatient after discharge. She was sent home on amiodarone. Please see progress note for more detail. Physical Exam Narrative: General: Alert oriented x3, patient seen laying in bed appearing comfortable.? 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 Cardio: Irregularly irregular, normal S1-S2, no murmurs Respiratory: Good bilateral air entry, no wheezes no rhonchi appreciated, clear to auscultation GI: Abdomen soft, nontender, nondistended, bowel sounds + Behavior: Appropriate and cooperative Extremities: Trace edema bilateral lower extremity, no cyanosis Discharge Data Studies Completed and Pending Completed Studies During Hospitalization Category Date Time Status CT head wo con* [id number] Urgent Cat Scan 10/09/21 19:11 Completed CTA chest [CT angio chest PE protcl [id number]] Urgent Cat Scan 10/09/21 17:24 Completed Sestamibi Stress Test Request Routine Exams 10/12/21 07:18 Completed XR chest 1V portable [id number] Stat Exams 10/09/21 20:06 Completed NM shazia perf SPECT r/s* [id number] Routine Nuc Med 10/12/21 20:31 Completed CV carotid duplex BI* [id number] Urgent Ultrasound 10/09/21 22:34 Completed CV. echo complete* [id number] Routine Ultrasound 10/10/21 22:34 Completed Pending at discharge Category Date Time Status COMMUNITY SERVICES COORDINATOR request for service Routine Exams 10/15/21 11:06 Taken Sestamibi Stress Test Request Routine Exams 10/11/21 20:31 [place] [id number] Stat Ultrasound 10/15/21 15:57 Taken Radiology Impressions Chest CTA 10/09/21 17:24 IMPRESSION: 1. No evidence for pulmonary embolism. 2. No acute cardiopulmonary process. 3. Incidental/nonacute findings are listed in the report. Head CT 10/09/21 19:11 IMPRESSION: 1. No acute abnormality of the brain. 2. Stable mild atrophy of the brain parenchyma. 3. Incidental/nonacute findings are listed in the report. Chest X-Ray 10/09/21 20:06 IMPRESSION: 1. No acute cardiopulmonary process. 2. Incidental/nonacute findings are listed in the report. Carotid Doppler Study 10/09/21 22:34 IMPRESSION: Less than 50% carotid artery stenosis. REFERENCES: SRU CRITERIA. The degree of internal carotid artery stenosis is based on criteria defined by the Society of Radiologists in Ultrasound (SRU). Normal is no stenosis. Mild is less than 50% stenosis. Moderate is 50-69% stenosis. Severe is greater than 69% stenosis to near occlusion. Near occlusion is a markedly narrowed lumen. Total occlusion is no detectable patent lumen. Laboratory Results WBC 5.6 10^3/uL (4.0-10.0) 10/14/21 04:00 RBC 3.29 10^6/uL (4.1-5.3) L 10/14/21 04:00 Hgb 12.1 g/dL (11.5-15.3) 10/14/21 04:00 Hct 35.7 % (37.0-47.0) L 10/14/21 04:00 MCV 108.5 fl (81-99) H 10/14/21 04:00 MCH 36.8 pg (28.0-34.0) H 10/14/21 04:00 MCHC 33.9 g/dL (30.0-36.0) 10/14/21 04:00 RDW 14.2 % (12.1-15.1) 10/14/21 04:00 Plt Count 161 10^3/cmm (130-400) 10/14/21 04:00 MPV 11.4 fL (7.4-10.4) H 10/14/21 04:00 Neut % (Auto) 52.4 % 10/14/21 04:00 Lymph % (Auto) 34.9 % 10/14/21 04:00 [place] % (Auto) 7.1 % 10/14/21 04:00 Eos % (Auto) 4.5 % 10/14/21 04:00 Baso % (Auto) 0.9 % 10/14/21 04:00 Neut # (Auto) 2.94 10^3/uL (1.8-7.7) 10/14/21 04:00 Lymph # (Auto) 2.0 10^3/uL (0.8-4.8) 10/14/21 04:00 [place] # (Auto) 0.4 10^3/uL (0.2-0.9) 10/14/21 04:00 Eos # (Auto) 0.3 10^3/uL (0.0-0.8) 10/14/21 04:00 Baso # (Auto) 0.1 10^3/uL (0.0-0.1) 10/14/21 04:00 Nucleated RBC % (auto) 0 % 10/14/21 04:00 Nucleated RBCs # 0.0 /100WBC 10/14/21 04:00 D-Dimer 1.34 ug/mIFEU (0-0.59) H 10/09/21 15:50 Sodium 138 mmol/L (136-145) 10/16/21 02:14 Potassium 4.3 mmol/L (3.5-5.1) 10/16/21 02:14 Chloride 102 mmol/L (98-107) 10/16/21 02:14 Carbon Dioxide 27 mmol/L (22-29) 10/16/21 02:14 Anion Gap 13.3 (5-19) 10/16/21 02:14 BUN 23 mg/dL (8-23) 10/16/21 02:14 Creatinine 0.7 mg/dL (0.5-0.9) 10/16/21 02:14 GFR Calculation Not Reportable 10/16/21 02:14 Glucose 97 mg/dL (65-115) 10/16/21 02:14 POC Glucose 100 mg/dL (70-110) 10/15/21 16:46 Calculated Osmolality 290 mOsm/kg (285-295) 10/16/21 02:14 Lactic Acid 0.9 mmol/L (0.5-2.2) 10/09/21 20:44 Calcium 8.3 mg/dL (8.5-10.5) L 10/16/21 02:14 Phosphorus 4.2 mg/dL (2.5-4.5) 10/12/21 03:28 Magnesium 1.9 mg/dL (1.7-2.3) 10/14/21 04:00 Total Bilirubin 0.3 mg/dL (0.15-1.2) 10/12/21 03:28 AST 45 U/L (0-32) H 10/12/21 03:28 ALT 32 U/L (0-33) 10/12/21 03:28 Alkaline Phosphatase 100 IU/L (35-105) 10/12/21 03:28 Troponin T Baseline 9 ng/L (0-10) 10/09/21 15:30 Troponin T 120 Minute 9.25 ng/L (0-10) 10/09/21 18:15 Delta Troponin T 0.25 ABS# (0-10) 10/09/21 18:15 Troponin T Hi Sens 6Hr 9.98 ng/L (0-10) 10/09/21 23:15 Troponin T Hi Sens 6Hr Delta 0.98 ng/L (0-12) 10/09/21 23:15 Total Protein 5.6 g/dL (6.6-8.7) L 10/12/21 03:28 Albumin 3.4 g/dL (3.5-5.2) L 10/12/21 03:28 Globulin 2.2 g/dL (1.3-4.6) 10/12/21 03:28 Vitamin B12 547 pg/mL (232-1245) 10/10/21 04:28 Folate 18.3 ng/mL (4.8-37.3) 10/10/21 15:22 TSH 1.51 uIU/mL (0.27-4.20) 10/09/21 23:15 Free T4 0.96 ng/dL (0.82-1.77) 10/09/21 15:30 Urine Color Yellow (Yellow) 10/09/21 19:40 Urine Appearance Clear (CLEAR) 10/09/21 19:40 Urine pH 6 (5-7) 10/09/21 19:40 Ur Specific [place] 1.010 (1.005-1.030) 10/09/21 19:40 Urine Protein Neg (Negative) 10/09/21 19:40 Urine Glucose (UA) Norm (Normal) 10/09/21 19:40 Urine Ketones Negative (Negative) 10/09/21 19:40 Urine Blood Neg (Negative) 10/09/21 19:40 Urine Nitrate Positive (Negative) H 10/09/21 19:40 Urine Bilirubin Neg (Negative) 10/09/21 19:40 Urine Urobilinogen Norm mg/dL (Negative) 10/09/21 19:40 Ur Leukocyte Esterase Negative (Negative) 10/09/21 19:40 Urine RBC 0-4 /hpf (0-2) H 10/09/21 19:40 Urine WBC 5-10 /hpf (0-5) H 10/09/21 19:40 Ur Squamous Epith Cells 0-4 /hpf (0-5) H 10/09/21 19:40 Amorphous Sediment Not Reportable 10/09/21 19:40 Urine Bacteria 4+ /hpf (NONE) H 10/09/21 19:40 Vitals Last Vital Signs Temp 97.9 F 10/16/21 08:00 Pulse 62 10/16/21 08:00 Resp 15 10/16/21 08:00 BP 97/52 10/16/21 08:00 Pulse Ox 98 10/16/21 08:00 Discharge Plan Discharge Patient Disposition: Home Health Service Condition: Stable Prescriptions: New potassium chloride 10 mEq Tablet Extended Release 10 meq PO DAILY 30 Days Qty: 30 0RF metoprolol tartrate 25 mg Tablet 25 mg PO BID@0900,2100 30 Days Qty: 60 0RF amiodarone 200 mg tablet See Rx Instructions .ROUTE .COMPLEX 30 Days Qty: 60 0RF Rx Instructions: 200 mg orally BID x 14 days then 200 mg daily thereafter Continued methotrexate 2.5 mg/mL solution 2.5 mg PO .weekly 0RF aspirin [Adult Aspirin Regimen] 81 mg tablet,delayed release (DR/EC) 81 mg PO DAILY 0RF omeprazole 40 mg Capsule,Delayed Release(Dr/Ec) 40 mg PO DAILY 0RF tramadol [Ultram] 50 mg Tablet 50 mg PO TID PRN (Reason: Pain) 0RF furosemide [Lasix] 40 mg Tablet 60 mg PO DAILY 0RF atorvastatin 80 mg Tablet 80 mg PO DAILY 0RF loperamide [Imodium A-D] 2 mg Capsule 2 mg PO QID PRN (Reason: Diarrhea) 0RF tizanidine 4 mg Tablet 4 mg PO BID PRN (Reason: Spasms) 0RF donepezil 10 mg Tablet 10 mg PO DAILY 0RF sertraline [Zoloft] 100 mg Tablet 100 mg PO DAILY 0RF primidone 250 mg Tablet 250 mg PO BID 0RF levothyroxine [Synthroid] 50 mcg Tablet 50 mcg PO DAILY 0RF nystatin 100,000 unit/gram Cream 1 applic TOPICAL BID 0RF nitroglycerin [Nitrostat] 0.4 mg Tablet, Sublingual 0.4 mg SUBLINGUAL Q5M PRN (Reason: Chest Pain) 0RF carbidopa-levodopa 25-100 mg Tablet,Disintegrating 1.5 tab PO TID 0RF Zyrtec 10 mg Capsule 10 mg PO DAILY PRN (Reason: Allergy Symptoms) 0RF memantine 28 mg Capsule,Sprinkle,Er 24hr 28 mg PO DAILY 0RF famotidine 20 mg tablet 20 mg PO DAILY 0RF Discontinued metoprolol tartrate 100 mg Tablet 100 mg PO BID 0RF potassium chloride 20 mEq Tablet Extended Release 20 meq PO DAILY 0RF No Action folic acid 1 mg tablet 1 mg PO DAILY 0RF Discharge Orders: Discharge Order (Routine); Ordered 10/16/21 Ordered By: Mei Galvan Other Ambulatory Orders: MCT/Event Monitor 14 Days (Routine) Timeframe: 1 Day Facility: [facility] - Location: Radiology Ordered By: Mei Galvan Referrals: [facility] [Outside] Yesi Miranda FNP [Nurse Practitioner] - 10/29/21 12:45 pm Cheyenne Yang PA [Primary Care Provider] - 10/18/21 10:30 am Discharge Diet: Cardiac Discharge Activity: Resume usual activity Patient Instructions: Metoprolol (By mouth), Potassium Chloride (By mouth), Amiodarone (By mouth), A-fib (Atrial Fibrillation) (DC), Near Syncope (DC), Opioid Safety Activity Restrictions/Additional Instructions: APPOINTMENT FOR HEART MONITOR FOR 2:45 TODAY Discharge Attestations Time Spent in Discharge Care*: other Status at Discharge: Cognitive status at discharge: cognitively intact, Behavioral status at discharge: cooperative and independent in ADL's, Quality Metrics Clinical Quality Measures [ No reported AMI, CVA or VTE this stay] Coding Level of Care Code Acute Chg FW DC note Diagnoses Pre-syncope R55 Chest tightness R07.89 AF (paroxysmal atrial fibrillation) I48.0 Generalized weakness R53.1
[2021-10-16 11:26] VITALS: BP 105/48; PULSE 73; RESP 16; TEMP 36.6; O2SAT 98
== END 2021-10-16 14:17 | disposition home health service (06) | DRG 287 ==
LOC: ER 16:59 → MEDSURG 20:55 → ICU 10-10 19:14 → MEDSURG 10-12 12:38 → CSU 10-15 12:02 → MEDSURG 10-15 12:03
PROVIDERS: Internal Medicine; Admitting Provider Family Medicine; Emergency Provider Emergency Medicine; PCP Physician Assistant; Visit Provider Internal Medicine
PROC: B2111ZZ Fluoroscopy of Multiple Coronary Arteries using Low Osmolar Contrast (ICD-10-PCS; principal; 2021-10-15 10:00)
DX: I48.0 Paroxysmal atrial fibrillation (principal); N39.0 Urinary tract infection, site not specified; I10 Essential (primary) hypertension; Z86.718 Personal history of other venous thrombosis and embolism; G20 Parkinson's disease; E03.9 Hypothyroidism, unspecified; E78.5 Hyperlipidemia, unspecified; E66.01 Morbid (severe) obesity due to excess calories; Z68.31 Body mass index [BMI] 31.0-31.9, adult; M06.9 Rheumatoid arthritis, unspecified; Z79.899 Other long term (current) drug therapy; Z86.16 Personal history of COVID-19; Z79.891 Long term (current) use of opiate analgesic; Z79.82 Long term (current) use of aspirin; B96.20 Unspecified Escherichia coli [E. coli] as the cause of diseases classified elsewhere; Z86.711 Personal history of pulmonary embolism; I95.9 Hypotension, unspecified; I27.20 Pulmonary hypertension, unspecified; R55 Syncope and collapse; R07.89 Other chest pain
CPT/HCPCS: 36415; 36416; 70450; 71045; 71275; 78452; 80048; 80053; 81001; 82607; 82746; 82962; 83605; 83735; 84100; 84439; 84443; 84484; 85025; 85378; 87077; 87086; 87186; 93005; 93017; 93306; 93454; 93880; 93931; 94664; 96372; 97110; 97161; 97165; 97530; 99152; A9500; C1769; C1887; C1894; G0378; J0282; J0696; J1644; J1650; J2250; J2405; J2785; J3010; J3473; J3490; J7030; J7040; J7060; Q0163; Q9967

== ENCOUNTER → 2021-10-16 14:52 | Outpatient (BNVA) | payer MEDICARE, OTHER, SELFPAY | PROVIDERS: PCP Physician Assistant; Visit Provider Internal Medicine | DX: R00.1 Bradycardia, unspecified (principal); I48.91 Unspecified atrial fibrillation; I48.92 Unspecified atrial flutter | CPT/HCPCS: 93229 ==

== ENCOUNTER → 2021-10-18 10:10 | Outpatient (BNVA) | payer MEDICARE, OTHER, SELFPAY | PROVIDERS: PCP Physician Assistant; Visit Provider Internal Medicine Cardiovascular Disease | DX: R00.1 Bradycardia, unspecified (principal); I10 Essential (primary) hypertension; E78.5 Hyperlipidemia, unspecified; I48.0 Paroxysmal atrial fibrillation; Z01.812 Encounter for preprocedural laboratory examination | CPT/HCPCS: 80048; 85025; 85610; 86850; 86900; 99215 ==

== ENCOUNTER 2021-10-19 15:07 | Observation (INO) | payer MEDICARE, OTHER, SELFPAY ==
[2021-10-19] VITALS (16 sets, daily range): BP systolic 99–168; BP diastolic 57–113; PULSE 60–110; RESP 18–22; TEMP 36.4–37; O2SAT 93–100; BMI 30.8
[2021-10-19] MEDS: vancomycin 1,000 MG in sodium chloride 0.9% 250 ML 250 MG IV (08:15)
--- NOTE | 2021-10-19 08:24 | W.PM.OPSUD ---
Surgery/Procedure H&P Update DATE OF PROCEDURE: October 19, 2021 DATE H&P PERFORMED: 10/18/21 H&P UPDATE INFORMATION: I have reviewed H&P completed within last 30 days, I have examined patient prior to procedure and No changes to prior documentation PREOP DIAGNOSIS: Symptomatic bradycardia, second-degree heart block PRIMARY INDICATION FOR PROCEDURE: Symptomatic bradycardia, prolonged pauses, secondary heart block, intermittent atrial fibrillation PLANNED PROCEDURE: Operation Date: 10/19/21 08:30 Proposed Procedures Dual-chamber permanent pacemaker implantation PATIENT REASSESSED PRIOR TO SEDATION, WITH NO CHANGE NOTED: Yes PHYSICAL EXAM: alert, oriented x 3, clear to auscultation bilaterally and regular rate & rhythm AIRWAY EVAL/ANESTHESIA PLAN: normal airway, see other exam findings, ASA III, Monitored Anesthesia, Local Anesthesia, Risks, benefits & alternatives of sedation and/or procedure discussed and Patient agrees to continue as planned
--- NOTE | 2021-10-19 11:26 | PM.OP ---
Operative Report Date of procedure: October 19, 2021 Pre-op diagnosis: Preop Diagnosis Symptomatic bradycardia, second-degree heart block Procedure: LOCATION: PREOPERATIVE DIAGNOSES: Symptomatic bradycardia second-degree type I AV block with episodes of prolonged pauses POSTOPERATIVE DIAGNOSES: Same. COMPLICATIONS: None. ESTIMATED BLOOD LOSS: Around 5 milliliters. BRIEF HISTORY: This is an 86-year-old white female with a history of intermittent atrial fibrillation, bradycardia, present with episodes of weakness, dizziness and near syncope. She had an event monitor which revealed episodes second-degree type I AV block with prolonged pauses of more than 3 seconds. She was complaining of dizziness and weakness with the spells. For further management of her condition, a permanent pace implantation was requested. A dual chamber permanent pacemaker implantation was recommended for AV synchrony and symptom relief The procedure was explained to the patient in detail with the risks and benefits. The risks of bleeding, hematoma, vascular injury, infection, pneumothorax, myocardial perforation and other concomitant complications were explained in detail, which the patient understood well and consented to proceed. PROCEDURE DESCRIPTION: The patient was brought to the Cardiac Catheterization Lab. The left and the right side of the neck and the subclavian area were cleaned and draped in a sterile fashion. 1% Xylocaine was used as the local anesthetic agent. Left subclavian venogram was performed by injecting 20 milliliters of Omnipaque through the left antecubital vein. A left subclavian venous access was obtained using an 18-gauge needle, under venographic guidance. . A two-inch long incision was made 2.0 centimeters below the midclavicular region. By sharp and blunt dissection, a pacemaker pocket was made. A second venous access was obtained using the 18-gauge needle. Over the first guidewire, a 7-[place]ai[place] venous sheath with dilator was advanced. The venous dilator and the guidewire were taken out. A screw-in ventricular lead was advanced through the venous sheath and was positioned towards the right ventricle. Under fluoroscopic guidance, the ventricular lead was positioned toward the right ventricular apex. Good pacing and sensing thresholds were obtained. The lead was secured to the endocardium by advancing the helix. The stability of the lead was tested by gentle twisting movements and also by asking the patient to take some deep breaths and cough. The venous sheath was peeled off, at this time. The lead was secured to the pectoralis fascia, by suturing with 1-0 Surgilon. Over the second guidewire, another 7-[place] venous sheath with dilator was advanced. The dilator and the guidewire were taken out. Under fluoroscopic guidance, an atrial lead (Medtronic), was advanced and positioned toward the right atrium. The lead was positioned in the right atrial appendage. Good pacing and sensing thresholds were obtained. The lead was secured to the endocardium by advancing the helix. Stability of the lead was tested by gentle twisting movements and also by asking the patient to take some deep breaths and cough. The venous sheath was peeled off, at this time. The lead was secured to the pectoralis fascia by suturing with 0-Surgilon. The pacemaker pocket was copiously irrigated with vancomycin solution. Complete hemostasis was achieved. Sponge counts were confirmed. The leads were attached to a Medtronic generator. The leads were positioned behind the generator and the generator was attached to the pectoralis fascia by suturing with 0-Surgilon. The pocket was closed in layers. Skin was approximated using 4-0 Vicryl. IMPLANTED DEVICES: ATRIAL LEAD: Model number: 5076/52 Serial number: [id number] Make: Medtronic VENTRICULAR LEAD: Model number: 5076/58 Serial number: [id number] Make: Medtronic GENERATOR Brand: [place] [facility]T DR [facility] Model number: W1 DR 01 Serial number: [id number] Make: Medtronic IMPLANTATION DATA: With the pacing system analyzer, the R wave sensing was 12.0 millivolts with a lead impedance of 677 and a pacing threshold was 0.75 volts at 0.4 milliseconds. In the atrium, the sensing was 1.2 millivolts with a lead impedance of 551 ohms and a pacing threshold was 1.0 volts at 0 0.4 milliseconds. Through the device, the R-wave sensing was 13.0 millivolts with a lead impedance of 589 and a pacing threshold was 0.75 volts at 0.4 milliseconds. The atrial sensing was 1.6 millivolts with a lead impedance of 475 ohms and a pacing threshold of 1.0 volts at 0.4 milliseconds. The pacemaker was set for AAIR/DDDR mode with upper rate of 130 and a lower rate of 60. A pressure dressing was applied over the pacemaker site. The patient was transferred to the Medical Floor in stable condition. A chest x-ray was ordered to confirm the lead position and also to rule out any pneumothorax.
--- NOTE | 2021-10-19 12:39 | SUR.PHASEI ---
Bulky pressure dsg to left subclavian region. Arm stabilizer in place.
--- NOTE | 2021-10-19 12:59 | XRR_ITS ---
PROCEDURE INFORMATION: Exam: XR Chest Exam date and time: 10/19/2021 1:42 PM Age: 86 years old Clinical indication: Device placement; Cardiac pacemaker placement or adjustment; Prior surgery; Surgery date: Post-operative (0-2 days); Surgery type: Post pacemaker insertion TECHNIQUE: Imaging protocol: XR of the chest. Views: 1 view. COMPARISON: CR (CHEST, ) 10/09/2021 8:12 PM FINDINGS: Tubes, catheters and devices: Stable metallic recorder device over the anterior chest wall. Lungs: Stable left discoid atelectasis and/or scarring. Pleural spaces: New left pacemaker device without pneumothorax. Heart/Mediastinum: Unremarkable. No cardiomegaly. Bones/joints: Stable postoperative metallic fixation of the cervical spine with or without metallic artifact. Dextroscoliosis. Mild thoracic spondylosis. Stable healed left humeral neck fracture with residual angulation. Stable loss of bone in the lateral ends of each clavicle. Other findings: Stable postoperative changes over the right shoulder. XR/XR chest 1V portable [id number] IMPRESSION: New left pacemaker device without pneumothorax.
--- NOTE | 2021-10-19 14:26 | PC.NURSE ---
Pt transferred to Med Surg Pt transferred to med surg via w/c at this time. Attempted to call daughter to update but unable to reach.
[2021-10-19] MEDS: clindamycin 900 MG/50 ML PREMIX 100 MG IV ×2 (17:19→23:52)
[2021-10-19] MEDS: amiodarone 200 mg Tablet PO (18:48)
[2021-10-19] MEDS: metoprolol tartrate 25 mg Tablet PO (20:58)
[2021-10-19] MEDS: carbidopa-levodopa 25-100mg Tablet 1.5 EACH PO (20:58)
[2021-10-19] MEDS: dextrose 5%-sod chloride 0.45% 1,000 ML 75 ML IV (21:00)
[2021-10-19] MEDS: TRAMadol 50 mg Tablet PO (23:51)
--- NOTE | 2021-10-20 04:50 | PC.NURSE ---
PACEMAKER Pacemaker interrogation done this am. Report WNL per phone call from [employer]. Will send report. Pressure dressing was removed this am with Island dressing left in place. Area tender but has c/o little pain this shift. Received po Tramadol X1 with good relief. Left arm in sling/immoblizer for restriction of movement of left arm. Remains on bedrest with bedpan used tonight. IV fluids infusing at 75ml/hr rate
[2021-10-20 05:44] VITALS: PULSE 62
--- NOTE | 2021-10-20 06:00 | ECG_ITS ---
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 Measurements Intervals [place] Rate: 69 P: 93 [place]: 246 QRS: 3 QRSD: 102 T: -1 QT: 389 QTc: 418 Interpretive Statements SINUS RHYTHM WITH FIRST DEGREE AV BLOCK SEPTAL MYOCARDIAL INFARCTION , PROBABLY OLD [40+ ms Q WAVE IN V1/V2] Compared to ECG 10/14/2021 10:52:14 Myocardial infarct finding now present Electronically Signed On 10-20-2021 19:05:10 CDT by Janey Garcia M.D. [email or web address]
[2021-10-20 06:07] VITALS: BP 103/64; PULSE 72; RESP 18; TEMP 36.8; O2SAT 94
[2021-10-20] MEDS: amiodarone 200 mg Tablet PO (06:09)
[2021-10-20] MEDS: pantoprazole DR 40 mg Tablet PO (07:56)
[2021-10-20] MEDS: folic acid 1 mg Tablet PO (07:56)
[2021-10-20] MEDS: sertraline 100 mg Tablet PO (07:56)
[2021-10-20] MEDS: potassium chloride ER 10 mEq Tablet PO (07:56)
[2021-10-20] MEDS: donepezil 5 MG Tablet 10 MG PO (07:56)
[2021-10-20] MEDS: atorvastatin 40 mg Tablet 80 MG PO (07:56)
[2021-10-20] MEDS: famotidine 20 mg Tablet PO (07:59)
[2021-10-20] MEDS: levothyroxine 50 mcg Tablet PO (08:00)
[2021-10-20] MEDS: FUROsemide 40 mg Tablet 60 MG PO (08:00)
[2021-10-20] MEDS: carbidopa-levodopa 25-100mg Tablet 1.5 EACH PO (08:00)
[2021-10-20] MEDS: metoprolol tartrate 25 mg Tablet PO (08:00)
[2021-10-20 08:19] VITALS: PULSE 72; O2SAT 94
[2021-10-20 09:23] VITALS: BP 116/71; PULSE 67; TEMP 36.3; O2SAT 99
--- NOTE | 2021-10-20 10:04 | P.PN_ITS ---
Subjective Subjective: This patient was admitted to the hospital following the permanent pacer implantation for IV antibiotics and close observation. She received 3 doses of IV clindamycin. She had an uneventful postprocedure course. No hematoma bleeding from the pacemaker site. Chest x-ray revealed good positioning of the pacer leads. Her vital signs remained stable. She is afebrile. Medications: Medication Review Details: Current Medications Amiodarone HCl (Amiodarone 200 Mg Tablet) 200 mg PO Q12H [facility] Last Admin: 10/20/21 06:09 Dose: 200 mg Documented by: Atorvastatin Calcium (Atorvastatin 40 Mg Tablet) 80 mg PO DAILY MG Last Admin: 10/20/21 07:56 Dose: 80 mg Documented by: Carbidopa/Levodopa (Carbidopa-Levodopa 25-100mg Tablet) 1.5 each PO TID MG Last Admin: 10/20/21 08:00 Dose: 1.5 each Documented by: Cetirizine HCl (Cetirizine 10 Mg Tablet) 10 mg PO DAILY PRN PRN Reason: Allergy Symptoms Donepezil HCl (Donepezil 5 Mg Tablet) 10 mg PO DAILY [facility] Last Admin: 10/20/21 07:56 Dose: 10 mg Documented by: Famotidine (Famotidine 20 Mg Tablet) 20 mg PO DAILY MG Last Admin: 10/20/21 07:59 Dose: 20 mg Documented by: Folic Acid (Folic Acid 1 Mg Tablet) 1 mg PO DAILY MG Last Admin: 10/20/21 07:56 Dose: 1 mg Documented by: Furosemide (Furosemide 40 Mg Tablet) 60 mg PO DAILY MG Last Admin: 10/20/21 08:00 Dose: 60 mg Documented by: Dextrose/Sodium Chloride (Dextrose 5%-Sod Chloride 0.45%) 1,000 mls @ 75 mls/hr IV .[id number] MG Last Admin: 10/19/21 21:00 Dose: 75 mls/hr Documented by: Levothyroxine Sodium (Levothyroxine 50 Mcg Tablet) 50 mcg PO DAILY MG Last Admin: 10/20/21 08:00 Dose: 50 mcg Documented by: Loperamide HCl (Loperamide 2 Mg Capsule) 2 mg PO QID PRN PRN Reason: Diarrhea Metoprolol Tartrate (Metoprolol Tartrate 25 Mg Tablet) 25 mg PO BID@0900,2100 MG Last Admin: 10/20/21 08:00 Dose: 25 mg Documented by: Nitroglycerin (Nitroglycerin 0.4 Mg Sublingual Tablet) 0.4 mg SUBLINGUAL Q5M PRN PRN Reason: Chest Pain Non-Formulary Medication (Memantine) 28 mg PO DAILY [facility] Last Admin: 10/20/21 07:58 Dose: Not Given Documented by: Non-Formulary Medication (Methotrexate) 2.5 mg PO Q7D [facility] Last Admin: 10/19/21 15:33 Dose: Not Given Documented by: Nystatin (Nystatin Cream 30 Gm) 1 applic TOPICAL BID [facility] Last Admin: 10/20/21 08:23 Dose: Not Given Documented by: Pantoprazole Sodium (Pantoprazole Dr 40 Mg Tablet) 40 mg PO DAILY [facility] Last Admin: 10/20/21 07:56 Dose: 40 mg Documented by: Potassium Chloride (Potassium Chloride Er 10 Meq Tablet) 10 meq PO DAILY [facility] Last Admin: 10/20/21 07:56 Dose: 10 meq Documented by: Primidone (Primidone 250 Mg Tablet) 250 mg PO BID [facility] Last Admin: 10/20/21 08:02 Dose: 250 mg Documented by: Sertraline HCl (Sertraline 100 Mg Tablet) 100 mg PO DAILY [facility] Last Admin: 10/20/21 07:56 Dose: 100 mg Documented by: Tizanidine HCl (Tizanidine 4 Mg Tablet) 4 mg PO BID PRN PRN Reason: Spasms Tramadol HCl (Tramadol 50 Mg Tablet) 50 mg PO TID PRN PRN Reason: Pain Last Admin: 10/19/21 23:51 Dose: 50 mg Documented by: Vitals/I&O/Wt Last Vital Signs Temp 97.4 F L 10/20/21 09:23 Pulse 67 10/20/21 09:23 Resp 18 10/20/21 06:07 BP 116/71 10/20/21 09:23 Pulse Ox 99 10/20/21 09:23 10/19/21 10/20/21 10/20/21 22:59 06:59 14:59 Intake Total 370 / 620 250 / 870 Output Total 1650 / 1650 650 / 2300 Balance -1280 / -1030 -400 / -1430 Weight last 48 hrs Weight 197 lb Weight 197 lb Physical Exam Narrative: GENERAL: The patient is alert and oriented times three. Not in any acute distress. [] HEENT: No significant pallor, icterus or lymphadenopathy.Oral cavity: There are no mucous membrane lesions. NECK: Trachea appears to be central. No masses noted. No JVD or thyromegaly appreciated. RESPIRATORY: Chest is symmetrical. No intercostals muscle retraction or any accessory muscle activation. There is no chest wall tenderness. Breath sounds are heard bilaterally. No rales or rhonchi heard. No evidence of any consolidation. There is no hematoma bleeding at the pacemaker site. BREASTS: Deferred. [] HEART: The heart sounds are normal. No S3 or S4. [No significant murmurs] []. No pericardial rub ABDOMEN: No vessel pulsations or distention. No tenderness. No organomegaly appreciated. Bowel sounds are normally heard. [] : Deferred. [] RECTAL: Deferred. [] LYMPHATIC: No lymphadenopathy noted in the neck. EXTREMITIES: No edema or cyanosis. No clubbing. MUSCULOSKELETAL: No acute joint deformities or swelling SKIN: There are no significant rashes or ecchymosis NEUROPSYCHIATRIC: The patient is alert and oriented x3. Appears to be in a good mood. Has the baseline Parkinson's tremor A&P Assessment and plan (1) Symptomatic bradycardia: Patient status dual-chamber permanent pacemaker plantation. Currently seems to be stable. Further details of the pacer insertion, please refer to the report on 10/19/2021. Patient is given instructions. Advised to continue the antibiotics as prescribed for the next 5 days. Will be seen in the clinic next week by the nurse practitioner for a wound check and pacer check. Status: Acute (2) Intermittent atrial fibrillation: Advised to continuethe current medications including the amiodarone. Status: Acute (3) HTN (hypertension): May continue on the current Status: Acute Qualifiers: Hypertension type: essential hypertension Qualified Code(s): I10 - Essential (primary) hypertension (4) Hyperlipemia: May continue on the current medicines Status: Acute Qualifiers: Hyperlipidemia type: unspecified Qualified Code(s): E78.5 - Hyperlipidemia, unspecified (5) Presence of Watchman left atrial appendage closure device: Status: Acute Attestations Medical Necessity Statement*: Discharge home today Coding Level of Care Code Acute Lay Brother for Chg Fwd History Expanded Problem Focused Exam Expanded Problem Focused Medical Decision Making Moderate Complexity Diagnoses Symptomatic bradycardia R00.1 Intermittent atrial fibrillation I48.0 HTN (hypertension) I10 Hypertension type: essential hypertension Hyperlipemia E78.5 Hyperlipidemia type: unspecified Presence of Watchman left atrial appendage closure device Z95.818
[2021-10-20 14:34] VITALS: BP 116/71; PULSE 67; TEMP 36.3; O2SAT 99
== END 2021-10-20 13:30 | disposition home or self-care (01) ==
LOC: MEDSURG 15:09
PROVIDERS: Admitting Provider Internal Medicine Cardiovascular Disease; PCP Physician Assistant; Visit Provider Internal Medicine Cardiovascular Disease
DX: R00.1 Bradycardia, unspecified (principal); I44.1 Atrioventricular block, second degree; I48.0 Paroxysmal atrial fibrillation; I10 Essential (primary) hypertension; E78.5 Hyperlipidemia, unspecified; Z95.818 Presence of other cardiac implants and grafts
CPT/HCPCS: 33208; 36415; 71045; 93005; 96360; 96361; 97110; 97165; 97535; 99152; 99153; C1769; C1779; C1786; C1898; G0378; J0461; J2250; J3010; J3370; J3490; J7030; J7050; J7799; Q9967

== ENCOUNTER → 2021-10-29 13:06 | Outpatient (BNVA) | payer MEDICARE, OTHER, SELFPAY | PROVIDERS: PCP Physician Assistant; Visit Provider Nurse Practitioner Family | DX: R00.1 Bradycardia, unspecified (principal); Z09 Encounter for follow-up examination after completed treatment for conditions other than malignant neoplasm; Z95.0 Presence of cardiac pacemaker | CPT/HCPCS: 99213; 99214 ==

== ENCOUNTER 2021-11-11 21:56 | Observation (INO) | payer MEDICARE, OTHER, SELFPAY ==
[2021-11-11 22:00] VITALS: BP 75/58; PULSE 121; RESP 17; TEMP 36.4; O2SAT 97; BMI 30.9
--- NOTE | 2021-11-11 22:01 | CTR_ITS ---
PROCEDURE INFORMATION: Exam: CT Head Without Contrast Exam date and time: 11/11/2021 10:30 PM Age: 86 years old Clinical indication: Pain; Headache not specified; Additional info: ALMAGUER TECHNIQUE: Imaging protocol: Computed tomography of the head without contrast. Radiation optimization: All CT scans at this facility use at least one of these dose optimization techniques: automated exposure control; mA and/or kV adjustment per patient size (includes targeted exams where dose is matched to clinical indication); or iterative reconstruction. COMPARISON: CT head wo con* [id number] 10/09/2021 8:20 PM RADIATION DOSE METRICS: Total DLP (mGy-cm): 1226.1 FINDINGS: Brain: Minimal hypodense changes are noted in the bilateral periventricular regions, likely related to chronic microvascular ischemic disease. There is mild brain parenchymal atrophy. No acute intracranial hemorrhage, mass effect or midline shift. Cerebral ventricles: No pathologic ventricular dilatation. Paranasal sinuses: Minimal left maxillary sinus mucosal thickening. No air-fluid level. Mastoid air cells: Visualized mastoid air cells are well aerated. Bones/joints: Unremarkable. No acute fracture. Soft tissues: Unremarkable. CT/CT head wo con* [id number] IMPRESSION: 1. No acute intracranial findings. 2. Sinus findings as above.
--- NOTE | 2021-11-11 22:01 | XRR_ITS ---
PROCEDURE INFORMATION: Exam: XR Chest Exam date and time: 11/11/2021 10:07 PM Age: 86 years old Clinical indication: Pain; Angina pectoris; Additional info: Cp TECHNIQUE: Imaging protocol: Radiologic exam of the chest. Views: 1 view. COMPARISON: CR XR chest 1V portable [id number] 10/19/2021 1:42 PM FINDINGS: Tubes, catheters and devices: Left chest wall dual chamber cardiac device is again noted. Left-sided loop recorder is is again noted. Lungs: The lung bases are suboptimally assessed due to technique however the upper lungs are clear of focal consolidation. Pleural spaces: Unremarkable. No pleural effusion. No pneumothorax. Heart/Mediastinum: Cardiac silhouette appears normal in size. No obvious vascular congestion. Bones/joints: No acute osseous findings. Osteopenia. Chronic fracture deformity of left proximal humerus. Lower anterior and right posterior transpedicular cervical spine fix fusion hardware. Other findings: Single view was submitted. XR/XR chest 1V portable [id number] IMPRESSION: No acute findings.
--- NOTE | 2021-11-11 22:01 | ECG_ITS ---
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 Measurements Intervals [place] Rate: 133 P: NV: QRS: -8 QRSD: 102 T: 0 QT: 187 QTc: 279 Interpretive Statements ATRIAL FIBRILLATION WITH RAPID VENTRICULAR RESPONSE LOW QRS VOLTAGE IN PRECORDIAL LEADS [QRS DEFLECTION < 1.0 mV IN CHEST LEADS] NONSPECIFIC ST & T-WAVE ABNORMALITY ABNORMAL RHYTHM ECG Compared to ECG 10/20/2021 06:08:17 Low QRS voltage now present T-wave abnormality now present Sinus rhythm no longer present First degree AV block no longer present Myocardial infarct finding no longer present Electronically Signed On 11-12-2021 8:41:09 CDT by Javad Gavin M.D. [id number] f
[2021-11-11 22:06] VITALS: BP 99/70; PULSE 114; RESP 20
--- NOTE | 2021-11-11 22:08 | W.ED.CHESTPA ---
HPI - Chest Pain General: Chief Complaint: Chest Pain Stated Complaint: A FIB Time Seen by Provider: 11/11/21 21:57 Source: patient and EMS Mode of arrival: EMS Limitations: no limitations History of Present Illness: 86-year-old female who states that today she been having a headache along with some chest pains. States she been feeling weak and that her blood pressures been running low at home in the 80s. She had a pacemaker placed 2 weeks ago but states she is also been having some increased heart rate with runs of A. fib in the 130s patient was in A. fib with RVR in the 130s with EMS as well. States her headache is posterior and rates it a 6 out of 10. Denies any vomiting states her chest pain currently is mild in nature. She denies any worsening improving factors. Patient was given aspirin in route. Associated symptoms: Reports palpitations; Deny abdominal pain, dyspnea, fever(s), nausea or vomiting Review of Systems Const: Denies: fever(s), chills, body aches or change in appetite Eyes: Denies: blurry vision or eye discomfort ENMT: Denies: throat pain or dental pain Card: Reports: chest pain, palpitations and irregular heart rhythm Resp: Denies: dyspnea GI: Denies: abdominal pain, nausea, vomiting or diarrhea : Denies: dysuria Musc: Denies: neck pain or back pain Skin/Breast: Denies: rash Neuro: Reports: headache(s) Psych: Denies: depression Daniel/Lymph: Denies: easy bruising All/Imm: Denies: urticaria PFS ED PFSH: Medical History Arthritis Atrial fibrillation Has watchman device in the left atrial appendage, no anticoagulation, sinus rhythm this hospital stay Chest pain History of 2019 novel coronavirus disease (COVID-19) (~03/2020) -has been admitted to the hospital twice for COVID-19, initially at [place] (03/12-03/17) and at this facility (04/01-04/04) HTN (hypertension) Hx of deep venous thrombosis Hx of pulmonary embolus Hx of vaginal delivery Hyperlipemia Hypothyroid Morbid obesity with BMI of 40.0-44.9, adult Pacemaker Parkinson disease Presence of Watchman left atrial appendage closure device Rheumatoid arthritis Surgical History History of shoulder surgery Diagnostic arthroscopy of right shoulder with minimal debridement, open distal clavicle resection, open acromioplasty, open rotator cuff repair augmented with acellular dermal patch, open biceps tenodesis. DOS: 06/24/[address] Rain History of tonsillectomy and adenoidectomy Hx of Achilles tendon repair Hx of appendectomy Hx of arthroscopy of shoulder Hx of cholecystectomy Hx of heart surgery Hx of hysterectomy Hx of laminectomy Hx of total knee replacement Hx of tubal ligation Family History Brother CAD (coronary artery disease) pacemaker Chronic kidney disease (CKD) Brother CAD (coronary artery disease) Sister CAD (coronary artery disease) ICD Family/Other Cancer Dementia Daughter Diabetes Mother Dementia Denies family history of Clotting disorder Suicide Anesthesia complication Bleeding disorder Lung disease Stroke Social History Smoking and tobacco status: never smoked Alcohol intake: never Housing: House Physical Exam Const: COMMON NORMALS: patient oriented x3 GENERAL APPEARANCE: ill appearing HENMT: COMMON NORMALS: normocephalic and atraumatic HEAD & SCALP: normocephalic and atraumatic Eye: COMMON NORMALS: Equal, round and reactive pupils present and EOMs intact bilaterally PUPIL: Yes Equal, round and reactive pupils present Neck/C-Spine: COMMON NORMALS: full ROM and supple Chest: COMMONS NORMALS: normal inspection of the chest and normal palpation of entire chest wall Resp: COMMON NORMALS: normal respiratory effort, No retractions, No use of accessory muscles and clear to auscultation bilaterally AUSCULTATION: clear to auscultation bilaterally Cardio: COMMON NORMALS: No murmurs present (Cardio) RATE: tachycardic RHYTHM: abnormal rhythm irregularly irregular GI: COMMON NORMALS: Normal to inspection, nondistended, normoactive bowel sounds present, Soft to palpation, non-tender and no masses PALPATION: Yes Soft to palpation Extremity: COMMON NORMALS: normal to inspection and full ROM Neuro: COMMON NORMALS: patient oriented x3, moves all extremities and no focal motor deficits Psych: COMMON NORMALS: mental status grossly normal, Normal thought process present and cooperative THOUGHT PROCESS: Normal thought process present Skin: COMMON NORMALS: no rashes or lesions noted and no wounds GENERAL SKIN EXAM: no rashes or lesions noted Course Vital Signs: Vital signs: Vital Signs Temperature 97.6 F 11/11/21 22:00 Pulse Rate 70 11/12/21 00:21 Respiratory Rate 16 11/12/21 00:21 Blood Pressure 109/55 11/12/21 00:21 Pulse Oximetry 94 11/12/21 00:21 MDM - Chest Pain Medical Decision Making Patient presents for chest having headache that is since resolved patient's head CT along with blood work here is normal. She was in A. fib here and converted while she was here patient was initially hypotensive as well but is now normotensive I did speak to hospitalist and will admit for observation. Lab Data : 11/11/21 22:00 11/11/21 22:00 Radiology Impressions Chest X-Ray 11/11/21 22:01 IMPRESSION: No acute findings. Head CT 11/11/21 22:01 IMPRESSION: 1. No acute intracranial findings. 2. Sinus findings as above. Laboratory Results WBC 6.3 10^3/uL (4.0-10.0) 11/11/21 22:00 RBC 3.62 10^6/uL (4.1-5.3) L 11/11/21 22:00 Hgb 13.2 g/dL (11.5-15.3) 11/11/21 22:00 Hct 38.7 % (37.0-47.0) 11/11/21 22:00 MCV 106.9 fl (81-99) H 11/11/21 22:00 MCH 36.5 pg (28.0-34.0) H 11/11/21 22:00 MCHC 34.1 g/dL (30.0-36.0) 11/11/21 22:00 RDW 12.4 % (12.1-15.1) 11/11/21 22:00 Plt Count 161 10^3/cmm (130-400) 11/11/21 22:00 MPV 12.1 fL (7.4-10.4) H 11/11/21 22:00 Neut % (Auto) 50.9 % 11/11/21 22:00 Lymph % (Auto) 36.0 % 11/11/21 22:00 [place] % (Auto) 8.3 % 11/11/21 22:00 Eos % (Auto) 3.5 % 11/11/21 22:00 Baso % (Auto) 1.1 % 11/11/21 22:00 Neut # (Auto) 3.20 10^3/uL (1.8-7.7) 11/11/21 22:00 Lymph # (Auto) 2.3 10^3/uL (0.8-4.8) 11/11/21 22:00 [place] # (Auto) 0.5 10^3/uL (0.2-0.9) 11/11/21 22:00 Eos # (Auto) 0.2 10^3/uL (0.0-0.8) 11/11/21 22:00 Baso # (Auto) 0.1 10^3/uL (0.0-0.1) 11/11/21 22:00 Nucleated RBC % (auto) 0 % 11/11/21 22:00 Nucleated RBCs # 0.0 /100WBC 11/11/21 22:00 Sodium 136 mmol/L (136-145) 11/11/21 22:00 Potassium 4.0 mmol/L (3.5-5.1) 11/11/21 22:00 Chloride 96 mmol/L (98-107) L 11/11/21 22:00 Carbon Dioxide 27 mmol/L (22-29) 11/11/21 22:00 Anion Gap 17.0 (5-19) 11/11/21 22:00 BUN 22 mg/dL (8-23) 11/11/21 22:00 Creatinine 1.0 mg/dL (0.5-0.9) H 11/11/21 22:00 GFR Calculation Not Reportable 11/11/21 22:00 Glucose 108 mg/dL (65-115) 11/11/21 22:00 Calculated Osmolality 286 mOsm/kg (285-295) 11/11/21 22:00 Lactic Acid 2.5 mmol/L (0.5-2.2) H 11/11/21 23:00 Calcium 8.7 mg/dL (8.5-10.5) 11/11/21 22:00 Total Bilirubin 0.3 mg/dL (0.15-1.2) 11/11/21 22:00 AST 32 U/L (0-32) 11/11/21 22:00 ALT < 5 U/L (0-33) 11/11/21 22:00 Alkaline Phosphatase 95 IU/L (35-105) 11/11/21 22:00 Troponin T Baseline 14 ng/L (0-10) H 11/11/21 22:00 Troponin T 120 Minute 12.09 ng/L (0-10) H 11/11/21 23:30 Delta Troponin T -1.91 ABS# (0-10) L 11/11/21 23:30 Total Protein 6.9 g/dL (6.6-8.7) 11/11/21 22:00 Albumin 4.3 g/dL (3.5-5.2) 11/11/21 22:00 Globulin 2.6 g/dL (1.3-4.6) 11/11/21 22:00 TSH 5.47 uIU/mL (0.27-4.20) H 11/11/21 22:00 EKG Data EKG 1: I personally reviewed and interpreted this EKG as follows: EKG interpretation date: 11/11/21 EKG interpretation time: 22:06 Interpretation: afib with rvr hr [address] or t wave abnormalities qrs 102 qtc 265 EKG 2: I personally reviewed and interpreted this EKG as follows: EKG interpretation date: 11/11/21 EKG interpretation time: 23:44 Interpretation: nsr hr [address] or t wave abnormaliities qrs 105 qtc 420 Discharge Plan Discharge Patient Disposition: Admitted As Inpatient Admit Provider: Merry Engel Clinical Impression: Chest pain, AF (paroxysmal atrial fibrillation), Hypotension Condition: Stable Coding Level of Care Code ED Guard Entrance Registrar for Chg Fwd Exam Comprehensive
[2021-11-11] MEDS: acetaminophen 325 mg Tablet 650 MG PO (22:15)
[2021-11-11] MEDS: sodium chloride 0.9% 1,000 ML 999 ML IV (22:17)
[2021-11-11 22:21] LABS: Basophils # 0.1 10^3/uL (0.0-0.1); Basophils % 1.1 %; Eosinophils # 0.2 10^3/uL (0.0-0.8); Eosinophils % 3.5 %; Hematocrit 38.7 % (37.0-47.0); Hemoglobin 13.2 g/dL (11.5-15.3); Lymphocytes # 2.3 10^3/uL (0.8-4.8); Mean Corpuscular HGB Conc 34.1 g/dL (30.0-36.0); Mean Corpuscular Hemoglobin 36.5 pg (28.0-34.0); Mean Corpuscular Volume 106.9 fl (81-99); Mean Platelet Volume 12.1 fL (7.4-10.4); Monocytes # 0.5 10^3/uL (0.2-0.9); Monocytes % 8.3 %; Neutrophils % 50.9 %; Nucleated Red Blood Cells % 0 %; Platelet Count 161 10^3/cmm (130-400); Red Blood Count 3.62 10^6/uL (4.1-5.3); Red Cell Distribution Width 12.4 % (12.1-15.1); White Blood Count 6.3 10^3/uL (4.0-10.0)
[2021-11-11 22:43] LABS: Troponin(5th) Baseline 14 ng/L (0-10)
[2021-11-11 22:50] LABS: Alanine Aminotransferase < 5 U/L (0-33); Albumin Level 4.3 g/dL (3.5-5.2); Alkaline Phosphatase 95 IU/L (35-105); Aspartate Amino Transferase 32 U/L (0-32); Blood Urea Nitrogen 22 mg/dL (8-23); Calcium 8.7 mg/dL (8.5-10.5); Carbon Dioxide 27 mmol/L (22-29); Chloride 96 mmol/L (98-107); Globulin 2.6 g/dL (1.3-4.6); Glucose 108 mg/dL (65-115); Osmolality Calculated 286 mOsm/kg (285-295); Sodium 136 mmol/L (136-145); Thyroid Stimulating Hormone 5.47 uIU/mL (0.27-4.20); Total Bilirubin 0.3 mg/dL (0.15-1.2); Total Protein 6.9 g/dL (6.6-8.7)
[2021-11-11 23:20] LABS: Lactic Sepsis W/Reflex 2.5 mmol/L (0.5-2.2)
[2021-11-11 23:36] VITALS: BP 109/54; PULSE 70; RESP 14; O2SAT 96
[2021-11-12] VITALS (13 sets, daily range): BP systolic 87–130; BP diastolic 47–68; PULSE 60–72; RESP 12–19; TEMP 36.3–36.8; O2SAT 94–100; BMI 31.6
--- NOTE | 2021-11-12 00:01 | ECG_ITS ---
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 Measurements Intervals [place] Rate: 61 P: 15 RI: 249 QRS: -8 QRSD: 106 T: 11 QT: 388 QTc: 393 Interpretive Statements ELECTRONIC ATRIAL PACEMAKER LOW QRS VOLTAGE IN PRECORDIAL LEADS [QRS DEFLECTION < 1.0 mV IN CHEST LEADS] NONSPECIFIC T-WAVE ABNORMALITY ABNORMAL RHYTHM ECG Compared to ECG 11/11/2021 22:06:57 T-wave abnormality still present Electronically Signed On 11-12-2021 8:49:52 CDT by Javad Gavin M.D. [email or web address]/[id number]
[2021-11-12 00:23] LABS: Troponin 5 2HR 12.09 ng/L (0-10)
[2021-11-12 00:24] LABS: Troponin 5 2HR Delta -1.91 ABS# (0-10)
[2021-11-12 00:49] LABS: Reflex Lactate Order REFLEX LACTIC ORDERD
--- NOTE | 2021-11-12 03:33 | USR_ITS ---
PROCEDURE INFORMATION: Exam: US Duplex Lower Extremity Veins, Bilateral Exam date and time: 11/12/2021 3:53 AM Age: 86 years old Clinical indication: Pain; Leg, lower; Bilateral; Prior surgery; Additional info: Evaluate for dvt TECHNIQUE: Imaging protocol: Real-time Duplex ultrasound of the bilateral extremities with 2-D cohen scale, color Doppler flow and spectral waveform analysis with image documentation. Complete exam focused on the bilateral lower extremity veins. COMPARISON: CT abdomen pelvis wo con [id number] 11/09/2019 11:52 AM FINDINGS: Right deep veins: Unremarkable. The common femoral, femoral, proximal profunda femoral and popliteal veins are patent without thrombus. Normal Doppler waveforms. Normal compressibility and/or augmentation response. Right superficial veins: Saphenofemoral junction is patent without thrombus. Left deep veins: Unremarkable. The common femoral, femoral, proximal profunda femoral and popliteal veins are patent without thrombus. Normal Doppler waveforms. Normal compressibility and/or augmentation response. Left superficial veins: Saphenofemoral junction is patent without thrombus. Soft tissues: Unremarkable. US/CV venous duplex [facility] [id number] IMPRESSION: No evidence of deep vein thrombosis.
--- NOTE | 2021-11-12 03:36 | P.HP_ITS ---
Providers/Chief Complaint Admitting Physician: Merry Engel MD Primary Care Provider: Cheyenne Yang Chief Complaint: A FIB History of Present Illness Kassie Robles is a 86 year old female with a past medical history of atrial fibrillation, sick sinus syndrome for which she had recently placed pacemaker on October 19, 2021. States that she was doing very well after her pacemaker implantation until last evening when she had an episode of palpitations. States that her heart was racing, she felt lightheaded during the event. Denies any shortness of breath. She recently changed her dose of amiodarone down to 200 mg p.o. daily from twice daily on Friday(2 days ago). Denies any chest pain. No loss of consciousness. Upon arrival at the ER her heart rate was noted to be A. fib RVR 130 bpm. She did receive multiple tablets of nitro in route to the hospital, upon presentation systolic blood pressure was in the 90s for which she received a 1 L IV fluid bolus. She converted to sinus rhythm in the ED. At the time of my assessment her heart rate is varying between 60 to 70 bpm, rhythm varying between normal sinus and paced. She is not on anticoagulation, has a watchman left atrial appendage device. Currently states her symptoms have resolved except for a persisting headache. CT head is negative. Review of Systems General: Reports: 10 or more systems reviewed and unremarkable except in HPI and below Const: Denies: fever(s), chills or body aches Eyes: Denies: change in vision, blurry vision or photophobia ENMT: Reports: hoarseness; Denies: throat pain, enlarged tonsils, odynophagia or nasal congestion Card: Denies: chest pain, palpitations, irregular heart rhythm, edema, swelling of feet/ankles, lightheadedness, pre-syncope, dyspnea on exertion or orthopnea Resp: Denies: dyspnea, productive cough, non-productive cough, wheezing, stridor, pain on inspiration, change in phlegm color, hemoptysis or chest congestion GI: Denies: abdominal pain, nausea, vomiting, hematemesis, coffee ground emes is, dysphagia, heartburn, diarrhea, constipation, GI cramping, change in stool character, hematochezia or melena : Denies: flank pain, difficulty voiding, dysuria, urinary frequency, urinary urgency, urinary hesitancy or hematuria Musc: Denies: neck pain, back pain, extremity pain, joint swelling, joint warmth or deformity Neuro: Denies: headache(s), numbness in extremities, weakness in extremities, sensory changes, difficulty walking, frequent falls, dizziness, vertigo, behavioral changes, Slurred speech present or seizure-like activity Psych: Denies: anxiety, depression, suicidal ideation or homicidal ideation Endo: Denies: polyuria, polydipsia, tired all the time, cold intolerance or hot flashes Daniel/Lymph: Denies: easy bruising or easy bleeding Medications/Allergies Home Medications Medication Instructions Recorded Confirmed Last Taken Type atorvastatin 80 mg tablet 80 mg PO DAILY 01/12/20 11/01/21 10/18/21 History carbidopa 25 mg-levodopa 100 mg 1.5 tab PO TID 01/12/20 11/01/21 10/09/21 History disintegrating tablet cetirizine 10 mg capsule (Zyrtec) 10 mg PO DAILY PRN 01/12/20 11/12/21 01/13/20 05:00 History donepezil 10 mg tablet 10 mg PO DAILY 01/12/20 11/01/21 10/09/21 History furosemide 40 mg tablet (Lasix) 60 mg PO DAILY 01/12/20 11/01/21 10/09/21 History levothyroxine 50 mcg tablet 50 mcg PO DAILY 01/12/20 11/01/21 10/19/21 History (Synthroid) 0600 loperamide 2 mg capsule (Imodium 2 mg PO QID PRN 01/12/20 11/12/21 10/09/21 History A-D) memantine 28 mg capsule 28 mg PO DAILY 01/12/20 11/01/21 10/09/21 History sprinkle,extended release 24hr nitroglycerin 0.4 mg sublingual 0.4 mg SUBLINGUAL Q5M PRN 01/12/20 11/12/21 Unknown History tablet (Nitrostat) nystatin 100,000 unit/gram topical 1 applic TOPICAL BID 01/12/20 11/12/21 01/13/20 05:00 History cream primidone 250 mg tablet 250 mg PO BID 01/12/20 11/01/21 10/09/21 History sertraline 100 mg tablet (Zoloft) 100 mg PO DAILY 01/12/20 11/01/21 10/09/21 History tizanidine 4 mg tablet 4 mg PO BID PRN 01/12/20 11/12/21 01/12/20 History omeprazole 40 mg capsule,delayed 40 mg PO DAILY 03/12/20 11/01/21 10/09/21 History release tramadol 50 mg tablet (Ultram) 50 mg PO TID PRN 03/12/20 11/01/21 10/09/21 History aspirin 81 mg tablet,delayed 81 mg PO DAILY 07/28/20 11/01/21 11/11/21 09:00 History release (Adult Aspirin Regimen) methotrexate 2.5 mg/mL oral 2.5 mg PO .weekly ml 07/28/20 11/01/21 Unknown History solution famotidine 20 mg tablet 20 mg PO DAILY 10/09/21 11/01/21 Unknown History amiodarone 200 mg tablet See Rx Instructions .ROUTE 10/16/21 11/01/21 Unknown Rx .COMPLEX 30 Days #60 tab metoprolol tartrate 25 mg tablet 25 mg PO BID@0900,2100 30 Days #60 10/16/21 11/01/21 Unknown Rx tab potassium chloride 10 mEq 10 meq PO DAILY 30 Days #30 tab 10/16/21 11/01/21 Unknown Rx tablet,extended release folic acid 1 mg tablet 1 mg PO DAILY tab 10/18/21 11/01/21 Unknown History amiodarone 200 mg tablet 200 mg PO DAILY 11/12/21 11/12/21 11/11/21 History 0900 atorvastatin 80 mg tablet 80 mg PO BEDTIME 11/12/21 11/12/21 11/10/21 21:00 History carbidopa 25 mg-levodopa 100 mg 1.5 tab PO 3XD 11/12/21 11/12/21 11/11/21 17:00 History tablet donepezil 10 mg tablet 10 mg PO BEDTIME 11/12/21 11/12/21 11/11/21 21:00 History famotidine 20 mg tablet 20 mg PO DAILY 11/12/21 11/12/21 11/11/21 09:00 History folic acid 1 mg tablet 1 mg PO DAILY 11/12/21 11/12/21 11/11/21 09:00 History furosemide 40 mg tablet 60 mg PO DAILY 11/12/21 11/12/21 11/11/21 09:00 History levothyroxine 50 mcg tablet 50 mcg PO DAILY 11/12/21 11/12/21 11/11/21 06:00 History memantine 28 mg capsule 28 mg PO DAILY 11/12/21 11/12/21 11/11/21 09:00 History sprinkle,extended release 24hr methotrexate sodium 2.5 mg tablet 2.5 mg PO DIRECTED 11/12/21 11/12/21 11/10/21 09:00 History metoprolol tartrate 100 mg tablet mg 11/12/21 11/12/21 Unknown History metoprolol tartrate 25 mg tablet 25 mg PO 2XD 11/12/21 11/12/21 11/11/21 09:00 History omeprazole 40 mg capsule,delayed 40 mg PO DAILY 11/12/21 11/12/21 11/11/21 09:00 History release potassium chloride 10 mEq 10 meq PO DAILY 11/12/21 11/12/21 11/11/21 09:00 History capsule,extended release primidone 250 mg tablet 250 mg PO 2XD 11/12/21 11/12/21 11/11/21 09:00 History sertraline 100 mg tablet 100 mg PO DAILY 11/12/21 11/12/21 11/11/21 09:00 History tramadol 50 mg tablet 50 mg PO 3XD PRN 11/12/21 11/12/21 Unknown History Allergies Allergy/AdvReac Type Severity Reaction Status Date / Time codeine Allergy Unknown ALGY-Hives Verified 11/01/21 10:07 morphine Allergy Unknown ALGY-Rash Verified 11/01/21 10:07 Penicillins Allergy Unknown ALGY-Rash Verified 11/01/21 10:07 PFSH Acute PFSH: Medical History Arthritis Atrial fibrillation Has watchman device in the left atrial appendage, no anticoagulation, sinus rhythm this hospital stay Chest pain History of 2019 novel coronavirus disease (COVID-19) (~03/2020) -has been admitted to the hospital twice for COVID-19, initially at [place] (03/12-03/17) and at this facility (04/01-04/04) HTN (hypertension) Hx of deep venous thrombosis Hx of pulmonary embolus Hx of vaginal delivery Hyperlipemia Hypothyroid Morbid obesity with BMI of 40.0-44.9, adult Pacemaker Parkinson disease Presence of Watchman left atrial appendage closure device Rheumatoid arthritis Surgical History History of shoulder surgery Diagnostic arthroscopy of right shoulder with minimal debridement, open distal clavicle resection, open acromioplasty, open rotator cuff repair augmented with acellular dermal patch, open biceps tenodesis. DOS: 06/24/[address] Rain History of tonsillectomy and adenoidectomy Hx of Achilles tendon repair Hx of appendectomy Hx of arthroscopy of shoulder Hx of cholecystectomy Hx of heart surgery Hx of hysterectomy Hx of laminectomy Hx of total knee replacement Hx of tubal ligation Family History Brother CAD (coronary artery disease) pacemaker Chronic kidney disease (CKD) Brother CAD (coronary artery disease) Sister CAD (coronary artery disease) ICD Family/Other Cancer Dementia Daughter Diabetes Mother Dementia Denies family history of Clotting disorder Suicide Anesthesia complication Bleeding disorder Lung disease Stroke Social History Smoking and tobacco status: never smoked Alcohol intake: never Housing: House Vitals/I&O/Wt Last Vital Signs Temp 97.6 F 11/11/21 22:00 Pulse 68 11/12/21 00:50 Resp 19 H 11/12/21 00:50 BP 122/60 11/12/21 00:50 Pulse Ox 97 11/12/21 00:50 11/11/21 11/11/21 11/12/21 14:59 22:59 06:59 Intake Total 1000 / 1000 Balance 1000 / 1000 Weight last 48 hrs Weight 91.739 kg Weight 89.555 kg Physical Exam Narrative: General: No acute distress, AO x3, coarse Parkinson's tremors HEENT: PERRLA, pupils bilaterally equal and reactive, pallors not present Chest: Normal vesicular breath sounds, no added sounds, equal good air entry bilaterally CVS: S1-S2 regular, no murmurs, no tachycardia, no gallops, no rubs Abdomen: Soft, nontender, no organomegaly, bowel sounds present Neuro: No focal deficits, no facial deformity, AO x3, power 5/5 in all limbs Extremities no edema clubbing or cyanosis however patient's ankles appear asymmetric. Right ankle is slightly more swollen than the other 1. She reports tenderness on palpation. Data : 11/11/21 22:00 11/12/21 03:40 Other Labs: Radiology Impressions Chest X-Ray 11/11/21 22:01 IMPRESSION: No acute findings. Head CT 11/11/21 22:01 IMPRESSION: 1. No acute intracranial findings. 2. Sinus findings as above. Venous Duplex 11/12/21 03:33 IMPRESSION: No evidence of deep vein thrombosis. Laboratory Results WBC 6.3 10^3/uL (4.0-10.0) 11/11/21 22:00 RBC 3.62 10^6/uL (4.1-5.3) L 11/11/21 22:00 Hgb 13.2 g/dL (11.5-15.3) 11/11/21 22:00 Hct 38.7 % (37.0-47.0) 11/11/21 22:00 MCV 106.9 fl (81-99) H 11/11/21 22:00 MCH 36.5 pg (28.0-34.0) H 11/11/21 22:00 MCHC 34.1 g/dL (30.0-36.0) 11/11/21 22:00 RDW 12.4 % (12.1-15.1) 11/11/21 22:00 Plt Count 161 10^3/cmm (130-400) 11/11/21 22:00 MPV 12.1 fL (7.4-10.4) H 11/11/21 22:00 Neut % (Auto) 50.9 % 11/11/21 22:00 Lymph % (Auto) 36.0 % 11/11/21 22:00 [place] % (Auto) 8.3 % 11/11/21 22:00 Eos % (Auto) 3.5 % 11/11/21 22:00 Baso % (Auto) 1.1 % 11/11/21 22:00 Neut # (Auto) 3.20 10^3/uL (1.8-7.7) 11/11/21 22:00 Lymph # (Auto) 2.3 10^3/uL (0.8-4.8) 11/11/21 22:00 [place] # (Auto) 0.5 10^3/uL (0.2-0.9) 11/11/21 22:00 Eos # (Auto) 0.2 10^3/uL (0.0-0.8) 11/11/21 22:00 Baso # (Auto) 0.1 10^3/uL (0.0-0.1) 11/11/21 22:00 Nucleated RBC % (auto) 0 % 11/11/21 22:00 Nucleated RBCs # 0.0 /100WBC 11/11/21 22:00 Sodium 139 mmol/L (136-145) 11/12/21 03:40 Potassium 4.1 mmol/L (3.5-5.1) 11/12/21 03:40 Chloride 101 mmol/L (98-107) 11/12/21 03:40 Carbon Dioxide 31 mmol/L (22-29) H 11/12/21 03:40 Anion Gap 11.1 (5-19) 11/12/21 03:40 BUN 22 mg/dL (8-23) 11/12/21 03:40 Creatinine 1.0 mg/dL (0.5-0.9) H 11/12/21 03:40 GFR Calculation Not Reportable 11/12/21 03:40 Glucose 114 mg/dL (65-115) 11/12/21 03:40 Calculated Osmolality 292 mOsm/kg (285-295) 11/12/21 03:40 Lactic Acid 2.5 mmol/L (0.5-2.2) H 11/11/21 23:00 Lactic Acid (Sepsis) 0.9 mmol/L (0.5-2.2) 11/12/21 03:40 Calcium 8.1 mg/dL (8.5-10.5) L 11/12/21 03:40 Total Bilirubin 0.2 mg/dL (0.15-1.2) 11/12/21 03:40 AST 27 U/L (0-32) 11/12/21 03:40 ALT < 5 U/L (0-33) 11/12/21 03:40 Alkaline Phosphatase 77 IU/L (35-105) 11/12/21 03:40 Troponin T Baseline 14 ng/L (0-10) H 11/11/21 22:00 Troponin T 120 Minute 12.09 ng/L (0-10) H 11/11/21 23:30 Delta Troponin T -1.91 ABS# (0-10) L 11/11/21 23:30 Troponin T Hi Sens 6Hr 14.11 ng/L (0-10) H 11/12/21 03:40 Troponin T Hi Sens 6Hr Delta 0.11 ng/L (0-12) 11/12/21 03:40 Total Protein 5.7 g/dL (6.6-8.7) L 11/12/21 03:40 Albumin 3.4 g/dL (3.5-5.2) L 11/12/21 03:40 Globulin 2.3 g/dL (1.3-4.6) 11/12/21 03:40 TSH 5.47 uIU/mL (0.27-4.20) H 11/11/21 22:00 A&P Assessment and plan (1) Intermittent atrial fibrillation: Patient presenting today with sudden onset palpitations this evening associated with vague chest discomfort, lightheadedness dizziness and transient hypotension. Upon presentation patient was in A. fib with RVR with heart rate in the 130s, converted into sinus rhythm while in the ER. Currently heart rate is varying between 60 to 70 bpm, rhythm is between sinus to paced rhythm. Will monitor patient on telemetry for any recurrence. Pacemaker interrogation to correlate rhythm with the events of today. Noted elevated TSH at 5.47, check free T3 and T4. Continue metoprolol 25 mg p.o. twice daily, monitor BP Mildly elevated lactate, may be related to transient hypotension, will repeat in a.m. Currently no signs or symptoms suggestive of an infective process underlying, less likely related to sepsis. Asymmetric leg swelling around the ankles along with reported cough pain; patient has a past history of DVT and PE, will check lower extremity Doppler. Status: Acute (2) Chest pain: Status: Acute Attestations Medical Necessity Statement*: Anticipate less than 2 midnight stay for above defined care. Coding Level of Care Code Acute Instrumental Musician for [facility] Fwd Diagnoses Intermittent atrial fibrillation I48.0 Chest pain R07.9
--- NOTE | 2021-11-12 04:01 | ECG_ITS ---
[facility] Test Date: 2021-11-11 Pat Name: Kassie Robles Department: Room: 277 Gender: Female Rear Admiral: : 1935 Requested By: Renard Huitron Order Number: [id number] Marielos MD: Javad Gavin M.D. Measurements Intervals [place] Rate: 69 P: 88 MT: 257 QRS: -15 QRSD: 105 T: 30 QT: 401 QTc: 432 Interpretive Statements SINUS RHYTHM WITH FIRST DEGREE AV BLOCK Compared to ECG 11/11/2021 22:06:57 First degree AV block now present Atrial fibrillation no longer present T-wave abnormality no longer present Electronically Signed On 11-12-2021 8:49:23 CDT by Javad Gavin M.D. [id number]
[2021-11-12 05:07] LABS: Lactic Acid level (Lactate) 0.9 mmol/L (0.5-2.2)
[2021-11-12 05:16] LABS: Alanine Aminotransferase < 5 U/L (0-33); Albumin Level 3.4 g/dL (3.5-5.2); Alkaline Phosphatase 77 IU/L (35-105); Anion Gap 11.1 (5-19); Aspartate Amino Transferase 27 U/L (0-32); Blood Urea Nitrogen 22 mg/dL (8-23); Calcium 8.1 mg/dL (8.5-10.5); Carbon Dioxide 31 mmol/L (22-29); Chloride 101 mmol/L (98-107); Globulin 2.3 g/dL (1.3-4.6); Glucose 114 mg/dL (65-115); Osmolality Calculated 292 mOsm/kg (285-295); Potassium 4.1 mmol/L (3.5-5.1); Sodium 139 mmol/L (136-145); Total Bilirubin 0.2 mg/dL (0.15-1.2); Total Protein 5.7 g/dL (6.6-8.7); Troponin 5 6HR 14.11 ng/L (0-10)
[2021-11-12 05:17] LABS: Troponin 5 6HR Delta 0.11 ng/L (0-12)
--- NOTE | 2021-11-12 06:06 | PC.NURSE ---
Spoke with regarding patients BP starting to drop back down. Patient had received bolus in ED for low BPs. Bp now is 91/[address] wanted to start any IV fluids. No new orders, Dr Engel just wants us to monitor for now.
[2021-11-12 07:24] LABS: Free T4 Free Thyroxine 1.27 ng/dL (0.82-1.77); T3 Free 1.9 PG/ML (2.0-4.4)
[2021-11-12] MEDS: sertraline 100 mg Tablet PO (08:35)
[2021-11-12] MEDS: FUROsemide 40 mg Tablet 60 MG PO (08:38)
[2021-11-12] MEDS: levothyroxine 50 mcg Tablet PO (08:38)
[2021-11-12] MEDS: aspirin 81 mg EC Tablet PO (08:38)
[2021-11-12] MEDS: famotidine 20 mg Tablet PO (08:38)
[2021-11-12] MEDS: sodium chloride 0.9% 250 ML IV (10:25)
--- NOTE | 2021-11-12 10:45 | PC.CHAP ---
Pastoral Care Encounter/Spiritual Assessment Type of Contact [] Declined study abroad advisor visit [] Patient/Family/Request visit [] Outpatient visit [] Follow-up visit [] Physician referral [] Code/Alert [x] Routine visit [] Staff referral [] Actively dying [] Patient sleeping [] Family support [] [] Out of room [] Palliative care [] [] Receiving care in room [] Pre-surgical visit [] Trauma [] Long length of stay [] ICU visit [] Other: Relational/Emotional Strength [x] Patient feels connected with others/family/visitors/staff [] Distress [] Loneliness/isolation [] Abandonment Spirituality of Patient [x] Person of Kalee [] Attends Sabianism of their Kalee [x] Believes in Prayer [] Reads Bible or Jainism materials [] There are Spiritual issues to be addressed Applications Intern Interventions x] Prayer [] Active listening [] Non-anxious presence [] Spiritual/emotional support [] Crisis/trauma care [] Spiritual counseling [] Bereavement support [] Provided bereavement packet [] Provided Bible/devotional materials [] Provided toy/stuffed animal, coloring book to patient or family member [] Provided Communion [] Anointing/[place] [] Salvation [x] Completed spiritual assessment [] Other: Impact on Illness or Injury [] Angry [] Fearful [] Anxious [] Often cries [] Exhaustion [] Unable to work [] Unable to attend yazidism [] Unable to walk/stand [] Unable to read [] Unable to drive [] Unable to eat/drink [] Unable to sleep [] Unable to be with family [] Patient intubated [] Other: Summary Time spent with patient 10 min
--- NOTE | 2021-11-12 10:56 | PC.NURSE ---
verbal instructions received during bedside rounding to change amioderone administration time to patient normal time of administration of 2100
[2021-11-12] MEDS: acetaminophen 325 mg Tablet PO ×2 (11:00→15:02)
[2021-11-12 11:58] LABS: Add Urine Microscopic? NO; Charge for UA Resulting for Rev
[2021-11-12 12:02] LABS: Urine Appearance Clear (CLEAR); Urine Color Colorless (Yellow); pH Urine 6 (5-7)
[2021-11-12 12:03] LABS: Bilirubin Urine Neg (Negative); Blood Urine Neg (Negative); Glucose Urine UA Norm (Normal); Ketones Urine Negative (Negative); Leukocyte Esterase Urine Negative (Negative); Nitrate Urine Negative (Negative); Protein Urine Neg (Negative); Urobilinogen Urine Norm (Negative)
--- NOTE | 2021-11-12 13:05 | PM.MISC ---
Miscellaneous Note Note: Heart rate and blood pressure low to Discontinue metoprolol Decrease the dose of amiodarone No active chest pain No shortness of breath Pacemaker interrogation Patient was getting out of bathroom after taking a shower No active complaint She is not dizzy at this point I requested IV fluid hydration and bolus I also spoke with her daughter Patient is laying supine No active dizziness She was able to walk out of the bathroom to her bed Resting tremors No active chest pain or shortness of breath Nonfocal neuro exam No signs of stroke Abdomen soft Very pleasant and cooperative during my evaluation Assessment and plan Discontinue metoprolol because of bradycardia Pacemaker interrogation Decrease the dose of amiodarone to 100 mg daily Resting tremors in presyncopal event could be related to soft blood pressure, polypharmacy, No active signs of stroke Am hopeful to discharge her tomorrow back home Polypharmacy, she takes trazodone, SSRI, antiparkinsonian medications and amiodarone metoprolol Hypothyroid Free T4 is normal I would not adjust the dose of her levothyroxine at this point She might only need amiodarone at the time of discharge Full code
[2021-11-12] MEDS: sodium chloride 0.9% 1,000 ML 30 ML IV (13:42)
--- NOTE | 2021-11-12 15:05 | PC.NURSE ---
patient continues to have bad headache described as a band around my head patient denies any recent falls or head trauma, denies any visual disturbances remains able to move all extremities with out difficulty speech is clear provider notified
--- NOTE | 2021-11-12 15:32 | PC.NURSE ---
patient resting in bed with Eyes closed appears to be sleeping no grimacing noted respirations even an non labored no signs of distress will continue to monitor
--- NOTE | 2021-11-12 18:02 | ECG_ITS ---
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 Measurements Intervals [place] Rate: 60 P: -14 MA: 249 QRS: -8 QRSD: 110 T: -7 QT: 405 QTc: 405 Interpretive Statements ELECTRONIC ATRIAL PACEMAKER NONSPECIFIC T-WAVE ABNORMALITY ABNORMAL RHYTHM ECG Compared to ECG 11/12/2021 00:43:19 No significant changes Electronically Signed On 11-13-2021 16:55:00 CDT by Javad Gavin M.D. [id number]
--- NOTE | 2021-11-12 18:03 | PC.NURSE ---
patient finished with supper patient reports chest pain left side 4/10 sharp pain provider notified instructions to obtain EKG and give GI cocktail
[2021-11-12] MEDS: lidocaine 2% viscous 15 ML, aluminum-mag hydrox-simethicon 30 ML, sucralfate oral liq 1 GM PO (18:21)
[2021-11-12 18:48] LABS: D Dimer 2.35 ug/mIFEU (0-0.59)
[2021-11-12] MEDS: donepezil 5 MG Tablet 10 MG PO (20:37)
[2021-11-12] MEDS: amiodarone 200 mg Tablet 100 MG PO (20:38)
[2021-11-12] MEDS: atorvastatin 40 mg Tablet 80 MG PO (20:38)
[2021-11-13] VITALS (7 sets, daily range): BP systolic 109–137; BP diastolic 56–76; PULSE 60–99; RESP 16–18; TEMP 36–36.8; O2SAT 91–100
[2021-11-13 03:18] LABS: Anion Gap 12.1 (5-19); Blood Urea Nitrogen 18 mg/dL (8-23); Calcium 8.4 mg/dL (8.5-10.5); Carbon Dioxide 29 mmol/L (22-29); Chloride 105 mmol/L (98-107); Glucose 91 mg/dL (65-115); Osmolality Calculated 295 mOsm/kg (285-295); Potassium 4.1 mmol/L (3.5-5.1); Sodium 142 mmol/L (136-145)
--- NOTE | 2021-11-13 07:37 | PC.NURSE ---
received report, reviewed poc and assumed care of patient. no needs identified at this time
--- NOTE | 2021-11-13 08:16 | CT_ITS ---
WS: [id number] CTA OF THE CHEST WITH PULMONARY EMBOLISM PROTOCOL TECHNIQUE: High-resolution contrast enhanced CTA of the chest with coronal and sagittal reformatted i mages with pulmonary embolism protocol. MIP images are also reviewed. CLINICAL INFORMATION: PRE-SYNCOPE COMPARISON: CTA October 09, 2021 DLP: 553.[address] scans at [facility] use at least one of these dose optimization techniques: automated e xposure control; mA and/or kV adjustment per patient size (includes targeted exams where dose is matc hed to clinical indication); or iterative reconstruction. FINDINGS: Proximal main pulmonary arteries are normal. Normal segmental and subsegmental pulmonary arteries. No evidence of pulmonary embolus. No mediastinal or hilar lymphadenopathy. Adrenal glands are normal. F atty atrophy of the pancreas. Splenic artery calcification. Small esophageal hiatal hernia. Food debr is within the stomach. Mild thoracic kyphosis. Hypertrophic changes thoracic spine. Lungs are well ae rated. No acute pulmonary infiltrates. CT/CT angio chest PE protcl [id number] IMPRESSION: 1. Proximal main pulmonary arteries are normal. No evidence of pulmonary embol us. 2. No acute pulmonary infiltrates. Lungs well aerated. 3. Small esophageal hiatal hernia.
[2021-11-13] MEDS: famotidine 20 mg Tablet PO (08:22)
[2021-11-13] MEDS: pantoprazole DR 40 mg Tablet PO (08:23)
[2021-11-13] MEDS: aspirin 81 mg EC Tablet PO (08:23)
[2021-11-13] MEDS: sertraline 100 mg Tablet PO (08:23)
[2021-11-13] MEDS: levothyroxine 50 mcg Tablet PO (08:23)
[2021-11-13] MEDS: iohexol 350 mg/mL 100 mL Btl IV (10:13)
[2021-11-13] MEDS: acetaminophen 325 mg Tablet PO (10:42)
[2021-11-13] MEDS: TRAMadol 50 mg Tablet PO (11:46)
--- NOTE | 2021-11-13 11:53 | P.DS_ITS ---
Discharge Providers Date of Admission: 11/11/21 23:40 Date of Discharge: November 13, 2021 Attending Provider at Admission: Merry Engel MD Attending Provider at Discharge: Clifton Mancilla MD Primary Care Provider: Cheyenne Yang Diagnoses at Discharge Discharge Diagnosis (1) Intermittent atrial fibrillation: Status: Acute (2) Chest pain: Status: Acute Reason for Visit Reason for Visit: A FIB Hospital Course Hospital Course 86-year female who recently had pacemaker placement on October 19 secondary to sick sinus syndrome, Syd greenfield got admitted to the hospital for presyncopal events. She was also complaining of some chest discomfort which resolved by the time she was seen in the ER, however during hospitalization she complained of chest discomfort especially after her meals, she does have hiatal hernia evident on her imaging, her D-dimer was high enough Doppler CTA chest rule out pulm embolic phenomenon. Head CT unremarkable. She has been complaining of headache, she does have sinusitis without any signs of fever, no signs of meningitis. She has remained afebrile. Initially she was bradycardic and hypotension, pacemaker interrogation was done which was unremarkable. I have decreased her amiodarone dose to 100 mg daily and discontinue metoprolol her heart rate has been ranging between 60-68. I had to give her IV fluids to support her blood pressure, she was orthostatic positive as well. I have discontinued her metoprolol, Lasix, potassium supplementation and decrease the dose of amiodarone to 100 mg daily. Her symptoms are related to polypharmacy. She is using 2 L of oxygen at night, uses oxygen on as needed basis in the daytime. Physical Exam Narrative: Patient is laying supine No active dizziness She was able to walk out of the bathroom to her bed Resting tremors No active chest pain or shortness of breath Nonfocal neuro exam No signs of stroke Abdomen soft Very pleasant and cooperative during my evaluation Discharge Data Studies Completed and Pending Completed Studies During Hospitalization Category Date Time Status CT head wo con* [id number] Urgent Cat Scan 11/11/21 22:01 Completed CTA PE [CT angio chest PE protcl 98472] Stat Cat Scan 11/13/21 08:16 Completed XR chest 1V portable [id number] Stat Exams 11/11/21 22:01 [place] [id number] Routine Ultrasound 11/12/21 03:33 Completed Radiology Impressions Chest X-Ray 11/11/21 22:01 IMPRESSION: No acute findings. Head CT 11/11/21 22:01 IMPRESSION: 1. No acute intracranial findings. 2. Sinus findings as above. Venous Duplex 11/12/21 03:33 IMPRESSION: No evidence of deep vein thrombosis. Chest CTA 11/13/21 08:16 IMPRESSION: 1. Proximal main pulmonary arteries are normal. No evidence of pulmonary embolus. 2. No acute pulmonary infiltrates. Lungs well aerated. 3. Small esophageal hiatal hernia. Laboratory Results WBC 6.3 10^3/uL (4.0-10.0) 11/11/21 22:00 RBC 3.62 10^6/uL (4.1-5.3) L 11/11/21 22:00 Hgb 13.2 g/dL (11.5-15.3) 11/11/21 22:00 Hct 38.7 % (37.0-47.0) 11/11/21 22:00 MCV 106.9 fl (81-99) H 11/11/21 22:00 MCH 36.5 pg (28.0-34.0) H 11/11/21 22:00 MCHC 34.1 g/dL (30.0-36.0) 11/11/21 22:00 RDW 12.4 % (12.1-15.1) 11/11/21 22:00 Plt Count 161 10^3/cmm (130-400) 11/11/21 22:00 MPV 12.1 fL (7.4-10.4) H 11/11/21 22:00 Neut % (Auto) 50.9 % 11/11/21 22:00 Lymph % (Auto) 36.0 % 11/11/21 22:00 [place] % (Auto) 8.3 % 11/11/21 22:00 Eos % (Auto) 3.5 % 11/11/21 22:00 Baso % (Auto) 1.1 % 11/11/21 22:00 Neut # (Auto) 3.20 10^3/uL (1.8-7.7) 11/11/21 22:00 Lymph # (Auto) 2.3 10^3/uL (0.8-4.8) 11/11/21 22:00 [place] # (Auto) 0.5 10^3/uL (0.2-0.9) 11/11/21 22:00 Eos # (Auto) 0.2 10^3/uL (0.0-0.8) 11/11/21 22:00 Baso # (Auto) 0.1 10^3/uL (0.0-0.1) 11/11/21 22:00 Nucleated RBC % (auto) 0 % 11/11/21 22:00 Nucleated RBCs # 0.0 /100WBC 11/11/21 22:00 D-Dimer 2.35 ug/mIFEU (0-0.59) H 11/12/21 18:27 Sodium 142 mmol/L (136-145) 11/13/21 02:47 Potassium 4.1 mmol/L (3.5-5.1) 11/13/21 02:47 Chloride 105 mmol/L (98-107) 11/13/21 02:47 Carbon Dioxide 29 mmol/L (22-29) 11/13/21 02:47 Anion Gap 12.1 (5-19) 11/13/21 02:47 BUN 18 mg/dL (8-23) 11/13/21 02:47 Creatinine 0.8 mg/dL (0.5-0.9) 11/13/21 02:47 GFR Calculation Not Reportable 11/13/21 02:47 Glucose 91 mg/dL (65-115) 11/13/21 02:47 Calculated Osmolality 295 mOsm/kg (285-295) 11/13/21 02:47 Lactic Acid 1.0 mmol/L (0.5-2.2) 11/12/21 06:45 Lactic Acid (Sepsis) 0.9 mmol/L (0.5-2.2) 11/12/21 03:40 Calcium 8.4 mg/dL (8.5-10.5) L 11/13/21 02:47 Total Bilirubin 0.2 mg/dL (0.15-1.2) 11/12/21 03:40 AST 27 U/L (0-32) 11/12/21 03:40 ALT < 5 U/L (0-33) 11/12/21 03:40 Alkaline Phosphatase 77 IU/L (35-105) 11/12/21 03:40 Troponin T Baseline 14 ng/L (0-10) H 11/11/21 22:00 Troponin T 120 Minute 12.09 ng/L (0-10) H 11/11/21 23:30 Delta Troponin T -1.91 ABS# (0-10) L 11/11/21 23:30 Troponin T Hi Sens 6Hr 14.11 ng/L (0-10) H 11/12/21 03:40 Troponin T Hi Sens 6Hr Delta 0.11 ng/L (0-12) 11/12/21 03:40 Total Protein 5.7 g/dL (6.6-8.7) L 11/12/21 03:40 Albumin 3.4 g/dL (3.5-5.2) L 11/12/21 03:40 Globulin 2.3 g/dL (1.3-4.6) 11/12/21 03:40 TSH 5.47 uIU/mL (0.27-4.20) H 11/11/21 22:00 Free T4 1.27 ng/dL (0.82-1.77) 11/12/21 06:45 Free T3 1.9 PG/ML (2.0-4.4) L 11/12/21 06:45 Urine Color Colorless (Yellow) 11/12/21 11:45 Urine Appearance Clear (CLEAR) 11/12/21 11:45 Urine pH 6 (5-7) 11/12/21 11:45 Ur Specific [place] 1.010 (1.005-1.030) 11/12/21 11:45 Urine Protein Neg (Negative) 11/12/21 11:45 Urine Glucose (UA) Norm (Normal) 11/12/21 11:45 Urine Ketones Negative (Negative) 11/12/21 11:45 Urine Blood Neg (Negative) 11/12/21 11:45 Urine Nitrate Negative (Negative) 11/12/21 11:45 Urine Bilirubin Neg (Negative) 11/12/21 11:45 Urine Urobilinogen Norm mg/dL (Negative) 11/12/21 11:45 Ur Leukocyte Esterase Negative (Negative) 11/12/21 11:45 Vitals Last Vital Signs Temp 96.8 F L 11/13/21 11:10 Pulse 68 11/13/21 11:10 Resp 16 11/13/21 11:10 BP 137/76 11/13/21 11:10 Pulse Ox 91 11/13/21 11:10 Discharge Plan Discharge Patient Disposition: Home Condition: Stable Prescriptions: New Pacerone 200 mg Tablet 100 mg PO 2099 Qty: 90 2RF omeprazole 20 mg tablet,delayed release (DR/EC) 20 mg PO DAILY Qty: 60 0RF Continued methotrexate 2.5 mg/mL solution 2.5 mg PO .weekly 0RF aspirin [Adult Aspirin Regimen] 81 mg tablet,delayed release (DR/EC) 81 mg PO DAILY 0RF folic acid 1 mg tablet 1 mg PO DAILY 0RF omeprazole 40 mg Capsule,Delayed Release(Dr/Ec) 40 mg PO DAILY 0RF tramadol [Ultram] 50 mg Tablet 50 mg PO TID PRN (Reason: Pain) 0RF atorvastatin 80 mg Tablet 80 mg PO QPM 0RF loperamide [Imodium A-D] 2 mg Capsule 2 mg PO QID PRN (Reason: Diarrhea) 0RF tizanidine 4 mg Tablet 4 mg PO BID PRN (Reason: Spasms) 0RF donepezil 10 mg Tablet 10 mg PO QPM 0RF sertraline [Zoloft] 100 mg Tablet 100 mg PO DAILY 0RF primidone 250 mg Tablet 250 mg PO BID 0RF levothyroxine [Synthroid] 50 mcg Tablet 50 mcg PO DAILY 0RF nystatin 100,000 unit/gram Cream 1 applic TOPICAL BID 0RF nitroglycerin [Nitrostat] 0.4 mg Tablet, Sublingual 0.4 mg SUBLINGUAL Q5M PRN (Reason: Chest Pain) 0RF carbidopa-levodopa 25-100 mg Tablet,Disintegrating 1.5 tab PO TID 0RF Zyrtec 10 mg Capsule 10 mg PO DAILY PRN (Reason: Allergy Symptoms) 0RF memantine 28 mg Capsule,Sprinkle,Er 24hr 28 mg PO DAILY 0RF famotidine 20 mg tablet 20 mg PO DAILY 0RF Centrum Silver Women 8 mg iron-400 mcg-300 mcg Tablet 1 tab PO DAILY 0RF Discontinued furosemide [Lasix] 40 mg Tablet 60 mg PO DAILY 0RF potassium chloride 10 mEq Tablet Extended Release 10 meq PO DAILY 30 Days Qty: 30 0RF metoprolol tartrate 25 mg Tablet 25 mg PO BID@0900,2100 30 Days Qty: 60 0RF amiodarone 200 mg tablet See Rx Instructions .ROUTE .COMPLEX 30 Days Qty: 60 0RF Rx Instructions: 200 mg tab QPM Discharge Orders: Discharge Order (Routine); Ordered 11/13/21 Ordered By: Clifton Mancilla Referrals: Cheyenne Yang PA [Primary Care Provider] - 7-10 days Discharge Diet: Cardiac Discharge Activity: Increase activity as tolerated Patient Instructions: Opioid Safety Discharge Attestations Time Spent in Discharge Care*: less than 30 min Status at Discharge: Cognitive status at discharge: cognitively intact , Behavioral status at discharge: cooperative and independent in ADL's , Quality Metrics Clinical Quality Measures [ No reported AMI, CVA or VTE this stay] Coding Level of Care Code Acute Chg FW DC note Diagnoses Intermittent atrial fibrillation I48.0 Chest pain R07.9
--- NOTE | 2021-11-13 15:51 | PC.NURSE ---
dc'd pts piv and tele. discharge instructions reviewed with patient and daughter. verbalized understanding of medication changes and follow up appointments. no further questions. pt left via wc to private vehicle, all belongings sent
== END 2021-11-13 15:50 | disposition home or self-care (01) ==
LOC: ER 11-12 → MEDSURG 11-12 00:08
PROVIDERS: Admitting Provider Student in an Organized Health Care Education/Training Program; Emergency Provider Emergency Medicine; PCP Physician Assistant; Visit Provider Internal Medicine
DX: I48.0 Paroxysmal atrial fibrillation (principal); Z95.0 Presence of cardiac pacemaker; M19.90 Unspecified osteoarthritis, unspecified site; Z86.16 Personal history of COVID-19; I10 Essential (primary) hypertension; Z86.718 Personal history of other venous thrombosis and embolism; Z86.711 Personal history of pulmonary embolism; E78.5 Hyperlipidemia, unspecified; E03.9 Hypothyroidism, unspecified; E66.01 Morbid (severe) obesity due to excess calories; Z68.31 Body mass index [BMI] 31.0-31.9, adult; G20 Parkinson's disease; M06.9 Rheumatoid arthritis, unspecified; Z82.49 Family history of ischemic heart disease and other diseases of the circulatory system; Z83.3 Family history of diabetes mellitus; M79.605 Pain in left leg; M79.604 Pain in right leg; I44.0 Atrioventricular block, first degree
CPT/HCPCS: 36415; 70450; 71045; 71275; 80048; 80053; 81003; 83605; 84439; 84443; 84481; 84484; 85025; 85378; 93005; 93970; 96360; 99285; G0378; J7030; J7050; Q9967

== ENCOUNTER → 2021-12-14 10:11 | Outpatient (BNVA) | payer MEDICARE, OTHER, SELFPAY | PROVIDERS: PCP Physician Assistant; Visit Provider Internal Medicine Cardiovascular Disease | DX: Z45.010 Encounter for checking and testing of cardiac pacemaker pulse generator [battery] (principal) | CPT/HCPCS: 93280 ==

== ENCOUNTER 2022-02-06 19:12 | Emergency (ER) | payer MEDICARE, OTHER, SELFPAY ==
--- NOTE | 2022-02-06 19:20 | W.ED.GENADLT ---
HPI - General Adult General: Chief complaint: Fall Stated complaint: fall, tailbone pain Time Seen by Provider: 02/06/22 19:18 History of Present Illness: Patient is an 86-year-old female with history of atrial fibrillation on amiodarone who presents emergency room after episode of fall. Patient has been at she was at home about 30 minutes ago when she tripped on her carpet and fell backwards. Patient complains of lower back pain, neck pain and headache pain. Patient denies any LOC. Denies any associated chest pain, difficulty or lightheadedness prior to episode of fall. Patient denies any anticoagulation use. Denies nausea/vomiting, fever/chill, chest pain, shortness of breath, abdominal pain, dysuria/hematuria/polyuria, diarrhea/melena/hematochezia. Onset:30 minutes ago Duration:30 minutes Location:home Severity:moderate Associated symptoms: Reports headache(s); Deny chest pain, dyspnea, nausea, rash, palpitations or vomiting Review of Systems Const: Denies: fever(s) or chills Eyes: Denies: change in vision ENMT: Denies: mouth pain Card: Denies: chest pain or palpitations Resp: Denies: dyspnea or non-productive cough GI: Denies: abdominal pain, nausea, vomiting or diarrhea : Denies: dysuria Musc: Reports: neck pain and other (+lower back pain); Denies: extremity pain Skin/Breast: Denies: rash or new lesions Neuro: Reports: headache(s); Denies: weakness in extremities Psych: Reports: other (Normal mood) Daniel/Lymph: Denies: easy bruising [facility] ED PFSH: Medical History Arthritis Atrial fibrillation Has watchman device in the left atrial appendage, no anticoagulation, sinus rhythm this hospital stay Chest pain History of 2019 novel coronavirus disease (COVID-19) (~03/2020) -has been admitted to the hospital twice for COVID-19, initially at [facility] (03/12-03/17) and at this facility (04/01-04/04) HTN (hypertension) Hx of deep venous thrombosis Hx of pulmonary embolus Hx of vaginal delivery Hyperlipemia Hypothyroid Morbid obesity with BMI of 40.0-44.9, adult Pacemaker Parkinson disease Presence of Watchman left atrial appendage closure device Rheumatoid arthritis Surgical History History of shoulder surgery Diagnostic arthroscopy of right shoulder with minimal debridement, open distal clavicle resection, open acromioplasty, open rotator cuff repair augmented with acellular dermal patch, open biceps tenodesis. DOS: 06/24/[address] Rani History of tonsillectomy and adenoidectomy Hx of Achilles tendon repair Hx of appendectomy Hx of arthroscopy of shoulder Hx of cholecystectomy Hx of heart surgery Hx of hysterectomy Hx of laminectomy Hx of total knee replacement Hx of tubal ligation Family History Brother CAD (coronary artery disease) pacemaker Chronic kidney disease (CKD) Brother CAD (coronary artery disease) Sister CAD (coronary artery disease) ICD Family/Other Cancer Dementia Daughter Diabetes Mother Dementia Denies family history of Clotting disorder Suicide Anesthesia complication Bleeding disorder Lung disease Stroke Social History Smoking and tobacco status: never smoked Alcohol intake: never Housing: House Physical Exam Const: COMMON NORMALS: alert HENMT: MOUTH: moist mucous membranes not abnormal OTHER: +parietal hematoma Eye: COMMON NORMALS: EOMs intact bilaterally and conjunctivae normal CONJUNCTIVA: Yes conjunctivae normal Neck/C-Spine: COMMON NORMALS: full ROM and supple OTHER: + Paraspinal neck tenderness to palpation, no midline neck tenderness palpation Resp: COMMON NORMALS: normal respiratory effort and clear to auscultation bilaterally AUSCULTATION: clear to auscultation bilaterally Cardio: OTHER: +irregular tachycardia GI: COMMON NORMALS: Soft to palpation and non-tender PALPATION: Yes Soft to palpation Back/Pelvis: OTHER: + Paraspinal lumbar tenderness palpation Extremity: COMMON NORMALS: full ROM Neuro: SENSORIUM/ORIENTATION: Yes alert MOTOR EXAM: No Abnormal motor strength present and Other motor observations present (no focal motor deficits) Psych: COMMON NORMALS: speech normal SPEECH: Yes normal speech MOOD & AFFECT: Yes euthymic mood Course Vital Signs: Vital signs: Vital Signs Temperature 97.8 F 02/06/22 19:56 Pulse Rate 73 02/06/22 21:35 Respiratory Rate 23 H 02/06/22 21:35 Blood Pressure 125/72 02/06/22 21:35 Pulse Oximetry 92 02/06/22 21:35 Oxygen Delivery Me thod 02/06/22 20:30 MDM - General Adult Medical Decision Making 86-year-old female with history atrial fibrillation on amiodarone, hyperlipidemia, hypothyroidism who presents the emergency room after an episode of fall. Patient complains of paraspinal neck pain. Patient has had a parietal hematoma. And paraspinal lumbar tenderness palpation. CT imaging of the head and neck negative for any acute finding. X-ray of the lumbar and sacral area is negative for any acute fracture. Patient received fentanyl IV, lidocaine patch and Tylenol with improvement in pain. Patient has no other associated symptoms prior to the episode of fall, do not suspect ACS or other acute emerging pathologies. Arrival, patient tells me she has not taken her daily amiodarone today. Patient was noted to be in A. fib with RVR. Patient received 20 mg of Cardizem with improvement of atrial fibrillation. Rx percocet, lidocaine patch and menthol PRN pain Disposition: Discharge. Patient counseled regarding diagnostic impression, treatment plan. Patient given ED strict return precautions to return for continuation, worsening, or development of new symptoms. Instructed to f/u w/ PCP regarding symptoms today. Patient verbalized understanding. Lab Data : 02/06/22 19:37 02/06/22 19:37 Radiology Impressions Cervical Spine CT 02/06/22 19:19 IMPRESSION: No acute findings. Head CT 02/06/22 19:19 IMPRESSION: No acute intracranial abnormality. Lumbar Spine X-Ray 02/06/22 19:19 IMPRESSION: 1. Degenerative lumbar spine changes are noted. 2. No acute abnormality of the lumbar spine demonstrated. Sacrum and Coccyx X-Ray 02/06/22 19:19 IMPRESSION: No acute fracture demonstrated. Laboratory Results WBC 5.2 10^3/uL (4.0-10.0) 02/06/22 19:37 RBC 3.58 10^6/uL (4.1-5.3) L 02/06/22 19:37 Hgb 12.3 g/dL (11.5-15.3) 02/06/22 19:37 Hct 38.6 % (37.0-47.0) 02/06/22 19:37 MCV 107.8 fl (81-99) H 02/06/22 19:37 MCH 34.4 pg (28.0-34.0) H 02/06/22 19:37 MCHC 31.9 g/dL (30.0-36.0) 02/06/22 19:37 RDW 13.2 % (12.1-15.1) 02/06/22 19:37 Plt Count 173 10^3/cmm (130-400) 02/06/22 19:37 MPV 11.5 fL (7.4-10.4) H 02/06/22 19:37 Neut % (Auto) 56.0 % 02/06/22 19:37 Lymph % (Auto) 32.1 % 02/06/22 19:37 [place] % (Auto) 8.6 % 02/06/22 19:37 Eos % (Auto) 2.3 % 02/06/22 19:37 Baso % (Auto) 0.8 % 02/06/22 19:37 Neut # (Auto) 2.92 10^3/uL (1.8-7.7) 02/06/22 19:37 Lymph # (Auto) 1.7 10^3/uL (0.8-4.8) 02/06/22 19:37 [place] # (Auto) 0.5 10^3/uL (0.2-0.9) 02/06/22 19:37 Eos # (Auto) 0.1 10^3/uL (0.0-0.8) 02/06/22 19:37 Baso # (Auto) 0.0 10^3/uL (0.0-0.1) 02/06/22 19:37 Nucleated RBC % (auto) 0 % 02/06/22 19:37 Nucleated RBCs # 0.0 /100WBC 02/06/22 19:37 Sodium 140 mmol/L (136-145) 02/06/22 19:37 Potassium 4.4 mmol/L (3.5-5.1) 02/06/22 19:37 Chloride 100 mmol/L (98-107) 02/06/22 19:37 Carbon Dioxide 30 mmol/L (22-29) H 02/06/22 19:37 Anion Gap 14.4 (5-19) 02/06/22 19:37 BUN 17 mg/dL (8-23) 02/06/22 19:37 Creatinine 0.8 mg/dL (0.5-0.9) 02/06/22 19:37 GFR Calculation Not Reportable 02/06/22 19:37 Glucose 125 mg/dL (65-115) H 02/06/22 19:37 Calculated Osmolality 293 mOsm/kg (285-295) 02/06/22 19:37 Calcium 8.9 mg/dL (8.5-10.5) 02/06/22 19:37 Imaging Data Other Imaging: Radiologist's impression: [employer] [address] [place], [place] [address] XRay Report Signed Patient: Kassie Robles Unit #: [id number] : 1935 Age/Sex: 86 / F ADM Date: 02/06/22 Loc: ER Room/Bed: Attending Dr: Ordering Provider/Ordering MD: Omkar Rivera MD Date of Service: 02/06/22 Procedure(s): XR sacrum coccyx min 2V [id number] Accession Number(s): [id number] Report Number: [id number] PROCEDURE INFORMATION: Exam: XR Sacrum and Coccyx, 2 or More Views Exam date and time: 02/06/2022 7:58 PM Age: 86 years old Clinical indication: Injury or trauma; Fall; Blunt trauma (contusions or hematomas); Additional info: Pain TECHNIQUE: Imaging protocol: XR of the sacrum and coccyx, 2 or more views. COMPARISON: CR (PELVIS, ) 02/06/2022 7:52 PM FINDINGS: Bones/joints: No fracture or other acute osseous abnormality. Soft tissues: The soft tissues appear unremarkable. Vasculature: Lower pelvic calcifications are noted, likely representing phleboliths. XR/XR sacrum coccyx min 2V 07278 IMPRESSION: No acute fracture demonstrated. ? Dictated By: Wesly Dunne MD Signed By: Wesly Dunne MD Signed Date/Time: 02/06/222109 DD/ [address] [employer] [address] [place] [address] XRay Report Signed Patient: Kassie Robles Unit #: [id number] : 1935 Age/Sex: 86 / F ADM Date: 02/06/22 Loc: ER Room/Bed: Attending Dr: Ordering Provider/Ordering MD: Omkar Rivera MD Date of Service: 02/06/22 Procedure(s): XR lumbar spine 2-3V* [id number] Accession Number(s): [id number] Report Number: [id number] PROCEDURE INFORMATION: Exam: XR Lumbosacral Spine Exam date and time: 02/06/2022 7:52 PM Age: 86 years old Clinical indication: Injury or trauma; Blunt trauma (contusions or hematomas); Injury details: S/P fall on concrete floor landing on coccyx; Additional info: Pain TECHNIQUE: Imaging protocol: Radiologic exam of the lumbosacral spine. Views: 2 or 3 views. COMPARISON: No relevant prior studies available. FINDINGS: Bones/joints: 5 mm anterior subluxation of L5 on S1, secondary to degeneration of the facet joints. This is associated with severe degenerative narrowing of the L5-S1 disc. No spondylolysis. Additional degenerative facet joint changes are noted throughout the lumbar spine. There is advanced degenerative disc narrowing noted at each lumbar level. No lumbar compression fractures are noted. Soft tissues: The soft tissues are unremarkable. XR/XR lumbar spine 2-3V* [id number] IMPRESSION: 1. Degenerative lumbar spine changes are noted. 2. No acute abnormality of the lumbar spine demonstrated. ? Dictated By: Wesly Dunne MD Signed By: Wesly Dunne MD Signed Date/Time: 02/06/222109 DD/ [address] [address] [address] Scan Report Signed Patient: Kassie Rboles Unit #: [id number] : 1935 Age/Sex: 86 / F ADM Date: 02/06/22 Loc: ER Room/Bed: Attending Dr: Ordering Provider/Ordering MD: Omkar Rivera MD Date of Service: 02/06/22 Procedure(s): CT head wo con* [id number] Accession Number(s): [id number] Report Number: [id number] PROCEDURE INFORMATION: Exam: CT Head Without Contrast Exam date and time: 02/06/2022 7:40 PM Age: 86 years old Clinical indication: Injury or trauma; Blunt trauma (contusions or hematomas); Injury details: S/P fall contusion to the head TECHNIQUE: Imaging protocol: Computed tomography of the head without contrast. Radiation optimization: All CT scans at this facility use at least one of these dose optimization techniques: automated exposure control; mA and/or kV adjustment per patient size (includes targeted exams where dose is matched to clinical indication); or iterative reconstruction. COMPARISON: CT head wo con* [id number] 11/11/2021 10:30 PM RADIATION DOSE METRICS: Total DLP (mGy-cm): 1681.88 FINDINGS: Brain: No hemorrhage. No edema. Moderate diffuse cerebral atrophy. No significant white matter disease. No mass effect. Cerebral ventricles: No ventriculomegaly. Paranasal sinuses: Visualized sinuses are unremarkable. No fluid levels. Mastoid air cells: Visualized mastoid air cells are well aerated. Bones/joints: Unremarkable. No acute fracture. Soft tissues: Right posterior scalp hematoma. CT/CT head wo con* [id number] IMPRESSION: No acute intracranial abnormality. ? Dictated By: Jakub Jeronimo DO Signed By: Jakub Jeronimo DO Signed Date/Time: 02/06/222048 DD/ [address] [address] [address] Scan Report Signed Patient: Kassie Robles Unit #: [id number] : 1935 Age/Sex: 86 / F ADM Date: 02/06/22 Loc: ER Room/Bed: Attending Dr: Ordering Provider/Ordering MD: Omkar Rivera MD Date of Service: 02/06/22 Procedure(s): CT cervical spin wo con* [id number] Accession Number(s): [id number] Report Number: [id number] PROCEDURE INFORMATION: Exam: CT Cervical Spine Without Contrast Exam date and time: 02/06/2022 7:44 PM Age: 86 years old Clinical indication: Injury or trauma; Fall; Blunt trauma; Additional info: Neck pain TECHNIQUE: Imaging protocol: Computed tomography of the cervical spine without contrast. Radiation optimization: All CT scans at this facility use at least one of these dose optimization techniques: automated exposure control; mA and/or kV adjustment per patient size (includes targeted exams where dose is matched to clinical indication); or iterative reconstruction. COMPARISON: CT cervical spin wo con* [id number] 04/03/2021 3:55 PM RADIATION DOSE METRICS: Total DLP (mGy-cm): 201.77 FINDINGS: Bones/joints: Intact ACDF hardware at the C5-C6 segment and posterior right pedicle screws and stabilizing raymundo at C7-T1. No acute fracture. Normal alignment. No significant disc protrusion. No severe spinal canal stenosis. Lungs: Lung apices are normal. Soft tissues: Unremarkable. CT/CT cervical spin wo con* [id number] IMPRESSION: No acute findings. ? Dictated By: Jakub Jeronimo DO Signed By: Jakub Jeronimo DO Signed Date/Time: 02/06/222042 DD/ 43 Discharge Plan Discharge Patient Disposition: Home Clinical Impression: Fall, Headache, Back pain Condition: Stable Prescriptions: New Percocet 5-325 mg tablet 1 tab PO Q8H PRN (Reason: pain) Qty: 9 0RF lidocaine 5 % adhesive patch,medicated 1 patch topical DAILY PRN (Reason: pain) 30 Days Qty: 30 0RF Rx Instructions: leave on most painful area for up to 12 hrs Biofreeze (menthol) 5 % gel 1 ea topical BID PRN (Reason: pain) 10 Days Qty: 1 0RF No Action aspirin [Adult Aspirin Regimen] 81 mg tablet,delayed release (DR/EC) 81 mg PO DAILY omeprazole 40 mg Capsule,Delayed Release(Dr/Ec) 40 mg PO DAILY tramadol [Ultram] 50 mg Tablet 50 mg PO TID PRN (Reason: Pain) atorvastatin 80 mg Tablet 80 mg PO QPM loperamide [Imodium A-D] 2 mg Capsule 2 mg PO QID PRN (Reason: Diarrhea) tizanidine 4 mg Tablet 4 mg PO BID PRN (Reason: Spasms) donepezil 10 mg Tablet 10 mg PO QPM sertraline [Zoloft] 100 mg Tablet 100 mg PO DAILY primidone 250 mg Tablet 250 mg PO BID levothyroxine [Synthroid] 50 mcg Tablet 50 mcg PO DAILY nitroglycerin [Nitrostat] 0.4 mg Tablet, Sublingual 0.4 mg SUBLINGUAL Q5M PRN (Reason: Chest Pain) carbidopa-levodopa 25-100 mg Tablet,Disintegrating 1.5 tab PO TID Zyrtec 10 mg Capsule 10 mg PO DAILY PRN (Reason: Allergy Symptoms) memantine 28 mg Capsule,Sprinkle,Er 24hr 28 mg PO DAILY famotidine 20 mg tablet 20 mg PO DAILY furosemide 40 mg tablet 40 mg PO DAILY potassium chloride 10 mEq capsule, extended release 10 meq PO DAILY Pacerone 200 mg tablet 100 mg PO QPM Centrum Silver Women 8 mg iron-400 mcg-300 mcg Tablet 1 tab PO DAILY Discharge Orders: Discharge ED (Routine); Ordered 02/06/22 Ordered By: Omkar Rivera Referrals: Cheyenne Yang PA [Primary Care Provider] - Discharge Diet: Advance as tolerated Discharge Activity: Increase activity as tolerated Patient Instructions: Concussion (ED), Pain Management Activity Restrictions/Additional Instructions: Come back if you have any new or concerning issues. Coding Level of Care Code ED Supervisor Slashing Department for Chg Fwd Exam Comprehensive
--- NOTE | 2022-02-06 19:34 | ECG_ITS ---
[facility] Test Date: 2022-02-06 Pat Name: Kassie Robles Department: Room: Gender: Female Planning Specialist: : 1935 Requested By: Renard Huitron Order Number: [id number] Marielos MD: Luis Angel Tobar M.D. Measurements Intervals [place] Rate: 111 P: AR: QRS: -44 QRSD: 100 T: -20 QT: 297 QTc: 405 Interpretive Statements ATRIAL FIBRILLATION WITH RAPID VENTRICULAR RESPONSE LEFT AXIS DEVIATION [QRS AXIS < -30] NONSPECIFIC T-WAVE ABNORMALITY Compared to ECG 11/12/2021 18:06:36 Left-axis deviation now present Atrial-paced complex(es) or rhythm no longer present T-wave abnormality still present Electronically Signed On 02-07-2022 8:51:55 CDT by Luis Angel Tobar M.D. [id number]
[2022-02-06 19:43] LABS: Basophils % 0.8 %; Eosinophils # 0.1 10^3/uL (0.0-0.8); Eosinophils % 2.3 %; Hematocrit 38.6 % (37.0-47.0); Hemoglobin 12.3 g/dL (11.5-15.3); Lymphocytes # 1.7 10^3/uL (0.8-4.8); Lymphocytes % 32.1 %; Mean Corpuscular HGB Conc 31.9 g/dL (30.0-36.0); Mean Corpuscular Hemoglobin 34.4 pg (28.0-34.0); Mean Corpuscular Volume 107.8 fl (81-99); Mean Platelet Volume 11.5 fL (7.4-10.4); Monocytes # 0.5 10^3/uL (0.2-0.9); Monocytes % 8.6 %; Neutrophils # 2.92 10^3/uL (1.8-7.7); Nucleated Red Blood Cells % 0 %; Platelet Count 173 10^3/cmm (130-400); Red Blood Count 3.58 10^6/uL (4.1-5.3); Red Cell Distribution Width 13.2 % (12.1-15.1); White Blood Count 5.2 10^3/uL (4.0-10.0)
[2022-02-06 19:56] VITALS: BP 143/92; PULSE 130; RESP 18; TEMP 36.6; O2SAT 98; BMI 32.5
[2022-02-06 20:04] LABS: Anion Gap 14.4 (5-19); Blood Urea Nitrogen 17 mg/dL (8-23); Calcium 8.9 mg/dL (8.5-10.5); Carbon Dioxide 30 mmol/L (22-29); Chloride 100 mmol/L (98-107); Glucose 125 mg/dL (65-115); Osmolality Calculated 293 mOsm/kg (285-295); Potassium 4.4 mmol/L (3.5-5.1); Sodium 140 mmol/L (136-145)
[2022-02-06 20:30] VITALS: BP 134/102; PULSE 130; RESP 21; O2SAT 94
[2022-02-06] MEDS: acetaminophen 500 mg Tablet PO (20:46)
[2022-02-06] MEDS: lidocaine 5% Patch 1 PATCH TOPICAL (20:47)
[2022-02-06] MEDS: fentaNYL 50 mcg/mL INJ 2mL IVP (20:50)
[2022-02-06] MEDS: dilTIAZem 5 mg/mL SDV 5 mL 20 MG IVP (21:26)
[2022-02-06 21:30] VITALS: PULSE 133; RESP 19; O2SAT 93
[2022-02-06 21:32] VITALS: BP 110/67; PULSE 75; RESP 19; O2SAT 90
[2022-02-06 21:35] VITALS: BP 125/72; PULSE 73; RESP 23; O2SAT 92
== END 2022-02-06 22:06 | disposition home or self-care (01) ==
PROVIDERS: Emergency Provider Emergency Medicine; PCP Physician Assistant
DX: R51.9 Headache, unspecified (principal); M54.9 Dorsalgia, unspecified; Z79.82 Long term (current) use of aspirin; I10 Essential (primary) hypertension; E78.5 Hyperlipidemia, unspecified; Z95.0 Presence of cardiac pacemaker; G20 Parkinson's disease
CPT/HCPCS: 70450; 72100; 72125; 72220; 80048; 85025; 93005; 96374; 96375; 99285; J3010; J3490

== ENCOUNTER → 2022-02-14 15:07 | Outpatient (BNVA) | payer MEDICARE, OTHER, SELFPAY | PROVIDERS: PCP Physician Assistant; Visit Provider Internal Medicine Cardiovascular Disease | DX: I48.91 Unspecified atrial fibrillation (principal); I48.92 Unspecified atrial flutter; I10 Essential (primary) hypertension; Z86.711 Personal history of pulmonary embolism; Z95.0 Presence of cardiac pacemaker; E78.5 Hyperlipidemia, unspecified | CPT/HCPCS: 99214 ==

== ENCOUNTER → 2022-08-29 13:57 | Outpatient (BNVA) | payer MEDICARE, OTHER, SELFPAY | PROVIDERS: PCP Physician Assistant; Visit Provider Internal Medicine Cardiovascular Disease | DX: I48.91 Unspecified atrial fibrillation (principal); I48.92 Unspecified atrial flutter; Z95.0 Presence of cardiac pacemaker; I10 Essential (primary) hypertension; E78.5 Hyperlipidemia, unspecified; Z86.711 Personal history of pulmonary embolism; Z95.818 Presence of other cardiac implants and grafts; Z79.82 Long term (current) use of aspirin | CPT/HCPCS: 99214 ==

== ENCOUNTER → 2023-03-13 14:05 | Outpatient (BNVA) | payer MEDICARE, OTHER, SELFPAY | PROVIDERS: PCP Physician Assistant; Visit Provider Internal Medicine Cardiovascular Disease | DX: I48.91 Unspecified atrial fibrillation (principal); I48.92 Unspecified atrial flutter; Z95.0 Presence of cardiac pacemaker; I10 Essential (primary) hypertension; E78.5 Hyperlipidemia, unspecified; Z86.711 Personal history of pulmonary embolism; Z95.818 Presence of other cardiac implants and grafts; M25.561 Pain in right knee | CPT/HCPCS: 99214 ==

== ENCOUNTER → 2023-06-11 17:02 | Outpatient (BNVA) | payer MEDICARE, OTHER, SELFPAY | PROVIDERS: PCP Physician Assistant; Visit Provider Internal Medicine | DX: Z45.010 Encounter for checking and testing of cardiac pacemaker pulse generator [battery] (principal) | CPT/HCPCS: 93296 ==

== ENCOUNTER → 2023-08-04 14:30 | Outpatient (BNVA) | payer MEDICARE, OTHER, SELFPAY | PROVIDERS: PCP Physician Assistant; Visit Provider Podiatrist Foot & Ankle Surgery | DX: M21.41 Flat foot [pes planus] (acquired), right foot; M21.42 Flat foot [pes planus] (acquired), left foot | CPT/HCPCS: 73610; 77077; 99203 ==

== ENCOUNTER → 2023-09-15 16:29 | Outpatient (BNVA) | payer MEDICARE, OTHER, SELFPAY | PROVIDERS: PCP Physician Assistant; Visit Provider Internal Medicine Cardiovascular Disease | DX: R06.02 Shortness of breath (principal); Z79.01 Long term (current) use of anticoagulants; I48.91 Unspecified atrial fibrillation; I48.92 Unspecified atrial flutter; N18.9 Chronic kidney disease, unspecified; I10 Essential (primary) hypertension | CPT/HCPCS: 36415; 80048; 83880; 84443; 85025; 99214 ==

== ENCOUNTER 2023-10-19 22:21 | Inpatient (IN) | payer MEDICARE, OTHER, SELFPAY ==
[2023-10-19 22:22] VITALS: BP 108/69; PULSE 102; RESP 18; TEMP 37.8; O2SAT 94; BMI 31.0
--- NOTE | 2023-10-19 22:30 | XRR_ITS ---
PROCEDURE INFORMATION: Exam: XR Chest Exam date and time: 10/19/2023 10:43 PM Age: 88 years old Clinical indication: Prior surgery; Surgery date: 6+ months; Surgery type: Watchman. Gb; Patient HX: C/O fever TECHNIQUE: Imaging protocol: Radiologic exam of the chest. Views: 1 view. COMPARISON: CR XR ribs RT mn 3V w CXR1V [id number] 10/02/2023 3:12 PM FINDINGS: Tubes, catheters and devices: Left-sided cardiac pacemaker again noted. Lungs: No CHF/pulmonary edema. Visible lungs appear essentially clear. Pleural spaces: No visible pneumothorax. No definite pleural fluid. Heart/Mediastinum: Suspect mild to moderate cardiomegaly. Bones/joints: Old fracture of the proximal left humerus. Moderate degenerative changes again seen in both shoulders. XR/XR chest 1V portable [id number] IMPRESSION: 1. No definite pneumonia or CHF. 2. Other findings discussed above.
--- NOTE | 2023-10-19 22:30 | CTR_ITS ---
PROCEDURE INFORMATION: Exam: CT Head Without Contrast Exam date and time: 10/19/2023 10:51 PM Age: 88 years old Clinical indication: Pain; Headache; Patient HX: C/O ALMAGUER with fever TECHNIQUE: Imaging protocol: Computed tomography of the head without contrast. Radiation optimization: All CT scans at this facility use at least one of these dose optimization techniques: automated exposure control; mA and/or kV adjustment per patient size (includes targeted exams where dose is matched to clinical indication); or iterative reconstruction. COMPARISON: CT head wo con* [id number] 02/06/2022 7:40 PM RADIATION DOSE METRICS: Total DLP (mGy-cm): 1130.68 FINDINGS: Brain: No acute intracranial hemorrhage or mass effect. There is mild decreased attenuation in the periventricular white matter, likely from microvascular disease. No definite acute infarct by CT. Cerebral ventricles: Ventricle size is normal for age. Paranasal sinuses: Included paranasal sinuses are essentially clear. Mastoid air cells: No significant acute finding. Bones: No definite acute skull fracture. Soft tissues: No significant acute finding. CT/CT head wo con* [id number] IMPRESSION: 1. No acute intracranial hemorrhage or mass effect. 2. Changes of microvascular disease. 3. Other findings discussed above.
--- NOTE | 2023-10-19 22:46 | ED_ITS ---
HPI - Fever 2 General: Chief Complaint: Fever Stated Complaint: HEADACHE Time Seen by Provider: 10/19/23 22:25 Source: patient and EMS Mode of arrival: EMS Limitations: no limitations History of Present Illness: 88-year-old female states that she has h ad some wounds to her right arm has been having redness and is now streaking up her arm. States she is also had fevers as febrile here she had a mild headache as well states she did have a fall in the bathtub and hit her head for 5 days ago this headache started 2 or 3 days ago. She denies any neck stiffness denies any cough denies any vomiting Associated symptoms: Reports chills and headache(s); Deny abdominal pain, chest pain, diarrhea, nausea or vomiting Review of Systems 2 Const: Reports: fever(s) and chills; Denies: body aches or change in appetite Eyes: Denies: blurry vision or eye discomfort ENMT: Denies: throat pain or dental pain Card: Denies: chest pain Resp: Denies: dyspnea GI: Denies: abdominal pain, nausea, vomiting or diarrhea Musc: Denies: neck pain or back pain Skin/Breast: Reports: erythema; Denies: rash Neuro: Reports: headache(s) PFSH ED 2 PFSH: Medical History (Updated 10/20/23 @ 01:09 by Andrew Rodriguez MD) Atrial fibrillation and flutter Patient is not on any oral anticoagulation. Patient has a history of frequent falls. She had the left atrial appendage occlusion with the watchman device. She seems to be staying in the sinus rhythm most of the times. Symptomatic bradycardia Bronchitis due to 2019-nCoV Reactive airway disease Pacemaker History of 2019 novel coronavirus disease (COVID-19) (~03/2020) Morbid obesity with BMI of 40.0-44.9, adult Presence of Watchman left atrial appendage closure device HTN (hypertension) Parkinson disease Atrial fibrillation Has watchman device in the left atrial appendage, no anticoagulation, sinus rhythm this hospital stay Hypothyroid Hyperlipemia Arthritis Hx of pulmonary embolus Hx of vaginal delivery Rheumatoid arthritis Hx of deep venous thrombosis Surgical History History of tonsillectomy and adenoidectomy Hx of cholecystectomy Hx of hysterectomy Hx of total knee replacement Hx of appendectomy Hx of tubal ligation Hx of laminectomy Hx of arthroscopy of shoulder Hx of Achilles tendon repair Hx of heart surgery History of shoulder surgery Diagnostic arthroscopy of right shoulder with minimal debridement, open distal clavicle resection, open acromioplasty, open rotator cuff repair augmented with acellular dermal patch, open biceps tenodesis. DOS: 06/24/[address] Rain Family History Brother CAD (coronary artery disease) pacemaker Chronic kidney disease (CKD) Brother CAD (coronary artery disease) Sister CAD (coronary artery disease) ICD Family/Other Cancer Dementia Daughter Diabetes Mother Dementia Denies family history of Clotting disorder Suicide Anesthesia complication Bleeding disorder Lung disease Stroke Social History Smoking and tobacco/nicotine status: never used tobacco/nicotine Alcohol intake: never Substance/Drug Use: never Housing: House Physical Exam 2 Const: COMMON NORMALS: patient oriented x3 GENERAL APPEARANCE: ill appearing HENMT: COMMON NORMALS: normocephalic and atraumatic HEAD & SCALP: n ormocephalic and atraumatic Eye: COMMON NORMALS: Equal, round and reactive pupils present and EOMs intact bilaterally PUPIL: Yes Equal, round and reactive pupils present Neck/C-Spine: COMMON NORMALS: full ROM, supple and no meningeal signs Chest: COMMONS NORMALS: normal inspection of the chest and normal palpation of entire chest wall Resp: COMMON NORMALS: normal respiratory effort, No retractions, No use of accessory muscles and clear to auscultation bilaterally AUSCULTATION: clear to auscultation bilaterally Cardio: COMMON NORMALS: regular rate, regular rhythm and No murmurs present (Cardio) RATE: regular rate RHYTHM: regular rhythm GI: COMMON NORMALS: Normal to inspection, nondistended, normoactive bowel sounds present, Soft to palpation, non-tender and no masses PALPATION: Yes Soft to palpation Extremity: COMMON NORMALS: normal to inspection and full ROM Neuro: COMMON NORMALS: patient oriented x3, moves all extremities and no focal motor deficits MENINGEAL SIGNS: Yes no meningeal signs Psych: COMMON NORMALS: mental status grossly normal, Normal thought process present and cooperative THOUGHT PROCESS: Normal thought process present Skin: NARRATIVE SKIN EXAM: Erythema noted to right forearm with streaking up the arm up the bicep Course 2 Vital Signs: Vital signs: Vital Signs Temperature 99.5 F 10/20/23 00:06 Pulse Rate 115 H 10/20/23 00:45 Respiratory Rate 17 10/20/23 00:45 Blood Pressure 104/71 10/20/23 00:45 Pulse Oximetry 92 10/20/23 00:45 Oxygen Delivery Me thod Room Air 10/20/23 00:06 MDM - Fever Medical Decision Making Patient presents here with fever she does have cellulitis to her right arm some minimally elevated white count she was given sepsis bolus here started on IV antibiotics I spoke to the hospitalist and will admit Medical Records I reviewed the patient's medical records. Lab Data I reviewed the patient's lab results. 10/19/23 22:48 10/19/23 22:48 Radiology Impressions Chest X-Ray 10/19/23 22:30 IMPRESSION: 1. No definite pneumonia or CHF. 2. Other findings discussed above. Head CT 10/19/23 22:30 IMPRESSION: 1. No acute intracranial hemorrhage or mass effect. 2. Changes of microvascular disease. 3. Other findings discussed above. Laboratory Results WBC 12.43 10^3/uL (3.29-11.43) H 10/19/23 22:48 RBC 3.95 10^6/uL (3.85-5.65) 10/19/23 22:48 Hgb 14.00 g/dL (11.27-16.99) 10/19/23 22:48 Hct 41.6 % (36-47) 10/19/23 22:48 MCV 105.3 fl (85-98) H 10/19/23 22:48 MCH 35.4 pg (27-33) H 10/19/23 22:48 MCHC 33.7 g/dL (30-55) 10/19/23 22:48 RDW 14.6 % (12.1-15.1) 10/19/23 22:48 Plt Count 142 10^3/cmm (157-399) L 10/19/23 22:48 MPV 11.3 fL (7.4-10.4) H 10/19/23 22:48 Neut % (Auto) 88.8 % 10/19/23 22:48 Lymph % (Auto) 6.0 % 10/19/23 22:48 [place] % (Auto) 4.5 % 10/19/23 22:48 Eos % (Auto) 0.1 % 10/19/23 22:48 Baso % (Auto) 0.2 % 10/19/23 22:48 Neut # (Auto) 11.04 10^3/uL (1.8-7.7) H 10/19/23 22:48 Lymph # (Auto) 0.7 10^3/uL (0.8-4.8) L 10/19/23 22:48 [place] # (Auto) 0.6 10^3/uL (0.2-0.9) 10/19/23 22:48 Eos # (Auto) 0.0 10^3/uL (0.0-0.8) 10/19/23 22:48 Baso # (Auto) 0.0 10^3/uL (0.0-0.1) 10/19/23 22:48 Nucleated RBC % (auto) 0 % 10/19/23 22:48 Nucleated RBCs # 0.0 /100WBC 10/19/23 22:48 Sodium 138 mmol/L (136-145) 10/19/23 22:48 Potassium 4.1 mmol/L (3.5-5.1) 10/19/23 22:48 Chloride 102 mmol/L (98-107) 10/19/23 22:48 Carbon Dioxide 25 mmol/L (22-29) 10/19/23 22:48 Anion Gap 15.1 (5-19) 10/19/23 22:48 BUN 18 mg/dL (8-23) 10/19/23 22:48 Creatinine 0.9 mg/dL (0.5-0.9) 10/19/23 22:48 GFR Calculation Not Reportable 10/19/23 22:48 Glucose 144 mg/dL (65-115) H 10/19/23 22:48 Calculated Osmolality 290 mOsm/kg (285-295) 10/19/23 22:48 Lactic Acid 1.5 mmol/L (0.5-2.2) 10/19/23 22:48 Calcium 8.6 mg/dL (8.5-10.5) 10/19/23 22:48 Total Bilirubin 0.7 mg/dL (0.15-1.2) 10/19/23 22:48 AST 39 U/L (0-32) H 10/19/23 22:48 ALT 12 U/L (0-33) 10/19/23 22:48 Alkaline Phosphatase 99 U/L (35-105) 10/19/23 22:48 C-Reactive Protein 48.8 mg/L (0.0-4.9) H 10/19/23 22:24 Total Protein 7.1 g/dL (6.6-8.7) 10/19/23 22:48 Albumin 3.9 g/dL (3.5-5.2) 10/19/23 22:48 Globulin 3.2 g/dL (1.3-4.6) 10/19/23 22:48 Urine Color Yellow (Yellow) 10/19/23 23:45 Urine Appearance Clear (CLEAR) 10/19/23 23:45 Urine pH 5 (5-7) 10/19/23 23:45 Ur Specific Nixon 1.010 (1.005-1.030) 10/19/23 23:45 Urine Protein Neg (Negative) 10/19/23 23:45 Urine Glucose (UA) Norm (Normal) 10/19/23 23:45 Urine Ketones Negative (Negative) 10/19/23 23:45 Urine Blood Neg (Negative) 10/19/23 23:45 Urine Nitrate Negative (Negative) 10/19/23 23:45 Urine Bilirubin Neg (Negative) 10/19/23 23:45 Urine Urobilinogen Neg mg/dL (Negative) 10/19/23 23:45 Ur Leukocyte Esterase Negative (Negative) 10/19/23 23:45 Urine RBC 0-4 /hpf (0-2) H 10/19/23 23:45 Urine WBC 5-10 /hpf (0-5) H 10/19/23 23:45 Ur Squamous Epith Cells 0-4 /hpf (0-5) H 10/19/23 23:45 Amorphous Sediment Not Reportable 10/19/23 23:45 Urine Bacteria 3+ /hpf (NONE) H 10/19/23 23:45 All radiology interpretation(s) finalized by discharge Discharge Plan Discharge Patient Disposition: Admitted As Inpatient Admit Provider: Andrew Rodriguez Clinical Impression: Atrial fibrillation and flutter, Cellulitis Condition: Stable Coding Level of Care Code ED Choir Member for Domonique Peters
[2023-10-19 22:57] LABS: Basophils % 0.2 %; Eosinophils % 0.1 %; Hematocrit 41.6 % (36-47); Lymphocytes # 0.7 10^3/uL (0.8-4.8); Mean Corpuscular HGB Conc 33.7 g/dL (30-55); Mean Corpuscular Hemoglobin 35.4 pg (27-33); Mean Corpuscular Volume 105.3 fl (85-98); Mean Platelet Volume 11.3 fL (7.4-10.4); Monocytes # 0.6 10^3/uL (0.2-0.9); Monocytes % 4.5 %; Neutrophils # 11.04 10^3/uL (1.8-7.7); Neutrophils % 88.8 %; Nucleated Red Blood Cells % 0 %; Platelet Count 142 10^3/cmm (157-399); Red Blood Count 3.95 10^6/uL (3.85-5.65); Red Cell Distribution Width 14.6 % (12.1-15.1); White Blood Count 12.43 10^3/uL (3.29-11.43)
[2023-10-19] MEDS: sodium chloride 0.9% 1,000 ML 999 ML IV (23:15)
[2023-10-19] MEDS: ketorolac 30 mg/mL INJ 15 MG IVP (23:16)
[2023-10-19] MEDS: acetaminophen 500 mg Tablet 1000 MG PO (23:16)
[2023-10-19 23:21] LABS: Alanine Aminotransferase 12 U/L (0-33); Albumin Level 3.9 g/dL (3.5-5.2); Alkaline Phosphatase 99 U/L (35-105); Anion Gap 15.1 (5-19); Aspartate Amino Transferase 39 U/L (0-32); Blood Urea Nitrogen 18 mg/dL (8-23); Calcium 8.6 mg/dL (8.5-10.5); Carbon Dioxide 25 mmol/L (22-29); Chloride 102 mmol/L (98-107); Creatinine Clr Calc Pharmacy 50.6704; Globulin 3.2 g/dL (1.3-4.6); Glucose 144 mg/dL (65-115); Lactic Sepsis W/Reflex 1.5 mmol/L (0.5-2.2); Osmolality Calculated 290 mOsm/kg (285-295); Potassium 4.1 mmol/L (3.5-5.1); Sodium 138 mmol/L (136-145); Total Bilirubin 0.7 mg/dL (0.15-1.2); Total Protein 7.1 g/dL (6.6-8.7)
[2023-10-19 23:31] VITALS: BP 131/68; PULSE 98; RESP 17; O2SAT 93
[2023-10-19] MEDS: cefTRIAXone 1,000 MG in sodium chloride 0.9% (plus) 100 ML 100 MG IV (23:31)
[2023-10-19 23:39] VITALS: BP 131/68; PULSE 97; RESP 13; O2SAT 90
[2023-10-19 23:45] VITALS: PULSE 94; RESP 22; O2SAT 93
--- NOTE | 2023-10-19 23:57 | PC.NURSE ---
This technical writer and editor assumed care of this pt @ 2300. IV had been started by previous nurse but not charted. This technical writer and editor performed straight cath for urine sample at pt's request d/t weakness. Pt tolerated procedure well, sterile technique maintained and urine sample obtained without issue.
[2023-10-20] VITALS (15 sets, daily range): BP systolic 88–126; BP diastolic 48–84; PULSE 58–120; RESP 15–20; TEMP 36.6–37.5; O2SAT 90–99
[2023-10-20 00:07] LABS: Bilirubin Urine Neg (Negative); Blood Urine Neg (Negative); Glucose Urine UA Norm (Normal); Ketones Urine Negative (Negative); Leukocyte Esterase Urine Negative (Negative); Nitrate Urine Negative (Negative); Protein Urine Neg (Negative); Urine Appearance Clear (CLEAR); Urine Color Yellow (Yellow); Urobilinogen Urine Neg (Negative); pH Urine 5 (5-7)
[2023-10-20] MEDS: sodium chloride 0.9% 1,000 ML 999 ML IV (00:13)
[2023-10-20 00:14] LABS: Add Urine Microscopic? YES; Bacteria Urine 3+ /hpf; RBC Urine 0-4 /hpf (0-2); Squamous Epithelial Cell Urine 0-4 /hpf (0-5)
--- NOTE | 2023-10-20 00:29 | P.HP_ITS ---
Providers/Chief Complaint 2 Primary Care Provider: Cheyenne Yang Chief Complaint: HEADACHE History of Present Illness Kassie Robles is a 88 year old female with past medical history significant for atrial fibrillation status post Watchman procedure and pacemaker, hypertension, Parkinson's disease, hypothyroidism, hyperlipidemia, and rheumatoid arthritis who presents to the emergency department with severe weakness. Patient reports she was in her usual state of health until about 2 to 3 days ago. She reports she obtained a paper cut on her left second finger which is worsened over the past couple days. She has been putting Neosporin on it. She also endorses erythema and swelling of her right forearm. She thinks she may have had a bug bite that initially started it. She endorses associated fevers. She also reports headache for the past 2 to 3 days. She does note that she did fall about 5 days ago while in her bathtub. Today, she states she was too weak to even stand. She lives with her daughter and granddaughter. She was too weak for them to help her up. She reports EMS had trouble getting her up as well. In the emergency department, patient was found to have fever with temperature 100.0 ?F, tachycardia with heart rate of 120 and soft blood pressure of 88/63. Labs revealed leukocytosis of 12.43, thrombocytopenia of 142 and elevated AST of 144. She was started on ceftriaxone and receive IV fluid bolus. Review of Systems 2 Narrative: A complete review of systems was obtained and is negative except as stated in HPI. Medications/Allergies Home Medications Medication Instructions Recorded Confirmed Last Taken Type carbidopa 25 mg-levodopa 100 mg 1.5 tab PO TID 01/12/20 08/04/23 02/06/22 History disintegrating tablet cetirizine 10 mg capsule (Zyrtec) 10 mg PO DAILY PRN Allergy Symptoms 01/12/20 08/04/23 01/13/20 05:00 History donepezil 10 mg tablet 10 mg PO QPM 01/12/20 08/04/23 02/05/22 History levothyroxine 50 mcg tablet 50 mcg PO DAILY 01/12/20 08/04/23 02/06/22 History (Synthroid) memantine 28 mg capsule 28 mg PO DAILY 01/12/20 08/04/23 02/06/22 History sprinkle,extended release 24hr sertraline 100 mg tablet (Zoloft) 100 mg PO DAILY 01/12/20 08/04/23 02/06/22 History tizanidine 4 mg tablet 4 mg PO BID PRN Spasms 01/12/20 08/04/23 01/12/20 History omeprazole 40 mg capsule,delayed 40 mg PO DAILY 03/12/20 08/04/23 02/06/22 History release tramadol 50 mg tablet (Ultram) 50 mg PO TID PRN Pain 03/12/20 08/04/23 10/09/21 History aspirin 81 mg tablet,delayed 81 mg PO DAILY 07/28/20 08/04/23 02/06/22 History release (Adult Aspirin Regimen) [id number]-lcvs 8 mg-folic 400 1 tab PO DAILY 11/12/21 08/04/23 02/06/22 History mcg-K 50 mcg-lutein 300 mcg tablet (Centrum Silver Women) furosemide 40 mg tablet 40 mg PO DAILY 02/06/22 08/04/23 02/06/22 History potassium chloride 10 mEq 10 meq PO DAILY 02/06/22 08/04/23 02/06/22 History capsule,extended release nitroglycerin 0.4 mg sublingual 0.4 mg sublingual Q5M PRN Chest 02/14/22 08/04/23 Unknown Rx tablet (Nitrostat) Pain #25 tabs primidone 250 mg tablet 125 mg PO DIRECTED 02/14/22 08/04/23 Unknown History metoprolol tartrate 25 mg tablet See Rx Instructions .Route 04/02/23 08/04/23 Unknown Rx .COMPLEX #90 tabs atorvastatin 80 mg tablet 80 mg PO QPM #90 tabs 06/09/23 08/04/23 Unknown Rx custom molded accommodative #1 ea 08/04/23 08/04/23 Unknown Rx orthotics and orthopedic shoes amiodarone 100 mg tablet See Rx Instructions .Route 08/11/23 Unknown Rx .COMPLEX #90 tabs amiodarone 100 mg tablet 100 mg PO DAILY 10/20/23 10/20/23 10/20/23 History 1900 Allergies Allergy/AdvReac Type Severity Reaction Status Date / Time codeine Allergy Unknown ALGY-Hives Verified 09/15/23 15:39 morphine Allergy Unknown ALGY-Rash Verified 09/15/23 15:39 Penicillins Allergy Unknown ALGY-Rash Verified 09/15/23 15:39 PFSH Acute 2 PFSH: Medical History (Updated 10/20/23 @ 01:09 by Andrew Rodriguez MD) Atrial fibrillation and flutter Patient is not on any oral anticoagulation. Patient has a history of frequent falls. She had the left atrial appendage occlusion with the watchman device. She seems to be staying in the sinus rhythm most of the times. Symptomatic bradycardia Bronchitis due to 2019-nCoV Reactive airway disease Pacemaker History of 2019 novel coronavirus disease (COVID-19) (~03/2020) Morbid obesity with BMI of 40.0-44.9, adult Presence of Watchman left atrial appendage closure device HTN (hypertension) Parkinson disease Atrial fibrillation Has watchman device in the left atrial appendage, no anticoagulation, sinus rhythm this hospital stay Hypothyroid Hyperlipemia Arthritis Hx of pulmonary embolus Hx of vaginal delivery Rheumatoid arthritis Hx of deep venous thrombosis Surgical History History of tonsillectomy and adenoidectomy Hx of cholecystectomy Hx of hysterectomy Hx of total knee replacement Hx of appendectomy Hx of tubal ligation Hx of laminectomy Hx of arthroscopy of shoulder Hx of Achilles tendon repair Hx of heart surgery History of shoulder surgery Diagnostic arthroscopy of right shoulder with minimal debridement, open distal clavicle resection, open acromioplasty, open rotator cuff repair augmented with acellular dermal patch, open biceps tenodesis. DOS: 06/24/[address] Rain Family History Brother CAD (coronary artery disease) pacemaker Chronic kidney disease (CKD) Brother CAD (coronary artery disease) Sister CAD (coronary artery disease) ICD Family/Other Cancer Dementia Daughter Diabetes Mother Dementia Denies family history of Clotting disorder Suicide Anesthesia complication Bleeding disorder Lung disease Stroke Social History Smoking and tobacco/nicotine status: never used tobacco/nicotine Alcohol intake: never Substance/Drug Use: never Housing: House Vitals/I&O/Wt Last Vital Signs Temp 99.5 F 10/20/23 00:06 Pulse 103 H 10/20/23 00:06 Resp 20 H 10/20/23 00:06 BP 99/61 10/20/23 00:06 Pulse Ox 94 10/20/23 00:06 O2 Del Method Room Air 10/20/23 00:06 10/19/23 10/19/23 10/20/23 14:59 22:59 06:59 Intake Total 965.7 / 965.7 Balance 965.7 / 965.7 Weight last 48 hrs Weight 89.811 kg Physical Exam 2 Narrative: General: Patient is awake. Appears fatigued but pleasant. Head: Normocephalic. Atraumatic. EOM intact. Dry mucous membranes. Neck: No JVD. Cardiovascular: Irregularly irregular rhythm. Tachycardic. No gallops, rubs, or murmurs. No peripheral edema. Lungs: Breath sounds are diminished bilateral bases without use of accessory muscles, no crackles or wheezes. Skin: Left second finger with small ulcerated room with surrounding inflammation/erythema. Abdomen: Normal bowel sounds, abdomen soft and nontender. Right mid forearm with significant erythema, swelling, and tenderness to touch. There is mild erythema tracking going up the arm. Extremities: No cyanosis or clubbing. Musculoskeletal: No swollen or erythematous joints. Neurological: Moves all 4 extremities. No myoclonus. Data 10/19/23 22:48 10/19/23 22:48 Micro: Microbiology 10/19/23 23:22 Blood Culture - Preliminary Blood SPECIMEN COLLECTED 10/19/23 22:48 Blood Culture - Preliminary Blood SPECIMEN COLLECTED A&P Assessment and plan (1) Cellulitis: Right forearm cellulitis complicated by sepsis Sirs: Tachycardia with heart rate greater than 90, leukocytosis with WBC greater than 12 Source: Right arm cellulitis Status post 1 L IV fluid in ED, complete remaining 30 mL/kg IV fluid bolus Start ceftriaxone Start vancomycin MRSA screening Telemetry monitoring Supportive care (2) AF (paroxysmal atrial fibrillation): Patient currently in atrial fibrillation with rapid ventricular rate History of Watchman procedure and pacemaker Continue amiodarone Continue metoprolol if blood pressure tolerates (3) HTN (hypertension): Hold Lasix for now Continue metoprolol for rate control as above Qualifiers: Hypertension type: essential hypertension Qualified Code(s): I10 - Essential (primary) hypertension (4) Hyperlipemia: Continue home statin Qualifiers: Hyperlipidemia type: unspecified Qualified Code(s): E78.5 - Hyperlipidemia, unspecified (5) Parkinson disease: Continue home Sinemet (6) Hypothyroid: Recent TSH 7.0 on 09/15/2023 Continue home Synthroid dosing Repeat TFTs Qualifiers: Hypothyroidism type: acquired Qualified Code(s): E03.9 - Hypothyroidism, unspecified Plan DVT prophylaxis: Lovenox Status: Full code Attestations 2 Medical Necessity Statement*: Patient presents with severe weakness, found to have cellulitis complicated by sepsis with expected hospitalization not to cross 2 midnights for IV fluid resuscitation, broad-spectrum antibiotics, cultures, and supportive care. Coding Level [facility] Care Code [facility] Cellulitis L03.90 AF (paroxysmal atrial fibrillation) I48.0 Essential hypertension I10 Hypertension type: essential hypertension Hyperlipidemia, unspecified hyperlipidemia type E78.5 Hyperlipidemia type: unspecified Parkinson disease G20 Acquired hypothyroidism E03.9 Hypothyroidism type: acquired
--- NOTE | 2023-10-20 00:48 | ECG_ITS ---
[facility] Test Date: 2023-10-20 Pat Name: Kassie Robles Department: Room: Gender: Female Chemists: : 1935 Requested By: Renard Huitron Order Number: [id number] Marielos MD: Janey Garcia M.D. Measurements Intervals [place] Rate: 103 P: 0 HI: 0 QRS: 85 QRSD: 104 T: 264 QT: 377 QTc: 495 Interpretive Statements ATRIAL FIBRILLATION WITH RAPID VENTRICULAR RESPONSE ST DEVIATION AND MODERATE T-WAVE ABNORMALITY, CONSIDER ANTEROLATERAL ISCHEMIA [-0.1+ mV T-WAVE IN V3-V6] ST DEVIATION AND MODERATE T-WAVE ABNORMALITY, CONSIDER INFERIOR ISCHEMIA [-0.1+ mV T-WAVE IN II/aVF] Compared to ECG 02/06/2022 19:34:18 Possible ischemia now present Left-axis deviation no longer present T-wave abnormality still present Electronically Signed On 10-20-2023 19:00:06 CDT by Janey Garcia M.D. [id number]
[2023-10-20 01:17] LABS: C Reactive Protein 48.8 mg/L (0.0-4.9)
[2023-10-20 01:42] LABS: Free T4 Free Thyroxine 0.92 ng/dL (0.82-1.77); Thyroid Stimulating Hormone 3.56 uIU/mL (0.27-4.20)
[2023-10-20] MEDS: sodium chloride 0.9% 1,000 ML 500 ML IV (02:19)
[2023-10-20] MEDS: vancomycin 1,500 MG/300 ML PIGGYBACK 200 MG IV (02:20)
[2023-10-20] MEDS: enoxaparin 40 mg/0.4 mL Syringe SUBCUT (02:23)
--- NOTE | 2023-10-20 04:29 | PC.NURSE ---
this nurse went to hang second liter of NS to give 700mls out of it, [facility] would not let me scan liter stating it was too much volume, so I marked as not done but it is done. I hung second liter, it's running at 500mL/hr for 700 mls per the order.
--- NOTE | 2023-10-20 08:30 | PC.NURSE ---
Skin Assessment -noted left lateral distal side of her 2nd forefinger has scab, redness and swelling. pt stated she had a paper cut last week. Dr Raman at bedside and showed her the swelling on that finger too.
[2023-10-20] MEDS: carbidopa-levodopa 25-100mg Tablet 1.5 EACH PO ×3 (08:34→23:06)
[2023-10-20] MEDS: pantoprazole DR 40 mg Tablet PO (08:35)
[2023-10-20] MEDS: amiodarone 200 mg Tablet 100 MG PO (08:35)
[2023-10-20] MEDS: aspirin 81 mg EC Tablet PO (08:35)
[2023-10-20] MEDS: levothyroxine 88 mcg Tablet PO (09:42)
--- NOTE | 2023-10-20 12:20 | P.PN_ITS ---
Subjective 2 Subjective: No acute overnight events noted. She complains of headache since she came in which is not responding to acetaminophen. She also complained of right arm pain 10/19 but was able to move the arm without any difficulties Vitals/I&O/Wt Last Vital Signs Temp 99.3 F 10/20/23 11:49 Pulse 76 10/20/23 11:49 Resp 18 10/20/23 11:49 BP 93/53 10/20/23 11:49 Pulse Ox 96 10/20/23 11:49 O2 Del Method Room Air 10/20/23 11:49 10/19/23 10/20/23 10/20/23 22:59 06:59 14:59 Intake Total 3845.7 / 3845.7 360 / 360 Balance 3845.7 / 3845.7 360 / 360 Weight last 48 hrs Weight 96.162 kg Weight 96.275 kg Weight 89.811 kg Physical Exam 2 Narrative: She is alert awake oriented x 3, not in acute distress. She has this Parkinson head tremor. Chest clear to auscultation bilaterally. Cardiovascular normal heart sounds. Abdomen soft nontender nondistended normal bowel sounds. Extremities right upper extremity erythema, edema and warmth present in middle third, paperwork at injury present on right fourth digit, looks like a crater. No edema noted bilateral lower extremities. Data 10/19/23 22:48 10/19/23 22:48 Micro: Microbiology 10/19/23 23:22 Blood Culture - Preliminary Blood SPECIMEN COLLECTED 10/19/23 22:48 Blood Culture - Preliminary Blood SPECIMEN COLLECTED A&P Assessment and plan (1) Cellulitis: (2) AF (paroxysmal atrial fibrillation): (3) HTN (hypertension): Qualifiers: Hypertension type: essential hypertension Qualified Code(s): I10 - Essential (primary) hypertension (4) Hyperlipemia: Qualifiers: Hyperlipidemia type: unspecified Qualified Code(s): E78.5 - Hyperlipidemia, unspecified (5) Hypothyroid: Qualifiers: Hypothyroidism type: acquired Qualified Code(s): E03.9 - Hypothyroidism, unspecified (6) Parkinson disease: Plan 1) Cellulitis: Right forearm cellulitis complicated by sepsis which is resolving Sirs: Tachycardia with heart rate greater than 90, leukocytosis with WBC greater than 12 WBC count 8.4 today Source: Right arm cellulitis Status post 1 L IV fluid in ED, complete remaining 30 mL/kg IV fluid bolus Continue IV vancomycin and ceftriaxone. Blood cultures pending MRSA screening Telemetry monitoring Supportive care (2) AF (paroxysmal atrial fibrillation): History of Watchman procedure and pacemaker Continue amiodarone Continue metoprolol if blood pressure tolerates 2D echo 10/10/2021 Normal left ventricular size, systolic function and wall thickness, with no regional wall motion abnormalities. Normal diastolic function. Left ventricular ejection fraction is estimated at 65%. Normal right ventricular size and systolic function. Mild pulmonary hypertension, RVSP 43.8 mmHg. Moderately increased left atrial size. Structurally normal mitral valve. Mild-moderate mitral valve regurgitation. No mitral valve stenosis. (3) HTN (hypertension): Blood pressure still soft Will start lactated Ringer at 75 cc/h Watch for fluid overload. Qualifiers: Hypertension type: essential hypertension Qualified Code(s): I10 - Essential (primary) hypertension (4) Hyperlipemia: Continue home statin Qualifiers: Hyperlipidemia type: unspecified Qualified Code(s): E78.5 - Hyperlipidemia, unspecified (5) Parkinson disease: Continue home Sinemet, primidone (6) Hypothyroid: TSH 3.5 Continue home Synthroid dosing Qualifiers: Hypothyroidism type: acquired Qualified Code(s): E03.9 - Hypothyroidism, unspecified Plan DVT prophylaxis: Lovenox Status: Full code Attestations 2 Medical Necessity Statement*: Patient presents with severe weakness, found to have cellulitis complicated by sepsis with expected hospitalization not to cross 2 midnights for IV fluid resuscitation, broad-spectrum antibiotics, cultures, and supportive care. Time Spent in Patient Care: 15 minutes Coding Level of Care Code Acute Code for [facility] Fwd Diagnoses Cellulitis L03.90 AF (paroxysmal atrial fibrillation) I48.0 Essential hypertension I10 Hypertension type: essential hypertension Hyperlipidemia, unspecified hyperlipidemia type E78.5 Hyperlipidemia type: unspecified Acquired hypothyroidism E03.9 Hypothyroidism type: acquired Parkinson disease G20 Time Spent (min) 15
[2023-10-20 12:28] LABS: Basophils % 0.5 %; Eosinophils % 0.2 %; Hematocrit 36.4 % (36-47); Lymphocytes # 1.4 10^3/uL (0.8-4.8); Lymphocytes % 16.2 %; Mean Corpuscular HGB Conc 32.7 g/dL (30-55); Mean Corpuscular Hemoglobin 35.3 pg (27-33); Mean Platelet Volume 11.1 fL (7.4-10.4); Monocytes # 0.5 10^3/uL (0.2-0.9); Monocytes % 6.2 %; Neutrophils # 6.44 10^3/uL (1.8-7.7); Neutrophils % 76.7 %; Nucleated Red Blood Cells % 0 %; Platelet Count 130 10^3/cmm (157-399); Red Blood Count 3.37 10^6/uL (3.85-5.65); Red Cell Distribution Width 14.8 % (12.1-15.1)
[2023-10-20 12:48] LABS: Blood Urea Nitrogen 19 mg/dL (8-23); Calcium 8.1 mg/dL (8.5-10.5); Carbon Dioxide 24 mmol/L (22-29); Chloride 103 mmol/L (98-107); Creatinine Clr Calc Pharmacy 58.9911; Glucose 109 mg/dL (65-115); Magnesium 1.7 mg/dL (1.7-2.3); Osmolality Calculated 285 mOsm/kg (285-295); Sodium 136 mmol/L (136-145)
[2023-10-20 12:55] LABS: Procalcitonin 0.42 ng/mL (0-0.5)
[2023-10-20] MEDS: lactated ringers 1,000 ML 75 ML IV (15:15)
--- NOTE | 2023-10-20 16:59 | PC.NURSE ---
notified hospitalist via telephone and voalte phone Pt cellulitis on right forearm has now spread with linear red streaks going up to her inner forearm to inner armpit. pt stated it is sore and itchy, slight burning noted. Notified hospitalist.
[2023-10-20] MEDS: atorvastatin 40 mg Tablet 80 MG PO (17:36)
[2023-10-20] MEDS: donepezil 5 MG Tablet 10 MG PO (17:36)
[2023-10-20] MEDS: acetaminophen 325 mg Tablet 650 MG PO (18:09)
--- NOTE | 2023-10-20 20:05 | USCV_ITS ---
Kassie Robles Age: 88 Gender: F : 1935 Exam Date: 10/20/2023 21:54 Ordering Phys: Amparo Raman MD Technologist: JERAMIE Exam Location: [facility] [place] Indication: erythema RIGHT forearm. HISTORY: erythema RIGHT forearm. PROCEDURES: Venous duplex imaging was performed in only the right upper extremity. The following venous structures were evaluated: internal jugular vein, subclavian vein, axillary vein, and brachial veins. In addition, the basilic vein, cephalic vein, radial vein, and ulnar vein. Serial compression, augmentation maneuvers, and spectral Doppler flow evaluation were performed, which were normal. In all of the above named veins, there was good spontaneity, compressibility, and augmentation. No evidence of thrombus noted. CONCLUSIONS No evidence of thrombus of the right upper extremity veins. Omero Ron MD (Electronically Signed) Final Date: 21 October 2023 08:53 S
--- NOTE | 2023-10-20 20:11 | USCV_ITS ---
Kassie Robles Age: 88 Gender: F : 1935 Exam Date: 10/20/2023 22:18 Ordering Phys: Amparo Raman MD Technologist: JERAMIE Exam Location: [facility] [place] Indication: erythema RIGHT forearm. Risk Factors: erythema RIGHT forearm. Previous Vascular Surgery: None Right BP: 126.00 / 84.00 Left BP: / RIGHT LEFT PSV PSV (cm/s) (cm/s) Waveform Waveform Triphasic 76.0 Subclavian Proximal Triphasic 76.0 Subclavian Distal Triphasic 69.0 Axillary Triphasic 126.0 Brachial Proximal Triphasic 117.0 Brachial Mid Triphasic 131.0 Brachial at AC Triphasic 86.0 Radial Proximal Triphasic 91.0 Radial Mid Triphasic 64.0 Radial at Wrist Biphasic 69.0 Ulnar Proximal Biphasic 73.0 Ulnar Mid Triphasic 41.0 Ulnar at Wrist 0.97 Radial/Brachial Index 0.98 Ulnar/Brachial Index FINDINGS Patent right the posterior medial arteries Normal Doppler waveforms and Doppler flow velocities RBI 0.97 and UBI of 0.98 on the right side CONCLUSIONS 1. Normal RBI and UBI on the right side 2. Normal artery Doppler waveforms and velocities 3. The above features suggesting no significant arterial obstruction in the right upper extremity Dr Janey Garcia MD [facility] (Electronically Signed) Final Date: 21 October 2023 18:25 S
[2023-10-20] MEDS: sertraline 100 mg Tablet PO (23:06)
[2023-10-21] VITALS (8 sets, daily range): BP systolic 119–154; BP diastolic 61–95; PULSE 72–107; RESP 18; TEMP 36.4–36.7; O2SAT 97–99
[2023-10-21] MEDS: cefTRIAXone 1,000 MG in sodium chloride 0.9% (plus) 100 ML 100 MG IV ×2 (00:05→23:29)
[2023-10-21] MEDS: enoxaparin 40 mg/0.4 mL Syringe SUBCUT (03:04)
[2023-10-21] MEDS: vancomycin 1,500 MG/300 ML PIGGYBACK 200 MG IV (03:04)
[2023-10-21 04:35] LABS: Basophils % 0.4 %; Eosinophils # 0.2 10^3/uL (0.0-0.8); Eosinophils % 2.3 %; Hematocrit 38.5 % (36-47); Lymphocytes # 1.8 10^3/uL (0.8-4.8); Lymphocytes % 22.4 %; Mean Corpuscular HGB Conc 32.7 g/dL (30-55); Mean Corpuscular Hemoglobin 35.3 pg (27-33); Mean Corpuscular Volume 107.8 fl (85-98); Mean Platelet Volume 11.6 fL (7.4-10.4); Monocytes # 0.5 10^3/uL (0.2-0.9); Monocytes % 6.1 %; Neutrophils # 5.61 10^3/uL (1.8-7.7); Neutrophils % 68.6 %; Nucleated Red Blood Cells % 0 %; Platelet Count 134 10^3/cmm (157-399); Red Blood Count 3.57 10^6/uL (3.85-5.65); Red Cell Distribution Width 14.6 % (12.1-15.1); White Blood Count 8.18 10^3/uL (3.29-11.43)
[2023-10-21 04:51] LABS: Anion Gap 14.1 (5-19); Blood Urea Nitrogen 16 mg/dL (8-23); Calcium 8.6 mg/dL (8.5-10.5); Carbon Dioxide 23 mmol/L (22-29); Chloride 106 mmol/L (98-107); Creatinine Clr Calc Pharmacy 58.9911; Glucose 114 mg/dL (65-115); Osmolality Calculated 290 mOsm/kg (285-295); Potassium 4.1 mmol/L (3.5-5.1); Sodium 139 mmol/L (136-145)
[2023-10-21] MEDS: lactated ringers 1,000 ML 75 ML IV (06:43)
[2023-10-21] MEDS: levothyroxine 88 mcg Tablet PO (09:16)
[2023-10-21] MEDS: aspirin 81 mg EC Tablet PO (09:16)
[2023-10-21] MEDS: potassium chloride ER 10 mEq Tablet PO (09:16)
[2023-10-21] MEDS: ibuprofen 200 mg Tablet PO ×2 (09:16→18:20)
[2023-10-21] MEDS: carbidopa-levodopa 25-100mg Tablet 1.5 EACH PO ×3 (09:17→20:33)
[2023-10-21] MEDS: amiodarone 200 mg Tablet 100 MG PO (09:19)
[2023-10-21] MEDS: pantoprazole DR 40 mg Tablet PO (09:19)
[2023-10-21] MEDS: FUROsemide 40 mg Tablet PO (09:19)
--- NOTE | 2023-10-21 09:43 | P.PN_ITS ---
Subjective 2 Subjective: Had c/o severe pain in right arm radiating to axilla and also redness and red streaks travelling to axilla, no fever or any other complaints. Vitals/I&O/Wt Last Vital Signs Temp 97.9 F 10/20/23 23:52 Pulse 80 10/21/23 04:00 Resp 17 10/20/23 23:52 BP 140/75 10/21/23 04:00 Pulse Ox 99 10/21/23 04:00 O2 Del Method Room Air 10/20/23 16:00 10/20/23 10/21/23 10/21/23 22:59 06:59 14:59 Intake Total 340 / 1040 1100 / 2140 Balance 340 / 1039 1100 / 2139 Weight last 48 hrs Weight 102.257 kg Weight 96.162 kg Weight 96.275 kg Weight 89.811 kg Physical Exam 2 Narrative: She is alert awake oriented x 3, not in acute distress. She has this Parkinson head tremor. Chest clear to auscultation bilaterally. Cardiovascular normal heart sounds. Abdomen soft nontender nondistended normal bowel sounds. Extremities right upper extremity erythema, edema and warmth present in middle third, papercut at injury present on left fourth digit, looks like a crater. there are red streaks going up to the axilla No edema noted bilateral lower extremities. Data 10/21/23 04:04 10/21/23 04:04 Micro: Microbiology 10/19/23 23:22 Blood Culture - Preliminary Blood NEGATIVE TO DATE 10/19/23 22:48 Blood Culture - Preliminary Blood NEGATIVE TO DATE A&P Assessment and plan (1) Cellulitis: (2) AF (paroxysmal atrial fibrillation): (3) HTN (hypertension): Qualifiers: Hypertension type: essential hypertension Qualified Code(s): I10 - Essential (primary) hypertension (4) Hyperlipemia: Qualifiers: Hyperlipidemia type: unspecified Qualified Code(s): E78.5 - Hyperlipidemia, unspecified (5) Hypothyroid: Qualifiers: Hypothyroidism type: acquired Qualified Code(s): E03.9 - Hypothyroidism, unspecified (6) Parkinson disease: Plan 1) Cellulitis: Right forearm cellulitis complicated by sepsis which is resolving Sirs: Tachycardia with heart rate greater than 90, leukocytosis with WBC greater than 12 WBC count 8.1 today Source: Right arm cellulitis Status post 1 L IV fluid in ED, complete remaining 30 mL/kg IV fluid bolus Continue IV vancomycin and ceftriaxone. Blood cultures negative so far Telemetry monitoring Supportive care Will add Ibupofen 200mg bid for inflammation. Follow up duplex venous and arterial to rule out DVT or thrombus. (2) AF (paroxysmal atrial fibrillation): History of Watchman procedure and pacemaker Continue amiodarone Continue metoprolol if blood pressure tolerates 2D echo 10/10/2021 Normal left ventricular size, systolic function and wall thickness, with no regional wall motion abnormalities. Normal diastolic function. Left ventricular ejection fraction is estimated at 65%. Normal right ventricular size and systolic function. Mild pulmonary hypertension, RVSP 43.8 mmHg. Moderately increased left atrial size. Structurally normal mitral valve. Mild-moderate mitral valve regurgitation. No mitral valve stenosis. (3) HTN (hypertension): Blood pressure still soft Will start lactated Ringer at 75 cc/h Watch for fluid overload. Qualifiers: Hypertension type: essential hypertension Qualified Code(s): I10 - Essential (primary) hypertension (4) Hyperlipemia: Continue home statin Qualifiers: Hyperlipidemia type: unspecified Qualified Code(s): E78.5 - Hyperlipidemia, unspecified (5) Parkinson disease: Continue home Sinemet, primidone (6) Hypothyroid: TSH 3.5 Continue home Synthroid dosing Qualifiers: Hypothyroidism type: acquired Qualified Code(s): E03.9 - Hypothyroidism, unspecified Plan DVT prophylaxis: Lovenox Status: Full code Attestations 2 Medical Necessity Statement*: Patient presents with severe weakness, found to have cellulitis complicated by sepsis with expected hospitalization to cross 2 midnights for IV fluid resuscitation, broad-spectrum antibiotics, cultures, and supportive care. Time Spent in Patient Care: 15 minutes Coding Level of Care Code Acute Code for Chg Fwd Diagnoses Cellulitis L03.90 AF (paroxysmal atrial fibrillation) I48.0 Essential hypertension I10 Hypertension type: essential hypertension Hyperlipidemia, unspecified hyperlipidemia type E78.5 Hyperlipidemia type: unspecified Acquired hypothyroidism E03.9 Hypothyroidism type: acquired Parkinson disease G20 Time Spent (min) 15
--- NOTE | 2023-10-21 10:33 | PC.CHAP ---
Pastoral Care Encounter/Spiritual Assessment Type of Contact [] Declined guest services manager visit [] Patient/Family/Request visit [] Outpatient visit [] Follow-up visit [] Physician referral [] Code/Alert [x] Routine visit [] Staff referral [] Actively dying [x] Patient sleeping [] Family support [] [] Out of room [] Palliative care [] [] Receiving care in room [] Pre-surgical visit [] Trauma [] Long length of stay [] ICU visit [] Other: Relational/Emotional Strength [] Patient feels connected with others/family/visitors/staff [] Distress [] Loneliness/isolation [] Abandonment Spirituality of Patient [] Person of [place] [] Attends Anabaptist of their [place] [] Believes in Prayer [] Reads Bible or Islam materials [] There are Spiritual issues to be addressed Equity Holder Interventions [] Prayer [] Active listening [] Non-anxious presence [] Spiritual/emotional support [] Crisis/trauma care [] Spiritual counseling [] Bereavement support [] Provided bereavement packet [] Provided Bible/devotional materials [] Provided toy/stuffed animal, coloring book to patient or family member [] Provided Communion [] Anointing/[place] [] Salvation [] Completed spiritual assessment [] Other: Impact on Illness or Injury [] Angry [] Fearful [] Anxious [] Often cries [] Exhaustion [] Unable to work [] Unable to attend congregational [] Unable to walk/stand [] Unable to read [] Unable to drive [] Unable to eat/drink [] Unable to sleep [] Unable to be with family [] Patient intubated [] Other: Summary Time spent with patient
[2023-10-21] MEDS: atorvastatin 40 mg Tablet 80 MG PO (18:20)
[2023-10-21] MEDS: donepezil 5 MG Tablet 10 MG PO (18:21)
[2023-10-21] MEDS: sertraline 100 mg Tablet PO (20:33)
[2023-10-22 00:49] VITALS: BP 109/76; PULSE 82; TEMP 36.9; O2SAT 96
[2023-10-22] MEDS: vancomycin 1,500 MG/300 ML PIGGYBACK 200 MG IV (02:05)
[2023-10-22] MEDS: enoxaparin 40 mg/0.4 mL Syringe SUBCUT (02:06)
[2023-10-22 05:28] VITALS: BP 108/67; PULSE 63; TEMP 36.7; O2SAT 95
[2023-10-22 05:32] VITALS: BMI 33.7
[2023-10-22 05:43] VITALS: PULSE 75
[2023-10-22 08:00] VITALS: BP 111/75; PULSE 95; RESP 18; TEMP 36.4; O2SAT 95
[2023-10-22] MEDS: aspirin 81 mg EC Tablet PO (08:46)
[2023-10-22] MEDS: ibuprofen 200 mg Tablet PO (08:47)
[2023-10-22] MEDS: levothyroxine 88 mcg Tablet PO (08:47)
[2023-10-22] MEDS: pantoprazole DR 40 mg Tablet PO (08:47)
[2023-10-22] MEDS: carbidopa-levodopa 25-100mg Tablet 1.5 EACH PO ×2 (08:47→15:49)
[2023-10-22] MEDS: amiodarone 200 mg Tablet 100 MG PO (08:47)
[2023-10-22] MEDS: FUROsemide 40 mg Tablet PO (08:47)
[2023-10-22] MEDS: potassium chloride ER 10 mEq Tablet PO (08:47)
--- NOTE | 2023-10-22 11:20 | PC.SOCIAL ---
IMM Update Pg. 2 of IMM updated and reviewed with patient, who verbalized understanding. Copy provided.
--- NOTE | 2023-10-22 11:57 | P.DS_ITS ---
Discharge Providers Date of Admission: 10/21/23 10:50 Date of Discharge: October 22, 2023 Attending Provider at Admission: Andrew Rodriguez MD Attending Provider at Discharge: Amparo Raman MD Primary Care Provider: Cheyenne Yang Diagnoses at Discharge Discharge Diagnosis (1) Cellulitis: Status: Acute (2) AF (paroxysmal atrial fibrillation): Status: Acute (3) HTN (hypertension): Status: Acute Qualifiers: Hypertension type: essential hypertension Qualified Code(s): I10 - Essential (primary) hypertension (4) Hyperlipemia: Status: Acute Qualifiers: Hyperlipidemia type: unspecified Qualified Code(s): E78.5 - Hyperlipidemia, unspecified (5) Hypothyroid: Status: Acute Qualifiers: Hypothyroidism type: acquired Qualified Code(s): E03.9 - Hypothyroidism, unspecified (6) Parkinson disease: Status: Acute Reason for Visit Reason for Visit: HEADACHE Brief History: Kassie Robles is a 88 year old female with past medical history significant for atrial fibrillation status post Watchman procedure and pacemaker, hypertension, Parkinson's disease, hypothyroidism, hyperlipidemia, and rheumatoid arthritis who presents to the emergency department with severe weakness. Patient reports she was in her usual state of health until about 2 to 3 days ago. She reports she obtained a paper cut on her left second finger which is worsened over the past couple days. She has been putting Neosporin on it. She also endorses erythema and swelling of her right forearm. She thinks she may have had a bug bite that initially started it. She endorses associated fevers. She also reports headache for the past 2 to 3 days. She does note that she did fall about 5 days ago while in her bathtub. Today, she states she was too weak to even stand. She lives with her daughter and granddaughter. She was too weak for them to help her up. She reports EMS had trouble getting her up as well. In the emergency department, patient was found to have fever with temperature 100.0 ?F, tachycardia with heart rate of 120 and soft blood pressure of 88/63. Labs revealed leukocytosis of 12.43, thrombocytopenia of 142 and elevated AST of 144. She was started on ceftriaxone and receive IV fluid bolus. Hospital Course Hospital Course She was diagnosed with right arm cellulitis with leukocytosis. Started on IV ceftriaxone and IV vancomycin, right arm cellulitis resolving. She also had her right upper extremity venous and arterial duplex which did not show any DVT or arterial thrombus. She is doing well, afebrile, no leukocytosis, hemodynamically stable and is ready to be discharged home with p.o. antibiotics for 10 days and to be followed up with PCP as an outpatient. Physical Exam Narrative: She is alert awake oriented x 3, not in acute distress. She has this Parkinson head tremor. Chest clear to auscultation bilaterally. Cardiovascular normal heart sounds. Abdomen soft nontender nondistended normal bowel sounds. Extremities right upper extremity erythema, edema and warmth present in middle third which is resolving, papercut at injury present on left fourth digit, looks like a crater. there were red streaks going up to the axilla which resolved No edema noted bilateral lower extremities. Discharge Data Studies Completed and Pending Completed Studies During Hospitalization Category Date Time Status CT head wo con* [id number] Stat Cat Scan 10/19/23 22:30 Completed XR chest 1V portable [id number] Stat Exams 10/19/23 22:30 [place] [id number] Routine Ultrasound 10/20/23 20:11 [place] [id number] Routine Ultrasound 10/20/23 20:05 Completed Pending at discharge Category Date Time Status Blood Culture Stat Lab 10/19/23 23:22 Results Vancomycin Trough Timed Lab 10/23/23 00:45 Ordered Radiology Impressions Chest X-Ray 10/19/23 22:30 IMPRESSION: 1. No definite pneumonia or CHF. 2. Other findings discussed above. Head CT 10/19/23 22:30 IMPRESSION: 1. No acute intracranial hemorrhage or mass effect. 2. Changes of microvascular disease. 3. Other findings discussed above. Laboratory Results WBC 8.18 10^3/uL (3.29-11.43) 10/21/23 04:04 RBC 3.57 10^6/uL (3.85-5.65) L 10/21/23 04:04 Hgb 12.60 g/dL (11.27-16.99) 10/21/23 04:04 Hct 38.5 % (36-47) 10/21/23 04:04 MCV 107.8 fl (85-98) H 10/21/23 04:04 MCH 35.3 pg (27-33) H 10/21/23 04:04 MCHC 32.7 g/dL (30-55) 10/21/23 04:04 RDW 14.6 % (12.1-15.1) 10/21/23 04:04 Plt Count 134 10^3/cmm (157-399) L 10/21/23 04:04 MPV 11.6 fL (7.4-10.4) H 10/21/23 04:04 Neut % (Auto) 68.6 % 10/21/23 04:04 Lymph % (Auto) 22.4 % 10/21/23 04:04 [place] % (Auto) 6.1 % 10/21/23 04:04 Eos % (Auto) 2.3 % 10/21/23 04:04 Baso % (Auto) 0.4 % 10/21/23 04:04 Neut # (Auto) 5.61 10^3/uL (1.8-7.7) 10/21/23 04:04 Lymph # (Auto) 1.8 10^3/uL (0.8-4.8) 10/21/23 04:04 [place] # (Auto) 0.5 10^3/uL (0.2-0.9) 10/21/23 04:04 Eos # (Auto) 0.2 10^3/uL (0.0-0.8) 10/21/23 04:04 Baso # (Auto) 0.0 10^3/uL (0.0-0.1) 10/21/23 04:04 Nucleated RBC % (auto) 0 % 10/21/23 04:04 Nucleated RBCs # 0.0 /100WBC 10/21/23 04:04 Sodium 139 mmol/L (136-145) 10/21/23 04:04 Potassium 4.1 mmol/L (3.5-5.1) 10/21/23 04:04 Chloride 106 mmol/L (98-107) 10/21/23 04:04 Carbon Dioxide 23 mmol/L (22-29) 10/21/23 04:04 Anion Gap 14.1 (5-19) 10/21/23 04:04 BUN 16 mg/dL (8-23) 10/21/23 04:04 Creatinine 0.6 mg/dL (0.5-0.9) 10/21/23 04:04 GFR Calculation Not Reportable 10/21/23 04:04 Glucose 114 mg/dL (65-115) 10/21/23 04:04 Calculated Osmolality 290 mOsm/kg (285-295) 10/21/23 04:04 Lactic Acid 1.5 mmol/L (0.5-2.2) 10/19/23 22:48 Calcium 8.6 mg/dL (8.5-10.5) 10/21/23 04:04 Magnesium 1.7 mg/dL (1.7-2.3) 10/20/23 12:15 Total Bilirubin 0.7 mg/dL (0.15-1.2) 10/19/23 22:48 AST 39 U/L (0-32) H 10/19/23 22:48 ALT 12 U/L (0-33) 10/19/23 22:48 Alkaline Phosphatase 99 U/L (35-105) 10/19/23 22:48 C-Reactive Protein 48.8 mg/L (0.0-4.9) H 10/19/23 22:24 Total Protein 7.1 g/dL (6.6-8.7) 10/19/23 22:48 Albumin 3.9 g/dL (3.5-5.2) 10/19/23 22:48 Globulin 3.2 g/dL (1.3-4.6) 10/19/23 22:48 Procalcitonin 0.42 ng/mL (0-0.5) 10/20/23 12:15 TSH 3.56 uIU/mL (0.27-4.20) 10/20/23 00:00 Free T4 0.92 ng/dL (0.82-1.77) 10/20/23 00:00 Urine Color Yellow (Yellow) 10/19/23 23:45 Urine Appearance Clear (CLEAR) 10/19/23 23:45 Urine pH 5 (5-7) 10/19/23 23:45 Ur Specific [place] 1.010 (1.005-1.030) 10/19/23 23:45 Urine Protein Neg (Negative) 10/19/23 23:45 Urine Glucose (UA) Norm (Normal) 10/19/23 23:45 Urine Ketones Negative (Negative) 10/19/23 23:45 Urine Blood Neg (Negative) 10/19/23 23:45 Urine Nitrate Negative (Negative) 10/19/23 23:45 Urine Bilirubin Neg (Negative) 10/19/23 23:45 Urine Urobilinogen Neg mg/dL (Negative) 10/19/23 23:45 Ur Leukocyte Esterase Negative (Negative) 10/19/23 23:45 Urine RBC 0-4 /hpf (0-2) H 10/19/23 23:45 Urine WBC 5-10 /hpf (0-5) H 10/19/23 23:45 Ur Squamous Epith Cells 0-4 /hpf (0-5) H 10/19/23 23:45 Amorphous Sediment Not Reportable 10/19/23 23:45 Urine Bacteria 3+ /hpf (NONE) H 10/19/23 23:45 Vitals Last Vital Signs Temp 97.5 F L 10/22/23 08:00 Pulse 95 10/22/23 08:00 Resp 18 10/22/23 08:00 BP 111/75 10/22/23 08:00 Pulse Ox 95 10/22/23 08:00 O2 Del Method Room Air 10/22/23 08:00 Discharge Plan Discharge Patient Disposition: Home Condition: Stable Prescriptions: New Bactrim DS 800-160 mg tablet 1 tab PO BID 10 Days Qty: 20 0RF cetirizine 10 mg tablet 10 mg PO DAILY PRN (Reason: allergy symptoms) 10 Days Qty: 10 0RF Continued aspirin [Adult Aspirin Regimen] 81 mg tablet,delayed release (DR/EC) 81 mg PO DAILY nitroglycerin [Nitrostat] 0.4 mg tablet, sublingual 0.4 mg SUBLINGUAL Q5M PRN (Reason: Chest Pain) Qty: 25 6RF atorvastatin 80 mg tablet 80 mg PO QPM Qty: 90 3RF omeprazole 40 mg Capsule,Delayed Release(Dr/Ec) 40 mg PO DAILY donepezil 10 mg Tablet 10 mg PO QPM sertraline [Zoloft] 100 mg Tablet 100 mg PO DAILY levothyroxine [Synthroid] 50 mcg Tablet 88 mcg PO DAILY carbidopa-levodopa 25-100 mg Tablet,Disintegrating 1.5 tab PO TID memantine 28 mg Capsule,Sprinkle,Er 24hr 28 mg PO DAILY primidone 250 mg tablet 125 mg PO DIRECTED Rx Instructions: 125 mg (1/2) tab in AM 250Mg (1 tab) in evening amiodarone 100 mg tablet 100 mg PO DAILY Centrum Silver Women 8 mg iron-400 mcg-300 mcg Tablet 1 tab PO DAILY Held furosemide 40 mg tablet 40 mg PO DAILY Hold Instructions: for 5 days potassium chloride 10 mEq capsule, extended release 10 meq PO DAILY Hold Instructions: hold for 5 days No Action (DME) custom molded accommodative orthotics and orthopedic shoes See Rx Instructions .Route .MEDSUPPLY Qty: 1 0RF Rx Instructions: As directed Discharge Orders: Discharge Order (Routine); Ordered 10/22/23 Ordered By: Amparo Raman Referrals: Cheyenne Yang PA [Primary Care Provider] - 10/29/23 1:20 pm Discharge Diet: Cardiac Discharge Activity: Increase activity as tolerated Patient Instructions: Opioid Safety Activity Restrictions/Additional Instructions: Apply triple antibiotic ointment to the right arm and the left fourth finger ulcer. Can apply Vaseline to the right arm as needed for itching and soothing. Discharge Attestations Time Spent in Discharge Care*: less than 30 min Status at Discharge: Cognitive status at discharge: cognitively intact , Behavioral status at discharge: cooperative and independent in ADL's , Quality Metrics Clinical Quality Measures [ No reported AMI, CVA or VTE this stay] Coding Level of Care Code Acute Code for Chg Fwd Diagnoses Cellulitis L03.90 AF (paroxysmal atrial fibrillation) I48.0 Essential hypertension I10 Hypertension type: essential hypertension Hyperlipidemia, unspecified hyperlipidemia type E78.5 Hyperlipidemia type: unspecified Acquired hypothyroidism E03.9 Hypothyroidism type: acquired Parkinson disease G20 Time Spent (min) 15
[2023-10-22 12:00] VITALS: BP 134/65; PULSE 75; RESP 19; TEMP 36.4; O2SAT 93
== END 2023-10-22 18:12 | disposition home or self-care (01) | DRG 603 ==
LOC: ER 10-20 00:35 → CSU 10-20 00:54
PROVIDERS: Admitting Provider Internal Medicine; Emergency Provider Emergency Medicine; PCP Physician Assistant; Visit Provider Internal Medicine
DX: L03.113 Cellulitis of right upper limb (principal); I48.20 Chronic atrial fibrillation, unspecified; I10 Essential (primary) hypertension; E78.5 Hyperlipidemia, unspecified; E03.9 Hypothyroidism, unspecified; G20.A1 Parkinson's disease without dyskinesia, without mention of fluctuations; Z95.0 Presence of cardiac pacemaker; M06.9 Rheumatoid arthritis, unspecified; W18.2XXA Fall in (into) shower or empty bathtub, initial encounter; Z91.81 History of falling; Z86.711 Personal history of pulmonary embolism; Z86.718 Personal history of other venous thrombosis and embolism; Z95.818 Presence of other cardiac implants and grafts
CPT/HCPCS: 36415; 70450; 71045; 80048; 80053; 81001; 83605; 83735; 84145; 84439; 84443; 85025; 86140; 87040; 93005; 93931; 93971; 96365; 96372; 96375; 97116; 97161; 97165; 97530; 97535; 99285; G0378; J0696; J1650; J1885; J3370; J7030; J7120

== ENCOUNTER → 2023-11-25 12:00 | Outpatient (BNVA) | payer MEDICARE, OTHER, SELFPAY | PROVIDERS: PCP Physician Assistant; Visit Provider Internal Medicine Cardiovascular Disease | DX: Z45.010 Encounter for checking and testing of cardiac pacemaker pulse generator [battery] (principal) | CPT/HCPCS: 93296 ==

== ENCOUNTER → 2024-02-25 09:01 | Outpatient (BNVA) | payer MEDICARE, OTHER, SELFPAY | PROVIDERS: PCP Physician Assistant; Visit Provider Internal Medicine Cardiovascular Disease | DX: Z45.010 Encounter for checking and testing of cardiac pacemaker pulse generator [battery] (principal) | CPT/HCPCS: 93296 ==

== ENCOUNTER → 2024-03-24 15:14 | Outpatient (BNVA) | payer MEDICARE, OTHER, SELFPAY | PROVIDERS: PCP Physician Assistant; Visit Provider Internal Medicine Cardiovascular Disease | DX: I73.9 Peripheral vascular disease, unspecified (principal); I48.91 Unspecified atrial fibrillation; Z95.818 Presence of other cardiac implants and grafts; E78.5 Hyperlipidemia, unspecified; Z95.0 Presence of cardiac pacemaker | CPT/HCPCS: 99214 ==

== ENCOUNTER 2024-04-09 12:31 | Outpatient (CLI) | payer MEDICARE, OTHER, SELFPAY ==
--- NOTE | 2024-04-09 12:45 | USCV_ITS ---
Kassie Robles Age: 88 Gender: F : 1935 Exam Date: 04/09/2024 12:44 Ordering Phys: Janey Garcia MD ([email or web address]) Technologist: [employer] [place] [facility] [place]: PAD, cold feet Risk Factors: Previous Vascular Surgery: RIGHT LEFT BP: 114.0 / 67.00 BP: 123.0/ 89.00 0 0 Waveform Velocity (cm/s) Velocity (cm/s) Waveform Triphasic 90.2 Iliac Prox 115.1 Triphasic Triphasic 99.8 Iliac Mid 132.3 Triphasic Triphasic 100.6 Iliac Distal 95.6 Triphasic Triphasic 103.0 [facility] 108.0 Triphasic Triphasic 107.0 SFA Prox 87.0 Triphasic Triphasic 68.0 SFA Mid 98.0 Triphasic Triphasic 64.0 SFA Dist 72.0 Triphasic Triphasic 67.0 POP 73.0 Triphasic Triphasic 108.0 ASSEMBLER GOLD FRAME 95.0 Triphasic Triphasic 102.0 DPA 127.0 Triphasic 1.4 MK 1.2 FINDINGS Resting MK 1.4 on the right and 1.2 on the left Minimal thickening and scattered minimal plaques in the iliac and femoral arteries Normal/near normal Doppler waveforms and velocities CONCLUSIONS Normal resting ABIs bilaterally with the normal/near normal Doppler waveforms suggesting no significant arterial obstruction, Intimal thickening and scattered minimal plaques in the iliac and femoral arteries bilaterally Dr Janey Garcia MD [facility] (Electronically Signed) Final Date: 12 April 2024 08:54 S
== END 2024-04-09 12:32 | disposition home or self-care (01) ==
LOC: RAD 12:31
PROVIDERS: PCP Physician Assistant; Visit Provider Internal Medicine Cardiovascular Disease
DX: I70.203 Unspecified atherosclerosis of native arteries of extremities, bilateral legs (principal)
CPT/HCPCS: 93925

== ENCOUNTER → 2024-06-02 08:53 | Outpatient (BNVA) | payer MEDICARE, OTHER, SELFPAY | PROVIDERS: PCP Physician Assistant; Visit Provider Internal Medicine Cardiovascular Disease | DX: Z45.010 Encounter for checking and testing of cardiac pacemaker pulse generator [battery] (principal) | CPT/HCPCS: 93296 ==

== ENCOUNTER → 2024-08-02 14:28 | Outpatient (BNVA) | payer MEDICARE, OTHER, SELFPAY | PROVIDERS: PCP Physician Assistant; Visit Provider Podiatrist Foot & Ankle Surgery | DX: M21.41 Flat foot [pes planus] (acquired), right foot (principal); M21.42 Flat foot [pes planus] (acquired), left foot; Z86.718 Personal history of other venous thrombosis and embolism; M06.9 Rheumatoid arthritis, unspecified; M20.41 Other hammer toe(s) (acquired), right foot; M20.42 Other hammer toe(s) (acquired), left foot | CPT/HCPCS: 99213 ==

== ENCOUNTER → 2024-09-22 10:49 | Outpatient (BNVA) | payer MEDICARE, OTHER, SELFPAY | PROVIDERS: PCP Physician Assistant; Visit Provider Nurse Practitioner Family | DX: I48.91 Unspecified atrial fibrillation (principal); Z95.818 Presence of other cardiac implants and grafts; E78.5 Hyperlipidemia, unspecified; Z95.0 Presence of cardiac pacemaker | CPT/HCPCS: 99213 ==

== ENCOUNTER → 2024-12-01 09:28 | Outpatient (BNVA) | payer MEDICARE, OTHER, SELFPAY | PROVIDERS: PCP Physician Assistant; Visit Provider Internal Medicine Cardiovascular Disease | DX: Z45.018 Encounter for adjustment and management of other part of cardiac pacemaker (principal) | CPT/HCPCS: 93296 ==

== ENCOUNTER → 2025-02-08 13:28 | Outpatient (BNVA) | payer MEDICARE, OTHER, SELFPAY | PROVIDERS: PCP Physician Assistant; Visit Provider Podiatrist Foot & Ankle Surgery | DX: M21.41 Flat foot [pes planus] (acquired), right foot (principal); M21.42 Flat foot [pes planus] (acquired), left foot; Z86.718 Personal history of other venous thrombosis and embolism; M06.9 Rheumatoid arthritis, unspecified; M20.41 Other hammer toe(s) (acquired), right foot; M20.42 Other hammer toe(s) (acquired), left foot | CPT/HCPCS: 99213 ==

== ENCOUNTER 2025-04-22 14:40 | Emergency (ER) | payer MEDICARE, OTHER, SELFPAY ==
[2025-04-22 14:50] VITALS: BP 137/67; PULSE 70; RESP 17; TEMP 36.3; O2SAT 96; BMI 35.6
--- NOTE | 2025-04-22 15:10 | ECG_ITS ---
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: : [id number] Requested By: Theresa Soliman Order Number: [id number] Marielos MD: MEDHAT VELAZQUEZ Measurements Intervals [place] Rate: 63 P: 0 LA: 0 QRS: -41 QRSD: 105 T: -73 QT: 368 QTc: 379 Interpretive Statements ATRIAL FIBRILLATION LEFT AXIS DEVIATION [QRS AXIS < -30] INCOMPLETE RIGHT BUNDLE BRANCH BLOCK [90+ ms QRS DURATION, TERMINAL R IN V1/V2, 40+ ms S IN I/aVL/V4/V5/V6] POSSIBLE ANTERIOR MYOCARDIAL INFARCTION , OF INDETERMINATE AGE [30 ms Q WAVE IN V3/V4, OR R < 0.2 mV IN V4] MODERATE T-WAVE ABNORMALITY, CONSIDER LATERAL ISCHEMIA [-0.1+ mV T-WAVE IN I/aVL/V5/V6] MODERATE T-WAVE ABNORMALITY, CONSIDER INFERIOR ISCHEMIA [-0.1+ mV T-WAVE IN II/aVF] Electronically Signed On 04-22-2025 18:29:00 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
--- NOTE | 2025-04-22 15:13 | XR_ITS ---
WS: [id number] XR chest 1V portable [id number] REASON FOR EXAM: fall, concerned she damaged pacemaker FINDINGS: The chest is unchanged compared to 10/19/2023. Cardiac device over the left chest with left subclavian vein leads to the right atrium and right ventricular apex. Wireless cardiac device overlying the left chest. Mild tortuosity and ectasia of the thoracic aorta with cardiomegaly. Bony thorax intact without acute fracture. XR/XR chest 1V portable [id number] IMPRESSION: Stable chest. Cardiac device is appear intact and unchanged compared to the previous study.
--- NOTE | 2025-04-22 16:01 | W.ED.FALL ---
HPI - Fall General: Chief Complaint: Fall Stated Complaint: fall (2days) Time Seen by Provider: 04/22/25 15:29 History of Present Illness: Patient is a 89-year-old female with A-fib, pacemaker, Watchman device, presents to the emergency room after fall Friday, 2 days ago. Patient was sitting in her chair, with walker in front of her, when the chair fell off to the left, and she states fell on her left chest, and arm. She does not have any complaints of her shoulder, or arm, she mainly has complaints of her left breast. She is worried that her battery in her pacemaker moved over 2 inches. She does not have any shortness of breath. Initially she felt like her chest contusion on kept her from cardiac appointment follow-up. She stated she was very stiff the next day. She has more movement today, and is not as stiff. She just feels the pain over her left breast from pushing on it, or movement. No actual chest discomfort. Associated symptoms-after fall: Denies abdominal pain or chest pain Related Data Home Medications ?Medication ?Instructions ?Recorded ?Confirmed carbidopa 25 mg-levodopa 100 mg 1.5 tab PO TID 01/12/20 02/08/25 disintegrating tablet donepezil 10 mg tablet 10 mg PO QPM 01/12/20 02/08/25 levothyroxine 50 mcg tablet 88 mcg PO DAILY 01/12/20 02/08/25 (Synthroid) memantine 28 mg capsule 28 mg PO DAILY 01/12/20 02/08/25 sprinkle,extended release 24hr sertraline 100 mg tablet (Zoloft) 100 mg PO DAILY 01/12/20 02/08/25 omeprazole 40 mg capsule,delayed 40 mg PO DAILY 03/12/20 02/08/25 release aspirin 81 mg tablet,delayed 81 mg PO DAILY 07/28/20 02/08/25 release (Adult Aspirin Regimen) furosemide 40 mg tablet 40 mg PO DAILY 02/06/22 02/08/25 Held on 10/22/23. Instructions: for 5 days potassium chloride 10 mEq 10 meq PO DAILY 02/06/22 02/08/25 capsule,extended release Held on 10/22/23. Instructions: hold for 5 days primidone 250 mg tablet 125 mg PO DIRECTED 02/14/22 02/08/25 Previous Rx's ?Medication ?Instructions ?Recorded nitroglycerin 0.4 mg sublingual 0.4 mg sublingual Q5M PRN Chest 02/14/22 tablet (Nitrostat) Pain #25 tabs custom molded accommodative #1 ea 08/04/23 orthotics and orthopedic shoes atorvastatin 80 mg tablet 80 mg PO QPM #90 tabs 04/20/24 amiodarone 100 mg tablet See Rx Instructions .Route 08/05/24 .COMPLEX #90 tabs diclofenac sodium 1 % topical gel 2 g topical TID #100 grams 02/08/25 (Voltaren Arthritis Pain) Allergies Allergy/AdvReac Type Severity Reaction Status Date / Time codeine Allergy Unknown ALGY-Hives Verified 04/22/25 14:57 morphine Allergy Unknown ALGY-Rash Verified 04/22/25 14:57 Penicillins Allergy Unknown ALGY-Rash Verified 04/22/25 14:57 Review of Systems Const: Denies: fever(s) or chills Card: Reports: other (Chest wall contusion from fall); Denies: chest pain or dyspnea on exertion Resp: Denies: dyspnea or productive cough GI: Denies: abdominal pain, nausea or vomiting : Denies: difficulty voiding Musc: Reports: joint swelling and limited range of motion; Denies: joint pain Skin/Breast: Denies: changes in skin color or dry skin Neuro: Denies: numbness in extremities or weakness in extremities Psych: Denies: anxiety Daniel/Lymph: Denies: easy bruising or easy bleeding REPLACED BY [facility] PFSH: Medical History (Updated 04/22/25 @ 16:09 by SOURAV Hoyt) Pacemaker Presence of Watchman left atrial appendage closure device Hyperlipemia AF (paroxysmal atrial fibrillation) Atrial fibrillation and flutter Patient is not on any oral anticoagulation. Patient has a history of frequent falls. She had the left atrial appendage occlusion with the watchman device. She seems to be staying in the sinus rhythm most of the times. Symptomatic bradycardia Bronchitis due to 2019-nCoV Reactive airway disease History of 2019 novel coronavirus disease (COVID-19) (~03/2020) Morbid obesity with BMI of 40.0-44.9, adult HTN (hypertension) Parkinson disease Atrial fibrillation Has watchman device in the left atrial appendage, no anticoagulation, sinus rhythm this hospital stay Hypothyroid Arthritis Hx of pulmonary embolus Hx of vaginal delivery Rheumatoid arthritis Hx of deep venous thrombosis Surgical History History of tonsillectomy and adenoidectomy Hx of cholecystectomy Hx of hysterectomy Hx of total knee replacement Hx of appendectomy Hx of tubal ligation Hx of laminectomy Hx of arthroscopy of shoulder Hx of Achilles tendon repair Hx of heart surgery History of shoulder surgery Diagnostic arthroscopy of right shoulder with minimal debridement, open distal clavicle resection, open acromioplasty, open rotator cuff repair augmented with acellular dermal patch, open biceps tenodesis. DOS: 06/24/[address] Rain Family History Brother CAD (coronary artery disease) pacemaker Chronic kidney disease (CKD) Brother CAD (coronary artery disease) Sister CAD (coronary artery disease) ICD Family/Other Cancer Dementia Daughter Diabetes Mother Dementia Denies family history of Clotting disorder Suicide Anesthesia complication Bleeding disorder Lung disease Stroke Social History Smoking and tobacco/nicotine status: never used tobacco/nicotine Alcohol intake: never Substance/Drug Use: never Housing: House Physical Exam Const: COMMON NORMALS: patient oriented x3 GENERAL APPEARANCE: ill appearing HENMT: COMMON NORMALS: normocephalic and atraumatic HEAD & SCALP: normocephalic and atraumatic Eye: COMMON NORMALS: Equal, round and reactive pupils present and EOMs intact bilaterally PUPIL: Yes Equal, round and reactive pupils present Neck/C-Spine: COMMON NORMALS: full ROM, supple and no meningeal signs Chest: COMMONS NORMALS: normal inspection of the chest; negative for normal palpation of entire chest wall (Discomfort over left breast. Pacemaker is spared.) CHEST: Yes Symmetrical chest wall rise Resp: COMMON NORMALS: normal respiratory effort, No retractions, No use of accessory muscles and clear to auscultation bilaterally AUSCULTATION: clear to auscultation bilaterally Cardio: COMMON NORMALS: regular rate, regular rhythm and No murmurs present (Cardio) RATE: regular rate RHYTHM: regular rhythm GI: COMMON NORMALS: Normal to inspection, nondistended, normoactive bowel sounds present, Soft to palpation, non-tender and no masses PALPATION: Yes Soft to palpation Extremity: COMMON NORMALS: normal to inspection and full ROM Neuro: COMMON NORMALS: patient oriented x3, moves all extremities and no focal motor deficits MENINGEAL SIGNS: Yes no meningeal signs Psych: COMMON NORMALS: mental status grossly normal, Normal thought process present and cooperative THOUGHT PROCESS: Normal thought process present Course Vital Signs: Vital signs: Vital Signs Temperature 97.4 F L 04/22/25 14:50 Pulse Rate 70 04/22/25 14:50 Respiratory Rate 17 04/22/25 14:50 Blood Pressure 137/67 04/22/25 14:50 Pulse Oximetry 96 04/22/25 14:50 Oxygen Delivery Me thod Room Air 04/22/25 14:50 MDM - Fall Medical Decision Making Discussed with [employer]. No abnormality was seen on pacemaker interrogation. [employer] also notes that the overnight evaluation that is done nightly, did not note any abnormality. Sensing/pacing is intact. Impedance is appropriate. Chest x-ray shows pacemaker placement and wires without change from previous x-ray. No pneumothorax. No rib fracture. Patient has full range of motion of her left shoulder. This appears to be straightforward with chest contusion secondary to fall. Medical Records I reviewed the patient's medical records. Lab Data Radiology Impressions Chest X-Ray 04/22/25 15:13 IMPRESSION: Stable chest. Cardiac device is appear intact and unchanged compared to the previous study. All radiology interpretation(s) finalized by discharge ED provider radiology interpretation(s): No acute abnormality EKG Data EKG 1: Interpretation: A-fib, rate of 63, no ST segment abnormality Discharge Plan Discharge Patient Disposition: Home Clinical Impression: Chest wall contusion Qualifiers: Encounter type: initial encounter Laterality: left Qualified Code(s): S20.212A - Contusion of left front wall of thorax, initial encounter Condition: Stable Prescriptions: No Action aspirin [Adult Aspirin Regimen] 81 mg tablet,delayed release (DR/EC) 81 mg PO DAILY nitroglycerin [Nitrostat] 0.4 mg tablet, sublingual 0.4 mg SUBLINGUAL Q5M PRN (Reason: Chest Pain) Qty: 25 6RF (DME) custom molded accommodative orthotics and orthopedic shoes See Rx Instructions .Route .MEDSUPPLY Qty: 1 0RF Rx Instructions: As directed diclofenac sodium [Voltaren Arthritis Pain] 1 % gel 2 g topical TID Qty: 100 1RF Rx Instructions: apply to single foot 2-3 times daily atorvastatin 80 mg tablet 80 mg PO QPM Qty: 90 3RF amiodarone 100 mg tablet See Rx Instructions .ROUTE .COMPLEX Qty: 90 3RF Dose Instruction: TAKE 1 TABLET EVERY EVENING (DOSE CORRECTED) Rx Instructions: TAKE 1 TABLET EVERY EVENING (DOSE CORRECTED) omeprazole 40 mg Capsule,Delayed Release(Dr/Ec) 40 mg PO DAILY donepezil 10 mg Tablet 10 mg PO QPM sertraline [Zoloft] 100 mg Tablet 100 mg PO DAILY levothyroxine [Synthroid] 50 mcg Tablet 88 mcg PO DAILY carbidopa-levodopa 25-100 mg Tablet,Disintegrating 1.5 tab PO TID memantine 28 mg Capsule,Sprinkle,Er 24hr 28 mg PO DAILY primidone 250 mg tablet 125 mg PO DIRECTED Rx Instructions: 125 mg (1/2) tab in AM 250Mg (1 tab) in evening furosemide 40 mg tablet 40 mg PO DAILY potassium chloride 10 mEq capsule, extended release 10 meq PO DAILY Discharge Orders: Discharge ED (Routine); Ordered 04/22/25 Ordered By: Sade Braun Referrals: Cheyenne Yang PA [Primary Care Provider, [facility] Senior Developer] Discharge Diet: Low Salt Discharge Activity: Resume usual activity Patient Instructions: Fall Prevention for Older Adults (ED), Chest Contusion (ED), Patient Portal & Tim Instructions Activity Restrictions/Additional Instructions: - We discussed ice to this area, Tylenol, Lidoderm patch. All of these are acceptable. - If you have worsening pain, we discussed your follow-up with your primary care or at this facility. - Chest x-ray did not show any additional abnormalities. EKG is chronic without any change. Pacemaker interrogation is normal. Thank you for choosing [facility] for your healthcare needs today. You have been screened and evaluated and felt safe for discharge. Health conditions do change or evolve sometimes and as such it is important that you follow up with your Primary Doctor to be re checked, 3-5 days is a general good time frame for follow up. You are always welcome to return to the ED for re assessment if your symptoms are worsening or you have new concerns Print Language: Greenlandic Coding Level of Care Code ED Senior Scheduler for Domonique Peters
[2025-04-22 16:41] VITALS: BP 122/69; PULSE 64; O2SAT 92
== END 2025-04-22 16:42 | disposition home or self-care (01) ==
PROVIDERS: Emergency Provider Physician Assistant; PCP Physician Assistant
DX: S20.212A Contusion of left front wall of thorax, initial encounter (principal); Z79.82 Long term (current) use of aspirin; E78.5 Hyperlipidemia, unspecified; Z95.0 Presence of cardiac pacemaker; I10 Essential (primary) hypertension; W07.XXXA Fall from chair, initial encounter
CPT/HCPCS: 71045; 93005; 99284

== ENCOUNTER → 2025-04-27 10:32 | Outpatient (BNVA) | payer MEDICARE, OTHER, SELFPAY | PROVIDERS: PCP Physician Assistant; Visit Provider Internal Medicine Cardiovascular Disease | DX: I48.91 Unspecified atrial fibrillation (principal); Z79.82 Long term (current) use of aspirin; Z51.89 Encounter for other specified aftercare; I73.9 Peripheral vascular disease, unspecified; I10 Essential (primary) hypertension; Z79.899 Other long term (current) drug therapy; Z95.0 Presence of cardiac pacemaker; Z95.818 Presence of other cardiac implants and grafts | CPT/HCPCS: 99214 ==

== ENCOUNTER → 2025-05-11 12:31 | Outpatient (BNVA) | payer MEDICARE, OTHER, SELFPAY | PROVIDERS: PCP Physician Assistant; Visit Provider Internal Medicine Cardiovascular Disease | DX: I48.91 Unspecified atrial fibrillation (principal); Z79.899 Other long term (current) drug therapy | CPT/HCPCS: 80053; 84443 ==